=== PATIENT | male | born 1960 | race Caucasian/White ===

== ENCOUNTER → 2017-12-08 16:05 | Outpatient (CLI) | payer MEDICAID, SELFPAY ==
[2017-12-08 16:52] LABS: Hemoglobin A1C 6.7 % (0.0-7.0)
[2017-12-08 17:16] LABS: Alanine Aminotransferase 30 U/L (12-78); Albumin Level 4.4 gm/dL (3.4-5.0); Albumin/Globulin Ratio 1.3 (1.1-1.8); Alkaline Phosphatase 101 U/L (46-116); Anion Gap 17.3 mEq/L (5-15); Aspartate Amino Transferase 13 U/L (15-37); Bilirubin,Total 0.5 mg/dL (0.2-1.0); Blood Urea Nitrogen 21 mg/dL (7-18); Calcium 9.7 mg/dL (8.5-10.1); Carbon Dioxide 25 mmol/L (21.0-32.0); Chloride 102 mmol/L (98-107); Cholesterol 204 mg/dL (140-200); Creatinine,Serum 1.66 mg/dL (0.70-1.30); Estimated Glomerular Filt Rate 43 ml/min (>60); GFR (African American) 52 ML/MIN (>60); Globulin 3.4 gm/dl (1.3-3.2); Glucose 141 mg/dL (74-106); HDL Cholesterol 29 mg/dL (27-67); LDL Cholesterol 116 mg/dL (0-130); Potassium 4.3 mmoL/L (3.5-5.1); Sodium 140 mmol/L (136-145); Total Protein,Serum 7.8 gm/dL (6.4-8.2); Triglycerides 295 mg/dL (30-200); VLDL Cholesterol 59 mg/dL (0-40)
== END ==
PROVIDERS: PCP Internal Medicine Adolescent Medicine; Visit Provider Internal Medicine Adolescent Medicine
DX: E11.69 Type 2 diabetes mellitus with other specified complication (principal)
CPT/HCPCS: 36415; 80053; 80061; 83036

== ENCOUNTER → 2018-09-06 13:39 | Outpatient (CLI) | payer MEDICAID, SELFPAY ==
[2018-09-06 14:08] LABS: Basophils % 0.7 % (0.1-2.0); Eosinophils # 0.2 K/mm3 (0.0-0.4); Eosinophils % 3.7 % (0.1-12.0); Hematocrit 51.3 % (42.0-52.0); Hemoglobin 16.5 g/dL (14.1-18.0); Lymphocytes % 15.7 % (10-50); Mean Corpuscular HGB Conc 32.2 g/dL (31.8-35.4); Mean Corpuscular Hemoglobin 30.3 pg (27.0-31.2); Mean Corpuscular Volume 94.2 fl (80-94); Mean Platelet Volume 8.1 fl (7.4-10.4); Monocytes # 0.3 K/mm3 (0.1-1.0); Monocytes % 5.2 % (1.7-9.3); Neutrophils # 4.8 K/mm3 (1.8-7.8); Neutrophils % 74.8 % (37.0-80.0); Platelet Count 148 K/mm3 (142-424); Red Blood Count 5.45 M/mm3 (4.60-6.20); Red Cell Distribution Width 13.1 % (11.5-17.5); White Blood Count 6.4 K/mm3 (4.8-10.8)
[2018-09-06 15:23] LABS: Alanine Aminotransferase 27 U/L (12-78); Albumin/Globulin Ratio 1.3 (1.1-1.8); Alkaline Phosphatase 92 U/L (46-116); Anion Gap 17.3 mEq/L (5-15); Aspartate Amino Transferase 10 U/L (15-37); Bilirubin,Total 0.4 mg/dL (0.2-1.0); Blood Urea Nitrogen 27 mg/dL (7-18); Calcium 9.2 mg/dL (8.5-10.1); Carbon Dioxide 26 mmol/L (21.0-32.0); Chloride 103 mmol/L (98-107); Chol/HDL Ratio 6.3 (1-3.5); Cholesterol 200 mg/dL (140-200); Creatinine,Serum 1.63 mg/dL (0.70-1.30); Estimated Glomerular Filt Rate 44 ml/min (>60); GFR (African American) 53 ML/MIN (>60); Globulin 3.2 gm/dl (1.3-3.2); Glucose 123 mg/dL (74-106); HDL Cholesterol 32 mg/dL (27-67); LDL Cholesterol 123 mg/dL (0-130); Potassium 5.3 mmoL/L (3.5-5.1); Sodium 141 mmol/L (136-145); Total Protein,Serum 7.2 gm/dL (6.4-8.2); Triglycerides 225 mg/dL (30-200); VLDL Cholesterol 45 mg/dL (0-40)
[2018-09-06 15:50] LABS: Hemoglobin A1C 7.5 % (0.0-7.0)
[2018-09-08 19:50] LABS: Vitamin B12 431 pg/mL (232-1245)
== END ==
PROVIDERS: Visit Provider Internal Medicine Adolescent Medicine
DX: E11.69 Type 2 diabetes mellitus with other specified complication (principal); G60.9 Hereditary and idiopathic neuropathy, unspecified
CPT/HCPCS: 36415; 80053; 80061; 82607; 83036; 85025

== ENCOUNTER → 2019-04-26 11:23 | Outpatient (CLI) | payer MEDICAID, SELFPAY ==
[2019-04-26 12:55] LABS: Hemoglobin A1C 8.6 % (0.0-7.0)
[2019-04-26 13:01] LABS: Chol/HDL Ratio 6.8 (1-3.5); Cholesterol 162 mg/dL (140-200); HDL Cholesterol 24 mg/dL (27-67); Triglycerides 408 mg/dL (30-200)
== END ==
PROVIDERS: Visit Provider Internal Medicine Adolescent Medicine
DX: E11.69 Type 2 diabetes mellitus with other specified complication (principal)
CPT/HCPCS: 36415; 80061; 83036

== ENCOUNTER → 2020-06-14 12:30 | Outpatient (CLI) | payer OTHER, SELFPAY ==
[2020-06-14 13:16] LABS: Basophils # 0.1 K/mm3 (0-0.2); Basophils % 1.3 % (0.1-2.0); Eosinophils # 0.2 K/mm3 (0.0-0.4); Eosinophils % 4.6 % (0.1-12.0); Hematocrit 46.9 % (42.0-52.0); Hemoglobin 16.3 g/dL (14.1-18.0); Lymphocytes # 0.7 K/mm3 (0.7-4.5); Lymphocytes % 16.1 % (10-50); Mean Corpuscular HGB Conc 34.8 g/dL (31.8-35.4); Mean Corpuscular Hemoglobin 31.4 pg (27.0-31.2); Mean Corpuscular Volume 90.2 fl (80-94); Mean Platelet Volume 7.9 fl (7.4-10.4); Monocytes # 0.3 K/mm3 (0.1-1.0); Monocytes % 6.6 % (1.7-9.3); Neutrophils # 3.1 K/mm3 (1.8-7.8); Neutrophils % 71.4 % (37.0-80.0); Platelet Count 138 K/mm3 (142-424); Red Blood Count 5.19 M/mm3 (4.60-6.20); Red Cell Distribution Width 13.4 % (11.5-17.5); White Blood Count 4.3 K/mm3 (4.8-10.8)
[2020-06-14 13:52] LABS: Alanine Aminotransferase 37 U/L (12-78); Albumin Level 4.4 g/dl (3.5-5.0); Albumin/Globulin Ratio 1.6 (1.1-1.8); Alkaline Phosphatase 96 U/L (38-126); Anion Gap 19.7 mEq/L (5-15); Aspartate Amino Transferase 28 U/L (17-59); Bilirubin,Total 0.6 mg/dl (0.2-1.3); Blood Urea Nitrogen 26 mg/dl (9-20); Calcium 9.4 mg/dl (8.4-10.2); Carbon Dioxide 19 mmol/L (22.0-30.0); Chloride 103 mmol/L (98-107); Chol/HDL Ratio 5.4 (1-3.5); Cholesterol 158 mg/dl (140-200); Estimated Glomerular Filt Rate 44 ml/min (>60); GFR (African American) 53 ML/MIN (>60); Globulin 2.8 g/dL (1.3-3.2); Glucose 209 mg/dl (74-100); HDL Cholesterol 29 mg/dl (40-60); Potassium 4.7 mmoL/L (3.5-5.1); Sodium 137 mmol/L (136-145); Total Protein,Serum 7.2 g/dl (6.3-8.2); Triglycerides 336 mg/dl (30-150); VLDL Cholesterol 67 mg/dL (0-40)
[2020-06-14 13:59] LABS: Hemoglobin A1C 8.3 % (4.0-6.0)
[2020-06-14 14:03] LABS: Direct LDL Cholesterol 84.02 mg/dL (100-129)
[2020-06-14 14:47] LABS: Vitamin B12 > 1000 pg/mL
== END ==
PROVIDERS: Visit Provider Internal Medicine Adolescent Medicine
DX: I10 Essential (primary) hypertension (principal); E11.69 Type 2 diabetes mellitus with other specified complication; E53.8 Deficiency of other specified B group vitamins; Z79.84 Long term (current) use of oral hypoglycemic drugs
CPT/HCPCS: 36415; 80053; 80061; 82607; 83036; 85025

== ENCOUNTER → 2020-09-26 10:31 | Outpatient (CLI) | payer OTHER, SELFPAY ==
[2020-09-26 13:06] LABS: Ethyl Alcohol < 10 mg/dl (0-10)
== END ==
PROVIDERS: Visit Provider Internal Medicine Adolescent Medicine
DX: Z02.1 Encounter for pre-employment examination (principal)
CPT/HCPCS: 36415

== ENCOUNTER → 2021-07-12 12:01 | Outpatient (CLI) | payer OTHER, SELFPAY ==
[2021-07-12 12:07] LABS: Microscopic, Urine URINE MICROSCOPIC (MICROSCOPIC)
[2021-07-12 12:54] LABS: Basophils # 0.1 K/mm3 (0-0.2); Basophils % 2.1 % (0.1-2.0); Eosinophils # 0.2 K/mm3 (0.0-0.4); Eosinophils % 4.1 % (0.1-12.0); Hematocrit 50.6 % (42.0-52.0); Hemoglobin 16.6 g/dL (14.1-18.0); Lymphocytes # 0.6 K/mm3 (0.7-4.5); Lymphocytes % 15.6 % (10-50); Mean Corpuscular HGB Conc 32.8 g/dL (31.8-35.4); Mean Corpuscular Hemoglobin 30.3 pg (27.0-31.2); Mean Corpuscular Volume 92.4 fl (80-94); Mean Platelet Volume 8.7 fl (7.4-10.4); Monocytes # 0.3 K/mm3 (0.1-1.0); Monocytes % 7.6 % (1.7-9.3); Neutrophils # 2.6 K/mm3 (1.8-7.8); Neutrophils % 70.6 % (37.0-80.0); Platelet Count 139 K/mm3 (142-424); Red Blood Count 5.48 M/mm3 (4.60-6.20); Red Cell Distribution Width 14.5 % (11.5-17.5); White Blood Count 3.7 K/mm3 (4.8-10.8)
[2021-07-12 13:19] LABS: Appearance,Urine CLEAR (Clear); Bilirubin,Urine Negative (Negative); Blood, Urine Negative (Negative); Color,Urine YELLOW (Yellow); Glucose,Urine (UA) 3+ (Negative); Ketones,Urine Negative (Negative); Leukocyte Esterase,Urine Negative (Negative); Nitrate,Urine Negative (Negative); PH,Urine 5.5 (5.0-8.5); Protein,Urine Negative (Negative); Urobilinogen,Urine 0.2 EU/dl (0.2)
[2021-07-12 13:27] LABS: Creatinine,Urine Random 90 mg/dL (Not Estab.)
[2021-07-12 13:29] LABS: Squamous Epithelial Cell,Urine Occasional #/hpf (0-5)
[2021-07-12 13:44] LABS: Albumin Level 4.4 g/dl (3.5-5.0); Anion Gap 19.1 mEq/L (5-15); Blood Urea Nitrogen 24 mg/dl (9-20); Calcium 9.5 mg/dl (8.4-10.2); Carbon Dioxide 22 mmol/L (22.0-30.0); Chloride 101 mmol/L (98-107); Estimated Glomerular Filt Rate 47 ml/min (>60); GFR (African American) 57 ML/MIN (>60); Glucose 146 mg/dl (74-100); Phosphorous 2.9 mg/dl (2.5-4.5); Potassium 5.1 mmoL/L (3.5-5.1); Sodium 137 mmol/L (136-145)
[2021-07-12 13:56] LABS: Intact Parathyroid Hormone 127.5 pg/mL (7.5-53.5)
[2021-07-12 14:01] LABS: 25-OH Vitamin D, Total 35.8 ng/mL (30-100)
== END ==
PROVIDERS: Visit Provider Student in an Organized Health Care Education/Training Program
DX: N18.30 Chronic kidney disease, stage 3 unspecified (principal)
CPT/HCPCS: 36415; 80069; 81001; 82306; 82570; 83970; 84155; 85025

== ENCOUNTER → 2021-07-29 12:14 | Outpatient (CLI) | payer OTHER, SELFPAY ==
[2021-07-29 13:02] LABS: Erythrocyte Sedimentation Rate 1 mm/hr (0-20)
[2021-07-29 14:27] LABS: C-Reactive Protein 0.9 mg/L (0-4)
[2021-07-29 14:48] LABS: Free Thyroxine Index 3.4 ug/dL (5.93-13.13); Triiodothryronine (T3) Uptake 48 % (23.5-40.5)
[2021-07-29 15:02] LABS: Thyroid Stimulating Hormone 2.07 uIU/mL (0.465-4.68)
[2021-07-29 15:12] LABS: Vitamin B12 414 pg/mL (239-931)
[2021-07-29 18:47] LABS: Hemoglobin A1C 8.1 % (4.0-6.0)
== END ==
PROVIDERS: Visit Provider Internal Medicine Adolescent Medicine
DX: E11.69 Type 2 diabetes mellitus with other specified complication (principal); M35.3 Polymyalgia rheumatica; Z79.84 Long term (current) use of oral hypoglycemic drugs
CPT/HCPCS: 36415; 82607; 83036; 84436; 84443; 84479; 85651; 86140

== ENCOUNTER → 2022-01-03 11:53 | Outpatient (CLI) | payer OTHER, SELFPAY ==
[2022-01-03 12:08] LABS: Microscopic, Urine URINE MICROSCOPIC (MICROSCOPIC)
[2022-01-03 13:06] LABS: Basophils % 0.7 % (0.1-2.0); Eosinophils # 0.1 K/mm3 (0.0-0.4); Eosinophils % 2.2 % (0.1-12.0); Hematocrit 48.1 % (42.0-52.0); Hemoglobin 15.6 g/dL (14.1-18.0); Lymphocytes # 0.5 K/mm3 (0.7-4.5); Lymphocytes % 10.1 % (10-50); Mean Corpuscular HGB Conc 32.5 g/dL (31.8-35.4); Mean Corpuscular Volume 92.3 fl (80-94); Mean Platelet Volume 9.6 fl (7.4-10.4); Monocytes # 0.3 K/mm3 (0.1-1.0); Monocytes % 6.2 % (1.7-9.3); Neutrophils # 4.2 K/mm3 (1.8-7.8); Neutrophils % 80.8 % (37.0-80.0); Platelet Count 163 K/mm3 (142-424); Red Blood Count 5.21 M/mm3 (4.60-6.20); Red Cell Distribution Width 14.4 % (11.5-17.5); White Blood Count 5.2 K/mm3 (4.8-10.8)
[2022-01-03 14:36] LABS: Alanine Aminotransferase 21 U/L (12-78); Albumin Level 4.2 g/dl (3.5-5.0); Albumin/Globulin Ratio 1.8 (1.1-1.8); Alkaline Phosphatase 85 U/L (38-126); Anion Gap 15.4 mEq/L (5-15); Aspartate Amino Transferase 22 U/L (17-59); Bilirubin,Total 1.1 mg/dl (0.2-1.3); Blood Urea Nitrogen 29 mg/dl (9-20); Carbon Dioxide 24 mmol/L (22.0-30.0); Chloride 103 mmol/L (98-107); Estimated Glomerular Filt Rate 47 ml/min (>60); GFR (African American) 57 ML/MIN (>60); Globulin 2.4 g/dL (1.3-3.2); Glucose 99 mg/dl (74-100); Potassium 5.4 mmoL/L (3.5-5.1); Sodium 137 mmol/L (136-145); Total Protein,Serum 6.6 g/dl (6.3-8.2); Uric Acid 5.1 mg/dl (3.5-8.5)
[2022-01-03 14:36] LABS: Albumin Level 4.2 g/dl (3.5-5.0); Anion Gap 15.4 mEq/L (5-15); Blood Urea Nitrogen 29 mg/dl (9-20); Carbon Dioxide 25 mmol/L (22.0-30.0); Chloride 103 mmol/L (98-107); Estimated Glomerular Filt Rate 47 ml/min (>60); GFR (African American) 57 ML/MIN (>60); Glucose 99 mg/dl (74-100); Phosphorous 3.8 mg/dl (2.5-4.5); Potassium 5.4 mmoL/L (3.5-5.1); Sodium 138 mmol/L (136-145)
[2022-01-03 14:53] LABS: Appearance,Urine CLEAR (Clear); Bilirubin,Urine Negative (Negative); Blood, Urine Negative (Negative); Color,Urine YELLOW (Yellow); Glucose,Urine (UA) 3+ (Negative); Ketones,Urine Negative (Negative); Leukocyte Esterase,Urine Negative (Negative); Nitrate,Urine Negative (Negative); Protein,Urine Negative (Negative); Specific Gravity, Urine 1.025 (1.005-1.030); Urobilinogen,Urine 0.2 EU/dl (0.2)
[2022-01-03 15:27] LABS: Squamous Epithelial Cell,Urine Occasional #/hpf (0-5)
[2022-01-03 15:47] LABS: Creatinine,Urine Random 118 mg/dL (Not Estab.)
[2022-01-03 15:51] LABS: Microalbumin/Creatinine Ratio 21.9
== END ==
PROVIDERS: Internal Medicine Rheumatology; PCP Internal Medicine Adolescent Medicine; Referring Provider Student in an Organized Health Care Education/Training Program; Visit Provider Internal Medicine Adolescent Medicine
DX: M10.9 Gout, unspecified (principal); M19.90 Unspecified osteoarthritis, unspecified site; N28.9 Disorder of kidney and ureter, unspecified; N18.32 Chronic kidney disease, stage 3b
CPT/HCPCS: 36415; 80053; 80069; 81001; 82043; 82570; 84550; 85025

== ENCOUNTER → 2022-01-30 17:11 | Outpatient (CLI) | payer OTHER, SELFPAY ==
--- NOTE | 2022-01-30 17:17 | XR_ITS ---
PROCEDURE INFORMATION: Exam: XR Right Foot Exam date and time: 01/30/2022 5:20 PM Age: 61 years old Clinical indication: Pain; Heel; Right; Additional info: Cellulitis. TECHNIQUE: Imaging protocol: XR Right foot. Views: 3 or more views. COMPARISON: CR FTR3 FOOT-RT-3 VIEWS 05/24/2016 5:04 PM FINDINGS: Bones/joints: Severe arthropathy in the ankle and midfoot, large periarticular spurs, periarticular soft tissue calcifications. 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 Old distal fibular fracture deformity. Prominent plantar and Achilles calcaneal spurs. No lytic erosive changes are seen in the posterior calcaneus, deep to a surgical clip and gas bubble in the heel. No new fractures or dislocation in the interval. Soft tissues: A new metallic surgical clip in the plantar soft tissues of the heel, and an adjacent 1.4 cm gas bubble which may be postoperative or due to infection, in this patient with history of cellulitis. Soft tissue swelling in the midfoot and hindfoot. IMPRESSION: 1. A new metallic surgical clip in the soft tissues of the heel, with an adjacent 1.5 cm gas bubble; correlate for postoperative air if this has been recent surgery, versus infection with gas-forming organism, or cutaneous ulcer. 2. Soft tissue swelling in the hindfoot and midfoot consistent with the history of cellulitis. 3. No findings of osteomyelitis. 4. 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 Old fracture deformities at the ankle and foot are unchanged.
== END ==
PROVIDERS: PCP Internal Medicine Adolescent Medicine; Visit Provider Nurse Practitioner Family
DX: E11.628 Type 2 diabetes mellitus with other skin complications (principal); L08.9 Local infection of the skin and subcutaneous tissue, unspecified; L03.115 Cellulitis of right lower limb; Z79.84 Long term (current) use of oral hypoglycemic drugs
CPT/HCPCS: 73630

== ENCOUNTER → 2022-01-31 11:03 | Outpatient (CLI) | payer OTHER, SELFPAY ==
[2022-01-31 11:32] LABS: Basophils # 0.1 K/mm3 (0-0.2); Basophils % 1.4 % (0.1-2.0); Eosinophils # 0.1 K/mm3 (0.0-0.4); Eosinophils % 2.4 % (0.1-12.0); Hematocrit 47.4 % (42.0-52.0); Lymphocytes # 0.5 K/mm3 (0.7-4.5); Lymphocytes % 14.2 % (10-50); Mean Corpuscular HGB Conc 31.5 g/dL (31.8-35.4); Mean Corpuscular Hemoglobin 29.4 pg (27.0-31.2); Mean Corpuscular Volume 93.1 fl (80-94); Mean Platelet Volume 9.6 fl (7.4-10.4); Monocytes # 0.3 K/mm3 (0.1-1.0); Monocytes % 6.7 % (1.7-9.3); Neutrophils # 2.8 K/mm3 (1.8-7.8); Neutrophils % 75.3 % (37.0-80.0); Platelet Count 109 K/mm3 (142-424); Red Blood Count 5.09 M/mm3 (4.60-6.20); Red Cell Distribution Width 13.8 % (11.5-17.5); White Blood Count 3.7 K/mm3 (4.8-10.8)
[2022-01-31 12:12] LABS: Alanine Aminotransferase 24 U/L (12-78); Albumin Level 4.1 g/dl (3.5-5.0); Albumin/Globulin Ratio 1.7 (1.1-1.8); Alkaline Phosphatase 74 U/L (38-126); Anion Gap 11.8 mEq/L (5-15); Aspartate Amino Transferase 26 U/L (17-59); Bilirubin,Total 0.6 mg/dl (0.2-1.3); Blood Urea Nitrogen 22 mg/dl (9-20); Calcium 8.7 mg/dl (8.4-10.2); Carbon Dioxide 27 mmol/L (22.0-30.0); Chloride 106 mmol/L (98-107); Estimated Glomerular Filt Rate 61 ml/min (>60); GFR (African American) 74 ML/MIN (>60); Globulin 2.4 g/dL (1.3-3.2); Glucose 115 mg/dl (74-100); Potassium 4.8 mmoL/L (3.5-5.1); Sodium 140 mmol/L (136-145); Total Protein,Serum 6.5 g/dl (6.3-8.2)
[2022-01-31 12:17] LABS: C-Reactive Protein 1.9 mg/L (0-4)
[2022-01-31 12:44] LABS: Erythrocyte Sedimentation Rate 18 mm/hr (0-20)
== END ==
PROVIDERS: PCP Nurse Practitioner Family; Referring Provider Nurse Practitioner Family; Visit Provider Nurse Practitioner Family
DX: E11.628 Type 2 diabetes mellitus with other skin complications (principal); L08.9 Local infection of the skin and subcutaneous tissue, unspecified; L03.115 Cellulitis of right lower limb; Z79.84 Long term (current) use of oral hypoglycemic drugs
CPT/HCPCS: 36415; 80053; 85025; 85651; 86140

== ENCOUNTER → 2022-04-24 14:44 | Outpatient (CLI) | payer OTHER, SELFPAY ==
[2022-04-24 16:11] LABS: Hemoglobin A1C 6.1 % (4.0-6.0)
[2022-04-24 16:19] LABS: Chloride 103 mmol/L (98-107)
[2022-04-24 16:20] LABS: Potassium 4.9 mmoL/L (3.5-5.1); Sodium 139 mmol/L (136-145)
[2022-04-24 16:22] LABS: Alanine Aminotransferase 18 U/L (12-78); Alkaline Phosphatase 83 U/L (38-126); Aspartate Amino Transferase 24 U/L (17-59); Bilirubin,Total 0.7 mg/dl (0.2-1.3); Blood Urea Nitrogen 22 mg/dl (9-20); Estimated Glomerular Filt Rate 47 ml/min (>60); GFR (African American) 57 ML/MIN (>60)
[2022-04-24 16:23] LABS: Albumin Level 4.3 g/dl (3.5-5.0); Albumin/Globulin Ratio 1.7 (1.1-1.8); Anion Gap 12.9 mEq/L (5-15); Calcium 9.7 mg/dl (8.4-10.2); Carbon Dioxide 28 mmol/L (22.0-30.0); Globulin 2.5 g/dL (1.3-3.2); Glucose 108 mg/dl (74-100); Total Protein,Serum 6.8 g/dl (6.3-8.2)
== END ==
PROVIDERS: PCP Internal Medicine Adolescent Medicine; Visit Provider Internal Medicine Adolescent Medicine
DX: E11.69 Type 2 diabetes mellitus with other specified complication (principal); N18.32 Chronic kidney disease, stage 3b; Z79.84 Long term (current) use of oral hypoglycemic drugs
CPT/HCPCS: 36415; 80053; 83036

== ENCOUNTER → 2022-05-23 10:40 | Outpatient (CLI) | payer OTHER, SELFPAY ==
[2022-05-23 10:56] LABS: Microscopic, Urine URINE MICROSCOPIC (MICROSCOPIC)
[2022-05-23 11:54] LABS: Basophils % 0.5 % (0.1-2.0); Eosinophils % 0.8 % (0.1-12.0); Hematocrit 46.4 % (42.0-52.0); Hemoglobin 14.5 g/dL (14.1-18.0); Lymphocytes # 0.7 K/mm3 (0.7-4.5); Lymphocytes % 15.4 % (10-50); Mean Corpuscular HGB Conc 31.2 g/dL (31.8-35.4); Mean Corpuscular Hemoglobin 28.3 pg (27.0-31.2); Mean Corpuscular Volume 90.9 fl (80-94); Mean Platelet Volume 8.2 fl (7.4-10.4); Monocytes # 0.3 K/mm3 (0.1-1.0); Monocytes % 6.4 % (1.7-9.3); Neutrophils # 3.7 K/mm3 (1.8-7.8); Neutrophils % 76.9 % (37.0-80.0); Platelet Count 169 K/mm3 (142-424); Red Blood Count 5.11 M/mm3 (4.60-6.20); Red Cell Distribution Width 14.7 % (11.5-17.5); White Blood Count 4.8 K/mm3 (4.8-10.8)
[2022-05-23 12:18] LABS: Appearance,Urine CLEAR (Clear); Bilirubin,Urine Negative (Negative); Blood, Urine Negative (Negative); Color,Urine YELLOW (Yellow); Glucose,Urine (UA) 3+ (Negative); Ketones,Urine Negative (Negative); Leukocyte Esterase,Urine Negative (Negative); Nitrate,Urine Negative (Negative); PH,Urine 5.5 (5.0-8.5); Protein,Urine TRACE (Negative); Urobilinogen,Urine 0.2 EU/dl (0.2)
[2022-05-23 12:19] LABS: Albumin Level 3.9 g/dl (3.5-5.0); Anion Gap 10.7 mEq/L (5-15); Blood Urea Nitrogen 20 mg/dl (9-20); Calcium 9.4 mg/dl (8.4-10.2); Carbon Dioxide 25 mmol/L (22.0-30.0); Chloride 108 mmol/L (98-107); Estimated Glomerular Filt Rate 51 ml/min (>60); GFR (African American) 62 ML/MIN (>60); Glucose 152 mg/dl (74-100); Phosphorous 3.1 mg/dl (2.5-4.5); Potassium 4.7 mmoL/L (3.5-5.1); Sodium 139 mmol/L (136-145)
[2022-05-23 12:31] LABS: Intact Parathyroid Hormone 41.5 pg/mL (7.5-53.5)
[2022-05-23 12:34] LABS: Bacteria,Urine Trace /lpf
[2022-05-23 12:36] LABS: 25-OH Vitamin D, Total 27.5 ng/mL (30-100)
[2022-05-23 12:37] LABS: Creatinine,Urine Random 153 mg/dL (Not Estab.)
== END ==
PROVIDERS: PCP Internal Medicine Adolescent Medicine; Visit Provider Student in an Organized Health Care Education/Training Program
DX: N18.32 Chronic kidney disease, stage 3b (principal); E20.8 Other hypoparathyroidism
CPT/HCPCS: 36415; 80069; 81001; 82306; 82570; 83970; 84155; 85025

== ENCOUNTER → 2022-06-03 09:32 | Outpatient (CLI) | payer OTHER, SELFPAY ==
--- NOTE | 2022-06-03 09:37 | CA_ITS ---
FINAL REPORT TECHNIQUE: Grayscale, color Doppler and duplex Doppler ultrasound of the kidneys, aorta and renal arteries was performed. Multiple velocities were measured. CLINICAL HISTORY: HTN,DM,OBESITY FINDINGS: Aorta velocity: 182 cm/sec Right kidney: 11.3 cm. No evidence of hydronephrosis or mass. Right intrarenal RI: 0.66 Right renal artery velocity: 189 cm/sec. Right RAR (Renal artery-Aortic Ratio): 1.04 Left Kidney: 12.3 cm. No evidence of hydronephrosis or mass. Left intrarenal RI: 0.65 Left renal artery velocity: 176 cm/sec. Left RAR (Renal Artery-Aortic Ratio): 0.97 IMPRESSION: No evidence of significant renal artery stenosis. CT angiogram or postcontrast MR angiogram would be more sensitive for evaluation of possible renal artery stenosis. Reviewed, Interpreted and Dictated by Indio Luong III, MD Transcribed by Abimbola Mccormack Authenticated and [facility]
== END ==
PROVIDERS: PCP Internal Medicine Adolescent Medicine; Visit Provider Internal Medicine Nephrology
DX: I10 Essential (primary) hypertension (principal)
CPT/HCPCS: 93976

== ENCOUNTER → 2022-11-20 11:39 | Outpatient (CLI) | payer OTHER, SELFPAY ==
[2022-11-20 11:45] LABS: Microscopic, Urine URINE MICROSCOPIC (MICROSCOPIC)
[2022-11-20 12:37] LABS: Appearance,Urine CLEAR (Clear); Bilirubin,Urine Negative (Negative); Blood, Urine Negative (Negative); Color,Urine YELLOW (Yellow); Glucose,Urine (UA) 3+ (Negative); Ketones,Urine Negative (Negative); Leukocyte Esterase,Urine Negative (Negative); Nitrate,Urine Negative (Negative); PH,Urine 5.5 (5.0-8.5); Protein,Urine Negative (Negative); Urobilinogen,Urine 0.2 EU/dl (0.2)
[2022-11-20 12:58] LABS: Bacteria,Urine Trace /lpf; Squamous Epithelial Cell,Urine Occasional #/hpf (0-5)
[2022-11-20 13:09] LABS: Albumin Level 4.7 g/dl (3.5-5.0); Anion Gap 14.7 mEq/L (5-15); Blood Urea Nitrogen 26 mg/dl (9-20); Calcium 8.9 mg/dl (8.4-10.2); Carbon Dioxide 26 mmol/L (22.0-30.0); Chloride 104 mmol/L (98-107); Estimated Glomerular Filt Rate 44 ml/min (>60); GFR (African American) 53 ML/MIN (>60); Glucose 160 mg/dl (74-100); Phosphorous 3.2 mg/dl (2.5-4.5); Potassium 4.7 mmoL/L (3.5-5.1); Sodium 140 mmol/L (136-145)
[2022-11-20 13:25] LABS: Intact Parathyroid Hormone 123.3 pg/mL (7.5-53.5)
[2022-11-20 17:52] LABS: Creatinine,Urine Random 87 mg/dL (Not Estab.)
== END ==
PROVIDERS: PCP Internal Medicine Adolescent Medicine; Visit Provider Internal Medicine Nephrology
DX: N18.32 Chronic kidney disease, stage 3b (principal); E55.9 Vitamin D deficiency, unspecified
CPT/HCPCS: 36415; 80069; 81001; 82306; 82570; 83970; 84155

== ENCOUNTER → 2023-03-27 10:23 | Outpatient (REF) | payer SELFPAY ==
[2023-03-27 11:13] LABS: COC Drug Screen Collection Only
== END ==
LOC: LAB 10:23
PROVIDERS: PCP Internal Medicine Adolescent Medicine
DX: N18.32 Chronic kidney disease, stage 3b (principal)
CPT/HCPCS: 36415

== ENCOUNTER 2023-11-19 14:34 | Outpatient (CLI) | payer SELFPAY ==
[2023-11-19 14:47] LABS: Microscopic, Urine URINE MICROSCOPIC (MICROSCOPIC)
[2023-11-19 15:03] LABS: Basophils # 0.1 K/mm3 (0-0.2); Basophils % 1.2 % (0.1-2.0); Eosinophils # 0.1 K/mm3 (0.0-0.4); Eosinophils % 2.1 % (0.1-12.0); Hemoglobin 14.6 g/dL (14.1-18.0); Lymphocytes # 0.9 K/mm3 (0.7-4.5); Lymphocytes % 13.7 % (10-50); Mean Corpuscular HGB Conc 32.5 g/dL (31.8-35.4); Mean Corpuscular Hemoglobin 27.6 pg (27.0-31.2); Mean Corpuscular Volume 84.8 fl (80-94); Mean Platelet Volume 9.3 fl (7.4-10.4); Monocytes # 0.3 K/mm3 (0.1-1.0); Monocytes % 4.4 % (1.7-9.3); Neutrophils # 4.9 K/mm3 (1.8-7.8); Neutrophils % 78.7 % (37.0-80.0); Platelet Count 228 K/mm3 (142-424); Red Cell Distribution Width 14.4 % (11.5-17.5); White Blood Count 6.2 K/mm3 (4.8-10.8)
[2023-11-19 15:09] LABS: Appearance,Urine CLEAR (Clear); Bilirubin,Urine Negative (Negative); Blood, Urine Negative (Negative); Color,Urine YELLOW (Yellow); Glucose,Urine (UA) 3+ (Negative); Ketones,Urine Negative (Negative); Leukocyte Esterase,Urine Negative (Negative); Nitrate,Urine Negative (Negative); Protein,Urine Negative (Negative); Urobilinogen,Urine 0.2 EU/dl (0.2)
[2023-11-19 15:20] LABS: Bacteria,Urine Trace /lpf; Squamous Epithelial Cell,Urine Occasional #/hpf (0-5)
[2023-11-19 15:27] LABS: Creatinine,Urine Random 90 mg/dL (Not Estab.)
[2023-11-19 15:29] LABS: Albumin Level 4.1 g/dl (3.5-5.0); Anion Gap 15.6 mEq/L (5-15); Blood Urea Nitrogen 22 mg/dl (9-20); Calcium 9.2 mg/dl (8.4-10.2); Carbon Dioxide 22 mmol/L (22.0-30.0); Chloride 107 mmol/L (98-107); Estimated Glomerular Filt Rate 47 ml/min (>60); GFR (African American) 57 ML/MIN (>60); Glucose 137 mg/dl (74-100); Phosphorous 3.4 mg/dl (2.5-4.5); Potassium 4.6 mmoL/L (3.5-5.1); Sodium 140 mmol/L (136-145)
[2023-11-19 15:39] LABS: Intact Parathyroid Hormone 117.8 pg/mL (7.5-53.5)
[2023-11-19 15:45] LABS: 25-OH Vitamin D, Total 21.4 ng/mL (30-100)
== END 2023-11-19 23:59 ==
PROVIDERS: PCP Internal Medicine Adolescent Medicine; Visit Provider Internal Medicine Nephrology
DX: N18.32 Chronic kidney disease, stage 3b (principal); E20.89 Other specified hypoparathyroidism; E55.9 Vitamin D deficiency, unspecified
CPT/HCPCS: 36415; 80069; 81001; 82306; 82570; 83970; 84155; 85025

== ENCOUNTER 2023-12-18 16:46 | Emergency (ER) | payer MEDICARE, SELFPAY ==
[2023-12-18] VITALS (12 sets, daily range): BP systolic 149–193; BP diastolic 74–109; PULSE 64–92; RESP 16–20; TEMP 37; O2SAT 93–97; BMI 43.2
--- NOTE | 2023-12-18 16:58 | PC.NURSE ---
Dr. Chavarria at [facility] for pt eval
[2023-12-18 17:22] LABS: Basophils # 0.1 K/mm3 (0-0.2); Eosinophils # 0.1 K/mm3 (0.0-0.4); Eosinophils % 2.2 % (0.1-12.0); Hematocrit 42.5 % (42.0-52.0); Hemoglobin 13.3 g/dL (14.1-18.0); Lymphocytes # 0.8 K/mm3 (0.7-4.5); Lymphocytes % 14.7 % (10-50); Mean Corpuscular HGB Conc 31.3 g/dL (31.8-35.4); Mean Corpuscular Hemoglobin 27.6 pg (27.0-31.2); Mean Corpuscular Volume 88.1 fl (80-94); Mean Platelet Volume 9.7 fl (7.4-10.4); Monocytes # 0.3 K/mm3 (0.1-1.0); Monocytes % 6.3 % (1.7-9.3); Neutrophils % 75.8 % (37.0-80.0); Platelet Count 147 K/mm3 (142-424); Red Blood Count 4.83 M/mm3 (4.60-6.20); Red Cell Distribution Width 14.6 % (11.5-17.5); White Blood Count 5.2 K/mm3 (4.8-10.8)
[2023-12-18 17:30] LABS: Alanine Aminotransferase 31 U/L (12-78); Albumin/Globulin Ratio 1.5 (1.1-1.8); Alkaline Phosphatase 87 U/L (38-126); Anion Gap 14.7 mEq/L (5-15); Aspartate Amino Transferase 29 U/L (17-59); Bilirubin,Total 0.5 mg/dl (0.2-1.3); Blood Urea Nitrogen 21 mg/dl (9-20); Carbon Dioxide 26 mmol/L (22.0-30.0); Chloride 101 mmol/L (98-107); Creatinine Clearance Estimated 56 mL/min (50-200); Estimated Glomerular Filt Rate 51 ml/min (>60); GFR (African American) 62 ML/MIN (>60); Globulin 2.7 g/dL (1.3-3.2); Glucose 197 mg/dl (74-100); Potassium 4.7 mmoL/L (3.5-5.1); Sodium 137 mmol/L (136-145); Total Protein,Serum 6.7 g/dl (6.3-8.2)
--- NOTE | 2023-12-18 17:30 | ED_ITS ---
Discharge Plan Disposition Patient Disposition: Home, Self-Care Prescriptions Prescriptions: New furosemide 40 mg tablet 40 mg PO DAILY Qty: 30 1RF No Action metformin 1,000 mg tablet 1,000 mg PO BID losartan 50 mg tablet 50 mg PO DAILY Uloric 40 mg tablet 40 mg PO DAILY Steglatro 5 mg tablet 5 mg PO DAILY ranitidine HCl 150 mg capsule 150 mg PO DAILY Referrals Follow up/Referrals: Kush Heaton DO [Staff Physician] - See instructions Kush Pemberton MD [Staff Physician] - See instructions Provider,MD Che [Primary Care Provider] - See instructions Activity Restrictions/Add. Instructions Additional Instructions/Restrictions: On Wednesday, 12/19, call your family doctor as well as cardiology to set up an appointment for further management of high blood pressure and heart failure. Call your family doctor to establish care for this visit to the emergency department and schedule follow-up within 48 hours to ensure improvement. If you have any worsening of your condition or any other concerning signs or symptoms, return to the emergency department or your primary care doctor for further evaluation. Take Lasix daily until follow-up. Clinical Impressions Clinical Impression: Hypertension, Heart failure, Fluid overload Discharge ED Provider: Darci Chavarria General Adult HPI General Chief complaint: Weakness Stated complaint: SOA,blood pressure is 174 over 106 Time Seen by Provider: 12/18/23 16:57 Mode of Arrival: Wheelchair Source of Information: Patient Limitations: No Limitations Description of Symptoms (Recalled from ER Triage Doc. by RN): pt reports he got a blood pressure cuff for home use a few days ago. pt reports his bp has been elevated every time he has taken it. pt reports this morning it was 172/96. pt c/o BLE weakness and SOA x2wks. pt also c/o numbness and tingling in BLE, however, he states his feet have been numb for years. pt seems anxious. pt has a hx of DM and HTN. pt reports he took 100mg losartan this am without any relief. pt states he lost his insurance and is out of some medications. History of Present Illness HPI narrative: 63-year-old male history of hypertension presenting with hypertension and weakness. Patient states that he has been on the same blood pressure medication for 10 years. He does not usually take his blood pressure frequently. He bought a blood pressure cuff about 5 days ago, started taking it about 2 days ago regularly and noticed that his blood pressure was consistently elevated. Has not seen his family doctor for this complaint. States that he has also had associated intermittent shortness of breath, lightheadedness with changes in position, and generalized weakness including his lower extremities. Lower extremities are also more swollen than usual. No focal or unilateral weakness, no bowel or bladder dysfunction, no injuries. Denies chest pain, nausea, vomiting, any other recent medication changes Related Data Home Medications Medication Instructions Recorded Confirmed ertugliflozin 5 mg tablet 5 mg PO DAILY Diabetes 06/02/19 07/10/19 (Steglatro) febuxostat 40 mg tablet (Uloric) 40 mg PO DAILY gout 06/02/19 07/10/19 losartan 50 mg tablet 50 mg PO DAILY blood pressure 06/02/19 07/10/19 metformin 1,000 mg tablet 1,000 mg PO BID Diabetes 06/02/19 07/10/19 ranitidine HCl 150 mg capsule 150 mg PO DAILY GERD 06/02/19 07/10/19 Previous Rx's Medication Instructions Recorded furosemide 40 mg tablet 40 mg PO DAILY #30 tabs 12/18/23 Allergies Allergy/AdvReac Type Severity Reaction Status Date / Time No Known Allergies Allergy Verified 12/18/23 17:13 [facility] Disclaimer: The information contained in this section may have been updated after the patient was seen, as this information can be updated by other users. Social History Smoking Status: Never smoker alcohol intake: never current occupational status: employed Travel in the last 8 weeks: Inside the [facility] ROS Obtained: Yes All systems reviewed & no additional complaints except as documented Physical Exam General General appearance: alert and in no apparent distress Head Head exam: atraumatic and normocephalic Eye Eye exam: Present normal appearance, PERRL and EOMI ENT ENT exam: Present mucous membranes moist Neck Neck exam: Present normal inspection, full ROM and trachea midline Respiratory Respiratory exam: Present normal lung sounds bilaterally; Absent respiratory distress, wheezes, stridor, accessory muscle use or prolonged expiratory phase Cardiovascular Cardiovascular exam: Present regular rate and normal rhythm Abdominal Exam Abdominal exam: Present soft; Absent distention, tenderness, guarding, rebound or rigidity Extremities Exam Extremities exam: Present edema Neurological Exam Neurological exam: Present alert, oriented X3, CN II-XII intact and normal gait; Absent motor sensory deficit Skin Skin exam: Present warm and dry; Absent diaphoresis or erythema Medical Decision Making Medical Records Medical records reviewed: Yes I reviewed the patient's medical records. Matteo Inquiry Pt receiving controlled substance: No Matteo was queried for this patient: No Vital Signs: 12/18/23 17:03 12/18/23 17:01 12/18/23 17:15 Temperature 98.6 F Temperature Source Oral Pulse Rate 79 70 Pulse Rate [Left] 92 H Respiratory Rate 18 Blood Pressure 188/98 H 161/84 H Blood Pressure [Right Arm] 185/109 H Blood Pressure Mean Blood Pressure Mean [Right Arm] 134 Blood Pressure Source [Right Arm] Automatic Cuff Blood Pressure Position [Right Arm] Sitting 02 Sat by Pulse Oximetry 97 97 97 Oxygen Delivery Method Room Air Room Air 12/18/23 17:30 12/18/23 17:38 12/18/23 18:00 Temperature Temperature Source Pulse Rate 70 81 71 Pulse Rate [Left] Respiratory Rate Blood Pressure 157/82 H 169/89 H 161/88 H Blood Pressure [Right Arm] Blood Pressure Mean Blood Pressure Mean [Right Arm] Blood Pressure Source [Right Arm] Blood Pressure Position [Right Arm] 02 Sat by Pulse Oximetry 94 L 96 96 Oxygen Delivery Method Room Air 12/18/23 18:31 12/18/23 19:00 12/18/23 19:30 Temperature Temperature Source Pulse Rate 64 74 68 Pulse Rate [Left] Respiratory Rate 20 18 Blood Pressure 163/85 H 149/82 H 155/74 H Blood Pressure [Right Arm] Blood Pressure Mean 95 95 Blood Pressure Mean [Right Arm] Blood Pressure Source [Right Arm] Blood Pressure Position [Right Arm] 02 Sat by Pulse Oximetry 93 L 96 95 Oxygen Delivery Method Room Air Room Air Room Air 12/18/23 20:01 12/18/23 20:30 12/18/23 21:14 Temperature 98.6 F Temperature Source Oral Pulse Rate 79 75 72 Pulse Rate [Left] Respiratory Rate 18 16 18 Blood Pressure 193/102 H 161/102 H 154/98 H Blood Pressure [Right Arm] Blood Pressure Mean 131 121 Blood Pressure Mean [Right Arm] Blood Pressure Source [Right Arm] Blood Pressure Position [Right Arm] 02 Sat by Pulse Oximetry 95 94 L Oxygen Delivery Method Room Air Room Air Room Air Lab Data Lab Results 12/18/23 17:13: WBC 5.2, RBC 4.83, Hgb 13.3 L, Hct 42.5, MCV 88.1, MCH 27.6, MCHC 31.3 L, RDW 14.6, Plt Count 147, MPV 9.7, Neut % (Auto) 75.8, Lymph % (Auto) 14.7, [place] % (Auto) 6.3, Eos % (Auto) 2.2, Baso % (Auto) 1.0, Neut # (Auto) 4.0, Lymph # (Auto) 0.8, [place] # (Auto) 0.3, Eos # (Auto) 0.1, Baso # (Auto) 0.1, Sodium 137, Potassium 4.7, Chloride 101, Carbon Dioxide 26, Anion Ga p 14.7, BUN 21 H, Creatinine 1.40 H, Estimated Creat Clear 56, Estimated GFR 51 L, Est GFR ( Amer) 62, Glucose 197 H, Calcium 9.0, Total Bilirubin 0.5, AST 29, ALT 31, Alkaline Phosphatase 87, Troponin I 0.04 H, NT-Pro-B Natriuret Pep 3040 H, Total Protein 6.7, Albumin 4.0, Globulin 2.7, Albumin/Globulin Ratio 1.5 12/18/23 19:47: Troponin I 0.04 H 12/18/23 17:13 12/18/23 17:13 Orders (Tests/Meds): ED MEDICATIONS Discontinued Medications Generic Name Dose Route Start Last Admin Trade Name Freq PRN Reason Stop Dose Admin Furosemide 40 mg 12/18/23 19:36 12/18/23 19:44 Furosemide 40mg/4ml Vial IV 12/18/23 19:37 40 mg ONCE ONE Administration ORDERS Category Date Time Status XR chest portable Stat Exams 12/18/23 18:07 Completed Brain Natriuretic Peptide Stat Lab 12/18/23 17:13 Completed Complete Blood Count Auto Diff Stat Lab 12/18/23 17:13 Completed Comprehensive Metabolic Panel Stat Lab 12/18/23 17:13 Completed Troponin I Q3H Lab 12/18/23 19:47 Completed Troponin I Stat Lab 12/18/23 17:13 Completed ECG initial [place] Routine Y 12/18/23 17:32 Completed HEART Score History (anamnesis): Slightly suspicious ECG: Non-specific disturbance Age: 45-65 years Risk factors: 1-2 risk factors Troponin: 1-3x normal limit HEART Score: 4 Medical Decision Narrative: 63-year-old male history of hypertension presenting with hypertension and weakness. Patient states that he has been on the same blood pressure medication for 10 years. He does not usually take his blood pressure frequently. He bought a blood pressure cuff about 5 days ago, started taking it about 2 days ago regularly and noticed that his blood pressure was consistently elevated. Has not seen his family doctor for this complaint. States that he has also had associated intermittent shortness of breath, lightheadedness with changes in position, and generalized weakness including his lower extremities. Lower extremities are also more swollen than usual. No focal or unilateral weakness, no bowel or bladder dysfunction, no injuries. Denies chest pain, nausea, vomiting, any other recent medication changes. History was obtained via conversation with patient. On arrival, patient hemodynamically stable, alert, oriented x4, appropriate, GCS 15, moving all extremities spontaneously, pupils equal and reactive to light. Full physical exam performed and significant for anxious appearing male in no acute distress. Lower extremity swelling. Lungs are clear to auscultation bilaterally, cardiac exam within normal limits. Pulses equal and symmetric. Neurologically intact and ambulating without issue. Differential includes CHF, ACS, OR, symptomatic hypertension, arrhythmia, metabolic abnormality, medication side effect, among others. Patient was given Lasix for symptomatic management and correction of underlying abnormalities. Workup independently interpreted and significant for nonactionable CBC. Patient appears to have stable CKD with creatinine 1.4 nonactionable electrolytes. LFTs normal. Initial troponin 0.04, BNP elevated at 3040. Chest x-ray with pulmonary vascular congestion and cardiomegaly, but no overt edema. See radiology read for full review of final results. Independent interpretation of EKG shows sinus rhythm 72 beats a minute. No ST or T wave changes concerning for acute ischemia. Patient has nonspecific T wave inversions with incomplete left bundle branch block. VT, QRS intervals within normal limits. QRS mildly prolonged at 128 ms. Heart score 4. Patient was placed in observation beginning at 5 PM in order to rule out evolving OR with delta troponins And determine need for admission versus home- going. The patient was provided serial exams, monitoring, Lasix while awaiting results. Independent interpretation of results demonstrated stable delta troponin. Total observation time 3 hours. On reevaluation, patient resting comfortably in bed, given Lasix. Conversation was had with patient regarding home-going versus admission, patient opting for outpatient management. Given the patient has no oxygen requirement, no acute distress, not currently symptomatic, and with stable delta troponins, deemed appropriate for outpatient management. Given patient presentation, workup, history, this most likely represents fluid overload with associated hypertension and congestive heart failure. Because patient at baseline without signs or symptoms of clinical decompensation, deemed appropriate for discharge. Results were relayed to pat ieronny who voiced understanding and were agreeable to outpatient management and follow up. At the time of discharge the patient was hemodynamically stable, tolerating PO, and mobilizing appropriately. He was given Lasix for home-going and close family and cardiology outpatient follow-up. Critical Care Critical Care Time Critical Care Time: No
--- NOTE | 2023-12-18 17:32 | ECG_ITS ---
APPROVED REPORT Exam: Resting ECG HR:72 bpm ECG Measurements Heart Rate 72 AXES MO 165 P 24 QRSd 128 QRS -71 QT 414 T -21 QTc 438 Conclusion SINUS RHYTHM LEFT ANTERIOR FASCICULAR BLOCK [QRS AXIS <= -45, QR IN I, RS IN II] Electronically signed by : JAY OROURKE, 12/18/2023 22:02:05
[2023-12-18 17:42] LABS: NT Pro Brain Natriuretic Pep. 3040 pg/mL (0-125); Troponin I 0.04 ng/ml (0.00-0.034)
--- NOTE | 2023-12-18 18:07 | XR_ITS ---
PROCEDURE INFORMATION: Exam: XR Chest Exam date and time: 12/18/2023 6:04 PM Age: 63 years old Clinical indication: Shortness of breath; Additional info: SOA TECHNIQUE: Imaging protocol: Radiologic exam of the chest. Views: 1 view. COMPARISON: No relevant prior studies available. FINDINGS: Lungs: Normal. Pleural spaces: Normal No pleural effusion. No pneumothorax. Heart/Mediastinum: Normal. No cardiomegaly. Bones/joints: Unremarkable. IMPRESSION: No acute findings.
[2023-12-18] MEDS: FUROSEMIDE 40MG/4ML VIAL 40 MG IV (19:44)
[2023-12-18 20:32] LABS: Troponin I 0.04 ng/ml (0.00-0.034)
== END 2023-12-18 21:16 | disposition home or self-care (01) ==
PROVIDERS: Emergency Provider Emergency Medicine
DX: R53.1 Weakness (principal); R06.02 Shortness of breath; E87.70 Fluid overload, unspecified; R42 Dizziness and giddiness; I11.0 Hypertensive heart disease with heart failure; I50.9 Heart failure, unspecified
CPT/HCPCS: 71045; 80053; 83880; 84484; 85025; 93005; 96374; 99285

== ENCOUNTER 2023-12-28 11:41 | Outpatient (CLI) | payer MEDICARE, SELFPAY ==
[2023-12-28 12:14] LABS: Eosinophils # 0.1 K/mm3 (0.0-0.4); Eosinophils % 1.5 % (0.1-12.0); Hematocrit 43.2 % (42.0-52.0); Hemoglobin 13.9 g/dL (14.1-18.0); Lymphocytes # 0.7 K/mm3 (0.7-4.5); Lymphocytes % 15.2 % (10-50); Mean Corpuscular Hemoglobin 27.9 pg (27.0-31.2); Mean Platelet Volume 9.2 fl (7.4-10.4); Monocytes # 0.2 K/mm3 (0.1-1.0); Monocytes % 4.7 % (1.7-9.3); Neutrophils # 3.3 K/mm3 (1.8-7.8); Neutrophils % 77.6 % (37.0-80.0); Platelet Count 128 K/mm3 (142-424); Red Blood Count 4.97 M/mm3 (4.60-6.20); Red Cell Distribution Width 14.6 % (11.5-17.5); White Blood Count 4.2 K/mm3 (4.8-10.8)
[2023-12-28 12:50] LABS: Alanine Aminotransferase 22 U/L (12-78); Albumin Level 4.2 g/dl (3.5-5.0); Albumin/Globulin Ratio 1.6 (1.1-1.8); Alkaline Phosphatase 82 U/L (38-126); Anion Gap 14.6 mEq/L (5-15); Aspartate Amino Transferase 24 U/L (17-59); Bilirubin,Total 0.8 mg/dl (0.2-1.3); Blood Urea Nitrogen 34 mg/dl (9-20); Calcium 9.3 mg/dl (8.4-10.2); Carbon Dioxide 25 mmol/L (22.0-30.0); Chloride 101 mmol/L (98-107); Estimated Glomerular Filt Rate 44 ml/min (>60); GFR (African American) 53 ML/MIN (>60); Globulin 2.6 g/dL (1.3-3.2); Glucose 159 mg/dl (74-100); Magnesium 1.9 mg/dl (1.6-2.3); Potassium 4.6 mmoL/L (3.5-5.1); Sodium 136 mmol/L (136-145); Total Protein,Serum 6.8 g/dl (6.3-8.2)
[2023-12-28 13:21] LABS: Thyroid Stimulating Hormone 2.36 uIU/mL (0.465-4.68)
[2023-12-28 13:32] LABS: Free Thyroxine Index 3.5 ug/dL (5.93-13.13); T4 (Thyroxine) 8.9 ug/dl (5.53-11.0); Triiodothryronine (T3) Uptake 39 % (23.5-40.5)
[2023-12-28 13:40] LABS: Vitamin B12 259 pg/mL (239-931)
[2023-12-28 13:45] LABS: Thyroid Stimulating Hormone 2.36 uIU/mL (0.465-4.68)
[2023-12-28 13:50] LABS: Hemoglobin A1C 7.9 % (4.0-6.0)
[2023-12-29 17:38] LABS: Ferritin 14.3 ng/ml (17.9-464)
== END 2023-12-28 23:59 ==
LOC: LAB 11:43
PROVIDERS: PCP Internal Medicine Adolescent Medicine; Visit Provider Internal Medicine Adolescent Medicine
DX: E11.69 Type 2 diabetes mellitus with other specified complication (principal); G62.9 Polyneuropathy, unspecified
CPT/HCPCS: 36415; 80053; 82607; 82728; 83036; 83735; 84436; 84443; 84479; 85025

== ENCOUNTER 2023-12-31 08:17 | Outpatient (CLI) | payer MEDICARE, SELFPAY ==
--- NOTE | 2023-12-31 08:22 | FL_ITS ---
FINAL REPORT CLINICAL HISTORY: peripheral neuropathy, lower extremity weakness 6.05 min DAP 5106.80 FINDINGS: LUMBAR PUNCTURE AND FLUOROSCOPY HISTORY: Peripheral neuropathy and lower extremity weakness. ATTENDING PHYSICIAN: Dr. Luong PHYSICIAN HEADLIGHT ASSEMBLER: Johnny Turner PA-C PROCEDURE: After informed consent was obtained and timeout procedure performed, the patient was placed in the prone position in the fluoroscopic suite. The L3 L4 level of the lumbar spine was initially localized under fluoroscopic guidance and marked on the skin appropriately. The patient was then prepped and draped in the usual sterile fashion and the skin was anesthetized with 1% Lidocaine. A lumbar puncture was then attempted utilizing a 20-gauge 6 inch spinal needle. The procedure was made markedly difficult by the patient's size and proximity to the fluoroscopy tower not allowing for visualization of the spinal needle entering the skin. Multiple, lengthy attempts were made at this level and then subsequent attempts were made at the L5-S1 and L3-L4 levels. All were ultimately unsuccessful secondary to patient's body habitus and hypertrophic degenerative changes of the spine. The patient tolerated the procedure well and there were no immediate complications. IMPRESSION: Ultimately unsuccessful attempt at lumbar puncture secondary to patient body habitus and bony hypertrophic changes of the spine. Films reviewed , interpreted and dictated by Dr. Luong Transcribed by Johnny Turner PA-C. Reviewed, Interpreted and Dictated by Indio Luong III, MD Transcribed by MARILU Bae Authenticated and [facility]
[2023-12-31 08:37] VITALS: BP 148/67; PULSE 63; RESP 18; TEMP 36.4; O2SAT 97; BMI 45.3
[2023-12-31 08:53] LABS: POC Glucose,Bedside 133 (70-110)
--- NOTE | 2023-12-31 08:59 | CT_ITS ---
FINAL REPORT CLINICAL HISTORY: LUMBAR PUNCTURE TODAY, R/O MASS FINDINGS: Axial images of the head were obtained without contrast. Coronal reformatted images were also obtained.This study was performed with techniques to keep radiation doses as low as reasonably achievable (ALARA). Individualized dose reduction techniques using automated exposure control or adjustment of mA and/or kV according to the patient's size were employed. There is no evidence of intracranial hemorrhage or mass. The ventricular size is within normal limits. There is no evidence of shift of the midline structures. No abnormal extra axial fluid collection is identified. No skull abnormality is seen on the bone window images. There is near total opacification of the left sphenoid sinus. IMPRESSION: No acute intracranial abnormality. Left sphenoid sinusitis. Reviewed, Interpreted and Dictated by Indio Luong III, MD Transcribed by Ana Koroma Authenticated and [facility]
== END 2023-12-31 23:59 ==
LOC: RAD 08:17
PROVIDERS: PCP Internal Medicine Adolescent Medicine; Visit Provider Internal Medicine Adolescent Medicine
DX: G62.89 Other specified polyneuropathies; M62.81 Muscle weakness (generalized); R29.2 Abnormal reflex
CPT/HCPCS: 62328; 70450; 82962

== ENCOUNTER 2024-02-14 16:17 | Inpatient (IN) | payer MEDICARE, SELFPAY ==
[2024-02-14 16:19] VITALS: BP 111/57; PULSE 89; RESP 20; TEMP 37.1; O2SAT 95; BMI 45.1
--- NOTE | 2024-02-14 16:22 | HMH.EDGENADL ---
Discharge Plan Disposition Patient Disposition: Admitted Condition: Serious Clinical Impressions Clinical Impression: OSIRIS (acute kidney injury) Cellulitis Qualifiers: Site of cellulitis: extremity Site of cellulitis of extremity: upper extremity Laterality: left Qualified Code(s): L03.114 - Cellulitis of left upper limb Discharge ED Provider: Yemi Andrews Adult HPI <MARILU Somers - Last Filed: 02/14/24 19:26> General Chief complaint: Weakness Stated complaint: Inflammation left elbow Time Seen by Provider: 02/14/24 16:22 History of Present Illness HPI narrative: Patient presents from his PCPs office for evaluation of generalized weakness and pain at the left elbow. Patient is a difficult historian and to the best my ability to gather he has had pain and swelling of this elbow off and on for months. Additionally patient reports that he is too weak to walk and attributed this to the pain and swelling of his elbow. Patient was in his PCPs office who noted him to be hypotensive but not tachycardic and sitting to the emergency department for evaluation. Denies chest pain fever chills hemoptysis hematochezia melena nausea vomit diarrhea. Related Data Home Medications Medication Instructions Recorded Confirmed febuxostat 40 mg tablet (Uloric) 40 mg PO DAILY gout 06/02/19 12/31/23 losartan 50 mg tablet 50 mg PO DAILY blood pressure 06/02/19 12/31/23 metformin 1,000 mg tablet 1,000 mg PO BID Diabetes 06/02/19 12/31/23 ranitidine HCl 150 mg capsule 150 mg PO DAILY GERD 06/02/19 12/31/23 carvedilol 25 mg tablet 25 mg PO BID 12/31/23 12/31/23 Previous Rx's Medication Instructions Recorded furosemide 40 mg tablet 40 mg PO DAILY #30 tabs 12/18/23 Allergies Allergy/AdvReac Type Severity Reaction Status Date / Time No Known Allergies Allergy Verified 12/31/23 08:38 PFSH <MARILU Somers - Last Filed: 02/14/24 19:26> REPLACED BY [facility] Disclaimer: The information contained in this section may have been updated after the patient was seen, as this information can be updated by other users. Medical History (Updated 02/14/24 @ 23:45 by Hammad Ferreira MD) Hypertension Gout Diabetes mellitus, type 2 Congestive heart failure Surgical History History of surgery on lower extremity Family History Other No significant family history Social History Smoking Status: Never smoker alcohol intake: never current occupational status: employed Travel in the last 8 weeks: Inside the [place] <MARILU Somers - Last Filed: 02/14/24 19:26> ROS Obtained: Yes Systems reviewed as appropriate & no additional complaints except as documented Physical Exam <MARILU Somers - Last Filed: 02/14/24 19:26> General General appearance: alert and in no apparent distress Eye Eye exam: Present normal appearance and PERRL ENT ENT exam: Present normal exam, normal oropharynx and mucous membranes moist Respiratory Respiratory exam: Present normal lung sounds bilaterally; Absent respiratory distress or wheezes Cardiovascular Cardiovascular exam: Present regular rate and normal rhythm Abdominal Exam Abdominal exam: Present soft (Grossly obese) and normal bowel sounds; Absent tenderness Back Exam Back exam: Present normal inspection and full ROM Neurological Exam Neurological exam: Present alert, oriented X3 and CN II-XII intact Psychiatric Psychiatric exam: Present normal affect and normal mood Other Other exam information: 3 unaffected extremities are intact grossly to exam with full range of motion. The left upper extremity has an area of erythema and redness along with edema and tenderness to palpation about the dorsal surface at the elbow. Patient has multiple skin breaks that appear to be scabbed over. There is not appear to be any notable area of fluctuance. I cannot get a full palpation due to the patient's pain on range of motion testing. He is neurovascularly intact distally however. Medical Decision Making <MARILU Somers - Last Filed: 02/14/24 19:26> Medical Records Medical records reviewed: Yes I reviewed the patient's medical records. Matteo Inquiry Pt receiving controlled substance: No Vital Signs: 02/14/24 16:19 02/14/24 17:31 02/14/24 19:59 Temperature 98.7 F 98.7 F Temperature Source Oral Oral Pulse Rate 99 H 87 Pulse Rate [Right Radial] 89 Respiratory Rate 20 16 16 Blood Pressure 114/73 113/81 Blood Pressure [Right Arm] 111/57 L Blood Pressure Mean [Right Arm] 75 02 Sat by Pulse Oximetry 95 97 Oxygen Delivery Method Room Air Room Air Room Air Lab Data Lab results reviewed: Yes I reviewed the patient's lab results. Lab Results 02/14/24 16:43: WBC 12.2 H, RBC 4.84, Hgb 13.3 L, Hct 41.4 L, MCV 85.6, MCH 27.6, MCHC 32.2, RDW 15.8, Plt Count 121 L, MPV 9.2, Neut % (Auto) 90.3 H, Lymph % (Auto) 4.6 L, [place] % (Auto) 3.6, Eos % (Auto) 1.1, Baso % (Auto) 0.3, Neut # (Auto) 11.0 H, Lymph # (Auto) 0.6 L, [place] # (Auto) 0.4, Eos # (Auto) 0.1, Baso # (Auto) 0.0, Total Counted 100, Neutrophils % (Manual) 88 H, Lymphocytes % (Manual) 8 L, Monocytes % (Manual) 4, Platelet Estimate Slight decrease, RBC Morphology Normal, ESR 63 H, PT 12.2, INR 1.14 H, Sodium 128 L, Potassium 4.6, Chloride 96 L, Carbon Dioxide 23, Anion Gap 13.6, BUN 57 H, Creatinine 2.20 H, Estimated Creat Clear 35, Estimated GFR 30 L, Est GFR ( Amer) 37 L, Glucose 270 H, Hemoglobin A1c 9.0 H, Lactate 1.3, Uric Acid 9.9 H, Calcium 9.2, Total Bilirubin 1.4 H, AST 27, ALT 23, Alkaline Phosphatase 69, Total Creatine Kinase 137, C-Reactive Protein 285.5 H, Total Protein 6.4, Albumin 3.6, Globulin 2.8, Albumin/Globulin Ratio 1.3, Procalcitonin 0.957 02/14/24 16:43 02/14/24 16:43 Orders (Tests/Meds): ED MEDICATIONS Generic Name Dose Route Start Last Admin Trade Name Freq PRN Reason Stop Dose Admin Acetaminophen 650 mg 02/14/24 22:51 Acetaminophen 325mg Tab PO 03/15/24 22:50 Q6HP PRN Fever or Mild Pain (1-3) Enoxaparin Sodium 30 mg 02/15/24 09:00 Enoxaparin 30mg/0.3ml Syringe SQ 03/16/24 08:59 DAILY [facility] Ampicillin Sodium/Sulbactam 100 mls @ 200 mls/hr 02/14/24 21:00 02/14/24 21:32 Sodium 3 gm/ Sodium Chloride IV 02/24/24 20:59 200 mls/hr Q6H FREDY Administration Insulin Glargine 10 unit 02/14/24 22:30 02/14/24 22:54 Insulin Glargine 100 Units/Ml 3ml Flexpen SQ 03/15/24 22:29 10 units HS FREDY Administration Insulin Human Lispro 0 unit 02/14/24 21:00 02/14/24 21:32 Humalog 100 Units/Ml 3ml Vial (Ssi) SQ 03/15/24 20:59 4 unit ACHS FREDY Administration Protocol Miscellaneous 1 each 02/14/24 19:15 02/14/24 21:33 Vancomycin Consult Request NOTAPPLIC 03/15/24 19:14 1 each CONSULT PHARMACY [facility] Administration Morphine Sulfate 4 mg 02/14/24 22:51 Morphine 4mg/Ml Syringe IV 03/15/24 22:50 Q6HP PRN Severe Pain (7-10) Non-Formulary Medication 40 mg 02/15/24 09:00 Febuxostat [Uloric] PO 03/16/24 08:59 DAILY [facility] Discontinued Medications Generic Name Dose Route Start Last Admin Trade Name Freq PRN Reason Stop Dose Admin Acetaminophen 1,000 mg 02/14/24 16:29 02/14/24 16:50 Acetaminophen 1,000mg/100ml Vial IV 02/14/24 16:30 1,000 mg ONCE ONE Administration Hydromorphone HCl 0.5 mg 02/14/24 16:29 02/14/24 16:50 Hydromorphone 2mg/Ml Syringe IV 02/14/24 16:30 0.5 mg ONCE ONE Administration Lactated Ringer's 1,000 mls @ 999 mls/hr 02/14/24 16:29 02/14/24 16:50 Lactated Ringer's 1000 Ml Bag IV 02/14/24 17:29 999 mls/hr .Q1H1M ONE Administration Piperacillin Sod/Tazobactam 50 mls @ 100 mls/hr 02/14/24 19:15 02/14/24 19:42 Sod 3.375 gm/ Sodium Chloride IV 02/14/24 19:44 Not Given ONCE ONE Lactated Ringer's 1,000 mls @ 999 mls/hr 02/14/24 19:19 02/14/24 19:35 Lactated Ringer's 1000 Ml Bag IV 02/14/24 20:19 999 mls/hr .Q1H1M ONE Administration Vancomycin HCl 2,500 mg/ 250 mls @ 125 mls/hr 02/14/24 19:30 02/14/24 21:34 Sodium Chloride IV 02/14/24 21:29 Not Given ONCE ONE Piperacillin Sod/Tazobactam 50 mls @ 100 mls/hr 02/14/24 19:45 02/14/24 19:34 Sod 3.375 gm/ Sodium Chloride IV 02/24/24 19:44 100 mls/hr Q6H FREDY Administration Vancomycin HCl 2,500 mg/ 250 mls @ 125 mls/hr 02/14/24 22:00 02/14/24 22:53 Sodium Chloride IV 02/14/24 23:59 125 mls/hr ONCE ONE Administration Ketorolac Tromethamine 15 mg 02/14/24 16:29 02/14/24 16:50 Ketorolac 30mg/Ml Vial IV 02/14/24 16:30 15 mg ONCE ONE Administration ORDERS Category Date Time Status CT elbow LT wo con Stat Cat Scan 02/14/24 17:26 Completed XR elbow LT min 3V Stat Exams 02/14/24 17:26 Completed CBC w/Auto Diff [Complete Blood Count Auto Diff] Stat Lab 02/14/24 16:43 Completed CK [Creatine Kinase] Stat Lab 02/14/24 16:43 Completed CMP [Comprehensive Metabolic Panel] Stat Lab 02/14/24 16:43 Completed CRP [C-Reactive Protein] Stat Lab 02/14/24 16:43 Completed Complete Blood Count Auto Diff AMLAB Lab 02/15/24 06:00 Ordered Comprehensive Metabolic Panel AMLAB Lab 02/15/24 06:00 Ordered ESR [Erythrocyte Sedimentation Rate] Stat Lab 02/14/24 16:43 Completed Hemoglobin A1C Routine Lab 02/14/24 16:43 Completed INR [Prothrombin Time INR] Stat Lab 02/14/24 16:43 Completed Lactic Acid Stat Lab 02/14/24 16:43 Completed Magnesium AMLAB Lab 02/15/24 06:00 Ordered Procalcitonin Stat Lab 02/14/24 16:43 Completed UA [Urinalysis and Microscopic] Stat Lab 02/14/24 16:30 Ordered Uric Acid Stat Lab 02/14/24 16:43 Completed Blood Culture Stat Micro 02/14/24 16:28 Received Medical Decision Narrative: In summary patient is a 63-year-old male who presents to the emergency department for evaluation of weakness and left elbow pain. Patient is hemodynamically stable upon arrival, afebrile. Physical exam is remarkable for a morbidly obese 63-year-old male who has erythema and edema of the left elbow. It is not circumferential. Patient is neurovascular intact distally. Exquisitely tender to palpation.. Differential diagnosis includes cellulitis versus bursitis versus septic arthritis versus gout etc. Initial workup will be conducted with plain film x-ray CT scan of the upper extremity hematologic labs urinalysis. Initial interventions include IV fluid bolus Toradol Tylenol 0.5 mg Dilaudid one-time. Initial workup reviewed by me and his hematologic labs shows an elevated white count with a left shift, a elevated procalcitonin, hyponatremia, acute nontraumatic kidney injury and he is imaging via my informal interpretation does not show any acute fracture or abscess formation although they are not contrasted studies. It does however show significant soft tissue cellulitis about the left elbow. Given this I have contacted hospital medicine and we had an interactive discussion and he will be admitted for further evaluation and care. <Yemi Andrews, DO - Last Filed: 02/15/24 00:24> Vital Signs: 02/14/24 16:19 02/14/24 17:31 02/14/24 19:59 Temperature 98.7 F 98.7 F Temperature Source Oral Oral Pulse Rate 99 H 87 Pulse Rate [Right Radial] 89 Respiratory Rate 20 16 16 Blood Pressure 114/73 113/81 Blood Pressure [Right Arm] 111/57 L Blood Pressure Mean [Right Arm] 75 02 Sat by Pulse Oximetry 95 97 Oxygen Delivery Method Room Air Room Air Room Air Lab Data Lab Results 02/14/24 16:43: WBC 12.2 H, RBC 4.84, Hgb 13.3 L, Hct 41.4 L, MCV 85.6, MCH 27.6, MCHC 32.2, RDW 15.8, Plt Count 121 L, MPV 9.2, Neut % (Auto) 90.3 H, Lymph % (Auto) 4.6 L, [place] % (Auto) 3.6, Eos % (Auto) 1.1, Baso % (Auto) 0.3, Neut # (Auto) 11.0 H, Lymph # (Auto) 0.6 L, [place] # (Auto) 0.4, Eos # (Auto) 0.1, Baso # (Auto) 0.0, Total Counted 100, Neutrophils % (Manual) 88 H, Lymphocytes % (Manual) 8 L, Monocytes % (Manual) 4, Platelet Estimate Slight decrease, RBC Morphology Normal, ESR 63 H, PT 12.2, INR 1.14 H, Sodium 128 L, Potassium 4.6, Chloride 96 L, Carbon Dioxide 23, Anion Gap 13.6, BUN 57 H, Creatinine 2.20 H, Estimated Creat Clear 35, Estimated GFR 30 L, Est GFR ( Amer) 37 L, Glucose 270 H, Hemoglobin A1c 9.0 H, Lactate 1.3, Uric Acid 9.9 H, Calcium 9.2, Total Bilirubin 1.4 H, AST 27, ALT 23, Alkaline Phosphatase 69, Total Creatine Kinase 137, C-Reactive Protein 285.5 H, Total Protein 6.4, Albumin 3.6, Globulin 2.8, Albumin/Globulin Ratio 1.3, Procalcitonin 0.957 Orders (Tests/Meds): ED MEDICATIONS Generic Name Dose Route Start Last Admin Trade Name Freq PRN Reason Stop Dose Admin Acetaminophen 650 mg 02/14/24 22:51 Acetaminophen 325mg Tab PO 03/15/24 22:50 Q6HP PRN Fever or Mild Pain (1-3) Enoxaparin Sodium 30 mg 02/15/24 09:00 Enoxaparin 30mg/0.3ml Syringe SQ 03/16/24 08:59 DAILY [facility]Y Ampicillin Sodium/Sulbactam 100 mls @ 200 mls/hr 02/14/24 21:00 02/14/24 21:32 Sodium 3 gm/ Sodium Chloride IV 02/24/24 20:59 200 mls/hr Q6H FREDY Administration Insulin Glargine 10 unit 02/14/24 22:30 02/14/24 22:54 Insulin Glargine 100 Units/Ml 3ml Flexpen SQ 03/15/24 22:29 10 units HS FREDY Administration Insulin Human Lispro 0 unit 02/14/24 21:00 02/14/24 21:32 Humalog 100 Units/Ml 3ml Vial (Ssi) SQ 03/15/24 20:59 4 unit ACHS [facility] Administration Protocol Miscellaneous 1 each 02/14/24 19:15 02/14/24 21:33 Vancomycin Consult Request NOTAPPLIC 03/15/24 19:14 1 each CONSULT PHARMACY [facility] Administration Morphine Sulfate 4 mg 02/14/24 22:51 Morphine 4mg/Ml Syringe IV 03/15/24 22:50 Q6HP PRN Severe Pain (7-10) Non-Formulary Medication 40 mg 02/15/24 09:00 Febuxostat [Uloric] PO 03/16/24 08:59 DAILY [facility] Discontinued Medications Generic Name Dose Route Start Last Admin Trade Name Freq PRN Reason Stop Dose Admin Acetaminophen 1,000 mg 02/14/24 16:29 02/14/24 16:50 Acetaminophen 1,000mg/100ml Vial IV 02/14/24 16:30 1,000 mg ONCE ONE Administration Hydromorphone HCl 0.5 mg 02/14/24 16:29 02/14/24 16:50 Hydromorphone 2mg/Ml Syringe IV 02/14/24 16:30 0.5 mg ONCE ONE Administration Lactated Ringer's 1,000 mls @ 999 mls/hr 02/14/24 16:29 02/14/24 16:50 Lactated Ringer's 1000 Ml Bag IV 02/14/24 17:29 999 mls/hr .Q1H1M ONE Administration Piperacillin Sod/Tazobactam 50 mls @ 100 mls/hr 02/14/24 19:15 02/14/24 19:42 Sod 3.375 gm/ Sodium Chloride IV 02/14/24 19:44 Not Given ONCE ONE Lactated Ringer's 1,000 mls @ 999 mls/hr 02/14/24 19:19 02/14/24 19:35 Lactated Ringer's 1000 Ml Bag IV 02/14/24 20:19 999 mls/hr .Q1H1M ONE Administration Vancomycin HCl 2,500 mg/ 250 mls @ 125 mls/hr 02/14/24 19:30 02/14/24 21:34 Sodium Chloride IV 02/14/24 21:29 Not Given ONCE ONE Piperacillin Sod/Tazobactam 50 mls @ 100 mls/hr 02/14/24 19:45 02/14/24 19:34 Sod 3.375 gm/ Sodium Chloride IV 02/24/24 19:44 100 mls/hr Q6H FREDY Administration Vancomycin HCl 2,500 mg/ 250 mls @ 125 mls/hr 02/14/24 22:00 02/14/24 22:53 Sodium Chloride IV 02/14/24 23:59 125 mls/hr ONCE ONE Administration Ketorolac Tromethamine 15 mg 02/14/24 16:29 02/14/24 16:50 Ketorolac 30mg/Ml Vial IV 02/14/24 16:30 15 mg ONCE ONE Administration ORDERS Category Date Time Status CT elbow LT wo con Stat Cat Scan 02/14/24 17:26 Completed XR elbow LT min 3V Stat Exams 02/14/24 17:26 Completed CBC w/Auto Diff [Complete Blood Count Auto Diff] Stat Lab 02/14/24 16:43 Completed CK [Creatine Kinase] Stat Lab 02/14/24 16:43 Completed CMP [Comprehensive Metabolic Panel] Stat Lab 02/14/24 16:43 Completed CRP [C-Reactive Protein] Stat Lab 02/14/24 16:43 Completed Complete Blood Count Auto Diff AMLAB Lab 02/15/24 06:00 Ordered Comprehensive Metabolic Panel AMLAB Lab 02/15/24 06:00 Ordered ESR [Erythrocyte Sedimentation Rate] Stat Lab 02/14/24 16:43 Completed Hemoglobin A1C Routine Lab 02/14/24 16:43 Completed INR [Prothrombin Time INR] Stat Lab 02/14/24 16:43 Completed Lactic Acid Stat Lab 02/14/24 16:43 Completed Magnesium AMLAB Lab 02/15/24 06:00 Ordered Procalcitonin Stat Lab 02/14/24 16:43 Completed UA [Urinalysis and Microscopic] Stat Lab 02/14/24 16:30 Ordered Uric Acid Stat Lab 02/14/24 16:43 Completed Blood Culture Stat Micro 02/14/24 16:28 Received Medical Decision Narrative: In summary patient is a 63-year-old male who presents to the emergency department for evaluation of weakness and left elbow pain. Patient is hemodynamically stable upon arrival, afebrile. Physical exam is remarkable for a morbidly obese 63-year-old male who has erythema and edema of the left elbow. It is not circumferential. Patient is neurovascular intact distally. Exquisitely tender to palpation.. Differential diagnosis includes cellulitis versus bursitis versus septic arthritis versus gout etc. Initial workup will be conducted with plain film x-ray CT scan of the upper extremity hematologic labs urinalysis. Initial interventions include IV fluid bolus Toradol Tylenol 0.5 mg Dilaudid one-time. Initial workup reviewed by me and his hematologic labs shows an elevated white count with a left shift, a elevated procalcitonin, hyponatremia, acute nontraumatic kidney injury and he is imaging via my informal interpretation does not show any acute fracture or abscess formation although they are not contrasted studies. It does however show significant soft tissue cellulitis about the left elbow. Given this I have contacted hospital medicine and we had an interactive discussion and he will be admitted for further evaluation and care. I was consulted by the DIANNE, and we discussed the complexity of the problems being addressed. I approved the treatment and management plan for this patient's care in the Emergency Department, thus performing a substantive portion of the medical decision making. Yemi Andrews, Critical Care <MARILU Somers - Last Filed: 02/14/24 19:26> Critical Care Time Critical Care Time: No
[2024-02-14] MEDS: ACETAMINOPHEN 1,000MG/100ML VIAL 1000 MG IV (16:50)
[2024-02-14] MEDS: LACTATED RINGERS 1000ML 1,000 ML 999 ML IV ×2 (16:50→19:35)
[2024-02-14] MEDS: KETOROLAC 30MG/ML VIAL 15 MG IV (16:50)
[2024-02-14] MEDS: HYDROMORPHONE 2MG/ML SYRINGE 0.5 MG IV (16:50)
[2024-02-14 17:03] LABS: Basophils % 0.3 % (0.1-2.0); Eosinophils # 0.1 K/mm3 (0.0-0.4); Eosinophils % 1.1 % (0.1-12.0); Hematocrit 41.4 % (42.0-52.0); Hemoglobin 13.3 g/dL (14.1-18.0); Lymphocytes # 0.6 K/mm3 (0.7-4.5); Lymphocytes % 4.6 % (10-50); Mean Corpuscular HGB Conc 32.2 g/dL (31.8-35.4); Mean Corpuscular Hemoglobin 27.6 pg (27.0-31.2); Mean Corpuscular Volume 85.6 fl (80-94); Mean Platelet Volume 9.2 fl (7.4-10.4); Monocytes # 0.4 K/mm3 (0.1-1.0); Monocytes % 3.6 % (1.7-9.3); Neutrophils % 90.3 % (37.0-80.0); Platelet Count 121 K/mm3 (142-424); Red Blood Count 4.84 M/mm3 (4.60-6.20); Red Cell Distribution Width 15.8 % (11.5-17.5); White Blood Count 12.2 K/mm3 (4.8-10.8)
--- NOTE | 2024-02-14 17:10 | PC.NURSE ---
Pt provided with urinal to collect urine sample
[2024-02-14 17:16] LABS: INR 1.14 (0.9-1.1); MANUAL DIFFERENTIAL MANUAL DIFFERENTIAL (MANUAL DIFF); Prothrombin Time 12.2 seconds (10.1-12.5); Uric Acid 9.9 mg/dl (3.5-8.5)
[2024-02-14 17:17] LABS: Alanine Aminotransferase 23 U/L (12-78); Albumin Level 3.6 g/dl (3.5-5.0); Albumin/Globulin Ratio 1.3 (1.1-1.8); Alkaline Phosphatase 69 U/L (38-126); Anion Gap 13.6 mEq/L (5-15); Aspartate Amino Transferase 27 U/L (17-59); Bilirubin,Total 1.4 mg/dl (0.2-1.3); Blood Urea Nitrogen 57 mg/dl (9-20); Calcium 9.2 mg/dl (8.4-10.2); Carbon Dioxide 23 mmol/L (22.0-30.0); Chloride 96 mmol/L (98-107); Creatine Kinase 137 U/L (55-170); Creatinine Clearance Estimated 35 mL/min (50-200); Estimated Glomerular Filt Rate 30 ml/min (>60); GFR (African American) 37 ML/MIN (>60); Globulin 2.8 g/dL (1.3-3.2); Glucose 270 mg/dl (74-100); Potassium 4.6 mmoL/L (3.5-5.1); Sodium 128 mmol/L (136-145); Total Protein,Serum 6.4 g/dl (6.3-8.2)
--- NOTE | 2024-02-14 17:26 | XR_ITS ---
PROCEDURE INFORMATION: Exam: XR Left Elbow Exam date and time: 02/14/2024 5:57 PM Age: 63 years old Clinical indication: Other: Cellulitis TECHNIQUE: Imaging protocol: Radiologic exam of the left elbow. Views: 3 or more views. COMPARISON: No relevant prior studies available. FINDINGS: Bones/joints: Multiple views were obtained. The osseous structures appear intact with no evidence of acute fracture, dislocation, or malalignment. Joint spaces are preserved. No abnormal bone density or destructive lesions are noted. Soft tissues: Soft tissue swelling is observed, and further clinical correlation is advised. IMPRESSION: At the time of imaging, the skeletal radiograph demonstrates no acute osseous abnormalities but does show soft tissue swelling.
--- NOTE | 2024-02-14 17:26 | CT_ITS ---
PROCEDURE INFORMATION: Exam: CT Left Upper Extremity Without Contrast, Elbow Exam date and time: 02/14/2024 5:58 PM Age: 63 years old Clinical indication: Other: Cellulitis TECHNIQUE: Imaging protocol: Computed tomography of the left upper extremity without contrast. Exam focused on the elbow. Radiation optimization: All CT scans at this facility use at least one of these dose optimization techniques: automated exposure control; mA and/or kV adjustment per patient size (includes targeted exams where dose is matched to clinical indication); or iterative reconstruction. COMPARISON: CR XR ELBOW LT MIN 3V 02/14/2024 5:57 PM FINDINGS: Bones/joints: No focal fluid collection or osseous abnormality is seen. Soft tissues: There is moderate soft tissue swelling about the elbow. IMPRESSION: There is moderate soft tissue swelling about the elbow. No focal fluid collection or osseous abnormality is seen.
[2024-02-14 17:27] LABS: Lactic Acid 1.3 mmol/L (0.7-2.1)
[2024-02-14 17:31] VITALS: BP 114/73; PULSE 99; RESP 16; O2SAT 97
[2024-02-14 17:34] LABS: Procalcitonin 0.957 ng/mL (0.0-2.0)
[2024-02-14 17:54] LABS: Erythrocyte Sedimentation Rate 63 mm/hr (0-20)
[2024-02-14 18:28] LABS: Lymphocytes % 8 % (10-50); Monocytes % 4 % (2-9); Neutrophils % 88 % (42-76); Platelet Estimate Slight Decrease; RBC Morphology Normal; Total Cells Counted 100
--- NOTE | 2024-02-14 19:29 | PC.NURSE ---
notified household appliance installer of admission
[2024-02-14] MEDS: PIPERACILLIN/TAZO 3.375 GM in 0.9 % SODIUM CHLORIDE 50 ML IV (19:34)
--- NOTE | 2024-02-14 19:49 | PC.NURSE ---
called report to mranie burleson on 2nd floor and answered all questions
--- NOTE | 2024-02-14 19:58 | P.HP_ITS ---
History of Present Illness *Admission Date: 02/14/24 *Reason for visit:: left arm pain, weakness *History of present illness: Mr. Lobato is a 63-year-old male with history of diabetes, gout, CKD. States that over the past several weeks he has been having back pain. Has had a workup with orthopedics at an outside hospital including imaging. Recently on a course of steroids and meloxicam. His mobility has been limited secondary to his pain. He presented to his primary care today because he developed general weakness and pain in his left elbow over the past 1 to 2 days. Reports that 3 months ago he had pain in the left elbow and some swelling. It resolved with a course of antibiotics. He redeveloped this pain and swelling over the past 48 hours. Has just felt fatigued and not himself. On arrival to his primary care doctors office, he was noted to be hypotensive. He denies chest pain, nausea, vomiting, diarrhea, shortness of breath. No mayito fever. No syncope. Workup in the ER showed tachycardia. Left elbow is red and swollen. Labs positive for leukocytosis. Imaging with no fluid on the elbow joint but did have significant soft tissues swelling. Meeting sepsis criteria concerning for cellulitis. In addition he has an OSIRIS on his chronic kidney disease. Patient takes losartan for blood pressure control in conjunction with meloxicam recently and poor p.o. intake. Medicine was consulted for admission and further management On evaluation, patient is feeling better after receiving fluid bolus. Stable on room air. Alert and oriented x 4. [facility] Disclaimer: The information contained in this section may have been updated after the patient was seen, as this information can be updated by other users. Medical History (Updated 02/14/24 @ 23:45 by Hammad Ferreira MD) Hypertension Gout Diabetes mellitus, type 2 Congestive heart failure Surgical History History of surgery on lower extremity Family History Other No significant family history Social History Smoking Status: Never smoker alcohol intake: never current occupational status: employed Travel in the last 8 weeks: Inside the [place] Review of Systems Review of Systems Review of systems (narrative): 14 point review of systems performed, pertinent positives and negatives as per [facility] Meds Home Medications and Allergies Home Medications Medication Instructions Recorded Confirmed Type febuxostat 40 mg tablet (Uloric) 40 mg PO DAILY gout 06/02/19 12/31/23 History losartan 50 mg tablet 50 mg PO DAILY blood pressure 06/02/19 12/31/23 History metformin 1,000 mg tablet 1,000 mg PO BID Diabetes 06/02/19 12/31/23 History ranitidine HCl 150 mg capsule 150 mg PO DAILY GERD 06/02/19 12/31/23 History furosemide 40 mg tablet 40 mg PO DAILY #30 tabs 12/18/23 12/31/23 Rx carvedilol 25 mg tablet 25 mg PO BID 12/31/23 12/31/23 History New Prescriptions to Start Prescriptions: Allergies Allergy/AdvReac Type Severity Reaction Status Date / Time No Known Allergies Allergy Verified 12/31/23 08:38 Exam Data for Last 24 hours Vital signs and Labs for Last 24 Hours: Temp Pulse Resp BP Pulse Ox O2 Del Method 98.7 F 99 H 16 114/73 97 Room Air 02/14/24 16:19 02/14/24 17:31 02/14/24 17:31 02/14/24 17:31 02/14/24 17:31 02/14/24 17:31 Laboratory Results - last 24 hr 02/14/24 16:43: WBC 12.2 H, RBC 4.84, Hgb 13.3 L, Hct 41.4 L, MCV 85.6, MCH 27.6, MCHC 32.2, RDW 15.8, Plt Count 121 L, MPV 9.2, Neut % (Auto) 90.3 H, Lymph % (Auto) 4.6 L, [place] % (Auto) 3.6, Eos % (Auto) 1.1, Baso % (Auto) 0.3, Neut # (Auto) 11.0 H, Lymph # (Auto) 0.6 L, [place] # (Auto) 0.4, Eos # (Auto) 0.1, Baso # (Auto) 0.0, Total Counted 100, Neutrophils % (Manual) 88 H, Lymphocytes % (Ma nual) 8 L, Monocytes % (Manual) 4, Platelet Estimate Slight decrease, RBC Morphology Normal, ESR 63 H, PT 12.2, INR 1.14 H, Sodium 128 L, Potassium 4.6, Chloride 96 L, Carbon Dioxide 23, Anion Gap 13.6, BUN 57 H, Creatinine 2.20 H, Estimated Creat Clear 35, Estimated GFR 30 L, Est GFR ( Amer) 37 L, Glucose 270 H, Lactate 1.3, Uric Acid 9.9 H, Calcium 9.2, Total Bilirubin 1.4 H, AST 27, ALT 23, Alkaline Phosphatase 69, Total Creatine Kinase 137, Total Protein 6.4, Albumin 3.6, Globulin 2.8, Albumin/Globulin Ratio 1.3, Procal citonin 0.957 I & O for Last 24 hours: Intake & Output 02/11/24 02/12/24 02/13/24 02/14/24 23:59 23:59 23:59 23:59 Weight 142.882 kg Constitutional Constitutional: no acute distress, morbidly obese and chronically ill appearing *Routine HEENT Exam Head: Present normocephalic Eye: Present EOMI and PERRL ENT: Present mucous membranes moist *Routine Neck Exam Neck: Present supple; Absent lymphadenopathy *Routine Respiratory Exam Respiratory: Present CTA bilaterally; Absent rhonchi, wheezes or crackles *Routine Cardiovascular Exam Cardiovascular: Present RRR *Routine Abdominal Exam Abdominal: Present soft and normoactive bowel sounds; Absent tenderness Comments: obese *Routine Rectal Exam Rectal:: deferred *Routine Genitalia Exam Genitalia:: deferred *Routine Extremities Exam Extremities: Present edema (left elbow swelling, redness); Absent cyanosis or clubbing *Routine Skin Exam Skin: Present warm; Absent rash Comments: multiple abrasions on left forearm, right hand *Routine Neurological Exam Neurological: Present alert, oriented X3 and moving all extremities; Absent altered mental status Assessment and Plan *Assessment and plan (1) Sepsis: Status: Acute Category: Medical Code(s): A41.9 - Sepsis, unspecified organism (2) Cellulitis: Status: Acute Qualifiers: Laterality: left Site of cellulitis: extremity Site of cellulitis of extremity: upper extremity Qualified Code(s): L03.114 - Cellulitis of left upper limb Category: Medical Code(s): L03.90 - Cellulitis, unspecified (3) OSIRIS (acute kidney injury): Status: Acute Category: Medical Code(s): N17.9 - Acute kidney failure, unspecified (4) Hyponatremia: Status: Acute Category: Medical Code(s): E87.1 - Hypo-osmolality and hyponatremia (5) Hypertension: Status: Acute Category: Medical Code(s): I10 - Essential (primary) hypertension (6) Heart failure: Status: Acute Category: Medical Code(s): I50.9 - Heart failure, unspecified (7) Diabetes mellitus, type 2: Status: Acute Category: Medical Code(s): E11.9 - Type 2 diabetes mellitus without complications (8) Gout: Status: Acute Category: Medical Code(s): M10.9 - Gout, unspecified Plan 63-year-old male with CKD, gout, hypertension, diabetes. Presented to the ER with weakness, hypotension, concern for sepsis and cellulitis. Discussed case with ER physician, request admission for IV antibiotics, further fluid resuscitation, and monitoring of improvement in kidney function. Medicine agreed to admit for further management. Received 2 L in the ER. Started on vancomycin and Zosyn. In the setting of his OSRIIS, will switch antibiotics. Necessitating inpatient management. Cultures obtained. Problems addressed as follows: Sepsis Cellulitis - Meeting sepsis criteria with tachycardia, leukocytosis, infection with cellulitis. Endorgan damage with OSIRIS and initial hypotension that was fluid responsive. - Continue vancomycin IV. Monitor for toxicity; received Zosyn in the ER, given patient's OSIRIS and risk for kidney injury with combo Vanc/Zosyn will transition to Unasyn 3 g every 6 hours. -Blood cultures obtained, pending -ESR elevated at 63 -Imaging personally reviewed, no fluid collection in left elbow joint. Does have significant soft tissue edema on CT. - White cell count 12.2. Repeat CBC, CMP, magnesium ordered for the morning -Morphine 4 mg IV every 6 hours as needed for severe pain, Tylenol 650 mg p.o. as needed every 6 hours for pain or fever. Monitor for toxicity OSIRIS on CKD: - baseline creatinine 1.6. Creatinine 2.2, BUN 57 on arrival. Repeat CMP in the morning to monitor for improvement in kidney function. - Caution with nephrotoxins. Avoiding NSAIDs. Concerned that meloxicam in conjunction with his losartan and onset of infection are likely etiology for his OSIRIS Uncontrolled diabetes: - A1c 9.0. Continue sliding scale insulin with fingersticks ACHS. On metformin only at home. -Hold metformin in the setting of OSIRIS, initiate Lantus 10 units tonight. Will make further adjustments pending morning glucose. -Diabetic diet Hyponatremia: Sodium 128. Suspect in the setting of diuretic use and hypovolemia. Monitor for improvement with morning labs. Correct between 8 and 10 mEq a day. Gout: Continue febuxostat 40 mg daily, uric acid level 9.9. Hypertension: On carvedilol, Lasix, and losartan at home. Holding in the setting of normotensive/hypotensive and OSIRIS. Resume when appropriate Class III over the complicates all of his care. PT and OT to evaluate, patient has been immobile at home and using wheelchair due to back injury. Evaluate for safety going home with home health versus SNF versus outpatient therapy. Full code Diabetic diet Lovenox 30 mg subcu daily
[2024-02-14 19:59] VITALS: BP 113/81; PULSE 87; RESP 16; TEMP 37.1; O2SAT 97
--- NOTE | 2024-02-14 20:12 | PC.NURSE ---
Patient arrived to floor via wheelchair from ED at 20:10.
[2024-02-14 20:28] LABS: C-Reactive Protein 285.5 mg/L (0-4)
[2024-02-14 20:29] VITALS: BP 121/65; PULSE 82; RESP 18; TEMP 36.8; O2SAT 98
[2024-02-14 21:29] LABS: POC Glucose,Bedside 219 (70-110)
[2024-02-14] MEDS: AMPICILLIN/SULBACTAM 3 GM in 0.9 % SODIUM CHLORIDE 100 ML IV (21:32)
[2024-02-14] MEDS: humaLOG 100 UNITS/ML 3ML VIAL (SSI) SQ (21:32)
[2024-02-14] MEDS: VANCOMYCIN CONSULT REQUEST 1 EACH NOTAPPLIC (21:33)
[2024-02-14] MEDS: VANCOMYCIN HCL 2,500 MG in 0.9 % SODIUM CHLORIDE 250 ML 125 MG IV (22:53)
[2024-02-14] MEDS: INSULIN GLARGINE 100 UNITS/ML 3ML FLEXPEN 10 UNIT SQ (22:54)
--- NOTE | 2024-02-14 22:58 | PC.NURSE ---
Med rec not completed, pt is unsure exactly of what meds he takes, somebody will bring in medication tomorrow to complete.
[2024-02-15 00:25] LABS: Microscopic, Urine URINE MICROSCOPIC (MICROSCOPIC)
[2024-02-15 00:26] LABS: Appearance,Urine CLEAR (Clear); Bilirubin,Urine Negative (Negative); Blood, Urine 1+ (Negative); Color,Urine YELLOW (Yellow); Glucose,Urine (UA) 2+ (Negative); Ketones,Urine Negative (Negative); Leukocyte Esterase,Urine Negative (Negative); Nitrate,Urine Negative (Negative); PH,Urine 5.5 (5.0-8.5); Protein,Urine 1+ (Negative); Urobilinogen,Urine 0.2 EU/dl (0.2)
[2024-02-15 00:43] LABS: Amorphous Sediment,Urine 2+ /lpf; Bacteria,Urine 1+ /lpf
[2024-02-15] MEDS: AMPICILLIN/SULBACTAM 3 GM in 0.9 % SODIUM CHLORIDE 100 ML IV ×4 (03:00→21:43)
[2024-02-15 04:00] VITALS: BP 114/55; BP 124/62; PULSE 85; PULSE 99; RESP 18; TEMP 36.9; TEMP 37.4; O2SAT 92; O2SAT 96; BMI 44.6
--- NOTE | 2024-02-15 05:27 | PC.NURSE ---
Since arriving to floor, pt is alert and oriented. Pt has had no complaints. Left elbow swelling has went down from markers. Pt hit elbow on bed causing a small abrasion, cleaned and covered. Pt has been 2x assist to use urinal on side of bed. Pt is max assist to move in bed. Receiving antibiotics. Call light in reach.
[2024-02-15] MEDS: humaLOG 100 UNITS/ML 3ML VIAL (SSI) SQ ×4 (05:47→21:42)
[2024-02-15 05:50] LABS: POC Glucose,Bedside 222 (70-110)
[2024-02-15 06:58] LABS: Basophils % 0.2 % (0.1-2.0); Eosinophils # 0.1 K/mm3 (0.0-0.4); Eosinophils % 1.3 % (0.1-12.0); Hemoglobin 12.5 g/dL (14.1-18.0); Lymphocytes # 0.4 K/mm3 (0.7-4.5); Lymphocytes % 4.2 % (10-50); Mean Corpuscular HGB Conc 31.9 g/dL (31.8-35.4); Mean Corpuscular Hemoglobin 27.5 pg (27.0-31.2); Mean Corpuscular Volume 86.1 fl (80-94); Mean Platelet Volume 8.2 fl (7.4-10.4); Monocytes # 0.3 K/mm3 (0.1-1.0); Monocytes % 3.5 % (1.7-9.3); Neutrophils # 8.4 K/mm3 (1.8-7.8); Neutrophils % 90.8 % (37.0-80.0); Platelet Count 103 K/mm3 (142-424); Red Blood Count 4.53 M/mm3 (4.60-6.20); Red Cell Distribution Width 15.8 % (11.5-17.5); White Blood Count 9.2 K/mm3 (4.8-10.8)
[2024-02-15 07:01] LABS: Chloride 100 mmol/L (98-107); Sodium 129 mmol/L (136-145)
[2024-02-15 07:02] LABS: Potassium 4.3 mmoL/L (3.5-5.1)
[2024-02-15 07:04] LABS: Alanine Aminotransferase 22 U/L (12-78); Albumin Level 3.2 g/dl (3.5-5.0); Albumin/Globulin Ratio 1.3 (1.1-1.8); Alkaline Phosphatase 68 U/L (38-126); Anion Gap 13.3 mEq/L (5-15); Aspartate Amino Transferase 31 U/L (17-59); Blood Urea Nitrogen 55 mg/dl (9-20); Calcium 8.7 mg/dl (8.4-10.2); Carbon Dioxide 20 mmol/L (22.0-30.0); Creatinine Clearance Estimated 35 mL/min (50-200); Estimated Glomerular Filt Rate 30 ml/min (>60); GFR (African American) 37 ML/MIN (>60); Globulin 2.5 g/dL (1.3-3.2); Glucose 199 mg/dl (74-100); Magnesium 1.3 mg/dl (1.6-2.3); Total Protein,Serum 5.7 g/dl (6.3-8.2)
[2024-02-15 07:29] VITALS: BP 109/47; PULSE 92; RESP 20; TEMP 37; O2SAT 92
[2024-02-15 07:37] LABS: MANUAL DIFFERENTIAL MANUAL DIFFERENTIAL (MANUAL DIFF)
--- NOTE | 2024-02-15 07:48 | US_ITS ---
FINAL REPORT CLINICAL HISTORY: Eval for cirrhosis COMPARISON: None FINDINGS: Sonographic images of the right upper quadrant were obtained. The pancreas is partially obscured. The liver is normal in size. It has a mildly coarsened echotexture which may be seen with early stages of chronic liver disease. The portal vein is patent without perihepatic ascites. There is no evidence of gallstones. There is nonspecific mild gallbladder wall thickness of 4 mm. There is no evidence of biliary obstruction. The common duct measures 3 mm. Limited images of the right kidney are unremarkable. IMPRESSION: Abnormal appearance of the liver parenchyma may indicate mild chronic liver disease. No obvious changes of portal hypertension. Reviewed, Interpreted and Dictated by Edna Cano MD Transcribed by Rebekah Boateng Authenticated and [facility]
[2024-02-15 07:57] LABS: Lymphocytes % 3 % (10-50); Monocytes % 5 % (2-9); Neutrophils % 92 % (42-76); Platelet Estimate Slight Decrease; RBC Morphology Normal; Total Cells Counted 100
[2024-02-15] MEDS: MAGNESIUM OXIDE 400MG TABLET 400 MG PO (08:05)
[2024-02-15] MEDS: MAGNESIUM SULFATE IN WATER 2 GM/50 ML PIGGYBACK IV (09:19)
--- NOTE | 2024-02-15 10:09 | EXP.ACUTE.PN ---
Subjective *Date: 02/15/24 *Time: 11:48 Interval history: Patient afebrile overnight. Stable on room air. Reports improvement in his elbow. No change in redness or swelling however. Still warm on exam. No nausea or vomiting. Tolerating p.o. intake. N.p.o. this morning pending right upper quadrant ultrasound. Necessitating significant assistance to get up. States he could not hold his drink during morning rounds due to decreased sensation in his hands. Needing assistance with holding urinal so he can pee laying down as he feels fatigued. Therapy evaluating patient today. Medical Exam Vital signs and Labs for Last 24 Hours: Vital Signs Temp Pulse Pulse Resp BP BP Pulse Ox 02/15/24 09:52 02/15/24 08:32 02/15/24 08:00 02/15/24 07:29 98.6 F 92 H 20 109/47 L 92 L 02/15/24 06:49 02/15/24 04:58 02/15/24 04:00 99.3 F 99 H 18 114/55 L 92 L 02/15/24 03:00 02/15/24 00:50 02/14/24 23:00 02/14/24 21:00 02/14/24 20:29 98.2 F 82 18 121/65 98 02/14/24 20:00 02/14/24 19:59 98.7 F 87 16 113/81 02/14/24 17:31 99 H 16 114/73 97 02/14/24 16:19 98.7 F 89 20 111/57 L 95 O2 Del Method 02/15/24 09:52 Room Air 02/15/24 08:32 Room Air 02/15/24 08:00 Room Air 02/15/24 07:29 Room Air 02/15/24 06:49 Room Air 02/15/24 04:58 Room Air 02/15/24 04:00 Room Air 02/15/24 03:00 Room Air 02/15/24 00:50 Room Air 02/14/24 23:00 Room Air 02/14/24 21:00 Room Air 02/14/24 20:29 Room Air 02/14/24 20:00 Room Air 02/14/24 19:59 Room Air 02/14/24 17:31 Room Air 02/14/24 16:19 Room Air Intake and Output 02/14/24 02/15/24 02/15/24 23:59 07:59 15:59 Intake Total 450 / 600 150 / 600 Output Total 750 / 875 125 / 875 Balance -300 / -275 25 / -275 Intake: Intake, Total IV Amount 450 / 600 150 / 600 Ampicillin/Sulbactam 3 gm In 0. 200 / 300 100 / 300 9 % Sodium Chloride 100 ml @ 200 mls/hr IV Q6H [facility] Rx#: [id number] Magnesium Sulfate in Water 2 gm 50 / 50 In 50 ml @ 50 mls/hr IV ONCE ONE Rx#:[id number] Vancomycin HCl 2,500 mg In 0.9 250 / 250 % Sodium Chloride 250 ml @ 125 mls/hr IV ONCE ONE Rx#:[id number] Output: Output, Urine Amount 750 / 875 125 / 875 Other: Number of Unmeasured Voids 1 0 Number of Bowel Movements 1 Weight 142.882 kg 141.475 kg Patient Weight 02/15/24 23:59 Weight 141.475 kg Laboratory Results - last 24 hr 02/14/24 16:43: WBC 12.2 H, RBC 4.84, Hgb 13.3 L, Hct 41.4 L, MCV 85.6, MCH 27.6, MCHC 32.2, RDW 15.8, Plt Count 121 L, MPV 9.2, Neut % (Auto) 90.3 H, Lymph % (Auto) 4.6 L, [place] % (Auto) 3.6, Eos % (Auto) 1.1, Baso % (Auto) 0.3, Neut # (Auto) 11.0 H, Lymph # (Auto) 0.6 L, [place] # (Auto) 0.4, Eos # (Auto) 0.1, Baso # (Auto) 0.0, Total Counted 100, Neutrophils % (Manual) 88 H, Lymphocytes % (Manual) 8 L, Monocytes % (Manual) 4, Platelet Estimate Slight decrease, RBC Morphology Normal, ESR 63 H, PT 12.2, INR 1.14 H, Sodium 128 L, Potassium 4.6, Chloride 96 L, Carbon Dioxide 23, Anion Gap 13.6, BUN 57 H, Creatinine 2.20 H, Estimated Creat Clear 35, Estimated GFR 30 L, Est GFR ( Amer) 37 L, Glucose 270 H, Hemoglobin A1c 9.0 H, Lactate 1.3, Uric Acid 9.9 H, Calcium 9.2, Total Bilirubin 1.4 H, AST 27, ALT 23, Alkaline Phosphatase 69, Total Creatine Kinase 137, C-Reactive Protein 285.5 H, Total Protein 6.4, Albumin 3.6, Globulin 2.8, Albumin/Globulin Ratio 1.3, Procalcitonin 0.957 02/14/24 21:20: POC Glucose 219 H 02/15/24 00:03: Urine Color Yellow, Urine Appearance Clear, Urine pH 5.5, Ur Specific [place] 1.020, Urine Protein 1+, Urine Glucose (UA) 2+, Urine Ketones Negative, Urine Blood 1+, Urine Nitrate Negative, Urine Bilirubin Negative, Urine Urobilinogen 0.2, Ur Leukocyte Esterase Negative, Urine RBC 3-5, Urine WBC 3-5, Amorphous Sediment 2+, Urine Bacteria 1+ 02/15/24 05:40: POC Glucose 222 H 02/15/24 06:30: WBC 9.2, RBC 4.53 L, Hgb 12.5 L, Hct 39.0 L, MCV 86.1, MCH 27.5, MCHC 31.9, RDW 15.8, Plt Count 103 L, MPV 8.2, Neut % (Auto) 90.8 H, Lymph % (Auto) 4.2 L, [place] % (Auto) 3.5, Eos % (Auto) 1.3, Baso % (Auto) 0.2, Neut # (Auto) 8.4 H, Lymph # (Auto) 0.4 L, [place] # (Auto) 0.3, Eos # (Auto) 0.1, Baso # (Auto) 0.0, Total Counted 100, Neutrophils % (Manual) 92 H, Lymphocytes % (Manual) 3 L, Monocytes % (Manual) 5, Platelet Estimate Slight decrease, RBC Morphology Normal, Sodium 129 L, Potassium 4.3, Chloride 100, Carbon Dioxide 20 L, Anion Gap 13.3, BUN 55 H, Creatinine 2.20 H, Estimated Creat Clear 35, Estimated GFR 30 L, Est GFR ( Amer) 37 L, Glucose 199 H D, Calcium 8.7, Magnesium 1.3 L, Total Bilirubin 1.0, AST 31, ALT 22, Alkaline Phosphatase 68, Total Protein 5.7 L, Albumin 3.2 L D, Globulin 2.5, Albumin/Globulin Ratio 1.3 I & O for Labs for Last 24 Hours: Intake & Output 02/12/24 02/13/24 02/14/24 02/15/24 23:59 23:59 23:59 23:59 Intake Total 600 / 600 Output Total 875 / 875 Balance -275 / -275 Weight 142.882 kg 141.475 kg Constitutional: Present no acute distress, morbidly obese, chronically ill appearing and cooperative Head: Present atraumatic and normocephalic ENT: Present normal exam Neck: Present normal inspection Respiratory: Present distant breath sounds and normal respiratory effort; Absent rhonchi, wheezes or crackles Cardiac: Present Reg Rate and Rhythm GI: Present soft and normal bowel sounds; Absent distention or tenderness Comments:: Obese (male): Present normal inspection Extremities: Present normal inspection and full ROM Skin: Present intact and erythema Comment:: Swelling and erythema and warmth around left elbow. Range of motion intact. No pain with movement. Neuro: Present Grossly Intact, alert, awake, oriented x 3 and moves all extremities Assessment and Plan *Assessment and plan (1) Sepsis: Status: Acute Category: Medical Code(s): A41.9 - Sepsis, unspecified organism (2) Cellulitis: Status: Acute Qualifiers: Laterality: left Site of cellulitis: extremity Site of cellulitis of extremity: upper extremity Qualified Code(s): L03.114 - Cellulitis of left upper limb Category: Medical Code(s): L03.90 - Cellulitis, unspecified (3) OSIRIS (acute kidney injury): Status: Acute Category: Medical Code(s): N17.9 - Acute kidney failure, unspecified (4) Hyponatremia: Status: Acute Category: Medical Code(s): E87.1 - Hypo-osmolality and hyponatremia (5) Hypertension: Status: Acute Category: Medical Code(s): I10 - Essential (primary) hypertension (6) Heart failure: Status: Acute Category: Medical Code(s): I50.9 - Heart failure, unspecified (7) Diabetes mellitus, type 2: Status: Acute Category: Medical Code(s): E11.9 - Type 2 diabetes mellitus without complications (8) Gout: Status: Acute Category: Medical Code(s): M10.9 - Gout, unspecified Plan 63-year-old male with CKD, gout, hypertension, diabetes. Presented to the ER with weakness, hypotension, concern for sepsis and cellulitis. Discussed case with ER physician, request admission for IV antibiotics, further fluid resuscitation, and monitoring of improvement in kidney function. Medicine agreed to admit for further management. Received 2 L in the ER. Started on vancomycin and Zosyn. In the setting of his OSIRIS, will switch antibiotics. Necessitating inpatient management. Cultures obtained. Stable this morning. Continues to require inpatient management for IV antibiotics, therapy, management of OSIRIS. Problems addressed as follows: Sepsis Cellulitis - Meeting sepsis criteria with tachycardia, leukocytosis, infection with cellulitis. Endorgan damage with OSIRIS and initial hypotension that was fluid responsive. - Continue vancomycin IV. Monitor for toxicity; continue Unasyn 3 g every 6 hours. -Blood cultures obtained, pending -ESR elevated at 63 on admission. Repeat ESR ordered for the morning. -Imaging personally reviewed, no fluid collection in left elbow joint. Does have significant soft tissue edema on CT. - White cell count improved to 9.2. Repeat CBC, CMP, magnesium ordered for the morning -Morphine 4 mg IV every 6 hours as needed for severe pain, Tylenol 650 mg p.o. as needed every 6 hours for pain or fever. Monitor for toxicity OSIRIS on CKD: - baseline creatinine 1.6. Creatinine 2.2, BUN 55 on morning labs - Caution with nephrotoxins. Avoiding NSAIDs. Concerned that meloxicam in conjunction with his losartan and onset of infection are likely etiology for his OSIRIS Uncontrolled diabetes: - A1c 9.0. Continue sliding scale insulin with fingersticks ACHS. On metformin and and Invokana at home. -Hold metformin and Invokana in the setting of OSIRIS, increase Lantus to 15 units nightly. Will make further adjustments pending morning glucose. -Diabetic diet Hyponatremia: Sodium 129 on morning labs. Suspect in the setting of diuretic use and hypovolemia. Monitor for improvement with morning labs. Correct between 8 and 10 mEq a day. Thrombocytopenia, platelets 103. Given his hyponatremia and thrombocytopenia, right upper quadrant ultrasound obtained. Coarse echotexture on imaging. Concerning for early cirrhosis. Appears compensated. INR pending to evaluate MELD score. Gout: Reportedly on febuxostat 40mg at home. Has not filled it since August. Uric acid level 9.9. Initiate allopurinol 100 mg daily. Would benefit from resuming febuxostat at discharge. Hypertension: On carvedilol, Lasix, and losartan at home. Holding in the setting of normotensive/hypotensive and OSIRIS. Resume when appropriate Class III over the complicates all of his care. PT and OT to evaluate, patient has been immobile at home and using wheelchair due to back injury. Evaluate for safety going home with home health versus SNF versus outpatient therapy. Full code Diabetic diet Lovenox 30 mg subcu daily
--- NOTE | 2024-02-15 10:24 | HMH.PTEV ---
Physical Therapy Evaluation Rehab PT IP Evaluation Start: 02/14/24 20:57 Freq: ONCE Status: Active Protocol: Document 02/15/24 10:16 PHOMADELYN (Rec: 02/15/24 10:24 PHORNE [id number]) Subjective/History History History This is the initial evaluation for New Lobato, 63 yowm, who presents to [facility] with primary complaints of cellulitis of his left elbow and back pain. The patient has a [facility] signficant for diabetes, gout, CKD. Subjective Subjective The patient is agreeable to PT and oriented x4. The patient reports that he uses a wheelchair for all mobility. He reports that his left leg tries to give out on him. The patient reports that he has family friends that stay with him at his house to help care for him. Rehab PT IP Eval Objective Appearance Patient Behavior Patient Baseline Patient Orientation Person,Place,Time,Birthday Difficulty following instructions none Speech Pattern Clear Ambulation Patient Able to Ambulate Yes Ambulation Observation IP General Gait Pattern Observation Antalgic Gait Ambulation Distance (feet) 2 Ambulation Assistive Device None Ambulation Ability Maximum x 2 (75% assist) Balance Ability to Arise Able, uses arms to help Sitting Balance Steady, safe Standing Balance Unsteady Dynamic Sitting Balance Ability Fair Dynamic Standing Balance Ability Poor Transfers Bed Transfer Ability Maximum x 2 (75% assist) Sit to Stand Bed Transfer Ability Maximum x 2 (75% assist) Rehab PT IP prob,goals,plan Problems Date of Evaluation: 02/15/24 PT IP Problems Bed Mobility,Transfers,Gait, Balance,Self care,Safety Rehab Potential Rehab Potential Fair Equipment Needs Assistive Devices Rolling / Wheeled Walker Plan PT Intervention Plan Bed Mobility,Transfers,Gait, Balance,Self care,Safety, Therapeutic Exercise PT Plan Frequency Daily Duration LOS Discharge Goals Bed Transfer Ability Moderate x 1 (50% assist) Sit to Stand Chair Transfer Ability Moderate x 1 (50% assist) Ambulation Assistive Device Rolling Walker Ambulation Distance (feet) 10 Discharge Plan PT Discharge Plan Patient presents for initial evaluation and presents below baseline for all functional mobility and transfers. The patient would benefit from skilled PT during his stay. The patient does not present safely for discharge to home and may be most appropriate for placement for further rehab, when deemed medically stable. Eval Complexity Eval Charge Codes 78091 - High Complexity PHYSICIAN CERTIFICATION: I certify the specified therapy services for [place] Cheryle are required, authorized, and reviewed every 30 days.
--- OUTSIDE RECORDS SUMMARY | 2024-02-15 10:25 | XMS_ITS ---
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
--- OUTSIDE RECORDS SUMMARY | 2024-02-15 10:25 | XMS_ITS ---
Author Name Unknown Address [address] [place] [address] [place] [address] Phone Organization [facility] Address [address] [place] [address] Phone Care Team Providers Care Credit Administration Officer Name Role Phone GENNA WILKES, DARRELL Unavailable [phone] Gokul WILKES, Napoleon Unavailable [phone] Problems Includes: Active, inactive, and resolved Problems All Visits Onset Date Resolved Date Provider Condition S tatus Lower Back Pain 02/07/2024 Napoleon wilkins MD Active Last Documented On 4 10:34AM ; [facility], [facility] Plan of Treatment Future Appointments Date Time Location Provi nai Follow Up 03/06/2024 2:45PM [facility] Last Documented On 4 11:36AM ; [facility], [facility] Instructions to patient Lose weight Last Documented On 4 10:36AM ; [facility], [facility] Assessments Includes: Assessments for all patient encounters Findings Encounter Date Overweight Physician Specified with Napoleon Hodgson MD 02/07/2024 Last Documented On 4 2:51PM ; [facility], [facility] Instructions Includes: Instructions for all patient encounters Instructions to patient Lose weight Last Documented On 4 10:36AM ; [facility], [facility] Medical Equipment - Implanted Devices Includes: Current and historical Devices No Medical Equipment Recorded Medications Includes: Current and historical Medications Current Medications (continue as prescribed) Meloxicam 15 MG Oral Tablet 02/07/2024 - 03/08/2024 Provider: Napoleon Hodgson MD Diagnosis: Low back pain, unspecified Take 1 tablet PO once a day, NEEDED Last Documented On 4 11:40AM By Tara Keenan ; [facility], [facility] predniSONE 20 MG Oral Tablet 01/28/2024 Provider: DARRELL VAIL MD Diagnosis: Last Documented On 4 10:35AM By Tara Keenan ; [facility], [facility] Carvedilol 12.5 MG Oral Tablet 01/24/2024 Provider: DARRELL VAIL MD Diagnosis: Last Documented On 4 10:35AM By Tara Keenan ; [facility], [facility] Invokana 300 MG Oral Tablet 01/24/2024 Provider: DARRELL VAIL MD Diagnosis: Last Documented On 4 10:35AM By Tara Keenan ; [facility], [facility] Losartan Potassium 100 MG Oral Tablet 01/24/2024 Pro vider: DARRELL VAIL MD Diagnosis: Last Documented On 4 10:35AM By Tara Keenan ; [facility], [facility] metFORMIN HCl 1000 MG Oral Tablet 01/17/2024 Provide r: DARRELL VAIL MD Diagnosis: Last Documented On 4 10:35AM By Tara Keenan ; [facility], [facility] traZODone HCl 50 MG Oral Tablet 01/17/2024 Provider: DARRELL VAIL MD Diagnosis: Last Documented On 4 10:36AM By Tara Keenan ; [facility], [facility] Furosemide 40 MG Oral Tablet 12/19/2023 Provider: Diagnosis: Last Documented On 4 10:36AM By Tara Keenan ; [facility], [facility] Past Medications on file Medrol 4 MG Oral Tablet Therapy Pack 02/07/2024 - 02/14/2024 Provider: Napoleon Hodgson MD Diagnosis: Low back pain, unspecified take as directed Last Documented On 4 11:40AM By Tara Keenan ; [facility], [facility] Medications Administered Includes: Administered Medications in patient's chart No Administered Medications Recorded Vital Signs Includes: Vital Signs from 02/14/2023 through 02/15/2024 Vital Name 02/07/2024 11:20A Height (in) 71 Weight (lb) 315 Body Mass Index 43.9 Body Surface Area 2.6 Note: HL Last Documented: On 02/07/2024 11:20A M ; [facility], [facility] Results Includes: Results from 02/14/2023 through 02/15/2024 No Results Recorded For Specified Dates History of Present Illness History of Present Illness not supported for this document type No History of Present Illness Recorded Social History Description Last Updated Caffeine use 02/07/2024 Last Documented On 4 2:51PM ; [facility], [facility] Tobacco non-user 02/07/2024 Last Documented On 4 2:51PM ; [facility], [facility] No recent change in diet 02/07/2024 Last Documented On 4 2:51PM ; [facility], [facility] Not a current smoker. 02/07/2024 Last Documented On 4 2:51PM ; [facility], [facility] Not exercising regularly 02/07/2024 Last Documented On 4 2:51PM ; [facility], [facility] Not using alcohol 02/07/2024 Last Documented On 4 2:51PM ; [facility], [facility] Not using drugs 02/07/2024 Last Documented On 4 2:51PM ; [facility], [facility] Smoking Status Unknown Procedures and Surgical History Surgical History Last Updated Past Surgical History: Broken leg 2023 Last Documented On 4 2:51PM ; [facility], [facility] Medical History Includes: Medical History in patient's chart Description Last Updated History of arthritis 02/07/2024 Last Documented On 4 2:51PM ; [facility], [facility] History of diabetes mellitus 02/07/2024 Last Documented On 4 2:51PM ; [facility], [facility] History of Hypertension 02/07/2024 Last Documented On 4 2:51PM ; [facility], [facility] History of Kidney Disease 02/07/2024 Last Documented On 4 2:51PM ; [facility], [facility] Family History Includes: Family History in patient's chart Description Last Updated Family history of rheumatoid arthritis 0 02/07/2024 Last Documented On 4 2:51PM ; [facility], [facility] Family history of systemic hypertension 02/07/2024 Last Documented On 4 2:51PM ; [facility] Review of Systems Review of Systems not supported for this document type No Review of Systems Recorded Mental Status Description No anxiety Functional Status No Functional Status Recorded Physical Exam Physical Exam not supported for this document type No Physical Exam Recorded Allergies Includes: Active, inactive, and resolved Allergies No Known Allergies Encounters Includes: Encounters from 02/14/2023 through 02/15/2024 Encounter Provider Location Date Check-In Time Check-Out Time Diagnosis Physician Specified Napoleon wilkins MD [facility] 02/07/20 24 10:18AM 11:22AM Overweight Insurance Includes: Active Insurance Policies Plan Name Member ID Group # Subscriber Relationship Effect jersey Dates 1 - Medicare Part B [facility] [id number] [place] Self Clinical Notes Includes: Signed Clinical Notes starting from 10/01/2022 * Progress note Date Encounter Last Documented by 02/07/2024 Physician Specified Last maribelumesole letty on 02/11/2024; 2:51 PM, Napoleon Hodgson MD; [facility], [facility] Active Problems & Conditions - Lower Back Pain Chief Complaint The Chief Complaint is: BLE numbess/weakness. Referred Here Referred by PCP. History of Present Illness New Lobato is a 63 year old male. - Symptoms Giving away Predisone makes discomfort better Nothing makes discomfort worse. - Allergy list reviewed - Problem list reviewed - Medication list reviewed - Previous history of new onset pain 12/08/2023 Work Injury - Patient pain level from 1-10: no pain - History of Home Exercise - No previous treatment. Medications used for this condition: This is a 63-year-old man seeing me as a new patient today. He was new to the practice. He is here for evaluation of low back pain and numbness in the bilateral legs as well as weakness in the bilateral legs. He also indicates multiple times that he is sore in his bilateral groin. He presents today in a wheelchair. Frankly, it was very difficult to get any kind of straight answer or history from him is things get very tangential very quickly. He said he also has pain in his neck. He also said he had some kind of spinal tap at [facility] and said that they really messed him up. He said they were looking for some disease and I asked if this was Guillain-Middleburg syndrome he said nah, that ain't it. Later, he said he thinks that was probably it actually. Either way, it is difficult to ascertain the exact issues that are causing him the most pain in issues right now but it does sound as though he is still having weakness in the bilateral upper and lower extremities. He has a history of very poorly controlled diabetes. Current Medication - Carvedilol 12.5 MG Oral Tablet twice a day 30 days, 0 refills - Furosemide 40 MG Oral Tablet once a day 30 days, 0 refills - Invokana 300 MG Oral Tablet once a day 90 days, 0 refills - Losartan Potassium 100 MG Oral Tablet once a day 90 days, 0 refills - metFORMIN HCl 1000 MG Oral Tablet twice a day 90 days, 0 refills - predniSONE 20 MG Oral Tablet twice a day 7 days, 0 refills - traZODone HCl 50 MG Oral Tablet once a day 90 days, 0 refills Past Medical/Surgical History Diagnoses: Kidney Disease Hypertension. Diabetes mellitus. Arthritis Surgical: - Past Surgical History: Broken leg Social History Not a current smoker. Current diet: No recent change in diet. Caffeine use: Caffeine use. Tobacco use: Tobacco non-user. Alcohol: Not using alcohol. Drug Use: Not using drugs. Habits: Not exercising regularly. Allergies - No Known Allergies Family History Systemic hypertension Rheumatoid arthritis Review Of Systems Systemic: Not feeling tired, no recent weight loss, and no recent weight gain. Head: No headache and no sinus pain. Eyes: No vision problems and no Cataracts. Glasses/Contacts. No Glaucoma. Otolaryngeal: No hearing loss and no tinnitus. Cardiovascular: No chest pain or discomfort and no palpitations. Hypertension. No High Cholesterol. Pulmonary: No daytime asthma symptoms and no chronic cough. No wheezing. Gastrointestinal: No heartburn and no abdominal pain. No Indigestion, no Acid Reflux, no Peptic Ulcer, no GI Stomach Bleed, and no Ulcers. Endocrine: No hot flashes. Muscle weakness and Diabetes. No Hypothyroid and no Hyperthyroid. Hematologic: No easy bleeding, no tendency for easy bruising, and no Anemia. Musculoskeletal: Arthritis. No lower back pain. No soft tissue swelling and no localized joint pain. Neurological: No dizziness and no convulsions. Numbness. Psychological: No anxiety, no emotional lability, no depression, and no insomnia. Not crying for no reason. Skin: No dry skin. No Ulcers, no Scars, and no rash. Allergic and Immunologic: No complaint of seasonal allergic reaction. Physical Findings - Vitals taken 02/07/2024 11:20 am HL Height 71 in Weight 315 lbs Body Mass Index 43.9 kg/m2 Body Surface Area 2.6 m2 General: Alert and Oriented A&O x 3 Focused Musculoskeletal Exam of the Spine: No focal tenderness in the cervical, thoracic, or lumbar spine Motor EF WE T FF HI Right 5/5 5/5 5/5 3/5 3/5 Left 5/5 5/5 5/5 3/5 3/5 Sensation C5 C6 C7 C8 T1 Right 2 2 2 2 2 Left 2 2 2 2 2 Biceps reflex is 1+ bilaterally Brachioradialis reflex is 1+ bilaterally Triceps reflex is 1+ bilaterally Negative Carias's bilaterally Patient is able to ambulate in the room without assistive device Symmetric, palpable radial pulses bilaterally Motor HF KE AD EHL GS Right 5/5 4/5 3/5 3/5 3/5 Left 5/5 4/5 3/5 3/5 3/5 Sensation L2 L3 L4 L5 S1 Right 2 2 2 2 2 Left 2 2 2 2 2 Patellar reflex is 1+ bilaterally Achilles reflex is 1+ bilaterally No ankle clonus Symmetric, palpable posterior tibialis pulse bilaterally Tests MRI cervical spine I do not see any myelomalacia or spinal cord edema. I do see some areas of severe central canal stenosis scattered throughout the cervical spine. MRI thoracic spine. I do not see any significant compressive pathology throughout the thoracic spine. MRI lumbar spine. 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 It was very interesting meeting New today in the office. He was accompanied by apparently some kind of employee who works with him. It was incredibly difficult to get a coherent health history or even a history of his present condition, but I certainly do think that the tandem stenosis we see both in the cervical and lumbar spine is contributing to a decline in his overall health and well-being. It was even difficult to try to talk him about treatment strategies moving forward. We are going to start him in a short course of physical therapy including generalized conditioning. It certainly looks as though he has had an episode of Guillain- Middleburg syndrome or some other lower motor neuron or neuromuscular junction dysfunction. He can follow up with me in a few weeks to check in. He will likely go on to need some kind of operative intervention, but I think the biggest challenge with him is going to be communicating the goals of surgery and further treatment. Fall Risk Assessment: This patient has been identified as a fall risk. Balance/gait along with postural blood pressure, vision and home fall hazards have been assessed. Medications have been reviewed, and recommendations made with regard to contributing factors for future falls. Plan of care: Consideration of vitamin D supplementation along with balance and strength training with consideration for formal physical therapy has been discussed with the patient. Assessment - Overweight Previous Tests Imaging: MRI Scan: An MRI was performed 01/10/2024 CSpine @ [facility] 01/10/2024 TSpine @ [facility] 01/10/2024 LSpine @ [facility]. Counseling/Education - Lose weight Plan StartCited - Low back pain, unspecified Therapy/Physical Therapy: Lumbar Instructions: See PT order attached Meloxicam 15 MG tablet Take 1 tablet PO once a day, NEEDED, 30 days, 0 refills Medrol 4 MG tablet take as directed, 7 days, 0 refills EndCited Practice Management Use of tobacco assessment performed and patient screened for future fall risk documentation of any fall with injury in past year Review of medications documented. Care Team - DARRELL VAIL MD - TAR HEEL Notes This dictation was done with voice recognition software and may contain errors and omissions.
--- OUTSIDE RECORDS SUMMARY | 2024-02-15 10:25 | XMS_ITS | Clinical Summary ---
Author Name Unknown Address [address] [place] [address] [place] [address] Phone Organization [facility] , [facility] Address [address] [place] [address] Phone Care Team Providers Care Master Esthetician Name Role Phone GENNA WILKES, DARRELL Unavailable [phone] Gokul WILKES, Napoleon Unavailable [phone] Reason for Visit and Chief Complaint The Chief Complaint is: BLE numbess/weakness Problems Includes: Problems addressed during this encounter and other active Problems Current Visit Onset Date Resolved Date Provider Antwono charlie Status Lower Back Pain 02/07/2024 Napoleon wilkins MD Active Last Documented On 4 10:34AM ; [facility], [facility] Plan of Treatment Pending Tests Order Diagnosis Results Due Ordering P rovider Therapy - Physical Therapy Lumbar Low back pain, unspecified 02/07/24 Napoleon Hodgson MD Last Documented On 4 2:51PM ; [facility] Future Appointments Date Time Location Provi nai Follow Up 03/06/2024 2:45PM [facility] Hodgson MD Last Documented On 4 11:36AM ; [facility], [facility] Instructions to patient Lose weight Last Documented On 4 10:36AM ; [facility], [facility] Assessments Includes: Assessments from this encounter Findings - Overweight - Last Documented On 02/11/2024 2:51PM ; [facility], [facility] Fall Risk Assessment: - Last Documented On 02/11/2024 2:51PM ; [facility], [facility] This patient has been identified as a fall risk. Balance/gait along with postural blood pressure, vision and home fall hazards have been assessed. Medications have been reviewed, and recommendations made with regard to contributing factors for future falls. - Last Documented On 02/11/2024 2:51PM ; [facility] Plan of care: Consideration of vitamin D supplementation along with balance and strength training with consideration for formal physical therapy has been discussed with the patient. - Last Documented On 02/11/2024 2:51PM ; [facility] Instructions Includes: Instructions from this encounter Instructions to patient Lose weight Last Documented On 4 10:36AM ; [facility] Medical Equipment - Implanted Devices Includes: Current Devices No Medical Equipment Recorded Medications Includes: Medications discussed during this encounter and other current Medications New / Renewed during this visit Napoleon Hodgson MD on 02/07/2024 Meloxicam 15 MG Oral Tablet Provider: Napoleon wilkins MD 30 day supply: 30 tablet, 0 refills Diagnosis: Low back pain, unspecified Take 1 tablet PO once a day, NEEDED Pharmacy: [facility] [phone] [facility] [place], [address] - Last Documented On 4 11:40AM By Tara Keenan ; [facility], [facility] Medrol 4 MG Oral Tablet Therapy Pack Provider: Napoleon wilkins MD 7 day supply: 21 tablet, 0 refills Diagnosis: Low back pain, unspecified take as directed Pharmacy: [facility] [phone] [facility] [place], [address] - Last Documented On 4 11:40AM By Tara Keenan ; [facility], [facility] Current Medications (continue as prescribed) predniSONE 20 MG Oral Tablet 01/28/2024 Provider: DARRELL VAIL MD Diagnosis: Last Documented On 4 10:35AM By Tara Keenan ; [facility] Carvedilol 12.5 MG Oral Tablet 01/24/2024 Provider: DARRELL VAIL MD Diagnosis: Last Documented On 4 10:35AM By Tara Keenan ; [facility], [facility] Invokana 300 MG Oral Tablet 01/24/2024 Provider: DARRELL VAIL MD Diagnosis: Last Documented On 4 10:35AM By Tara Keenan ; [facility] Losartan Potassium 100 MG Oral Tablet 01/24/2024 Pro vider: DARRELL VAIL MD Diagnosis: Last Documented On 4 10:35AM By Tara Keenan ; [facility] metFORMIN HCl 1000 MG Oral Tablet 01/17/2024 Provide r: DARRELL VAIL MD Diagnosis: Last Documented On 4 10:35AM By Tara Keenan ; [facility] traZODone HCl 50 MG Oral Tablet 01/17/2024 Provider: DARRELL VAIL MD Diagnosis: Last Documented On 4 10:36AM By Tara Keenan ; [facility] Furosemide 40 MG Oral Tablet 12/19/2023 Provider: Diagnosis: Last Documented On 4 10:36AM By Tara Keenan ; [facility] Medications Administered Includes: Administered Medications from this encounter No Administered Medications Recorded Vital Signs Includes: Vital Signs from this encounter Vital Name 02/07/2024 11:20A Height (in) 71 Weight (lb) 315 Body Mass Index 43.9 Body Surface Area 2.6 Note: HL Last Documented: On 02/07/2024 11:20A M ; [facility] Results Includes: Results discussed during this encounter No Results Recorded For Specified Dates History of Present Illness Includes: History of Present Illness from this encounter ELIANA Lobato is a 63 year old male. [...] had some kind of spinal tap at [facility] and said that they really messed him up. He said they were looking for some disease and I asked if this was Guillain-Rupert syndrome he said nah, that ain't it. [...] a history of very poorly controlled diabetes. Social History Description Last Updated Caffeine use 02/07/2024 Last Documented On 4 2:51PM ; [facility], [facility] Tobacco non-user 02/07/2024 Last Documented On 4 2:51PM ; [facility], [facility] No recent change in diet 02/07/2024 Last Documented On 4 2:51PM ; [facility], [facility] Not a current smoker. 02/07/2024 Last Documented On 4 2:51PM ; [facility], [facility] Not exercising regularly 02/07/2024 Last Documented On 4 2:51PM ; [facility], [facility] Not using alcohol 02/07/2024 Last Documented On 4 2:51PM ; [facility], [facility] Not using drugs 02/07/2024 Last Documented On 4 2:51PM ; [facility], [facility] Smoking Status Unknown Procedures and Surgical History Includes: Procedures from this encounter Procedures Code Diagnosis Performing Provider Service L ocation Service Date use of tobacco assessment performed 1000F Last Documented On 4 10:36AM ; [facility], [facility] patient screened for future fall risk: documentation of any fall with injury in past year 1100F Last Documented On 4 10:36AM ; [facility], [facility] review of medications documented 1160F Last Documented On 4 10:36AM ; [facility], [facility] an MRI was performed 024 [facility] ~01/10/2024 [facility] ~01/10/2024 [facility] [id number] Last Documented On 4 11:19AM ; [facility] Surgical History Last Updated Past Surgical History: Broken leg 2023 Last Documented On 4 2:51PM ; [facility], [facility] Medical History Includes: Medical History addressed during this encounter Description Last Updated History of arthritis 02/07/2024 Last Documented On 4 2:51PM ; [facility] History of diabetes mellitus 02/07/2024 Last Documented On 4 2:51PM ; [facility] History of Hypertension 02/07/2024 Last Documented On 4 2:51PM ; [facility] History of Kidney Disease 02/07/2024 Last Documented On 4 2:51PM ; [facility] Family History Includes: Family History addressed during this encounter Description Last Updated Family history of rheumatoid arthritis 0 02/07/2024 Last Documented On 4 2:51PM ; [facility] Family history of systemic hypertension 02/07/2024 Last Documented On 4 2:51PM ; [facility] Review of Systems Includes: Review of Systems from this encounter Systemic: Not feeling tired, no recent weight [...] Immunologic: No complaint of seasonal allergic reaction. Mental Status Includes: Mental Status from this encounter Description No anxiety Functional Status Includes: Functional Status from this encounter No Functional Status Recorded Physical Exam Includes: Physical Exam from this encounter Allergies Includes: Active Allergies No Known Allergies Encounters Encounter Provider Location Date Check-In Time Check-Out Time Diagnosis Physician Specified Napoleon wilkins MD [facility] 02/07/20 24 10:18AM 11:22AM Overweight Insurance Includes: Active Insurance Policies Plan Name Member ID Group # Subscriber Relationship Effect jersey Dates 1 - Medicare Part B [facility] [id number] [place] Self Clinical Notes Includes: Clinical Notes from this encounter * Progress note Date Encounter Last Documented by 02/07/2024 Physician Specified Last maribelumen letty on 02/11/2024; 2:51 PM, Napoleon Hodgson MD; [facility], [facility] Active Problems & Conditions - Lower [...] had some kind of spinal tap at [facility] and said that they really messed him up. He said they were looking for some disease and I asked if this was Guillain-Rupert syndrome he said nah, that ain't it. [...] he has had an episode of Guillain- Rupert syndrome or some other lower motor neuron [...] 01/10/2024 [facility] 01/10/2024 [facility]. Counseling/Education - Lose weight Plan StartCited - [...] Care Team - DARRELL VAIL MD - PLANNING ASSOCIATE Notes This dictation was done with voice recognition software and may contain errors and omissions.
--- OUTSIDE RECORDS SUMMARY | 2024-02-15 10:25 | XMS_ITS | Continuity of Care Document ---
Author Name Unknown Organization [facility] Address [address] [place] [id number] Phone Care Team Providers Care Pulp Drier Name Role Phone Marni Fitzpatrick MD Unavailable Unavailable Allergies, Adverse Reactions, Alerts Substance Reaction Status Criticality No Known Allergies Active No Inform ation Medications Medication Instructions Dosage Effective Dates (start - stop) Status Comments Uloric 40 mg tablet TAKE 1 TABLET BY MOUTH EVERY DAY - Active lisinopril 10 mg tablet take 1 tablet by oral route every day 10 MG - Active ranitidine 150 mg tablet take 1 tablet by oral route 2 times every day - Active Invokana 100 mg tablet take 1 tablet by oral route every day before the first meal of the day 100 MG - Active metformin 500 mg tablet take 2 tablet by oral route 2 times every day with morning and evening meals 1000 MG - Active FEBUXOSTAT 40MG TABLETS TAKE 1 TABLET BY MOUTH EVERY DAY - No Longer Active Procedures Procedure Date Office Visit Level III Office Visit Level III Office Visit Level IV Office Visit Level III Office Visit Level IV Office Visit Level III Office Visit Level IV Advance Directives Directive Yes / No Effective Date File Name No Information Encounters Encounter Description Practice Location Reason(s) For Visit Diagnoses Date Provider Providers Copied on Encounter Office Visit Level III [facility] [address], [id number], [place] tel:[phone] [facility] gout management (chief complaint) CHRONIC TOPHACEOUS GOUTDegenerati ve ArthropathyRen al insufficiencyB charo mass index (BMI) 40.0-44.9, adult 3 Amari Grider. [address], [id number] . tel:[phone] Specialist: Saurabh Cheung MD, [address] [place] [address], [place], [address]. tel:[phone] ng Provider: Tomi Cao [address] [place] [address], [id number]. tel:[phone] [facility], [address] [place] [address], [id number], tel:[phone] [facility] No Information 2 Amari Grider. [address] [place] [address], [id number] . tel:[phone] Office Visit Level III [facility] [address] [place] [address], [id number], tel:[phone] [facility] gout management (chief complaint) CHRONIC TOPHACEOUS GOUTDegenerati ve ArthropathyRen al insufficiencyB charo mass index (BMI) 40.0-44.9, adult 2 Amari Grider. [address] [place] [address], [id number] . tel:[phone] Specialist: Saurabh Cheung MD, [address] [place] [address], [place], [address]. tel:[phone] ng Provider: Tomi Cao [address] [place] [address], [id number]. tel:[phone] Office Visit Level IV [facility], [address] [place] [address], [id number], tel:[phone] [facility]. gout management (chief complaint) CHRONIC TOPHACEOUS GOUTDegenerati ve ArthropathyRen al insufficiencyB charo mass index (BMI) 45.0-49.9, adult 1 Amari Grider. [address], [id number] . tel: [phone] Referring Provider: Tomi Cao [address] [place] [address], [id number]. tel:[phone] [facility], [address] [place] [address], [id number], tel:[phone] [facility]. gout management (chief complaint) CHRONIC TOPHACEOUS GOUTDegenerati ve ArthropathyRen al insufficiencyB charo mass index (BMI) 45.0-49.9, adult 0 Amari Grider. [address] [place] [address], [id number] . tel:[phone] Referring Provider: Tomi Cao [address] [place] [address], [id number]. [phone] Office Visit Level III [facility] [address] [place] [address], [id number], [place] tel:[phone] [facility]. gout management (chief complaint) CHRONIC TOPHACEOUS GOUTDegenerati ve ArthropathyRen al insufficiencyB charo mass index (BMI) 45.0-49.9, adult 0 Amari Grider. [address], [id number] . tel:[phone] Referring Provider: Daphne Aragon [place]. [address], [address]. tel:[phone] Office Visit Level IV [facility] [address] [place] [address], [id number], tel:[phone] [facility] gout management (chief complaint) CHRONIC TOPHACEOUS GOUTDegenerati ve ArthropathyRen al insufficiencyB charo mass index (BMI) 45.0-49.9, adult 9 Amari Grider. [address], [id number] . tel:[phone] Referring Provider: Tomi Cao, [address] [place] [address], [id number]. tel:[phone] Office Visit Level III [facility] [address] [place] [address], [id number], [place] tel:[phone] [facility] gout management (chief complaint) Personal history of diabetic foot ulcerCHRONIC TOPHACEOUS GOUTDegenerati ve ArthropathyRen al insufficiencyB charo mass index (BMI) 45.0-49.9, adultVitamin B12 deficiency 9 Amari Grider. [address] [place] [address], [id number] . tel:[phone] Referring Provider: Tomi Cao [address] [place] [address], [id number]. tel:[phone] Office Visit Level IV [facility], [address] [place] [address], [id number], [place] tel:[phone] [facility] gout management (chief complaint) CHRONIC TOPHACEOUS GOUTDegenerati ve ArthropathyRen al insufficiencyP ersonal history of diabetic foot ulcer Jun- 7 Amari Grider. [address], [id number] . tel:[phone] Referring Provider: Tomi Cao, [address] [facility] [address], [address]. tel:[phone] [facility] [address], [place], [place], [id number], tel:[phone] [facility] CHRONIC TOPHACEOUS GOUTDegenerati ve ArthropathyRen al insufficiency [address], [place], [place], [id number] . tel:[phone] Family History Family Member Type Diagnosis Age At Onset Problem (finding) Family history of Arthr itis Payers Payer name Insurance type Covered alliance party ID Authoriza tion(s) No Information Social History Type Description Quantity Date Captured Comments Alcohol Use Details Unknown Caffeine Use Details Unknown Tobacco Use Status Current non-smoker Smoking Status Never smoker Sex Male Vital Signs Date / Time: Height Weight BMI Pulse Rate Blood Pressure Temperature Respiratory Rate Body Surface Area Head Circumference Head Circ. Percentile Wt./Justen. Percentile BMI percentile Pulse Ox Inhaled Ox 8:21 AM 70.00 in 148.325 kg (327.00 lbs) 46.9 2 kg/m eter (2) 75 /min 132/80 mm[Hg] 98.20 F Chief Complaint And Reason For Visit From encounter dated 11/09/2022 08:00'. gout management (chief complaint). Description: Patients current pain level is 0/10. The problem isresolved. No episodes since last office visit. Location(s) affected: bilateral knee, bilateral footand big toe. Patient describes the pain during attacks as throbbing, burning and stinging. Denies aggravating factors. Relieving factors include rest, Colchicine, Allopurinol, Febuxostat and time. Risk factors include: renal disorder. Associated symptoms include joint pain, tophi, hypertension, renal insufficiency and metabolic syndrome. Pertinent negatives include fever, kidney stones, rash, hyperlipidemia and coronary heart disease.No attacks since last OV. Reason For Referral Reason For Referral No Information Plan Of Treatment Date Type Action Status Goal Lifestyle education regardin g diet completed Goal Lifestyle education regardin g diet completed Goal Lifestyle education regardin g diet completed Goal Lifestyle education regardin g diet completed Goal Lifestyle education regardin g diet completed Goal Dietary manageme nt education, guidance, and counseling completed Future Order: Lab Order CBC With Differential/Platelet ([id number]), Ordered on: Ordered Future Order: Lab Order Comp. Me tabolic Panel (14) ([id number]), Ordered on: Ordered Future Order: Lab Order Uric Aci d, Serum ([id number]), Ordered on: Ordered Future Order: Lab Order CBC With Differential/Platelet ([id number]), Ordered on: Ordered Future Order: Lab Order Comp. Me tabolic Panel (14) ([id number]), Ordered on: Ordered Future Order: Lab Order Uric Aci d, Serum ([id number]), Ordered on: Ordered Future Order: Lab Order CBC With Differential/Platelet ([id number]), Ordered on: Ordered Future Order: Lab Order Comp. Me tabolic Panel (14) ([id number]), Ordered on: Ordered Future Order: Lab Order Uric Aci d, Serum ([id number]), Ordered on: Ordered Future Order: Lab Order CBC With Differential/Platelet ([id number]), Ordered on: Ordered Future Order: Lab Order Comp. Me tabolic Panel (14) ([id number]), Ordered on: Ordered Future Order: Lab Order Uric Aci d, Serum ([id number]), Ordered on: Ordered Future Order: Lab Order CBC With Differential/Platelet ([id number]), Ordered on: Ordered Future Order: Lab Order Comp. Me tabolic Panel (14) ([id number]), Ordered on: Ordered Future Order: Lab Order Uric Aci d, Serum ([id number]), Ordered on: Ordered Future Order: Lab Order CBC With Differential/Platelet ([id number]), Ordered on: Ordered Future Order: Lab Order Comp. Me tabolic Panel (14) ([id number]), Ordered on: Ordered Future Order: Lab Order Uric Aci d, Serum ([id number]), Ordered on: Ordered Future Order: Lab Order Uric Aci d, Serum ([id number]), Ordered on: Ordered History Of Present Illness Encounter Date Complaint History Of Prese nt Illness gout management Patient's curren t pain level is 0/10. The problem is resolved. No episodes since last office visit. Location(s) affected: bilateral knee, bilateral foot and big toe. Patient describes the pain during attacks as throbbing, burning and stinging. Denies aggravating factors. Relieving factors include rest, Colchicine, Allopurinol, Febuxostat and time. Risk factors include: renal disorder. Associated symptoms include joint pain, tophi, hypertension, renal insufficiency and metabolic syndrome. Pertinent negatives include fever, kidney stones, rash, hyperlipidemia and coronary heart disease.No attacks since last OV. gout management Patient's curren t pain level is 0/10. The problem is resolved. No episodes since last office visit. Location(s) affected: bilateral knee, bilateral foot and big toe. Patient describes the pain during attacks as throbbing, burning and stinging. Denies aggravating factors. Relieving factors include rest, Colchicine, Allopurinol, Febuxostat and time. Risk factors include: renal disorder. Associated symptoms include joint pain, tophi, hypertension, renal insufficiency and metabolic syndrome. Pertinent negatives include fever, kidney stones, rash, hyperlipidemia and coronary heart disease.No attacks since last OV. gout management Patient's curren t pain level is 0/10. The problem is resolved. No episodes since last office visit. Location(s) affected: bilateral knee, bilateral foot and big toe. Patient describes the pain during attacks as throbbing, burning and stinging. Denies aggravating factors. Relieving factors include rest, Colchicine, Allopurinol, Febuxostat and time. Risk factors include: renal disorder. Associated symptoms include joint pain, tophi, hypertension, renal insufficiency and metabolic syndrome. Pertinent negatives include fever, kidney stones, rash, hyperlipidemia and coronary heart disease.No attacks since last OV. gout management Patient's curren t pain level is 0/10. The problem is resolved. No episodes since last office visit. Location(s) affected: bilateral knee, bilateral foot and big toe. Patient describes the pain during attacks as throbbing, burning and stinging. Denies aggravating factors. Relieving factors include rest, Colchicine, Allopurinol, Febuxostat and time. Risk factors include: renal disorder. Associated symptoms include joint pain, tophi, hypertension, renal insufficiency and metabolic syndrome. Pertinent negatives include fever, kidney stones, rash, hyperlipidemia and coronary heart disease.No attacks since last OV. gout management Patient's curren t pain level is 0/10. The problem is resolved. No episodes since last office visit. Location(s) affected: bilateral knee, bilateral foot and big toe. Patient describes the pain during attacks as throbbing, burning and stinging. Denies aggravating factors. Relieving factors include rest, Colchicine, Allopurinol, Febuxostat and time. Risk factors include: renal disorder. Associated symptoms include joint pain, tophi, hypertension, renal insufficiency and metabolic syndrome. Pertinent negatives include fever, kidney stones, rash, hyperlipidemia and coronary heart disease.No attacks since last OV. gout management Patient's curren t pain level is 0/10. The problem is resolved. No episodes since last office visit. Location(s) affected: bilateral knee, bilateral foot and big toe. Patient describes the pain during attacks as throbbing, burning and stinging. Denies aggravating factors. Relieving factors include rest, Colchicine, Allopurinol and time. Risk factors include: renal disorder. Associated symptoms include tophi, hypertension, renal insufficiency and metabolic syndrome. Pertinent negatives include fever, joint pain, kidney stones, rash, hyperlipidemia and coronary heart disease.No attacks since last OV. gout management Patient's dari t pain level is 0/10. The problem is resolved. No episodes . Location(s) affected: bilateral knee, bilateral foot and big toe. Patient describes the pain during attacks as throbbing, burning and stinging. Denies aggravating factors. Relieving factors include rest, Colchicine, Allopurinol and time. Risk factors include: renal disorder. Associated symptoms include tophi, hypertension, renal insufficiency and metabolic syndrome. Pertinent negatives include fever, joint pain, kidney stones, rash, hyperlipidemia and coronary heart disease.off gout meds x 6 mos-ran out. No flares. Has lost 40lb. gout management Patient's dari t pain level is 0/10. The problem is resolved. No episodes . Location(s) affected: bilateral knee, bilateral foot and big toe. Patient describes the pain during attacks as throbbing, burning and stinging. Denies aggravating factors. Relieving factors include rest, Colchicine, Allopurinol and time. Risk factors include: renal disorder. Associated symptoms include tophi, hypertension, renal insufficiency and metabolic syndrome. Pertinent negatives include fever, joint pain, kidney stones, rash, hyperlipidemia and coronary heart disease.off gout meds x 6 mos-ran out. No flares. Has lost 40lb. Functional Status Date Functional Assessmen t Pain Score 1/10 Instructions Date Instruction Additional Infor shruthi Cbc, Cmp Uric acid o rder given.Continue Uloric 40mg per day.His planning associate and pcp check his labs throughout the year. Related to CHRONIC TOPHACEOUS GOUT No complaints. Related to Degen erative Arthropathy followed by nephrolo gy - Need last note. Related to Renal insufficiency Lifestyle education regarding di et Related to Body mass index [BMI] 40.0-44.9, adult Cbc,Cmp, Uric acid- order today. Continue Uloric 40mg per day. Related to CHRONIC TOPHACEOUS GOUT followed by nephrology Related t o Renal insufficiency No complaints. Related to Degen erative Arthropathy Lifestyle education regarding di et Related to Body mass index [BMI] 40.0-44.9, adult No complaints. Related to Degen erative Arthropathy Cbc,Cmp, Uric acid.C ontinue Uloric 40mg per day.Weight loss Related to CHRONIC TOPHACEOUS GOUT Referral to nephrology. Related to Renal insufficiency Lifestyle education regarding di et Related to Body mass index [BMI] 45.0-49.9, adult Cbc,Cmp, Uric acid.C ontinue Uloric 40mg per day.Weight loss discussed today with patient. Related to CHRONIC TOPHACEOUS GOUT Plans to see Nephrol ogy but has not seen them yet. Related to Renal insufficiency Cbc,Cmp, Uric acid.C ontinue Uloric 40mg per day.Weight loss discussed today with patient. Related to CHRONIC TOPHACEOUS GOUT Plans to see Nephrol ogy but has not seen them yet. Related to Renal insufficiency Lifestyle education regarding di et Related to Body mass index (BMI) 45.0-49.9, adult Plans to see Nephrology. Related to Renal insufficiency Recheck Uric acid.Cb c,Cmp.Continue Uloric 40mg per day.Weight loss discussed today with patient. Related to CHRONIC TOPHACEOUS GOUT Lifestyle education regarding di et Related to Body mass index (BMI) 45.0-49.9, adult Cbc,Cmp today. Related to Renal insufficiency Get Uric acid level. Cbc,Cmp.Will start Uloric 40mg per day.Patient has h/o renal insufficiency. Related to CHRONIC TOPHACEOUS GOUT Dietary management e ducation, guidance, and counseling Related to Body mass index (BMI) 45.0-49.9, adult stable--no complaints. Related t o Degenerative Arthropathy get recent pcp lab Related to Re nal insufficiency check uric acidget r ecent lab from pcp. Related to CHRONIC TOPHACEOUS GOUT f/u w/pcp re: DM; wt loss; stop celebrex if deteriorates; BP up a little today but forgot meds. Related to Renal insufficiency can stop colcrys and use for flares--has not afraid to ; Doing well!! no flares!!Will try QOD colcrys.uric acid 6.8 in 2014 Related to CHRONIC TOPHACEOUS GOUT stable--no complaints. Related t o Degenerative Arthropathy Assessments Type Assessment Date assessment CHRONIC TOPHACEOUS GOUT 023 impression Dx 2001; urate 13.9 with + knee aspirate for crystals; Stable no flares, no significant joint complaints. uric acid 10/31 was 5.5.; uric acid 6.8 in 2014;07/04 10.6 ; 11/05 9.9; 05/05 Uric acid 6.1Started Uloric 40mg per day 11/05.Uric acid 6.4 in 10/2019No flares in years. assessment Degenerative Arthropathy 2022 impression Hands, feet and knees.Overall do ing well- stable/tolerable. assessment Renal insufficiency impression 1.37/57 in 06/01.07/04 10.61/ Cr 1.92/37.Cr 1.59/46 in 05/05Patient planned to see nephrology but due to work he had to postponed.06/2021-Cr 10/2019 1.83/399/2020-1.50/473/ Cr 1.50/47 assessment Body mass index (BMI) 40.0-44.9, adult Mental Status Date Cognitive Assessment Orientation - [place] ed to time, place, person, situation.Normal Orientation Patient Care Teams Name Effective Dates (start - stop) Status Members No Information
--- OUTSIDE RECORDS SUMMARY | 2024-02-15 10:25 | XMS_ITS | Patient Health Record ---
Author Name Unknown Organization [facility] Address [address] [place] [address] Care Team Providers Care Bicycle I Assembler Name Role Phone Tomi Cao Primary Care Provider Tomi Cao Unavailable Unavailable Hannah Mullen Unavailable [phone] ALLERGIES Allergen (clinical drug ingredient) Drug/Non Drug Allergy documented on EMR Reaction Allergy Type Onset Date Status lisinopril Lisinopril (uncoded) nausea and diarrhea Allergy Active RESULTS Component Value Reference Range Notes Urinalysis Reviewed date:10/13/2023 01:51:43 PM Interpretation: Performing Lab: Notes/Report: Color/Clarity yellow clear Leuk neg Nitrite neg Urobili 0.2 Protein neg pH 6.0 Blood neg Sp. Gr. >=1.030 Ketone neg Bili neg Glucose 500mg/dL MRI : Head, Without Contrast Reviewed date:01/14/2024 09:21:57 PM Interpretation: Performing Lab: Notes/Report: MRI : Thoracic Spine Reviewed date:01/14/2024 09:21:54 PM Interpretation: Performing Lab: Notes/Report: MRI : Thoracic Spine Reviewed date:01/14/2024 09:21:54 PM Interpretation: Performing Lab: Notes/Report: MRI : Lumbar Spine w/o contr ast Reviewed date:01/17/2024 10:26:18 AM Interpretation: Performing Lab: Notes/Report: M-Complete Blood Count Auto Diff Reviewed date:12/29/2023 08:24:23 AM Interpretation: Performing Lab: Notes/Report: WBC 4.2 4.8-10.8 K/mm3 RBC 4.97 4.60-6.20 M/mm3 HGB 13.9 14.1-18.0 g/dL HCT 43.2 42.0-52.0 % MCV 87.0 80-94 fl MCH 27.9 27.0-31.2 pg MCHC 32.0 31.8-35.4 g/dL RDW 14.6 11.5-17.5 % PLT 128 142-424 K/mm3 MPV 9.2 7.4-10.4 fl NE% 77.6 37.0-80.0 % LY% 15.2 10-50 % MO% 4.7 1.7-9.3 % EO% 1.5 0.1-12.0 % BA% 1.0 0.1-2.0 % NE# 3.3 1.8-7.8 K/mm3 LY# 0.7 0.7-4.5 K/mm3 MO# 0.2 0.1-1.0 K/mm3 EO# 0.1 0.0-0.4 K/mm3 BA# 0.0 0-0.2 K/mm3 M-Comprehensive Metabolic Pa aroldo Reviewed date:12/29/2023 08:24:24 AM Interpretation: Performing Lab: Notes/Report: NA 136 136-145 mmol/L K 4.6 3.5-5.1 mmoL/L CL 101 98-107 mmol/L CO2 25 22.0-30.0 mmol/L GAP 14.6 5-15 mEq/L BUN 34 9-20 mg/dl CREATT 1.60 0.66-1.25 mg/dl GFRAA 53 >60 ML/MIN EGFR 44 >60 ml/min GLU 159 74-100 mg/dl CA 9.3 8.4-10.2 mg/dl BILIT 0.8 0.2-1.3 mg/dl AST 24 17-59 U/L ALT 22 12-78 U/L TP 6.8 6.3-8.2 g/dl ALB 4.2 3.5-5.0 g/dl GLOB 2.6 1.3-3.2 g/dL AGRATIO 1.6 1.1-1.8 ALP 82 38-126 U/L M-Hemoglobin A1C Reviewed date:12/29/2023 08:24:24 AM Interpretation: Performing Lab: Notes/Report: HGBA1C 7.9 4.0-6.0 % < 6% Non-Diabetic Level < 7% Controlled Diabetic Level > 8% Poorly Controlled Diabetic Level M-Magnesium Reviewed date:12/29/2023 08:24:24 AM Interpretation: Performing Lab: Notes/Report: MG 1.9 1.6-2.3 mg/dl M-Ferritin Reviewed date:12/29/2023 09:25:44 PM Interpretation: Performing Lab: Notes/Report: ROXIE 14.3 17.9-464 ng/ml M-Thyroid Panel Reviewed date:12/29/2023 08:24:24 AM Interpretation: Performing Lab: Notes/Report: FTI 3.5 5.93-13.13 ug/dL T4 8.9 5.53-11.0 ug/dl T3U 39 23.5-40.5 % TSH 2.36 0.465-4.68 uIU/mL M-Thyroid Stimulating Hormon e Reviewed date:12/29/2023 08:24:24 AM Interpretation: Performing Lab: Notes/Report: TSH 2.36 0.465-4.68 uIU/mL H-VITB12 Reviewed date:12/29/2023 08:24:24 AM Interpretation: Performing Lab: Notes/Report: VITB12 259 239-931 pg/mL LUMBAR PUNCTURE DIAGNSTC Reviewed date:01/01/2024 09:18:16 AM Interpretation: Performing Lab: Notes/Report: MRI : Cervical spine without contrast Reviewed date:01/14/2024 09:24:51 PM Interpretation: Performing Lab: Notes/Report: ECHOCARDIOGRAM Reviewed date:12/27/2023 09:18:24 PM Interpretation: Performing Lab: Notes/Report: REASON FOR REFERRAL Reason Echocardiogram-at [facility] okay if you can do that this week. Then I would like to see him 2 to 3 days after echo is done Diagnosis 1 Congestive heart missy lure, unspecified HF chronicity, unspecified heart failure type (I50.9) Referral Organization [facility] BERTHA GREGG Referring Provider First Name Tomi Referring Provider Last Name Kiley Referring Provider Speciality Internal M edicine General Notes Becky Trejo 2023 09:48:54 AM >Order sent to [facility]- They will call patient to schedule., Becky Trejo 12/21/2023 03:42:32 PM >Scheduled 12-24-23 at 9am- Patient informed Referral Priority Stat Referral Appointment Date 12/24/2023 Reason Kala at O Diagnosis 1 Spinal stenosis (M48 .00) Referral Organization [facility] Referring Provider First Name Tomi Referring Provider Last Name Vinnynatalya Referring Provider Speciality Internal M edicine Referred Provider Specialty Orthopedic S urgery General Notes Becky Trejo 2023 03:20:22 PM >Referral placed through [facility] online. Records were faxed to [facility]. They will call patient with appt. Referral Priority Routine MEDICATIONS Medication SIG (Take, Route, Frequency, Duration) Notes Start Date End Date Status carvedilol 12.5 mg 1 tab(s) orally 2 ti mes a day for 30 days Active Farxiga 10 mg 1 tab(s) orally once a day for 30 day(s) 12/20/2023 Active MetFORMIN Hydrochloride 1000 mg 1 tab(s) orally 2 times a day for 90 days Active Losartan Potassium 100 mg 1 tab(s) orall y once a day for 90 days Active cyanocobalamin 1000 mcg/mL 1000 mcg intr amuscularly once a week for 30 days Active Syringe 3cc 20g 1 as directed as direc letty for 30 day(s) 06/02/2017 Active meloxicam 15 mg 1 tab(s) orally once a day Active TraZODone Hydrochloride 50 mg 1 tab(s) orally nightly for 90 days Active celecoxib 100 mg 1 cap(s) orally once a day for 90 days Active omeprazole 20 mg 1 cap(s) orally once a day for 90 days Active IMMUNIZATIONS Vaccine Route Administration Date Status Comme nts Covid Pfizer Unknown 06/18/2021 Administered Covid Pfizer Unknown 07/09/2021 Administered Influenza-Fluzone 3+years (NON-MEDICARE) IM Intramuscular 07/16/2017 Administered Pneumovax 23 Unknown 07/02/2016 Administered SOCIAL HISTORY Tobacco Use: Social History Observation Description Date Details (start date - stop date) Never Smoker NA - NA Sex Assigned At : Social History Observation Description Sex Assigned At Unknown Smoking: Question Answer Notes Are you a: nonsmoker PROBLEMS Problem Type ICD Code Onset Dates Problem Status W/U Status Risk SNOMED Code Notes Problem 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) Active confirmed 20424562 Problem Type 2 diabetes mellitus with other specified complication (E11.69) Active confirmed 94359677 Problem Obesity, unspecified (E66.9) Active confirmed 224050681 Problem Peripheral neuropathy (G62.9) Active confirmed Periphera l neuropathy (710788464) Problem Essential hypertension (I10) Active confirmed 46399801 Problem GERD without esophagitis (K21.9) Active confirmed 533190499 Problem Hypertension, essential (I10) Active confirmed 09780689 Problem Idiopathic peripheral neuropathy (G60.9) Active confirmed 61467685 Problem Sleep disturbance (G47.9) Active confirmed Sleep disturbance (15719582) Problem Gouty arthritis (M10.9) Active confirmed 64915057 Problem Chronic systolic CHF (congestive heart failure) (I50.22) Active confirmed 038137794 Problem Lower extremity weakness (M62.81) Active confirmed Muscle weakness (14537598) Problem Polymyalgia (M35.3) Active confirmed 59598206 Problem Peripheral polyneuropathy (G62.9) Active confirmed 85280826 Problem Congestive heart failure, unspecified HF chronicity, unspecified heart failure type (I50.9) Active confirmed 54162508 Problem Abnormal reflexes of lower extremity (R29.2) Active confirmed Abnormal reflex (36875602) Problem Stage 3b chronic kidney disease (N18.32) Active confirmed 977261382 Problem Ulcer of right foot with fat layer exposed (L97.512) Active confirmed 103830860 VITAL SIGNS Heart Rate 96 /min 02/14/2024 Temperature 98.6 degrees Fahrenheit 02/14/2024 Blood pressure diastolic 54 mm Hg 02/14/2024 Height 5 ft 10 in in 02/14/2024 Blood pressure systolic 80 mm Hg 02/14/2024 Weight 324.2 lbs 02/14/2024 BMI 46.51 kg/m2 02/14/2024 Encounters Encounter Location Date Provider Diagnosis [facility] [address] [place] [address] 02/07/2024 Tomi Kiley [facility] [address] [facility] [address] [place] [address] 10/13/2023 Hannah Mullen 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 ; Essential hypertension I10 ; Type 2 diabetes mellitus with other specified complication E11.69 ; Obesity, unspecified E66.9 ; Stage 3b chronic kidney disease N18.32 and Idiopathic peripheral neuropathy G60.9 [facility] [address] [facility] [address] [place] [address] 11/19/2023 Tomi Besson Left arm cellulitis L03.114 [facility] [address] [facility] [address] [place] [address] 12/20/2023 Tomi Besson Idiopathic periphera l neuropathy G60.9 ; Type 2 diabetes mellitus with other specified complication E11.69 ; Essential hypertension I10 ; Congestive heart failure, unspecified HF chronicity, unspecified heart failure type I50.9 ; Gouty arthritis M10.9 and Stage 3b chronic kidney disease N18.32 [facility] [address] [place] [address] 12/27/2023 Tomi Besson Muscle weakness of lower extremity M62.81 and Chronic systolic CHF (congestive heart failure) I50.22 [facility] [address] [place] [address] 01/26/2024 Tomi Besson Idiopathic periphera l neuropathy G60.9 [facility] [address] [place] [address] 02/14/2024 Tomi Vinnyson Symptomatic hypotens ion I95.9 [facility] [address] [address] 03/04/2023 Tomi Besson [facility] [address] [place] [address] 12/27/2023 Tomi Besson [facility] [address] [place] [address] 12/28/2023 Tomi Besson Peripheral polyneuropathy G62.9 [facility] [address] [facility] [address] [place] [address] 12/28/2023 Tomi Besson Peripheral neuropath y G62.9 ; Lower extremity weakness M62.81 and Abnormal reflexes of lower extremity R29.2 [facility] [address] [place], [place] [address] 01/03/2024 Tomi Besson [facility] [address] [place], [place] [address] 01/14/2024 Tomi Besson [facility] [address] [place], [place] [address] 01/24/2024 Tomi Besson [facility] [address] [place], [place] [address] 02/04/2024 Tomi Besson [facility] [address] [place], [place] [address] 02/07/2024 Tomi Besson ASSESSMENTS Encounter Date Diagnosis Assessment Notes Treatment Notes Treatment Clinical Notes 10/13/2023 Essential hypertension (ICD-10 - I10) 10/13/2023 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 Certified for 1 year with follow-up at that time secondary to his chronic medical disease as noted. We discussed that his neuropathy could be disqualifying at some point should his balance or gait to get worse 11/19/2023 Left arm cellulitis (ICD-10 - L03.114) Possibly from trauma. Treat with Keflex. Patient is currently between insurance, as soon as he gets his Medicare card he will come back to reestablish lab work schedule 12/20/2023 Type 2 diabetes mellitus with other specified complication (ICD-10 - E11.69) -Taking metformin daily. Not taking Invokana as too expensive with patient's insurance. -Will stop Invokana and start Farxiga in setting of patient's presumed new heart failure and for CKD. -Check A1c at next visit 12/20/2023 Idiopathic peripheral neuropathy (ICD-10 - G60.9) -Most likely contributes towards balance issues as patient has advanced neuropathy from uncontrolled diabetes. Will assess leg weakness and see if it improves with treating presumed heart failure with diuresis and GDMT. Can consider gabapentin in the future. 12/27/2023 Chronic systolic CHF (congestive heart failure) (ICD-10 - I50.22) CHF is newly diagnosed with ejection fraction 45%. I do not think this accounts for the leg weakness given his overall hemodynamic stability and improving blood pressure. He will continue Lasix, blood pressure regimen and we will pursue follow-up as noted above 12/27/2023 Muscle weakness of lower extremity (ICD-10 - M62.81) Significant exam abnormality and patient reports worsening symptoms. In the context of a viral illness 2 weeks ago-his immediate [place] he were all diagnosed with influenza A-he had a mild illness and did not seek medical attention-certainly the prospect of Guillain-Twin Brooks must be considered. I discussed with he and his daughter need for urgent evaluation at a tertiary care ER if he becomes worse or has breathing problems overnight or tomorrow. For now they wish to pursue outpatient workup. We will call him tomorrow as the visit concluded after office hours and arrange scans and neurology evaluation unless he has worsening or has reported to the ER. They understand return precautions to emergency department. 12/28/2023 Peripheral polyneuropathy (ICD-10 - G62.9) 12/28/2023 Peripheral neuropathy (ICD-10 - G62.9) 01/26/2024 Idiopathic peripheral neuropathy (ICD-10 - G60.9) -Stable, not at goal -MRI spine showed spinal stenosis -Exam with decreased sensation in all extremitites; strength testing 5/5 bilat upper and lower extremities. -Patient referred to ortho spine with upcoming appointment on 02/06 -Discussed PT given patient reported weakness previously and is having intermittent pain and decreased functional status; patient declines -Will follow up after this appointment for further plan formation 02/14/2024 Symptomatic hypotension (ICD-10 - I95.9) I am concerned about sepsis given the patient's clinical presentation. Possibly due to gout but I am also concerned about his high risk of having a joint infection with sepsis from this or some other source. I have had his grandson take him to the ER. I have called the ER personally and passed on information about the case to the charge nurses. 12/28/2023 Lower extremity weakness (ICD-10 - M62.81) 12/20/2023 Essential hypertension (ICD-10 - I10) -Chronic, uncontrolled -Went to ED recently for uncontrolled BP readings, 190s/100s. Continues to be uncontrolled. -Will continue losartan 100 mg and start coreg 12.5 mg bID. -Follow up on BP in clinic after patient gets echocardiogram done 10/13/2023 Type 2 diabetes mellitus with other specified complication (ICD-10 - E11.69) 10/13/2023 Obesity, unspecified (ICD-10 - E66.9) 12/28/2023 Abnormal reflexes of lower extremity (ICD-10 - R29.2) 12/20/2023 Congestive heart failure, unspecified HF chronicity, unspecified heart failure type (ICD-10 - I50.9) -PAtient have worsening SOA with exertion and leg swelling with uncontrolled BP readings. -Went to ED on Wednesday and found to have elevated BNP in 3000s. Was given LAsix IV 40 mg in ED. -Continue on Lasix 40 mg daily. Starting coreg 12.5 mg BID for BP control. Starting Farxiga 10 mg for CHF and CKD. Continue ARB for BP control -Will order echocardiogram to classify congestive heart failure. Follow up in clinic once echo is done. Will try to get done at hospital in [place]. -Check TSH at next visit 12/20/2023 Gouty arthritis (ICD-10 - M10.9) -Has run out of febuxostat. Unclear why patient is not on allopurinol. Will continue to hold for now. -ON celebrex 10/13/2023 Stage 3b chronic kidney disease (ICD-10 - N18.32) 10/13/2023 Idiopathic peripheral neuropathy (ICD-10 - G60.9) 12/20/2023 Stage 3b chronic kidney disease (ICD-10 - N18.32) -Will start Farxiga 10 mg, provided samples today -Cr in ED was at baseline PLAN OF TREATMENT Pending Test Test Name Order Date Sleep Study 04/26/2019 H-VITAMIN B12 05/26/2017 H-MICROALBUMIN URINE 08/11/2017 M-Erythrocyte Sedimentation Rate 021 M-Hemoglobin A1C 07/16/2021 G-E-Nnlozoyk Protein 07/16/2021 M-Thyroid Panel 07/16/2021 M-Drug Screen,Urine 09/24/2020 M-Vitamin B12 07/16/2021 M-Vitamin B12 06/14/2020 THYROID PANEL WITH TSH (7444) 12/28/2023 COMPREHENSIVE METABOLIC PANEL (25696) MAGNESIUM (622) 12/28/2023 CBC (INCLUDES DIFF/PLT) (6399) HEMOGLOBIN A1c (496) 12/28/2023 VITAMIN B12 (927) 12/28/2023 FERRITIN (457) 12/28/2023 Insurance Providers Payer Name Payer Address Payer Phone Subscriber Number Group Number Insured Name Patient Relationship to Insured Coverage Start Date Coverage End Date [place] [address] [place] [address] [phone] [id number] [place] Self - patient is the insured [employer] [address] [place] [address] [address] [place] [address] [employer] [place] Self - patient is the insured MEDICATIONS ADMINISTERED Medication Instructions Date of Administration Dosage Notes Dexamethasone 4mg Injection 05/22/2022 4 mg MEDICAL (GENERAL) HISTORY Medical History History ICD Code Diabetes Vitamin B12 deficiency HTN Arthritis Hepatitis B Stage 3 kidney disease Surgical History Surgery Date(Month/Year) Skin graft right heel 06/2016 Justin in left femur, screws in left hip Hospitalization History Reason Date(Month/Year) Rigth heel wound and skin graft 06/2017
--- OUTSIDE RECORDS SUMMARY | 2024-02-15 10:25 | XMS_ITS | Clinical Summary ---
Author Name Unknown Address [address] [facility] [address] [place] [address] Phone Organization [facility] Address [address] [facility] [place] [address] Phone Care Team Providers Care Roller Picker Name Role Phone Diana WILKES, Zain Rivers [phone] [ ] Conditions or Problems No information available. Medications No information available. Medications Administered No information available. Allergies, Adverse Reactions, Alerts No information available. Results No information available. Plan of Care No information available. Procedures No information available. Vital Signs No information available. Immunizations No information available. Advance Directives No information available.
[2024-02-15 10:47] LABS: POC Glucose,Bedside 184 (70-110)
--- NOTE | 2024-02-15 11:49 | HMH.OTEV ---
OT Inpatient Evaluation Rehab OT IP Evaluation Start: 02/14/24 20:57 Freq: ONCE Status: Active Protocol: Document 02/15/24 11:00 [facility] (Rec: 02/15/24 11:[address] [facility] [id number]) Rehab OT IP Assessment Subjective History Pt oriented x 3 on arrival. Pt agreeable to engage in therapy evaluation. Pt admitted on 02/14/24 due to OSIRIS and elbow cellulitis. History and physical report: Mr. Lobato is a 63-year-old male with history of diabetes, gout, CKD. States that over the past several weeks he has been having back pain. Has had a workup with orthopedics at an outside hospital including imaging. Recently on a course of steroids and meloxicam. His mobility has been limited secondary to his pain. He presented to his primary care today because he developed general weakness and pain in his left elbow over the past 1 to 2 days. Reports that 3 months ago he had pain in the left elbow and some swelling. It resolved with a course of antibiotics. He redeveloped this pain and swelling over the past 48 hours. Has just felt fatigued and not himself. On arrival to his primary care doctors office, he was noted to be hypotensive. He denies chest pain, nausea, vomiting, diarrhea, shortness of breath. No mayito fever. No syncope. Workup in the ER showed tachycardia. Left elbow is red and swollen. Labs positive for leukocytosis. Imaging with no fluid on the elbow joint but did have significant soft tissues swelling. Meeting sepsis criteria concerning for cellulitis. In addition he has an OSIRIS on his chronic kidney disease. Patient takes losartan for blood pressure control in conjunction with meloxicam recently and poor p. o. intake. Medicine was consulted for admission and further management Subjective I just can't do it. The patient reports that he uses a wheelchair for all mobility. He reports that his left leg tries to give out on him. The patient reports that he has family friends that stay with him at his house to help care for him. He has recently been requiring assistance with all ADLs. He is dependent on friends currently for completion of all IADLs. Objective Patient Orientation Person,Place,Birthday Right Upper Extremity Gross ROM Min Limitation <25% Left Upper Extremity Gross ROM Min Limitation <25% Shoulder ROM Limitations Muscle Weakness,Pain Elbow ROM Limitations Muscle Weakness,Pain Wrist Limitations of Range of Motion Muscle Weakness,Pain Bed Mobility bed mobility-scooting,bed mobility - supine/sit Assist Level Maximum x 2 (75% assist) Transfer Training Sit/Stand/Step Transfer Assist Level Maximum x 2 (75% assist) Rehab OT IP prob,goals,plan Problems Date of Evaluation: 02/15/24 OT IP Problems Bed Mobility,Transfers,Balance ,Self care,Safety Rehab Potential Rehab Potential Fair Equipment Needs Assistive Devices Rolling / Wheeled Walker, Wheelchair Plan OT intervention Plan Bed Mobility,Transfers,Balance ,Self care,Safety,Therapeutic Exercise OT Plan Frequency Daily Duration LOS Discharge Goals Bed Mobility Ability Assistance x1 Sit to Stand Chair Transfer Ability Maximum x 1 (75% assist) Chair Transfer Ability Maximum x 1 (75% assist) Chair Transfer Technique Sit to/from Ambulatory Chair Transfer Assistive Devices Rolling Walker Feeding Ability Assist with Tray Set Up Lower Body Dressing Ability Moderate Assistance Upper Body Dressing Ability Minimal Assistance Bathing Ability Maximum Assistance Performing Toilet Hygiene Ability Maximum Assistance Overall Commode/Toilet Transfer Ability Maximum Assistance Commode/Toilet Transfer Technique Sit to/from Ambulatory Commode/Toilet Transfer Assistive Grab Bars Devices Oral Care Assist Standby Assistance Decrease in Endurance No Discharge Plan OT Discharge Plan Pt will continue to be seen for OT services while at [facility]. Pt would benefit most from short term rehab at SNF following discharge from hospital. Continued skilled therapy is important in order for patient to improve strength, safety, endurance, ADL independence, and functional transfers to reach PLOF. Eval Complexity Eval Charge Codes 85644 - Moderate Complexity PHYSICIAN CERTIFICATION: I certify the specified therapy services for [place] are required, authorized, and reviewed every 30 days.
--- NOTE | 2024-02-15 12:12 | PC.NURSE ---
300 ML of urine out when assisted to the bsc.
--- NOTE | 2024-02-15 14:21 | SW/DCPLANNER ---
Addendum entered by Emilie Castano 02/17/24 10:09: I have updated Molly that patient is not medically stable for discharge today. Addendum entered by Emilie Castano 02/17/24 09:20: Per Molly kate/ [facility] this patient has been approved SNF level of care. Addendum entered by Mia Sy RN 02/16/24 14:00: Patient has been offered a bed at [facility], and pre-cert was obtained today. Plan is for patient to discharge to there tomorrow morning (02/17/24). Addendum entered by Emilie Castano 02/15/24 15:52: Meri kate/ [facility] is unable to accept patient at this time. Molly kate/ [facility] is reviewing information. Original Note: I spoke w/ patient today regarding plans once medically stable for discharge. PT/OT evaluated patient and recommended SNF level of care once medically stable for discharge. After a discussion between patient, Dr Ferreira and myself patient is agreeable to placement. Patient prefers [facility] but if they can not accept he does not have a preference. I will speak w/ the following facilities regarding bed availability: [facility], [facility], [facility], [facility] and [facility]. Patient could potentially be ready for discharge tomorrow pending no setbacks.
--- NOTE | 2024-02-15 14:57 | PC.NURSE ---
Aox 4, up with assistance times 2, turn assist, 90's on RA, 20g R AC SL, lovenox VTE, PT and OT seeing patient.
[2024-02-15 15:37] VITALS: BP 117/57; PULSE 95; RESP 24; TEMP 37.2; O2SAT 98
[2024-02-15 16:01] LABS: POC Glucose,Bedside 202 (70-110)
[2024-02-15 20:00] VITALS: BP 112/56; PULSE 95; RESP 20; TEMP 37.7; O2SAT 95
[2024-02-15] MEDS: INSULIN GLARGINE 100 UNITS/ML 3ML FLEXPEN 15 UNIT SQ (21:41)
[2024-02-15] MEDS: ENOXAPARIN 40MG/0.4ML SYRINGE 40 MG SQ (21:43)
[2024-02-15 22:34] LABS: POC Glucose,Bedside 202 (70-110)
[2024-02-16 04:00] VITALS: BP 103/49; PULSE 70; RESP 19; TEMP 36.2; O2SAT 96; BMI 49.9
[2024-02-16] MEDS: AMPICILLIN/SULBACTAM 3 GM in 0.9 % SODIUM CHLORIDE 100 ML IV ×2 (04:05→15:25)
[2024-02-16] MEDS: humaLOG 100 UNITS/ML 3ML VIAL (SSI) SQ ×4 (06:06→20:29)
[2024-02-16 06:17] LABS: POC Glucose,Bedside 151 (70-110)
[2024-02-16 06:35] LABS: Basophils % 0.3 % (0.1-2.0); Eosinophils # 0.1 K/mm3 (0.0-0.4); Eosinophils % 1.1 % (0.1-12.0); Hematocrit 37.6 % (42.0-52.0); Hemoglobin 11.9 g/dL (14.1-18.0); Lymphocytes # 0.5 K/mm3 (0.7-4.5); Lymphocytes % 5.7 % (10-50); Mean Corpuscular HGB Conc 31.6 g/dL (31.8-35.4); Mean Corpuscular Hemoglobin 27.5 pg (27.0-31.2); Mean Corpuscular Volume 86.9 fl (80-94); Mean Platelet Volume 8.6 fl (7.4-10.4); Monocytes # 0.4 K/mm3 (0.1-1.0); Monocytes % 4.5 % (1.7-9.3); Neutrophils # 7.1 K/mm3 (1.8-7.8); Neutrophils % 88.3 % (37.0-80.0); Platelet Count 105 K/mm3 (142-424); Red Blood Count 4.33 M/mm3 (4.60-6.20); Red Cell Distribution Width 15.8 % (11.5-17.5)
[2024-02-16 06:43] LABS: Anion Gap 16.3 mEq/L (5-15); Blood Urea Nitrogen 54 mg/dl (9-20); Calcium 8.3 mg/dl (8.4-10.2); Carbon Dioxide 19 mmol/L (22.0-30.0); Chloride 99 mmol/L (98-107); Creatinine Clearance Estimated 30 mL/min (50-200); Estimated Glomerular Filt Rate 26 ml/min (>60); GFR (African American) 32 ML/MIN (>60); Glucose 163 mg/dl (74-100); Magnesium 1.9 mg/dl (1.6-2.3); Potassium 4.3 mmoL/L (3.5-5.1); Sodium 130 mmol/L (136-145)
[2024-02-16 06:47] LABS: MANUAL DIFFERENTIAL MANUAL DIFFERENTIAL (MANUAL DIFF)
[2024-02-16 08:00] VITALS: BP 110/48; PULSE 100; RESP 20; TEMP 37.1; O2SAT 96
[2024-02-16] MEDS: ALLOPURINOL 100MG TABLET 100 MG PO (09:54)
[2024-02-16] MEDS: MAGNESIUM OXIDE 400MG TABLET 400 MG PO (09:54)
[2024-02-16 10:01] LABS: Lymphocytes % 7 % (10-50); Monocytes % 6 % (2-9); Neutrophils % 76 % (42-76); Total Cells Counted 100
[2024-02-16 10:10] LABS: Platelet Estimate Normal; RBC Morphology Normal
[2024-02-16 11:22] LABS: POC Glucose,Bedside 317 (70-110)
[2024-02-16] MEDS: 0.9 % SODIUM CHLORIDE 1000ML 1,000 ML 500 ML IV (11:27)
[2024-02-16] MEDS: HEPARIN SODIUM 5,000 UNIT/ML VIAL 5000 UNIT SQ ×2 (11:28→20:29)
[2024-02-16 14:34] VITALS: BMI 49.8
--- NOTE | 2024-02-16 14:34 | P.PN_ITS ---
Subjective *Date: 02/16/24 *Time: 14:34 Interval history: Patient was seen and evaluated at the bedside. No reported acute events overnight, denies chest pain, shortness of breath, nausea, vomiting, abdominal pain. Exam Data for Last 24 hours Vital signs and Labs for Last 24 Hours: Temp Pulse Resp BP Pulse Ox O2 Del Method 98.7 F 100 H 20 110/48 L 96 Room Air 02/16/24 08:00 02/16/24 08:00 02/16/24 08:00 02/16/24 08:00 02/16/24 08:00 02/16/24 08:00 Laboratory Results - last 24 hr 02/15/24 15:55: POC Glucose 202 H 02/15/24 21:38: POC Glucose 202 H 02/16/24 06:02: POC Glucose 151 H 02/16/24 06:15: WBC 8.0, RBC 4.33 L, Hgb 11.9 L, Hct 37.6 L, MCV 86.9, MCH 27.5, MCHC 31.6 L, RDW 15.8, Plt Count 105 L, MPV 8.6, Neut % (Auto) 88.3 H, Lymph % (Auto) 5.7 L, [place] % (Auto) 4.5, Eos % (Auto) 1.1, Baso % (Auto) 0.3, Neut # (Auto) 7.1, Lymph # (Auto) 0.5 L, [place] # (Auto) 0.4, Eos # (Auto) 0.1, Baso # (Auto) 0.0, Total Counted 100, Neutrophils % (Manual) 76, Band Neutrophils % 11.0 H, Lymphocytes % (Manual) 7 L, Monocytes % (Manual) 6, Platelet Estimate Normal, RBC Morphology Normal, Sodium 130 L, Potassium 4.3, Chloride 99, Carbon Dioxide 19 L, Anion Gap 16.3 H, BUN 54 H, Creatinine 2.50 H, Estimated Creat Clear 30, Estimated GFR 26 L, Est GFR ( Amer) 32 L, Glucose 163 H, Calcium 8.3 L, Magnesium 1.9 D 02/16/24 11:12: POC Glucose 317 H* I & O for Last 24 hours: Intake & Output 04/28/24 04/29/24 04/30/24 05/01/24 23:59 23:59 23:59 23:59 Intake Total 1240 / 1240 120 / 120 Output Total 1750 / 1750 700 / 700 Balance -510 / -510 -580 / -580 Weight 142.882 kg 141.475 kg 158.168 kg Constitutional Constitutional: no acute distress *Routine HEENT Exam Head: Present normocephalic Eye: Present EOMI and PERRL ENT: Present mucous membranes moist *Routine Neck Exam Neck: Present supple; Absent lymphadenopathy *Routine Respiratory Exam Respiratory: Present CTA bilaterally *Routine Cardiovascular Exam Cardiovascular: Present RRR *Routine Abdominal Exam Abdominal: Present soft and normoactive bowel sounds; Absent tenderness *Routine Extremities Exam Extremities: Absent cyanosis, clubbing or edema Comments: Patient LE appears red, and warm to touch *Routine Skin Exam Skin: Present warm; Absent rash *Routine Neurological Exam Neurological: Present alert and oriented X3 Assessment and Plan *Assessment and plan (1) Sepsis: Status: Acute Category: Medical Code(s): A41.9 - Sepsis, unspecified organism (2) Cellulitis: Status: Acute Qualifiers: Laterality: left Site of cellulitis: extremity Site of cellulitis of extremity: upper extremity Qualified Code(s): L03.114 - Cellulitis of left upper limb Category: Medical Code(s): L03.90 - Cellulitis, unspecified (3) OSIRIS (acute kidney injury): Status: Acute Category: Medical Code(s): N17.9 - Acute kidney failure, unspecified (4) Hyponatremia: Status: Acute Category: Medical Code(s): E87.1 - Hypo-osmolality and hyponatremia (5) Hypertension: Status: Acute Category: Medical Code(s): I10 - Essential (primary) hypertension (6) Heart failure: Status: Acute Category: Medical Code(s): I50.9 - Heart failure, unspecified (7) Diabetes mellitus, type 2: Status: Acute Category: Medical Code(s): E11.9 - Type 2 diabetes mellitus without complications (8) Gout: Status: Acute Category: Medical Code(s): M10.9 - Gout, unspecified Plan 63-year-old male with CKD, gout, hypertension, diabetes. Presented to the ER with weakness, hypotension, concern for sepsis and cellulitis. Discussed case with ER physician, request admission for IV antibiotics, further fluid resuscitation, and monitoring of improvement in kidney function. Medicine agreed to admit for further management. Received 2 L in the ER. Started on vancomycin and Zosyn. In the setting of his OSIRIS, will switch antibiotics. Necessitating inpatient management. Cultures obtained. Stable this morning. Continues to require inpatient management for IV antibiotics, therapy, management of OSIRIS. Problems addressed as follows: Sepsis Cellulitis - Meeting sepsis criteria with tachycardia, leukocytosis, infection with cellulitis. Endorgan damage with OSIRIS and initial hypotension that was fluid responsive. - Continue vancomycin IV. Monitor for toxicity - continue Unasyn 3 g every 6 hours. - Blood cultures obtained, pending continue IV abx OSIRIS on CKD: - baseline creatinine 1.6. Creatinine 2.2, BUN 55 on morning labs, Cr is wors ening - Caution with nephrotoxins. Avoiding NSAIDs. Concerned that meloxicam in conjunction with his losartan and onset of infection are likely etiology for his OSIRIS Uncontrolled diabetes: - A1c 9.0. Continue sliding scale insulin with fingersticks ACHS. - On metformin and and Invokana at home. - Hold metformin and Invokana in the setting of OSIRIS, increase Lantus to 15 units nightly. - Will make further adjustments pending morning glucose. -Diabetic diet Hyponatremia: monitor Thrombocytopenia - Gout: Reportedly on febuxostat 40mg at home. Has not filled it since August. Uric acid level 9.9. Initiate allopurinol 100 mg daily. Would benefit from resuming febuxostat at discharge. Hypertension: On carvedilol, Lasix, and losartan at home. Holding in the setting of normotensive/hypotensive and OSIRIS. Resume when appropriate Class III over the complicates all of his care. PT and OT to evaluate, patient has been immobile at home and using wheelchair due to back injury. Evaluate for safety going home with home health versus SNF versus outpatient therapy. Full code Diabetic diet Lovenox 30 mg subcu daily likely DC tomorrow if Cr improves
[2024-02-16] MEDS: ACETAMINOPHEN 325MG TAB 650 MG PO ×2 (15:24→20:59)
--- NOTE | 2024-02-16 15:31 | PC.NURSE ---
Patient c/o all over discomfort from the bed.m Patient offered pain medication throughout day and patient refused until now and accepted 650 mg tylenol. Patient also offered a bariatric bed and patient refused stating that he did not believe it would help him.
[2024-02-16 16:00] VITALS: BP 121/51; PULSE 110; RESP 20; TEMP 38.1; O2SAT 98
[2024-02-16 16:16] LABS: POC Glucose,Bedside 350 (70-110)
[2024-02-16 20:00] VITALS: BP 162/80; PULSE 103; RESP 18; TEMP 38.6; O2SAT 98
[2024-02-16] MEDS: INSULIN GLARGINE 100 UNITS/ML 3ML FLEXPEN 15 UNIT SQ (20:28)
[2024-02-16 20:30] LABS: POC Glucose,Bedside 277 (70-110)
[2024-02-16] MEDS: MORPHINE 4MG/ML SYRINGE 4 MG IV (21:29)
[2024-02-17] MEDS: MORPHINE 4MG/ML SYRINGE 2 MG IV ×6 (02:22→22:42)
[2024-02-17] MEDS: AMPICILLIN/SULBACTAM 3 GM in 0.9 % SODIUM CHLORIDE 100 ML IV (02:22)
[2024-02-17 04:00] VITALS: BP 145/85; PULSE 118; RESP 20; TEMP 37.6; O2SAT 93; BMI 45.5
--- NOTE | 2024-02-17 05:12 | PC.NURSE ---
Patient had a decent night. Patient did complain of pain through most of the shift. Has been very uncomfortable in every position we place him in. Patient has some relief with medications per the Mar but not a lot. patient states his pain is all over and really cant say a certain spot that hurts the most just that it is all over. Other that pain control in general that was the only acute change through the night
[2024-02-17] MEDS: humaLOG 100 UNITS/ML 3ML VIAL (SSI) SQ ×4 (06:13→21:25)
[2024-02-17 06:23] LABS: POC Glucose,Bedside 197 (70-110)
[2024-02-17 07:25] VITALS: BP 110/80; PULSE 120; RESP 18; TEMP 36.8; O2SAT 96
[2024-02-17 08:00] VITALS: PULSE 110
[2024-02-17] MEDS: ALLOPURINOL 100MG TABLET 100 MG PO (08:18)
[2024-02-17] MEDS: MAGNESIUM OXIDE 400MG TABLET 400 MG PO (08:18)
[2024-02-17] MEDS: HEPARIN SODIUM 5,000 UNIT/ML VIAL 5000 UNIT SQ ×2 (08:18→21:24)
[2024-02-17 08:36] LABS: Anion Gap 14.6 mEq/L (5-15); Blood Urea Nitrogen 49 mg/dl (9-20); Calcium 8.1 mg/dl (8.4-10.2); Carbon Dioxide 20 mmol/L (22.0-30.0); Chloride 99 mmol/L (98-107); Creatinine Clearance Estimated 29 mL/min (50-200); Estimated Glomerular Filt Rate 25 ml/min (>60); GFR (African American) 30 ML/MIN (>60); Glucose 302 mg/dl (74-100); Potassium 4.6 mmoL/L (3.5-5.1); Sodium 129 mmol/L (136-145)
[2024-02-17] MEDS: PIPERACILLIN/TAZO 3.375 GM in 0.9 % SODIUM CHLORIDE 50 ML IV (09:58)
[2024-02-17] MEDS: CARVEDILOL 12.5MG TABLET 12.5 MG PO ×2 (09:59→21:23)
--- NOTE | 2024-02-17 10:14 | PC.NURSE ---
Pt asked if he was going to be discharged, this RN informed him that the MD stated he would not go due to worsening of his kidney function and pt threw a tantrum and said he wanted to go today. MD made aware and stated he would tell the patient.
[2024-02-17 11:18] LABS: POC Glucose,Bedside 299 (70-110)
--- NOTE | 2024-02-17 15:59 | EXP.PHA.CONS ---
Pharmacy Consult Date: 02/17/24 Time: 15:59 Referring provider: DR LOVELACE Reason for Consult:: VANCOMYCIN DOSING CONSULT Allergies Allergy/AdvReac Type Severity Reaction Status Date / Time No Known Allergies Allergy Verified 12/31/23 08:38 Home Medications Medication Instructions Recorded Confirmed Type metformin 1,000 mg tablet 1,000 mg PO BIDWMEAL 06/02/19 02/15/24 History canagliflozin 300 mg tablet 300 mg PO DAILY 02/15/24 02/15/24 History (Invokana) carvedilol 12.5 mg tablet 12.5 mg PO BID 02/15/24 02/15/24 History losartan 100 mg tablet 100 mg PO DAILY 02/15/24 02/15/24 History meloxicam 15 mg tablet 15 mg PO DAILYP PRN for pain 02/15/24 02/15/24 History trazodone 50 mg tablet 50 mg PO HS 02/15/24 02/15/24 History New Prescriptions to Start Prescriptions: Height: 1.78 m Weight: 144.333 kg Laboratory Results:: Laboratory Results - last 24 hr 02/16/24 16:09: POC Glucose 350 H* 02/16/24 20:21: POC Glucose 277 H 02/17/24 06:09: POC Glucose 197 H 02/17/24 08:12: Sodium 129 L, Potassium 4.6, Chloride 99, Carbon Dioxide 20 L, Anion Gap 14.6, BUN 49 H, Creatinine 2.60 H, Estimated Creat Clear 29, Estimated GFR 25 L, Est GFR ( Amer) 30 L, Glucose 302 H, Calcium 8.1 L 02/17/24 11:11: POC Glucose 299 H Medical History: Medical History (Updated 02/14/24 @ 23:45 by Hammad Ferreira MD) Hypertension Gout Diabetes mellitus, type 2 Congestive heart failure Assessment and Plan Assessment and plan all Dx Assessment and Plan for all problems:: Pharmacokinetic dosing service Objective: Age: 63 yo Serum creatinine: 2.6 mg/dL Height: 70.1 Inches Weight (kg): 144.333 Diagnosis: CELLULITIS Assessment: IBW (kg): 73.23 Dosing wt(kg): 144.333 Estimated Creatinine clearance (ml/min): 40.7 CRCL method: Cockcroft and Gault using adjusted body weight Drug selected: Vancomycin Loading dose (mg): 2500 MG Vd (liters): 101.0 (factor used: 0.7 L/kg) Danny (hr-1): 0.038 Half life (hrs): 18.24 CLvanco=?? 3.838 L/hr Recommended dose: 2250 mg Interval: 24 hrs Infusion time (hrs): 2.0 Predicted peak (mcg/mL): 35.9 Predicted trough (mcg/mL): 15.56 Total body weight is being used for vancomycin dosing. Recommendations: Give Vancomycin 2250 mg q 24 hrs with an expected Cpeak of 35.9 mcg/ml and an expected Ctrough of 15.56 mcg/ml AUC 0-24 /ESTEVAN Data: ESTEVAN 0.5 mcg/mL:?? AUC/ESTEVAN:? 1172.5 ESTEVAN 1.0 mcg/mL:?? AUC/ESTEVAN:? 586.2 --------- ESTEVAN 1.5 mcg/mL:?? AUC/ESTEVAN:? 390.8 ESTEVAN 2.0 mcg/mL:?? AUC/ESTEVAN:? 293.1 Thank you for the consult
[2024-02-17 16:00] VITALS: BP 95/69; PULSE 94; RESP 18; TEMP 37.4; O2SAT 97
--- NOTE | 2024-02-17 16:00 | EXP.PN ---
Subjective *Date: 02/17/24 *Time: 16:00 Interval history: seen at bedside, denied CP, SOB, he is sitting in chair Exam Data for Last 24 hours Vital signs and Labs for Last 24 Hours: Temp Pulse Resp BP Pulse Ox O2 Del Method 98.3 F 110 H 18 110/80 96 Room Air 02/17/24 07:25 02/17/24 08:00 02/17/24 07:25 02/17/24 07:25 02/17/24 07:25 02/17/24 15:00 Laboratory Results - last 24 hr 02/16/24 16:09: POC Glucose 350 H* 02/16/24 20:21: POC Glucose 277 H 02/17/24 06:09: POC Glucose 197 H 02/17/24 08:12: Sodium 129 L, Potassium 4.6, Chloride 99, Carbon Dioxide 20 L, Anion Gap 14.6, BUN 49 H, Creatinine 2.60 H, Estimated Creat Clear 29, Estimated GFR 25 L, Est GFR ( Amer) 30 L, Glucose 302 H, Calcium 8.1 L 02/17/24 11:11: POC Glucose 299 H I & O for Last 24 hours: Intake & Output 02/14/24 02/15/24 02/16/24 02/17/24 23:59 23:59 23:59 23:59 Intake Total 1240 / 1240 240 / 490 1205 / 1205 Output Total 1750 / 1750 1350 / 1500 1400 / 1400 Balance -510 / -510 -1110 / -1010 -195 / -195 Weight 142.882 kg 141.475 kg 158 kg 144.333 kg Microbiology Reports for the Last 24 Hours: Microbiology 02/14/24 17:15 Blood Blood Culture - Preliminary 02/14/24 16:50 Blood Blood Culture - Preliminary Constitutional Constitutional: no acute distress *Routine HEENT Exam Head: Present normocephalic Eye: Present EOMI and PERRL ENT: Present mucous membranes moist *Routine Neck Exam Neck: Present supple; Absent lymphadenopathy *Routine Respiratory Exam Respiratory: Present CTA bilaterally *Routine Cardiovascular Exam Cardiovascular: Present RRR *Routine Abdominal Exam Abdominal: Present soft and normoactive bowel sounds; Absent tenderness *Routine Extremities Exam Extremities: Absent cyanosis, clubbing or edema Comments: Patient LE appears red, and warm to touch *Routine Skin Exam Skin: Present warm; Absent rash *Routine Neurological Exam Neurological: Present alert and oriented X3 Assessment and Plan *Assessment and plan (1) Sepsis: Status: Acute Category: Medical Code(s): A41.9 - Sepsis, unspecified organism (2) Cellulitis: Status: Acute Qualifiers: Laterality: left Site of cellulitis: extremity Site of cellulitis of extremity: upper extremity Qualified Code(s): L03.114 - Cellulitis of left upper limb Category: Medical Code(s): L03.90 - Cellulitis, unspecified (3) OSIRIS (acute kidney injury): Status: Acute Category: Medical Code(s): N17.9 - Acute kidney failure, unspecified (4) Hyponatremia: Status: Acute Category: Medical Code(s): E87.1 - Hypo-osmolality and hyponatremia (5) Hypertension: Status: Acute Category: Medical Code(s): I10 - Essential (primary) hypertension (6) Heart failure: Status: Acute Category: Medical Code(s): I50.9 - Heart failure, unspecified (7) Diabetes mellitus, type 2: Status: Acute Category: Medical Code(s): E11.9 - Type 2 diabetes mellitus without complications (8) Gout: Status: Acute Category: Medical Code(s): M10.9 - Gout, unspecified Plan 63-year-old male with CKD, gout, hypertension, diabetes. Presented to the ER with weakness, hypotension, concern for sepsis and cellulitis. Discussed case with ER physician, request admission for IV antibiotics, further fluid resuscitation, and monitoring of improvement in kidney function. Medicine agreed to admit for further management. Received 2 L in the ER. Started on vancomycin and Zosyn. In the setting of his OSIRIS, will switch antibiotics. Necessitating inpatient management. Cultures obtained. Stable this morning. Continues to require inpatient management for IV antibiotics, therapy, management of OSIRIS. Problems addressed as follows: Sepsis Cellulitis - Meeting sepsis criteria with tachycardia, leukocytosis, infection with cellulitis. Endorgan damage with OSIRIS and initial hypotension that was fluid responsive. - Continue vancomycin IV. add zosyn - Blood cultures obtained, pending continue IV abx OSIRIS on CKD: - baseline creatinine 1.6. Cr is worsening, monitor check CK level and uric acid, renal US - Caution with nephrotoxins. Avoiding NSAIDs. Concerned that meloxicam in conjunction with his losartan and onset of infection are likely etiology for his OSIRIS Uncontrolled diabetes: - A1c 9.0. Continue sliding scale insulin with fingersticks ACHS. - On metformin and and Invokana at home. - Hold metformin and Invokana in the setting of OSIRIS, increase Lantus to 15 units nightly. - Will make further adjustments pending morning glucose. -Diabetic diet Hyponatremia: monitor Thrombocytopenia - monitor Gout: Reportedly on febuxostat 40mg at home. Has not filled it since August. Uric acid level 9.9. Initiate allopurinol 100 mg daily. Would benefit from resuming febuxostat at discharge. Hypertension: On carvedilol, Lasix, and losartan at home. Holding in the setting of normotensive/hypotensive and OSIRIS. Resume when appropriate Class III over the complicates all of his care. PT and OT to evaluate, patient has been immobile at home and using wheelchair due to back injury. Evaluate for safety going home with home health versus SNF versus outpatient therapy. Full code Diabetic diet Lovenox 30 mg subcu daily started on vanc and zosyn, check CK level and uric acid, started on IV bolus
[2024-02-17 16:30] LABS: POC Glucose,Bedside 332 (70-110)
[2024-02-17] MEDS: 0.9 % SODIUM CHLORIDE 1000ML 1,000 ML 999 ML IV (16:30)
[2024-02-17] MEDS: PIPERACILLIN/TAZO 2.25 GM in 0.9 % SODIUM CHLORIDE 50 ML IV (17:57)
--- NOTE | 2024-02-17 18:14 | PC.NURSE ---
pt has been hateful with staff off and on throughout the day. This Rn told pt that he was not going to talk to myself or the tech's the way he had been. Pt was also requesting his pain medication be given earlier than this rn was able to give it. He stated that rn transitional gave it every three hours. This RN informed pt that I would only give his pain medication on the schedule that the MD has ordered. Pt was angry with me because I would not, just bring his pain meds to him . Informed pt that since medication was PRN he had to ask for it. Pt was also irritated with staff today for having him do things for himself such has feeding, getting a drink, and using his urinal.
[2024-02-17 20:00] VITALS: BP 115/72; PULSE 94; RESP 17; TEMP 36.9; O2SAT 93
[2024-02-17 20:28] LABS: POC Glucose,Bedside 330 (70-110)
[2024-02-17] MEDS: VANCOMYCIN HCL 2,250 MG in 0.9 % SODIUM CHLORIDE 250 ML 125 MG IV (21:23)
[2024-02-17] MEDS: INSULIN GLARGINE 100 UNITS/ML 3ML FLEXPEN 15 UNIT SQ (21:24)
[2024-02-18] MEDS: PIPERACILLIN/TAZO 2.25 GM in 0.9 % SODIUM CHLORIDE 50 ML IV ×2 (00:50→05:37)
[2024-02-18] MEDS: MORPHINE 4MG/ML SYRINGE 2 MG IV ×5 (02:59→20:13)
[2024-02-18 04:00] VITALS: BP 124/71; PULSE 85; RESP 16; TEMP 36.6; O2SAT 95; BMI 45.5
--- NOTE | 2024-02-18 04:18 | PC.NURSE ---
Patient tonight has been requesting Morphine very frequently. Patient is extremely dependent and often reminded numerous times he needs to be participating in care instead of being a 3x assist. Patient has demonstrated tonight he is able to stand with a 1x assist, mostly get himself up and out of the bed with light assistance, and he can use the urinal independently - he just has to be reminded each and every time and heavily encouraged. Patient is also able to scoot himself back in wheelchair while feet are in peddles for leverage - he seems to want us to do most of the ADL's for him but this RN has repeatedly informed him, the ADL's he can perform for himself, staff shouldn't be doing for him and promoting independence is for his benefit - he then complies. Patient has rested in bed between 11p-2a, otherwise he has been up in a wheelchair tonight.
[2024-02-18] MEDS: humaLOG 100 UNITS/ML 3ML VIAL (SSI) SQ ×4 (05:38→20:04)
[2024-02-18 06:01] LABS: Basophils % 0.5 % (0.1-2.0); Eosinophils # 0.1 K/mm3 (0.0-0.4); Eosinophils % 1.8 % (0.1-12.0); Hematocrit 35.3 % (42.0-52.0); Hemoglobin 11.1 g/dL (14.1-18.0); Lymphocytes # 0.5 K/mm3 (0.7-4.5); Lymphocytes % 7.5 % (10-50); Mean Corpuscular HGB Conc 31.4 g/dL (31.8-35.4); Mean Corpuscular Hemoglobin 27.6 pg (27.0-31.2); Mean Corpuscular Volume 87.9 fl (80-94); Mean Platelet Volume 8.8 fl (7.4-10.4); Monocytes # 0.3 K/mm3 (0.1-1.0); Monocytes % 5.1 % (1.7-9.3); Neutrophils # 5.2 K/mm3 (1.8-7.8); Neutrophils % 85.1 % (37.0-80.0); Platelet Count 156 K/mm3 (142-424); Red Blood Count 4.02 M/mm3 (4.60-6.20); Red Cell Distribution Width 15.7 % (11.5-17.5); White Blood Count 6.1 K/mm3 (4.8-10.8)
[2024-02-18 06:02] LABS: MANUAL DIFFERENTIAL MANUAL DIFFERENTIAL (MANUAL DIFF)
[2024-02-18 06:13] LABS: Anion Gap 14.6 mEq/L (5-15); Blood Urea Nitrogen 54 mg/dl (9-20); Carbon Dioxide 19 mmol/L (22.0-30.0); Chloride 99 mmol/L (98-107); Creatinine Clearance Estimated 27 mL/min (50-200); Estimated Glomerular Filt Rate 23 ml/min (>60); GFR (African American) 28 ML/MIN (>60); Glucose 268 mg/dl (74-100); Potassium 4.6 mmoL/L (3.5-5.1); Sodium 128 mmol/L (136-145)
[2024-02-18 06:59] LABS: POC Glucose,Bedside 309 (70-110)
[2024-02-18 07:33] VITALS: BP 107/62; PULSE 88; RESP 16; TEMP 36.8; O2SAT 95
[2024-02-18 07:39] LABS: Lymphocytes % 2 % (10-50); Monocytes % 11 % (2-9); Neutrophils % 66 % (42-76); Total Cells Counted 100
[2024-02-18 07:40] LABS: Anisocytosis 1+; Platelet Estimate Normal; Poikilocytosis 1+
[2024-02-18 07:41] LABS: Burr Cells 1+; Spherocytes 1+; Tear Drop Cells 1+
[2024-02-18] MEDS: CARVEDILOL 12.5MG TABLET 12.5 MG PO ×2 (08:25→20:04)
[2024-02-18] MEDS: MAGNESIUM OXIDE 400MG TABLET 400 MG PO (08:26)
[2024-02-18] MEDS: HEPARIN SODIUM 5,000 UNIT/ML VIAL 5000 UNIT SQ ×2 (08:26→20:04)
[2024-02-18] MEDS: ACETAMINOPHEN 500MG TAB 1000 MG PO (08:59)
--- NOTE | 2024-02-18 09:57 | US_ITS ---
FINAL REPORT TECHNIQUE: Ultrasound images of the kidneys and bladder were obtained. CLINICAL HISTORY: evelyne FINDINGS: The right kidney measures 13 cm in length. It is normal in echogenicity. There is no hydronephrosis. The left kidney measures 11 cm in length. It is normal in echogenicity. There is no hydronephrosis. There is an exophytic cyst in the lower pole. The urinary bladder is unremarkable. Spleen is moderately enlarged measuring up to 17.2 cm. IMPRESSION: Unremarkable renal ultrasound. Incidental splenomegaly. Reviewed, Interpreted and Dictated by Edna Cano MD Transcribed by Jamee Lubin Authenticated and [facility]
[2024-02-18 12:26] LABS: POC Glucose,Bedside 365 (70-110)
--- NOTE | 2024-02-18 13:11 | US_ITS ---
FINAL REPORT TECHNIQUE: Ultrasound imaging of the left upper extremity was obtained. CLINICAL HISTORY: LUE swelling, any pus collection antecubital area FINDINGS: There is a nonspecific, hypoechoic structure in the region of palpable abnormality measuring 11 x 6 cm in the medial upper arm which could represent complex fluid collection or phlegmon. This is poorly defined on ultrasound. IMPRESSION: Phlegmon versus complex fluid collection. Recommend contrast-enhanced CT or MRI for further evaluation. Reviewed, Interpreted and Dictated by Edna Cano MD Transcribed by Jamee Lubin Authenticated and [facility]
--- NOTE | 2024-02-18 14:07 | P.EN_ITS ---
patient transfer initiated for nephrology services and [facility] accepted the patient and awaiting bed placement
--- NOTE | 2024-02-18 14:07 | EXP.EVENT.NO ---
patient transfer initiated for nephrology services and [facility] accepted the patient and awaiting bed placement
--- NOTE | 2024-02-18 15:15 | PC.NURSE ---
aox4, larson cath placed this shift r/t acute urinary retention. pt c/o pain x2 this shift, medicated per mar. pt has not tolerated ambulation well this shift. he has required 2 assist to stand and pivot to wheelchair from bed.
--- NOTE | 2024-02-18 15:54 | P.PN_ITS ---
Subjective *Date: 02/18/24 *Time: 16:23 Interval history: his arm swelling has not been improving, he denied fevers, chills and he also complained of difficulty urinating Exam Data for Last 24 hours Vital signs and Labs for Last 24 Hours: Temp Pulse Resp BP Pulse Ox O2 Del Method 98.2 F 88 16 107/62 L 95 Room Air 02/18/24 07:33 02/18/24 07:33 02/18/24 07:33 02/18/24 07:33 02/18/24 07:33 02/18/24 13:00 Laboratory Results - last 24 hr 02/17/24 16:19: POC Glucose 332 H* 02/17/24 20:20: POC Glucose 330 H* 02/18/24 05:37: POC Glucose 309 H* 02/18/24 05:38: WBC 6.1, RBC 4.02 L, Hgb 11.1 L, Hct 35.3 L, MCV 87.9, MCH 27.6, MCHC 31.4 L, RDW 15.7, Plt Count 156 D, MPV 8.8, Neut % (Auto) 85.1 H, Lymph % (Auto) 7.5 L, [place] % (Auto) 5.1, Eos % (Auto) 1.8, Baso % (Auto) 0.5, Neut # (Auto) 5.2, Lymph # (Auto) 0.5 L, [place] # (Auto) 0.3, Eos # (Auto) 0.1, Baso # (Auto) 0.0, Total Counted 100, Neutrophils % (Manual) 66, Band Neutrophils % 21.0 H, Lymphocytes % (Manual) 2 L, Monocytes % (Manual) 11 H, Platelet Estimate Normal, Poikilocytosis 1+, Anisocytosis 1+, Spherocytes 1+, Tear Drop Cells 1+, Ovalocytes , Jesus Cells 1+, Sodium 128 L, Potassium 4.6, Chloride 99, Carbon Dioxide 19 L, Anion Gap 14.6, BUN 54 H, Creatinine 2.80 H, Estimated Creat Clear 27, Estimated GFR 23 L, Est GFR ( Amer) 28 L, Glucose 268 H, Calcium 8.0 L 02/18/24 12:12: POC Glucose 365 H* I & O for Last 24 hours: Intake & Output 04/02/16/24 02/17/24 02/18/24 23:59 23:59 23:59 23:59 Intake Total 1240 / 1240 240 / 490 2225 / 2225 900 / 900 Output Total 1750 / 1750 1350 / 1500 1800 / 2000 800 / 800 Balance -510 / -510 -1110 / -1010 425 / 225 100 / 100 Weight 141.475 kg 158 kg 144.333 kg 144.3 kg Microbiology Reports for the Last 24 Hours: Microbiology 02/14/24 17:15 Blood Blood Culture - Preliminary 02/14/24 16:50 Blood Blood Culture - Preliminary Constitutional Constitutional: no acute distress *Routine HEENT Exam Head: Present normocephalic Eye: Present EOMI and PERRL ENT: Present mucous membranes moist *Routine Neck Exam Neck: Present supple; Absent lymphadenopathy *Routine Respiratory Exam Respiratory: Present CTA bilaterally *Routine Cardiovascular Exam Cardiovascular: Present RRR *Routine Abdominal Exam Abdominal: Present soft and normoactive bowel sounds; Absent tenderness *Routine Extremities Exam Extremities: Absent cyanosis, clubbing or edema Comments: Patient LE appears red, and warm to touch *Routine Skin Exam Skin: Present warm; Absent rash *Routine Neurological Exam Neurological: Present alert and oriented X3 Assessment and Plan *Assessment and plan (1) Sepsis: Status: Acute Category: Medical Code(s): A41.9 - Sepsis, unspecified organism (2) Cellulitis: Status: Acute Qualifiers: Laterality: left Site of cellulitis: extremity Site of cellulitis of extremity: upper extremity Qualified Code(s): L03.114 - Cellulitis of left upper limb Category: Medical Code(s): L03.90 - Cellulitis, unspecified (3) OSIRIS (acute kidney injury): Status: Acute Category: Medical Code(s): N17.9 - Acute kidney failure, unspecified (4) Hyponatremia: Status: Acute Category: Medical Code(s): E87.1 - Hypo-osmolality and hyponatremia (5) Hypertension: Status: Acute Category: Medical Code(s): I10 - Essential (primary) hypertension (6) Heart failure: Status: Acute Category: Medical Code(s): I50.9 - Heart failure, unspecified (7) Diabetes mellitus, type 2: Status: Acute Category: Medical Code(s): E11.9 - Type 2 diabetes mellitus without complications (8) Gout: Status: Acute Category: Medical Code(s): M10.9 - Gout, unspecified Plan 63-year-old male with CKD, gout, hypertension, diabetes. Presented to the ER with weakness, hypotension, concern for sepsis and cellulitis. Discussed case with ER physician, request admission for IV antibiotics, further fluid resuscitation, and monitoring of improvement in kidney function. Medicine agreed to admit for further management. Received 2 L in the ER. Started on vancomycin and Zosyn. In the setting of his OSIRIS, will switch antibiotics. Necessitating inpatient management. Cultures obtained. Stable this morning. Continues to require inpatient management for IV antibiotics, therapy, management of OSIRIS. Problems addressed as follows: Sepsis Cellulitis - Meeting sepsis criteria with tachycardia, leukocytosis, infection with cellulitis. Endorgan damage with OSIRIS and initial hypotension that was fluid responsive. - Continue vancomycin IV. add cefepime, zosyn dscontinued due to concern of nephrotoxicity - Blood cultures obtained, pending continue IV abx OSIRIS on CKD: - baseline creatinine 1.6. Cr is worsening, monitor check CK level and uric acid - pending renal US - unremarkable - Caution with nephrotoxins. Avoiding NSAIDs. Concerned that meloxicam in conjunction with his losartan and onset of infection are likely etiology for his OSIRIS Uncontrolled diabetes: - A1c 9.0. Continue sliding scale insulin with fingersticks ACHS. - On metformin and and Invokana at home. - Hold metformin and Invokana in the setting of OSIRIS, increase Lantus to 15 units nightly. - Will make further adjustments pending morning glucose. -Diabetic diet Hyponatremia: monitor Thrombocytopenia - monitor Gout: Reportedly on febuxostat 40mg at home. Has not filled it since August. Uric acid level 9.9. Initiate allopurinol 100 mg daily. Would benefit from resuming febuxostat at discharge. Hypertension: On carvedilol, Lasix, and losartan at home. Holding in the setting of normotensive/hypotensive and OSIRIS. Resume when appropriate Class III over the complicates all of his care. PT and OT to evaluate, patient has been immobile at home and using wheelchair due to back injury. Evaluate for safety going home with home health versus SNF versus outpatient therapy. Full code Diabetic diet Lovenox 30 mg subcu daily started on vanc and cefepime, plan for transfer to [facility] for higher level of care for nephrology and ID services
[2024-02-18 16:00] VITALS: BP 110/50; PULSE 84; RESP 18; TEMP 36.9; O2SAT 95
[2024-02-18 16:49] LABS: POC Glucose,Bedside 287 (70-110)
[2024-02-18 20:00] VITALS: BP 123/71; PULSE 85; RESP 18; TEMP 37.3; O2SAT 95
[2024-02-18] MEDS: INSULIN GLARGINE 100 UNITS/ML 3ML FLEXPEN 15 UNIT SQ (20:05)
[2024-02-19] VITALS: BP 126/75; PULSE 83; RESP 18; TEMP 37.2; O2SAT 96
[2024-02-19] MEDS: MORPHINE 4MG/ML SYRINGE 2 MG IV (00:02)
--- NOTE | 2024-02-19 00:12 | PC.NURSE ---
pt left floor with ems at this time
--- NOTE | 2024-02-19 01:02 | P.DS_ITS ---
General Admission date:: 02/14/24 Discharge date: 02/19/24 HPI HPI HPI: Mr. Lobato is a 63-year-old male with history of diabetes, gout, CKD. States that over the past several weeks he has been having back pain. Has had a workup with orthopedics at an outside hospital including imaging. Recently on a course of steroids and meloxicam. His mobility has been limited secondary to his pain. He presented to his primary care today because he developed general weakness and pain in his left elbow over the past 1 to 2 days. Reports that 3 months ago he had pain in the left elbow and some swelling. It resolved with a course of antibiotics. He redeveloped this pain and swelling over the past 48 hours. Has just felt fatigued and not himself. On arrival to his primary care doctors office, he was noted to be hypotensive. He denies chest pain, nausea, vomiting, diarrhea, shortness of breath. No mayito fever. No syncope. Workup in the ER showed tachycardia. Left elbow is red and swollen. Labs positive for leukocytosis. Imaging with no fluid on the elbow joint but did have significant soft tissues swelling. Meeting sepsis criteria concerning for cellulitis. In addition he has an OSIRIS on his chronic kidney disease. Patient takes losartan for blood pressure control in conjunction with meloxicam recently and poor p.o. intake. Medicine was consulted for admission and further management On evaluation, patient is feeling better after receiving fluid bolus. Stable on room air. Alert and oriented x 4. Hospital Course Hospital Course Hospital Course: 63-year-old male with CKD, gout, hypertension, diabetes. Presented to the ER with weakness, hypotension, concern for sepsis and cellulitis. Discussed case with ER physician, request admission for IV antibiotics, further fluid resuscitation, and monitoring of improvement in kidney function. Medicine agreed to admit for further management. Received 2 L in the ER. Started on vancomycin and Zosyn. In the setting of his OSIRIS, will switch antibiotics. Necessitating inpatient management. Cultures obtained. Stable this morning. Continues to require inpatient management for IV antibiotics, therapy, management of OSIRIS. Problems addressed as follows: Sepsis Cellulitis - Meeting sepsis criteria with tachycardia, leukocytosis, infection with cellulitis. Endorgan damage with OSIRIS and initial hypotension that was fluid responsive. - Continue vancomycin IV. add zosyn - Blood cultures obtained, pending continue IV abx OSIRIS on CKD: - baseline creatinine 1.6. Cr is worsening, monitor patient transfer initiated for nephrology services and ID, [facility] accepted the patient and awaiting bed placement Exam Data for Last 24 hours Vital signs and Labs for Last 24 Hours: Temp Pulse Resp BP Pulse Ox O2 Del Method 98.9 F 83 18 126/75 96 Room Air 02/19/24 00:00 02/19/24 00:00 02/19/24 00:00 02/19/24 00:00 02/19/24 00:00 02/19/24 00:00 Laboratory Results - last 24 hr 02/18/24 05:37: POC Glucose 309 H* 02/18/24 05:38: WBC 6.1, RBC 4.02 L, Hgb 11.1 L, Hct 35.3 L, MCV 87.9, MCH 27.6, MCHC 31.4 L, RDW 15.7, Plt Count 156 D, MPV 8.8, Neut % (Auto) 85.1 H, Lymph % (Auto) 7.5 L, [place] % (Auto) 5.1, Eos % (Auto) 1.8, Baso % (Auto) 0.5, Neut # (Auto) 5.2, Lymph # (Auto) 0.5 L, [place] # (Auto) 0.3, Eos # (Auto) 0.1, Baso # (Auto) 0.0, Total Counted 100, Neutrophils % (Manual) 66, Band Neutrophils % 21.0 H, Lymphocytes % (Manual) 2 L, Monocytes % (Manual) 11 H, Platelet Estimate Normal, Poikilocytosis 1+, Anisocytosis 1+, Spherocytes 1+, Tear Drop Cells 1+, Ovalocytes , Jesus Cells 1+, Sodium 128 L, Potassium 4.6, Chloride 99, Carbon Dioxide 19 L, Anion Gap 14.6, BUN 54 H, Creatinine 2.80 H, Estimated Creat Clear 27, Estimated GFR 23 L, Est GFR ( Amer) 28 L, Glucose 268 H, Calcium 8.0 L 02/18/24 12:12: POC Glucose 365 H* 02/18/24 16:35: POC Glucose 287 H I & O for Last 24 hours: Intake & Output 05/01/24 05/02/24 05/03/24 05/04/24 23:59 23:59 23:59 23:59 Intake Total 240 / 490 2225 / 2225 900 / 900 Output Total 1350 / 1500 1800 / 2000 800 / 800 Balance -1110 / -1010 425 / 225 100 / 100 Weight 158 kg 144.333 kg 144.3 kg Microbiology Reports for the Last 24 Hours: Microbiology 02/14/24 17:15 Blood Blood Culture - Preliminary 02/14/24 16:50 Blood Blood Culture - Preliminary Constitutional Constitutional: no acute distress *Routine HEENT Exam Head: Present normocephalic Eye: Present EOMI and PERRL ENT: Present mucous membranes moist *Routine Neck Exam Neck: Present supple; Absent lymphadenopathy *Routine Respiratory Exam Respiratory: Present CTA bilaterally *Routine Cardiovascular Exam Cardiovascular: Present RRR *Routine Abdominal Exam Abdominal: Present soft and normoactive bowel sounds; Absent tenderness *Routine Extremities Exam Extremities: Absent cyanosis, clubbing or edema Comments: Patient LE appears red, and warm to touch *Routine Skin Exam Skin: Present warm; Absent rash *Routine Neurological Exam Neurological: Present alert and oriented X3 Results Data Completed and Pending Labs on day of discharge: Labs from last 24 hours 02/18/24 02/18/24 02/18/24 16:35 12:12 05:38 WBC 6.1 RBC 4.02 L Hgb 11.1 L Hct 35.3 L MCV 87.9 MCH 27.6 MCHC 31.4 L RDW 15.7 Plt Count 156 D MPV 8.8 Neut % (Auto) 85.1 H Lymph % (Auto) 7.5 L [place] % (Auto) 5.1 Eos % (Auto) 1.8 Baso % (Auto) 0.5 Neut # (Auto) 5.2 Lymph # (Auto) 0.5 L [place] # (Auto) 0.3 Eos # (Auto) 0.1 Baso # (Auto) 0.0 Total Counted 100 Neutrophils % (Manual) 66 Band Neutrophils % 21.0 H Lymphocytes % (Manual) 2 L Monocytes % (Manual) 11 H Platelet Estimate Normal Poikilocytosis 1+ Anisocytosis 1+ Spherocytes 1+ Tear Drop Cells 1+ Ovalocytes [place] Cells 1+ Sodium 128 L Potassium 4.6 Chloride 99 Carbon Dioxide 19 L Anion Gap 14.6 BUN 54 H Creatinine 2.80 H Estimated Creat Clear 27 Estimated GFR 23 L Est GFR ( Amer) 28 L Glucose 268 H POC Glucose 287 H 365 H* Calcium 8.0 L 02/18/24 05:37 WBC RBC Hgb Hct MCV MCH MCHC RDW Plt Count MPV Neut % (Auto) Lymph % (Auto) [place] % (Auto) Eos % (Auto) Baso % (Auto) Neut # (Auto) Lymph # (Auto) [place] # (Auto) Eos # (Auto) Baso # (Auto) Total Counted Neutrophils % (Manual) Band Neutrophils % Lymphocytes % (Manual) Monocytes % (Manual) Platelet Estimate Poikilocytosis Anisocytosis Spherocytes Tear Drop Cells Ovalocytes Jesus Cells Sodium Potassium Chloride Carbon Dioxide Anion Gap BUN Creatinine Estimated Creat Clear Estimated GFR Est GFR ( Amer) Glucose POC Glucose 309 H* Calcium Preliminary micro results at discharge 02/14/24 17:15 Blood Culture - Preliminary Blood 02/14/24 16:50 Blood Culture - Preliminary Blood DS: Diagnosis Discharge Diagnosis (1) Sepsis: Status: Acute Code(s): A41.9 - Sepsis, unspecified organism (2) Cellulitis: Status: Acute Code(s): L03.90 - Cellulitis, unspecified Qualifiers: Laterality: left Site of cellulitis: extremity Site of cellulitis of extremity: upper extremity Qualified Code(s): L03.114 - Cellulitis of left upper limb (3) OSIRIS (acute kidney injury): Status: Acute Code(s): N17.9 - Acute kidney failure, unspecified (4) Hyponatremia: Status: Acute Code(s): E87.1 - Hypo-osmolality and hyponatremia (5) Hypertension: Status: Acute Code(s): I10 - Essential (primary) hypertension (6) Heart failure: Status: Acute Code(s): I50.9 - Heart failure, unspecified (7) Diabetes mellitus, type 2: Status: Acute Code(s): E11.9 - Type 2 diabetes mellitus without complications (8) Gout: Status: Acute Code(s): M10.9 - Gout, unspecified Meds Home Medications and Allergies Home Medications Medication Instructions Recorded Confirmed Type metformin 1,000 mg tablet 1,000 mg PO BIDWMEAL 06/02/19 02/15/24 History canagliflozin 300 mg tablet 300 mg PO DAILY 02/15/24 02/15/24 History (Invokana) carvedilol 12.5 mg tablet 12.5 mg PO BID 02/15/24 02/15/24 History losartan 100 mg tablet 100 mg PO DAILY 02/15/24 02/15/24 History meloxicam 15 mg tablet 15 mg PO DAILYP PRN for pain 02/15/24 02/15/24 History trazodone 50 mg tablet 50 mg PO HS 02/15/24 02/15/24 History New Prescriptions to Start Prescriptions: Allergies Allergy/AdvReac Type Severity Reaction Status Date / Time No Known Allergies Allergy Verified 12/31/23 08:38 Discharge Plan Disposition Patient Disposition: Xfer Short-Term Hosp Condition: Serious Discharge Order Discharge Orders: Discharge Order (Routine); Ordered 02/19/24 Ordered By: Saul Conner Follow up Plan Follow up with: Negar Forrester APRN [Staff Physician] - 05/18/24 2:00 pm (New diagnosis of cirrhosis) Tomi Cao MD [Primary Care Provider] - 02/21/24 3:00 pm Prescriptions/Medication Reconciliation: Continued metformin 1,000 mg tablet 1,000 mg PO BIDWMEAL carvedilol 12.5 mg tablet 12.5 mg PO BID Patient Comments: TAKE 1 TABLET BY MOUTH TWICE DAILY. TAKE WITH FOOD trazodone 50 mg tablet 50 mg PO HS Patient Comments: TAKE 1 TABLET BY MOUTH EVERY NIGHT meloxicam 15 mg tablet 15 mg PO DAILYP PRN (Reason: for pain) Patient Comments: TAKE 1 TABLET BY MOUTH ONCE DAILY NEEDED losartan 100 mg tablet 100 mg PO DAILY Patient Comments: TAKE 1 TABLET BY MOUTH EVERY DAY Invokana 300 mg tablet 300 mg PO DAILY Patient Comments: TAKE 1 TABLET BY MOUTH EVERY DAY Problem Reconciliation Problems Reviewed?: Yes Patient Discharge Instructions ACTIVITY: Continue current activity DIET: continue same diet Stand Alone Forms: Transfer Record Patient Instructions: DI for Cellulitis -- Adult, DI for Sepsis -- Adult, DI for Acute Kidney Injury Providers Primary Care Provider: Tomi Cao Admit Provider: Hammad Ferreira Attending Provider: Hammad Ferreira
[2024-02-19 02:41] LABS: POC Glucose,Bedside 278 (70-110)
[2024-02-19 02:41] LABS: POC Glucose,Bedside 287 (70-110)
== END 2024-02-19 00:12 | disposition short-term general hospital (02) | DRG 872 ==
LOC: ER 19:22 → 2ND 20:14
PROVIDERS: Internal Medicine; Physician Assistant; Admitting Provider Internal Medicine Adolescent Medicine; Emergency Provider Emergency Medicine; PCP Internal Medicine Adolescent Medicine; Visit Provider Internal Medicine Adolescent Medicine
DX: A41.9 Sepsis, unspecified organism (principal); L03.114 Cellulitis of left upper limb; N17.9 Acute kidney failure, unspecified; E87.1 Hypo-osmolality and hyponatremia; I13.0 Hypertensive heart and chronic kidney disease with heart failure and stage 1 through stage 4 chronic kidney disease, or unspecified chronic kidney disease; I50.9 Heart failure, unspecified; M10.9 Gout, unspecified; E11.65 Type 2 diabetes mellitus with hyperglycemia; N18.9 Chronic kidney disease, unspecified; D69.6 Thrombocytopenia, unspecified; E11.22 Type 2 diabetes mellitus with diabetic chronic kidney disease; Z79.84 Long term (current) use of oral hypoglycemic drugs
CPT/HCPCS: 36415; 73080; 73200; 76705; 76770; 76882; 80048; 80053; 81001; 82550; 82962; 83036; 83605; 83735; 84145; 84550; 85007; 85025; 85610; 85651; 86140; 87040; 97116; 97162; 97163; 97166; 97530; 97535; 99285; J0131; J2543; J3370; J3475

== ENCOUNTER 2024-04-05 14:10 | Outpatient (CLI) | payer MEDICARE, SELFPAY ==
[2024-04-05 14:19] LABS: Microscopic, Urine URINE MICROSCOPIC (MICROSCOPIC)
[2024-04-05 14:42] LABS: Basophils % 0.7 % (0.1-2.0); Eosinophils # 0.3 K/mm3 (0.0-0.4); Eosinophils % 4.4 % (0.1-12.0); Hematocrit 34.3 % (42.0-52.0); Hemoglobin 11.2 g/dL (14.1-18.0); Lymphocytes # 0.7 K/mm3 (0.7-4.5); Lymphocytes % 10.8 % (10-50); Mean Corpuscular HGB Conc 32.5 g/dL (31.8-35.4); Mean Corpuscular Hemoglobin 29.3 pg (27.0-31.2); Mean Corpuscular Volume 90.1 fl (80-94); Mean Platelet Volume 10.1 fl (7.4-10.4); Monocytes # 0.3 K/mm3 (0.1-1.0); Monocytes % 5.3 % (1.7-9.3); Neutrophils # 5.1 K/mm3 (1.8-7.8); Neutrophils % 78.8 % (37.0-80.0); Platelet Count 154 K/mm3 (142-424); Red Blood Count 3.81 M/mm3 (4.60-6.20); Red Cell Distribution Width 17.4 % (11.5-17.5); White Blood Count 6.4 K/mm3 (4.8-10.8)
[2024-04-05 15:09] LABS: Hemoglobin A1C 7.3 % (4.0-6.0)
[2024-04-05 15:22] LABS: Albumin Level 3.9 g/dl (3.5-5.0); Anion Gap 14.4 mEq/L (5-15); Blood Urea Nitrogen 40 mg/dl (9-20); Calcium 9.1 mg/dl (8.4-10.2); Carbon Dioxide 23 mmol/L (22.0-30.0); Chloride 105 mmol/L (98-107); Estimated Glomerular Filt Rate 47 ml/min (>60); GFR (African American) 57 ML/MIN (>60); Glucose 130 mg/dl (74-100); Phosphorous 3.6 mg/dl (2.5-4.5); Potassium 4.4 mmoL/L (3.5-5.1); Sodium 138 mmol/L (136-145); Uric Acid 6.3 mg/dl (3.5-8.5)
[2024-04-05 15:48] LABS: Appearance,Urine CLEAR (Clear); Bilirubin,Urine Negative (Negative); Blood, Urine Negative (Negative); Color,Urine YELLOW (Yellow); Glucose,Urine (UA) Negative (Negative); Ketones,Urine Negative (Negative); Leukocyte Esterase,Urine Negative (Negative); Nitrate,Urine Negative (Negative); PH,Urine 5.5 (5.0-8.5); Protein,Urine Negative (Negative); Specific Gravity, Urine 1.015 (1.005-1.030); Urobilinogen,Urine 0.2 EU/dl (0.2)
[2024-04-05 15:56] LABS: Creatinine,Urine Random 51 mg/dL (Not Estab.)
[2024-04-20 11:04] LABS: 1,25 Dihydroxy Vitamin D 25 pg/mL (.); 1,25-Dihydroxy, Vitamin D-2 <10 pg/mL (.); 1,25-Dihydroxy, Vitamin D-3 25 pg/mL (.)
== END 2024-04-05 23:59 | disposition home or self-care (01) ==
LOC: LAB 14:11
PROVIDERS: PCP Internal Medicine Adolescent Medicine; Visit Provider Hospitalist
DX: N18.32 Chronic kidney disease, stage 3b (principal); E55.9 Vitamin D deficiency, unspecified; M10.9 Gout, unspecified; E11.22 Type 2 diabetes mellitus with diabetic chronic kidney disease
CPT/HCPCS: 36415; 80069; 81001; 82570; 82652; 83036; 84156; 84550; 85025

== ENCOUNTER 2024-05-05 17:00 | Outpatient (RCR) | payer MEDICARE, SELFPAY | END 2024-05-05 18:00 | disposition home or self-care (01) | LOC: PT 17:00 | PROVIDERS: Visit Provider Orthopaedic Surgery | DX: R20.2 Paresthesia of skin (principal) | CPT/HCPCS: 97110; 97116; 97163 ==

== ENCOUNTER 2024-05-09 11:21 | Outpatient (CLI) | payer MEDICARE, SELFPAY ==
--- NOTE | 2024-05-09 11:27 | XR_ITS ---
FINAL REPORT CLINICAL HISTORY: abnormal ekg pre-op COMPARISON: None FINDINGS: No acute pulmonary density is evident. There is no evidence of effusion or other pleural disease. The mediastinum has a normal appearance. Moderate cardiomegaly is present. IMPRESSION: Moderate cardiomegaly without acute pulmonary abnormality. Reviewed, Interpreted and Dictated by Edna Cano MD Transcribed by Tiff Cantu Authenticated and [facility]
[2024-05-09 12:53] LABS: Chloride 108 mmol/L (98-107); Potassium 4.6 mmoL/L (3.5-5.1); Sodium 141 mmol/L (136-145)
[2024-05-09 12:56] LABS: Blood Urea Nitrogen 45 mg/dl (9-20); Estimated Glomerular Filt Rate 41 ml/min (>60); GFR (African American) 49 ML/MIN (>60)
[2024-05-09 12:57] LABS: Anion Gap 10.6 mEq/L (5-15); Calcium 9.1 mg/dl (8.4-10.2); Carbon Dioxide 27 mmol/L (22.0-30.0); Glucose 142 mg/dl (74-100)
[2024-05-09 13:04] LABS: NT Pro Brain Natriuretic Pep. 629 pg/mL (0-125)
== END 2024-05-09 23:59 | disposition home or self-care (01) ==
LOC: LAB 11:23
PROVIDERS: PCP Internal Medicine Adolescent Medicine; Visit Provider Physician Assistant
DX: R94.31 Abnormal electrocardiogram [ECG] [EKG] (principal); E11.9 Type 2 diabetes mellitus without complications; K21.9 Gastro-esophageal reflux disease without esophagitis; I11.0 Hypertensive heart disease with heart failure
CPT/HCPCS: 36415; 71046; 80048; 83880

== ENCOUNTER 2024-12-14 14:26 | Outpatient (CLI) | payer MEDICARE, SELFPAY ==
--- NOTE | 2024-12-14 14:51 | ECG_ITS ---
APPROVED REPORT Exam: Resting ECG HR:72 bpm ECG Measurements Heart Rate 72 AXES MA 168 P 49 QRSd 155 QRS -80 QT 462 T 69 QTc 487 Conclusion SINUS RHYTHM WITH OCCASIONAL VENTRICULAR PREMATURE COMPLEXES LEFT AXIS DEVIATION [QRS AXIS < -30] RIGHT BUNDLE BRANCH BLOCK [120+ ms QRS DURATION, UPRIGHT V1, 40+ ms S IN I/aVL/V4/V5/V6] POSSIBLE ANTERIOR MYOCARDIAL INFARCTION , PROBABLY OLD [30 ms Q WAVE IN V3/V4, OR R < 0.2 mV IN V4] ABNORMAL ECG UNCONFIRMED REPORT Electronically signed by : Tomi Cao MD 12/16/2024 13:29:14
[2024-12-14 15:01] LABS: Microscopic, Urine URINE MICROSCOPIC (MICROSCOPIC)
[2024-12-14 15:32] LABS: Basophils # 0.1 K/mm3 (0-0.2); Basophils % 0.8 % (0.1-2.0); Eosinophils # 0.4 K/mm3 (0.0-0.4); Eosinophils % 6.4 % (0.1-12.0); Hematocrit 42.3 % (42.0-52.0); Hemoglobin 13.6 g/dL (14.1-18.0); Lymphocytes # 0.8 K/mm3 (0.7-4.5); Lymphocytes % 13.2 % (10-50); Mean Corpuscular HGB Conc 32.2 g/dL (31.8-35.4); Mean Corpuscular Hemoglobin 27.3 pg (27.0-31.2); Mean Corpuscular Volume 84.8 fl (80-94); Mean Platelet Volume 10.3 fl (7.4-10.4); Monocytes # 0.4 K/mm3 (0.1-1.0); Monocytes % 6.6 % (1.7-9.3); Neutrophils # 4.3 K/mm3 (1.8-7.8); Neutrophils % 72.3 % (37.0-80.0); Platelet Count 166 K/mm3 (142-424); Red Blood Count 4.99 M/mm3 (4.60-6.20); Red Cell Distribution Width 13.9 % (11.5-17.5); White Blood Count 5.9 K/mm3 (4.8-10.8)
[2024-12-14 15:45] LABS: Magnesium 1.1 mg/dl (1.6-2.3)
[2024-12-14 15:46] LABS: INR 0.97 (0.9-1.1); Prothrombin Time 10.9 seconds (10.1-12.5)
[2024-12-14 15:53] LABS: Alanine Aminotransferase 20 U/L (12-78); Albumin/Globulin Ratio 1.8 (1.1-1.8); Alkaline Phosphatase 137 U/L (38-126); Anion Gap 13.8 mEq/L (5-15); Aspartate Amino Transferase 21 U/L (17-59); Bilirubin,Total 0.5 mg/dl (0.2-1.3); Blood Urea Nitrogen 26 mg/dl (9-20); Calcium 8.9 mg/dl (8.4-10.2); Carbon Dioxide 27 mmol/L (22.0-30.0); Chloride 102 mmol/L (98-107); Chol/HDL Ratio 6.2 (1-3.5); Cholesterol 137 mg/dl (140-200); Estimated Glomerular Filt Rate 51 ml/min (>60); GFR (African American) 61 ML/MIN (>60); Globulin 2.2 g/dL (1.3-3.2); Glucose 268 mg/dl (74-100); HDL Cholesterol 22 mg/dl (40-60); Potassium 3.8 mmoL/L (3.5-5.1); Sodium 139 mmol/L (136-145); Total Protein,Serum 6.2 g/dl (6.3-8.2); Triglycerides 309 mg/dl (30-150); Uric Acid 5.7 mg/dl (3.5-8.5); VLDL Cholesterol 62 mg/dL (0-40)
[2024-12-14 16:04] LABS: Direct LDL Cholesterol 82.32 mg/dL (100-129)
[2024-12-14 16:06] LABS: Amphetamine/Metha Screen,Urine Negative ng/ml (<1000); Barbiturates Screen,Urine Negative ng/ml (<200)
[2024-12-14 16:07] LABS: Benzodiazepines Screen,Urine Negative ng/ml (<200); Cannabinoid Screen,Urine Negative ng/ml (<50)
[2024-12-14 16:08] LABS: Cocaine Screen,Urine Negative ng/ml (<300)
[2024-12-14 16:09] LABS: Methadone Screen,Urine Negative ng/ml (<300); Opiate Screen,Urine Negative ng/ml (<300)
[2024-12-14 16:10] LABS: Phencyclidine Screen,Urine Negative ng/ml (<25)
[2024-12-14 16:14] LABS: Appearance,Urine CLEAR (Clear); Bilirubin,Urine Negative (Negative); Blood, Urine Negative (Negative); Color,Urine YELLOW (Yellow); Glucose,Urine (UA) 1+ (Negative); Ketones,Urine Negative (Negative); Leukocyte Esterase,Urine Negative (Negative); Nitrate,Urine Negative (Negative); PH,Urine 5.5 (5.0-8.5); Protein,Urine 1+ (Negative); Urobilinogen,Urine 0.2 EU/dl (0.2)
[2024-12-14 16:34] LABS: Bacteria,Urine Trace /lpf; WBC,Urine Occasional #/hpf (0-3)
[2024-12-14 16:41] LABS: Vitamin B12 173 pg/mL (239-931)
[2024-12-14 17:01] LABS: Creatinine,Urine Random 57 mg/dL (Not Estab.)
== END 2024-12-14 23:59 | disposition home or self-care (01) ==
LOC: RT 14:30
PROVIDERS: PCP Internal Medicine Adolescent Medicine; Visit Provider Nurse Practitioner Family
DX: I11.0 Hypertensive heart disease with heart failure (principal); I50.22 Chronic systolic (congestive) heart failure; E11.22 Type 2 diabetes mellitus with diabetic chronic kidney disease; N18.32 Chronic kidney disease, stage 3b; M10.9 Gout, unspecified; M47.812 Spondylosis without myelopathy or radiculopathy, cervical region
CPT/HCPCS: 36415; 80053; 80061; 80307; 81001; 82043; 82570; 82607; 83036; 83735; 84550; 85025; 85610; 86900; 86901; 93005

== ENCOUNTER 2025-02-26 07:32 | Outpatient (CLI) | payer MEDICARE, SELFPAY ==
--- OUTSIDE RECORDS SUMMARY | 2025-02-26 07:37 | XMS_ITS | Data Portability ---
Author Organization [place] [facility] Address [address] [facility] [address] [place] [address] Care Team Providers Care Abrasive Sawyer Name Role Phone DARRELL VAIL Primary Care Provider [phone] Assessment No assessment recorded. Plan of Treatment Reminders Order Date Submit Date Provider Last Modified By Organization Details Last Modified Time Details Appointments None record ed. Lab None record ed. Referral None record ed. Procedures None record ed. Surgeries None record ed. Imaging None record ed. Medication Orders None record ed. Patient TargetsNo targets recorded. Patient InstructionsNo instructions recorded. Reason for Referral None Reported. Problems Name Problem SNOMED Code Status Onset Date Resolution Date Notes Provider Name and Address Organization Details Recorded Time Transient cerebral ischemia 206890118 Active 2015 From Automated Load;Prov ider: Rubi Art;Sta tus: Active Not Available [facility] 7 02:37:13 Chronic ulcer of heel 26970638712 679803 Active 2015 From Automated Load;Prov ider: Ismael Johnson;Sta tus: Active Not Available [facility] 7 02:37:13 Chronic ulcer of midfoot 77637288916 357175 Active 2015 From Automated Load;Prov ider: Ismael Johnson;Sta tus: Active Not Available [facility] 7 02:37:13 Non-press ure ulcer lower limb Active 2015 From Automated Load;Prov ider: Ismael Johnson;Sta tus: Active Not Available [facility] 7 02:37:13 Psychotic disorder 93046207 Active 2015 From Automated Load;Prov ider: Rubi Art;Sta tus: Active Not Available [facility] 7 02:37:13 Vomiting 794123943 Active 2015 From Automated Load;Prov ider: Rubi Art;Sta tus: Active Not Available [facility] 7 02:44:52 Acute renal impairmen t Active 2015 From Automated Load;Prov ider: Melani Bennett;Stat us: Active Not Available [facility] 7 06:04:19 Blood leukocyte number above reference range 694915261 Active 2015 From Automated Load;Prov ider: Rubi Art;Sta tus: Active Not Available [facility] 7 06:04:19 Type 2 diabetes mellitus without complicat ion 971347696 Active 2015 From Automated Load;Prov ider: Ismael Johnson;Sta tus: Active Not Available [facility] 7 06:21:43 Kidney disease 17640688 Active 2015 From Automated Load;Prov ider: Rubi Art;Sta tus: Active Not Available [facility] 7 06:21:44 Hyperkale nehemias 19241598 Active 2015 From Automated Load;Prov ider: Rubi Art;Sta tus: Active Not Available [facility] 7 06:39:45 Hypertens [place] disorder 17330781 Active 2015 From Automated Load;Prov ider: Ismael Johnson;Sta tus: Active Not Available [facility] 7 06:39:45 Chest pain 68571013 Active 2015 From Automated Load;Prov ider: Rubi Art;Sta tus: Active [facility] 7 06:51:53 Abdominal pain 91718596 Active 2015 From Automated Load;Prov ider: Rubi Art;Sta tus: Active Not [facility] 7 06:51:53 Celluliti s of lower limb 208202261 Active 2015 From Automated Load;Prov ider: Ismael Johnson;Sta tus: Active Not Available [facility] 7 07:11:07 Pyrexia of unknown origin 4648050 Active 2015 From Automated Load;Prov ider: Rubi Art;Sta tus: Active Not Available [facility] 7 07:21:05 Obesity 961977417 Active 2015 From Automated Load;Prov ider: Ismael Johnson;Sta tus: Active Not Available [facility] 7 07:52:08 Problem Notes None recorded. Medical Equipment None Reported. Allergies No known drug allergies Medications Name Sig Start Date Stop Date Status Note LastModified by Organization Details LastModified Time oxycodone 2023 completed Not Available Not Available Not Available bumetanide active Not Available Not Av ailable Not Available famotidine active Not Available Not Av ailable Not Available nifedipine active Not Available Not Av ailable Not Available cephalexin active Not Available Not Av ailable Not Available Cozaar active Not Available Not Availa ble Not Available insulin glargine-yfg n active Not Available Not Available Not Available Vitals Date Recorded Body height Body mass index (BMI) Body weight Pain severity - 0-10 verbal numeric rating [Score] - Reported Provider Name and Address Organization Details Last Updated DateTime 03/03/2024 180.34 cm 41.8 kg/m2 806374.71 g 1 Katie Quiros [facility] 03/03/2024 09:37:35 Date Recorded Body height Body mass index (BMI) Body weight Pain severity - 0-10 verbal numeric rating [Score] - Reported Provider Name and Address Organization Details Last Updated DateTime 03/17/2024 180.34 cm 41.8 kg/m2 418408.71 g 1 Mary Seals [facility] 03/17/2024 09:51:23 Social History None recorded. Functional Status None recorded. Mental Status None recorded. Family History Nothing Reported. Medical History No medical history recorded. Past Encounters Encounter ID Performer Location Encounter Start Date Encounter Closed Date Diagnosis/Indication Diagnosis SNOMED-CT Code Diagnosis ICD10 Code Diagnosis Note [id number] LEANDRO TAYLOR MD SURGERY SCHEDULE [address] [place] [address] 02/21/2024 09:38:47 02/21/2024 09:39:59 Infection of olecranon bursa of left elbow 3970130469 931398 M71.122 [id number] MAGALI GORDILLO PA-C [facility] [address] [place] [address] 03/03/2024 09:19:51 03/03/2024 10:41:07 Postoperative care [id number] Z48.89 Assessment : Status 2 weeks post left elbow olecranon bursectomy on 02/20/24 Plan: Dr. Taylor consulted about the case today. Patient will keep his previously scheduled March 28 ID appointmen t. Continue with p.o. antibiotic s. I will see him back in 2 weeks for incision recheck. We discussed specific red flag signs to look for that would warrant a quicker follow-up. I would like him to particular ly pay attention to the superiormo st aspect of the incision site for any copious drainage. They understand this. Follow-up in 2 weeks for recheck of the incision. [id number] MAGALI GORDILLO PA-C [facility] [address] [place] [address] 03/17/2024 09:44:30 03/17/2024 10:05:56 Postoperative care [id number] Z48.89 Assessment : Status 3.5 weeks post left elbow olecranon bursectomy on 02/20/24 Plan: Monocryl tail was trimmed down today. Continue with ice and compressio n. Hand wounds were covered today. Follow-up in 2 weeks for recheck with Dr. Taylor. Health Concerns Section Related Observation LastModified by Organization Detai ls LastModified Time None Recorded Concern Status LastModified by Organization Details LastModified Time None Recorded Advance Directives Directive None Recorded Payers Insurance Date Sequence Insurance Name Policy Number Policy Maloney Covered Member ID Maloney Member ID Guarantor Name 05/31/2024 1 BCBS-[place]: [employer] [place] [employer] (MEDICARE REPLACEMENT HMO) [id number] [employer] [place] [id number] [employer] [place] Notes Date Note Type Note Provider Name and Address Organization Details Recorded Time 03/03/2024 text/html Patient comes in today for FU {{Right Left* Bi lateral}} {{Knee Ankle Hip Thigh Lower Leg Shoulder Elb ow* Wrist/Hand}}. Surgery Date: 02/20/24SX: left elbow olecranon bursectomy Pain is {{constant interm ittent*}} {{sharp pain dull ache* throbbing}} in nature.Patient {{reports new injury since the surgery denies new injury since the surgery*}}The patient {{has does not have*}} numbness or tinglingThey {{have do not have*}} popping and clickingThey {{are* are not}} able to sleep comfortably with this injury.Their pain is made better with {{resting the limb* moving the affected limb}}Their pain is exacerbated by {{bearing weight on the affected limb putting weight on and moving the affected limb* nothing}}Ov erall, the patient would say that their pain {{is* is not}} well-controlled at this time. MAGALI GORDILLO PA-C [address] [place], [address], [facility] 03/03/2024 11:17:06 03/17/2024 text/html Patient comes in today for FU {{Right Left* Bi lateral}} {{Knee Ankle Hip Thigh Lower Leg Shoulder Elb ow* Wrist/Hand}}. Surgery Date: 02/20/24SX: left elbow olecranon bursectomy Pain is {{constant interm ittent*}} {{sharp pain dull ache* throbbing}} in nature.Patient {{reports new injury since the surgery denies new injury since the surgery*}}The patient {{has does not have*}} numbness or tinglingThey {{have do not have*}} popping and clickingThey {{are* are not}} able to sleep comfortably with this injury.Patient states that his elbow is feeling a little better than last time. He reports feeling like there are some stitches coming out from the incision. He states that his pain is very manageable at this time. MAGALI GORDILLO PA-C [address] [place], [address], [facility] 03/17/2024 10:14:34
[2025-02-26 12:25] LABS: Hemoglobin A1C 5.9 % (4.0-6.0)
== END 2025-02-26 23:59 | disposition home or self-care (01) ==
PROVIDERS: PCP Internal Medicine Adolescent Medicine; Visit Provider Neurological Surgery
DX: Z96.1 Presence of intraocular lens (principal)
CPT/HCPCS: 36415; 83036

== ENCOUNTER 2025-03-15 06:14 | Outpatient (CLI) | payer MEDICARE, SELFPAY ==
--- NOTE | 2025-03-15 | CA_ITS ---
APPROVED REPORT EXAM: Comprehensive 2D, Doppler, and color-flow Echocardiogram Bottom Loader: Chanda Garza, RCS, RVS Ht: 5 ft 10 in Wt: 330lbs BSA: 2.58 BP: 143/73 mmHg Indications: Pre-op assessment, DM HTNm Abn EKG, CHF, HFrEF, Wheelchair transport Echo Enhancing Agent Comments: No IV access, Patient scanned in wheelchair 2D Dimensions Left Atrium 3.40 cm M: 3.0 - 4.0 EF AP4 41.70 % GL Strain -15.9 % M-Mode Dimensions RVDd 2.83 cm (0.9-2.6) LA Diam 4.64 cm (1.9-4.0) LVDd 6.71 cm (3.5-5.7) LVDs 5.25 cm (3.5-5.7) IVSd 1.34 cm (0.6-1.1) PWd 1.41 cm (0.6-1.1) EF (Teich) 43.00% EPSs 2.07 cm FS 21.80% EDV (Teich) 232.10 mL TAPSE 2.86 (<1.7) ESV (Teich) 132.40 mL LV Diastology E Decel Time 242 (160-240 msec) E/A Ratio 1.00 MED A' 8.80 cm/s LAT A' 9.20 cm/s Aortic Valve BONIFACIO Index 0.97 cm2/m2 AoV Peak Bong. 141.0 (50-130 cm/s) AI PHT 705.00 ms AO Peak GR. 8.00 mmHg AO Mean GR. 4.50 (<5 mmHg) AO VTI 34.9 (18-25 cm) BONIFACIO (VTI) 2.56 (2.5-4.5 cm2) Mitral Valve MV A Velocity 67.0 (40-130 cm/s) E/A Ratio 1.00 Tricuspid Valve TR P. Velocity 113.00 cm/s RAP Estimate 10.00 mmHg RVSP 15.10 mmHg Left Ventricle Left ventricle is severely dilated. Left ventricular systolic function is mildly decreased. There is normal left ventricular wall thickness. There is mild global hypokinesis present. Grade 1 diastolic dysfunction is present. LVEF is 45%. Right Ventricle Right ventricle is mildly dilated. The right ventricular systolic function is normal. Atria Left atrium is moderately dilated. Right atrium is mildly dilated. There is no Doppler evidence of interatrial shunt. Aortic Valve The aortic valve is mildly thickened. There is no aortic valvular stenosis. Mild aortic regurgitation. Mitral Valve The mitral valve is normal in structure. No evidence of mitral valve stenosis. Mild mitral regurgitation. Tricuspid Valve Tricuspid valve is grossly normal in structure and function. Trace tricuspid regurgitation. There is insufficient TR jet to estimate RVSP. Pulmonic Valve The pulmonary valve is normal in structure. Trace pulmonic regurgitation. Great Vessels The aortic root is normal in size. The ascending aorta is borderline dilated, measuring 3.7 cm in diameter. IVC is normal in size and collapses >50% with inspiration. Pericardium There is no pericardial effusion. Other Information Study Quality: Technically Difficult Conclusion Technically difficult study due to poor acoustic windows. Severely dilated LV with mild reduction in LV systolic function (LVEF 45%). Mild RV dilation with normal RV function. Biatrial dilation. Mild AI, mild MR. The ascending aorta is borderline dilated, measuring 3.7 cm in diameter. Due to technically difficult study, future TTE evaluations are suggested with administration of ultrasound enhancing agent to better delineate the LV endocardial borders. Electronically signed by : Susie Yoder MD 03/20/2025 12:02:42
--- OUTSIDE RECORDS SUMMARY | 2025-03-15 06:18 | XMS_ITS | Data Portability ---
Author Organization [facility] Address [address] [place] [address] Care Team Providers Care Research Professor Of Biostatistics Name Role Phone DARRELL VAIL Primary Care Provider [phone] Assessment No assessment recorded. Plan of Treatment [...] Organization Details Recorded Time Transient cerebral ischemia 027890467 Active 2015 From Automated Load;Prov ider: Rubi Art;Sta tus: Active Not Available [facility] 7 02:37:13 Chronic ulcer of heel 51633783201 532568 Active 2015 From Automated Load;Prov ider: Ismael Johnson;Sta tus: Active Not Available [facility] 7 02:37:13 Chronic ulcer of midfoot 98068854110 280580 Active 2015 From Automated Load;Prov ider: Ismael Johnson;Sta tus: Active Not Available [facility] 7 02:37:13 Non-press ure ulcer lower limb Active 2015 From Automated Load;Prov ider: Ismael Johnson;Sta tus: Active Not Available [facility] 7 02:37:13 Psychotic disorder 57411585 Active 2015 From Automated Load;Prov ider: Rubi Art;Sta tus: Active Not Available [facility] 7 02:37:13 Vomiting 373532689 Active 2015 From Automated Load;Prov ider: Rubi Art;Sta tus: Active Not Available [facility] 7 02:44:52 Acute renal impairmen t Active 2015 From Automated Load;Prov ider: Melani Bennett;Stat us: Active Not Available [facility] 7 06:04:19 Blood leukocyte number above reference range 263343693 Active 2015 From Automated Load;Prov ider: Rubi Art;Sta tus: Active Not Available [facility] 7 06:04:19 Type 2 diabetes mellitus without complicat ion 711944451 Active 2015 From Automated Load;Prov ider: Ismael Johnson;Sta tus: Active Not Available [facility] 7 06:21:43 Kidney disease 83693929 Active 2015 From Automated Load;Prov ider: Rubi Art;Sta tus: Active Not Available [facility] 7 06:21:44 Hyperkale nehemias 40847396 Active 2015 From Automated Load;Prov ider: Rubi Art;Sta tus: Active Not Available [facility] 7 06:39:45 Hypertens [place] disorder 75692395 Active 2015 From Automated Load;Prov ider: Ismael Johnson;Sta tus: Active Not Available [facility] 7 06:39:45 Chest pain 65647253 Active 2015 From Automated Load;Prov ider: Rubi Art;Sta tus: Active Not Available [facility] 7 06:51:53 Abdominal pain 12870529 Active 2015 From Automated Load;Prov ider: Rubi Art;Sta tus: Active Not Available [facility] 7 06:51:53 Celluliti s of lower limb 733448081 Active 2015 From Automated Load;Prov ider: Ismael Johnson;Sta tus: Active Not Available [facility] 7 07:11:07 Pyrexia of unknown origin 3038546 Active 2015 From Automated Load;Prov ider: Rubi Art;Sta tus: Active Not Available Count includes the [facility] 7 07:21:05 Obesity 019387564 Active 2015 From Automated Load;Prov ider: Ismael Johnson;Sta tus: Active Not Available Count includes the [facility] 07:52:08 Problem Notes None recorded. Medical Equipment [...] height Body mass index (BMI) Body weight Provider Name and Address Organization Details Last Updated DateTime 03/03/2024 180.34 cm 41.8 kg/m2 621776.71 g Katie Quiros [facility] 03/03/2024 09:37:25 Date Recorded Body height Body mass index (BMI) Body weight Provider Name and Address Organization Details Last Updated DateTime 03/17/2024 180.34 cm 41.8 kg/m2 478125.71 g Mary Seals [facility] 03/17/2024 09:46:57 Social History None recorded. Functional Status None recorded. Mental Status None recorded. Family History Nothing Reported. Medical History No medical history recorded. Past Encounters Encounter ID Performer Location Encounter Start Date Encounter Closed Date Diagnosis/Indication Diagnosis SNOMED-CT Code Diagnosis ICD10 Code Diagnosis Note [id number] LEANDRO TAYLOR MD SURGERY SCHEDULE [address] [place] [address] 02/21/2024 09:38:47 02/21/2024 09:39:59 Infection of olecranon bursa of left elbow 9972880547 711308 M71.122 [id number] MAGALI GORDILLO PA-C [facility] [address] [place] [id number] 03/03/2024 09:19:51 03/03/2024 10:41:07 Postoperative care [id number] Z48.89 Assessment : Status 2 weeks post [...] 2 weeks for recheck of the incision. [id number] MAGALI GORDILLO PA-C [facility] [address] [place] [id number] 03/17/2024 09:44:30 03/17/2024 10:05:56 Postoperative care [id number] Z48.89 Assessment : Status 3.5 weeks post [...] Maloney Member ID Guarantor Name 05/31/2024 1 [place]MEDICARE REPLACEMENT HMO) [id number] [place] [id number] [place] Notes Date Note Type Note Provider Name and Address Organization Details Recorded Time 03/03/2024 text/html Patient comes in today for FU Left Elbow.Surgery Date: 02/20/24SX: left elbow olecranon bursectomy Pain is intermittent dull ache in nature.Patient denies new injury since the surgeryThe patient does not have numbness or tinglingThey do not have popping and clickingThey are able to sleep comfortably with this injury.Their pain is made better with resting the limbTheir pain is exacerbated by putting weight on and moving the affected limbOverall, the patient would say that their pain is well-controlled at this time. MAGALI GORDILLO PA-C [address] [place] [place], [address], [facility] 03/03/2024 11:17:06 03/17/2024 text/html Patient comes in today for FU Left Elbow.Surgery Date: 02/20/24SX: left elbow olecranon bursectomy Pain is intermittent dull ache in nature.Patient denies new injury since the surgeryThe patient does not have numbness or tinglingThey do not have popping and clickingThey are able to sleep comfortably with this injury.Patient states that his elbow is feeling a little better than last time. He reports feeling like there are some stitches coming out from the incision. He states that his pain is very manageable at this time. MAGALI GORDILLO PA-C [address] [place], [address], [facility] 03/17/2024 10:14:34
--- OUTSIDE RECORDS SUMMARY | 2025-03-15 06:18 | XMS_ITS ---
Author Organization Unknown Encounters Encounter Type Performer Location Encounter Date Encoun ter Notes virtual Shira Shine [id number]:55:22.000Z no notes virtual Yasemin Bejarano [id number]:54:03.000 Z no notes virtual Yasemin Bejarano [id number]:20:09.000 Z no notes virtual Soraida Renee [id number]:32:20.0 00Z no notes virtual Brett Rouse [id number]:52:38.00 0Z no notes virtual Ninfa Mathis 5301-21-08X44:54:12.000Z no notes virtual Phongdavid Piña [id number]:12:16. 000Z no notes virtual Soraida Renee 3115-69-35Z11:40:59.0 00Z no notes virtual Ninfa Mathis 1756-20-79X76:26:29.000Z no notes virtual Yaesmin Bejarano 3585-71-28B01:18:53.000 Z no notes virtual Yasemin Bejarano [id number]:27:26.000 Z no notes virtual Brett Rouse 1503-58-14C13:11:15.00 0Z no notes virtual Soraida Renee [id number]:43:29.0 00Z no notes virtual Ninfa Mathis [id number]:59:13.000Z no notes virtual Soraida Renee [id number]:33:51.0 00Z no notes Patient Care team information Name Category Status Period Participants - - Proposed period not known -
== END 2025-03-15 23:59 | disposition home or self-care (01) ==
LOC: RAD 06:17
PROVIDERS: PCP Internal Medicine Adolescent Medicine; Visit Provider Physician Assistant
DX: Z01.810 Encounter for preprocedural cardiovascular examination (principal); I08.0 Rheumatic disorders of both mitral and aortic valves; I77.810 Thoracic aortic ectasia; I11.0 Hypertensive heart disease with heart failure; I50.20 Unspecified systolic (congestive) heart failure; E11.9 Type 2 diabetes mellitus without complications; R94.31 Abnormal electrocardiogram [ECG] [EKG]
CPT/HCPCS: 93306

== ENCOUNTER 2025-03-23 11:45 | Outpatient (CLI) | payer MEDICARE, SELFPAY ==
--- OUTSIDE RECORDS SUMMARY | 2025-01-20 17:30 | XMS_ITS ---
Author Organization [facility] Address [address] [place] [address] Care Team Providers Care Metal Mixer Name Role Phone Tomi Cao Primary Care Provider [phone] Tomi Cao Unavailable Unavailable Migration, Provider Unavailable Unavailable Allergies Allergen (clinical drug ingredient) Drug/Non Drug Allergy documented on EMR Reaction Allergy Type Onset Date Status lisinopril Lisinopril nausea and diarrhea Drug Allergy Active REASON FOR VISIT Multum To [facility] Conversion Encounter Medications Medication SIG (Take, Route, Frequency, Duration) Notes Start Date End Date Status Cyanocobalamin 1000 MCG/ML 1000 mcg intramuscularly once a week for 90 days Active SYRINGE 3CC 20G 1 USE ONCE A WEEK FOR B12 INJECTIONS for 90 DAYS *Please review for potential replacement for e-prescription and drug interaction check* Active traZODone HCl 50 MG 1 tab(s) orally nightly for 90 days prn Active Carvedilol 12.5 MG 1 tab(s) orally 2 times a day for 90 days Active Toujeo SoloStar 300 UNIT/ML inject 25 units subcutaneously twice a day for 30 days 05/12/2024 Active Florastor 250 MG 1 cap(s) orally 2 times a day Active Febuxostat 40 MG 1 tab(s) orally once a day Active Mounjaro 5 MG/0.5 ML 5 MG SUBCUTANEOUSLY ONCE A WEEK for 28 DAYS *Please review and pick correct strength[facility]formulat [facility] options. If intended option is not shown, discontinue and re-order from Quick Search* 01/09/2025 Active Famotidine 20 MG 1 tab(s) orally 1 time per day for 90 days 03/24/2024 Active Methocarbamol 500 MG 1-2 tab(s) orally 4 times a day for 5 days 03/04/2024 Active Valsartan 160 MG 1 tab(s) orally once a day Active Losartan Potassium 25 MG 1 tab(s) orally once a day for 90 days 12/20/2024 Active Omeprazole 20 MG 1 cap(s) orally once a day for 90 days Active NIFEDIPINE (EQV-PROCARDIA XL) 30 MG TAKE 1 TABLET BY MOUTH DAILY for 90 DAYS *Please review for potential replacement for e-prescription and drug interaction check* Active BD VALENTINO 2ND GEN PEN NEEDLE 4MM X 32G USE TWICE A DAY WITH INSULIN PEN for 90 DAYS *Please review for potential replacement for e-prescription and drug interaction check* 11/15/2024 Active Encounters Encounter Location Date Provider Diagnosis [facility] [address] [facility] [address] [place] [address] 01/20/2025 Provider Migration Type 2 diabetes mellitus with other specified complication E11.69 Assessments Encounter Date Diagnosis (ICD Code) Assessment Notes Treatment Notes Treatment Clinical Notes Section Notes 01/20/2025 Type 2 diabetes mellitus with other specified complication (ICD-10 - E11.69) Plan Of Treatment Medication Medication Name Sig Start Date Stop Date Notes Cyanocobalamin 1000 MCG/ML 1000 mcg intramuscularly once a week for 90 days SYRINGE 3CC 20G 1 USE ONCE A WEEK FOR B12 INJECTIONS for 90 DAYS *Please review fo r potential replacement for e-prescription and drug interaction check* Carvedilol 12.5 MG 1 tab(s) orally 2 ti mes a day for 90 days Mounjaro 5 MG/0.5 ML 5 MG SUBCUTANEOUSLY ONCE A WEEK for 28 DAYS 01/09/2025 *Please review a nd pick correct strength-formulatio n from [employer] options. If intended option is not shown, discontinue and re-order from Quick Search* Losartan Potassium 25 MG 1 tab(s) orally once a day for 90 days 12/20/2024 Omeprazole 20 MG 1 cap(s) orally once a day for 90 days NIFEDIPINE (EQV-PROCARDIA XL) 30 MG TAKE 1 TABLET BY MOUTH DAILY for 90 DAYS *Please review for potential replacement for e-prescription and drug interaction check* BD VALENTINO 2ND GEN PEN NEEDLE 4MM X 32G USE TWICE A DAY WITH INSULIN PEN for 90 DAYS 11/15/2024 *Please review f or potential replacement for e-prescription and drug interaction check* Progress Notes * Jonathan HILLOB:1960 ( 64 yo M)Acc No.[id number]:01/20/2025 Patient: New HUBBARD Provider: Raysa howard Migration :1960 A ge:64 Y S ex:Male Date:01/20/2025 Address:[address] [place] [address] [place], [id number] Pcp:Tomi Cao Subjective: * Chief Complaints: * 1 . Multum To [facility] Conversion Encounter. * Medical History: * Medications: [...] Electronic signature of Marlene johnson Migration on 03/23/2025 at 11:49 AM EDT Sign off status: Pending * Provider: Raysa howard Migration Date: 0 01/20/2025 Generated for Karly billy/Lisa/Zullyitting on: 0 03/23/2025 11:49 AM EDT
--- OUTSIDE RECORDS SUMMARY | 2025-02-25 20:00 | XMS_ITS | CCD ---
Author Name Martine Jara NP Address [address] [facility] [address] [place] [address] Phone Organization [facility] Phone Care Team Providers Care Hospitality Associate Name Role Phone Office, [place] Primary Care Provider Unavaila ble Unavailable Chronic Care Management Unavaila ble Summary Purpose DataExchange Insurance Providers Payer name Policy type / Coverage type Covered republican ID Effective Begin Date Effective End Date [employer] BCBS [facility] [id number] Unknown Unknown Family History Family History data not found Problems Condition Codes Effective Dates Condition St atus Cervical spondylosis ICD-10: M47.812 12/01/2024 Acti ve Patient not seen ICD-10: UXZ.01 ICD-9: UXZ.01 02/26/2025 Active Spinal stenosis in cervical region ICD-10: M48.02 08/19 Active Medications Medication Codes Instructions Start Date Stop Date Status Fill Instructions mupirocin (BACTROBAN) 2 % ointment RxNorm: 255969 Apply topically 2 (two) times daily To each nostril with cotton applicator starting 5 days before surgery.. 5 No Stop Date Active celecoxib (CELEBREX) 100 MG capsule RxNorm: 851699 Take 100 mg by mouth 2 (two) times daily. 4 06/29/20 24 Inactive famotidine (PEPCID) 20 MG tablet RxNorm: 5065273 Take 20 Milligram(s) Oral every day . 4 06/29/20 24 Inactive Febuxostat 40 MG tablet RxNorm: 684620 Take 40 mg by mouth daily. 5 11/20/19 25 Inactive NIFEdipine (PROCARDIA XL) 30 MG 24 hr tablet RxNorm: 4898179 Take 30 Milligram(s) Oral every day . 5 11/20/19 25 Inactive bumetanide (BUMEX) 1 MG tablet RxNorm: 983839 Take 1 mg by mouth as needed. 5 11/20/19 25 Inactive traZODone (DESYREL) 50 MG tablet RxNorm: 875154 Take 50 mg by mouth nightly. 5 06/29/20 24 Inactive potassium chloride (KLOR-CON) 20 MEQ packet RxNorm: 8625683 Take 20 mEq by mouth as needed. 5 11/20/19 25 Inactive losartan (COZAAR) 25 MG tablet RxNorm: 470772 Take 25 Milligram(s) Oral every day . 5 11/20/19 25 Inactive Insulin Glargine, 2 Unit Dial, (TOUJEMagdi MAX SOLOSTAR) 300 UNIT/ML EULALIA PEN RxNorm: 5319519 Inject 25 Units into the skin 2 (two) times daily. 5 11/20/19 25 Inactive omeprazole (PRILOSEC) 20 MG capsule RxNorm: 005274 Take 20 Milligram(s) Oral every day . 5 11/20/19 25 Inactive carvedilol (COREG) 12.5 MG tablet RxNorm: 073486 Take 12.5 mg by mouth 2 (two) times daily with meals. 5 11/20/19 25 Inactive Medication Administered No Medication Administered data Reason For Visit No Reason For Visit data Encounters Encounter Performer Location Location Address Codes Date () No answer/Patient not seen Diagnosis: Patient not seen[ICD10: UXZ.01] Martine Jara [place] Office [address] [facility] [address] [address] [place] [address] CPT-4: 36965 02/26/2025 Plan of Care Planned Activity Notes Codes Status Date Patient Education: Patient Medication Summary Completed 02/26/2025 Medical Equipment No Medical Equipment data Advance Directives No Advance Directive data
--- OUTSIDE RECORDS SUMMARY | 2025-03-23 11:48 | XMS_ITS | Referral Summary ---
Author Organization [facility] Address [address] [place] [address] Care Team Providers Care Pharmacist Helper Name Role Phone Tomi Cao MD Primary Care Provider + [phone] Allergies No known active allergies Medications carvediloL (COREG) 12.5 MG tablet Take 1 tablet (12.5 mg total) by mouth 2 (two) times daily with breakfast and dinner. 4 Active traZODone (DESYREL) 50 MG tablet Take 1 tablet (50 mg total) by mouth nightly. 4 Active insulin glargine,hum.r ec.anlog (TOUJEO SOLOSTAR U-300 INSULIN SUBQ) Inject 25 Units subcutaneously 2 (two) times daily. Active febuxostat 40 mg tablet Take 1 tablet (40 mg total) by mouth daily. Active omeprazole (PriLOSEC) 20 MG capsule Take 1 capsule (20 mg total) by mouth daily. Active NIFEdipine (PROCARDIA-XL) 30 MG (OSM) 24 hr tablet Take 1 tablet (30 mg total) by mouth daily. Active famotidine (PEPCID) 20 MG tablet Take 1 tablet (20 mg total) by mouth daily. Active valsartan (DIOVAN) 160 MG tablet Take 1 tablet (160 mg total) by mouth daily. 30 tablet 11 4 025 Active amoxicillin-cl avulanate (AUGMENTIN) 875-125 mg per tablet Take 1 tablet by mouth every 12 (twelve) hours. 56 tablet Active doxycycline (VIBRA-TABS) 100 MG tablet Take 1 tablet (100 mg total) by mouth every 12 (twelve) hours. 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 05/24/2024 Gangrene 05/24/2024 Osteomyelitis of right foot 05/23/2024 Cellulitis of right foot 05/23/2024 Acute renal insufficiency 05/23/2024 Hypertension 05/23/2024 CAD (coronary artery disease) 05/23/2024 High risk medications (not anticoagulants) long- term use 05/23/2024 Obesity 05/23/2024 Acute kidney injury 02/21/2024 OSIRIS (acute kidney injury) 02/19/2024 Hypertension CHF (congestive heart failure) Diabetes mellitus with neuropathy Social History Tobacco Use Types Packs/Day Years Used Date Smoking Tobacco: Never Smokeless Tobacco: Never Tobacco Cessation:Counseling Given: Not Answered Alcohol Use Standard Drinks/Week Comments Not Currently 0 (1 standard drink = 0.6 oz pur e alcohol) Utilities Answer Date Recorded In the past 12 months, has t he electric, gas, oil, or water company threatened to shut off services in your home? No 05/23/2024 Interpersonal Safety Answer Date Record ed How often does anyone, steven herrmann family and friends, physically hurt you? Never 05/23/2024 How often does anyone, steven herrmann family and friends, insult or talk down to you? Never 05/23/2024 How often does anyone, steven herrmann family and friends, threaten you with harm? Never 05/23/2024 How often does anyone, steven herrmann family and friends, scream or curse at you? Never 05/23/2024 Housing Stability Answer Date Recorded What is your living situation today? I have a [place] place to live 05/23/[address] you li ve. Do you have problems with any of the following? None of the above 05/23/2024 Food Insecurity Answer Date Recorded Within the past 12 months, y ou worried that your food would run out before you got money to buy more. Never true 05/23/2024 Within the past 12 months, t he food you bought just didn't last and you didn't have money to get more. Never true 05/23/2024 Transportation Needs Answer Date Record ed In the past 12 months, has l ack of reliable transportation kept you from medical appointments, meetings, work or from getting things needed for daily living? No 05/23/2024 Financial Resource Strain Answer Date R ecorded How hard is it for you to pa y for the very basics like food, housing, medical care, and heating? Would you say it is: Not hard at all 05/23/2024 Employment Answer Date Recorded Do you want help finding or keeping work or a job? I do not need or want help 05/23/2024 Family and Community Support Answer Chava e Recorded If for any reason you need h elp with day-to-day activities such as bathing, preparing meals, shopping, managing finances, etc., do you get the help you need? I get all the help I need 05/23/2024 Feeling Lonely or Isolated 0 05/23 Educational Attainment Answer Date Lebron rded Do you speak a language other than [place] at [facility]? No 05/23/2024 Do you want help with school or training? For example, starting or completing job training or getting a high school diploma, GED or equivalent. No 05/23/2024 Physical Activity Answer Date Recorded Number of minutes of exercise per week 20 05/23/2024 Alcohol Use Answer Date Recorded 5 or More Drinks Per Day Past 12 Months 0 09/02/2024 Depression Answer Date Recorded Calculation of above two rows 0 Stress Answer Date Recorded Stress means a situation in which a person feels tense, restless, nervous, or anxious, or is unable to sleep at night because his or her mind is troubled all the time. Do you feel this kind of stress these days? Not at all 05/23/2024 Disabilities Answer Date Recorded Because of a physical, menta l, or emotional condition, do you have serious difficulty concentrating, remembering, or making decisions? (5 years or older) No 05/23/2024 Because of a physical, menta l, or emotional condition, do you have difficulty doing errands alone such as visiting a doctor's office or shopping? (15 years or older) No 05/23/2024 Substance Use Answer Date Recorded How many times in the past y ear have you used prescription drugs for non-medical reasons? Never 05/23/2024 How many times in the past year have you used [place] legal drugs? Never 05/23/2024 Sex and Gender Information Value Date Recorded Sex Assigned at Male 04/16/2022 12:08 AM CDT Legal Sex Male 5:46 PM CDT Gender Identity Male 04/16/2022 12:08 AM CDT Sexual Orientation Not on file Last Filed Vital Signs Vital Sign Reading Time Taken Comments Blood Pressure 153/79 05/30/2024 12:07 PM EDT Pulse 65 05/30/2024 12:07 PM EDT Temperature 36.7 C (98 F) 05/30/2024 12:07 PM EDT Respiratory Rate 16 05/30/2024 12:07 PM EDT Oxygen Saturation 97% 05/30/2024 12:07 PM EDT Inhaled Oxygen Concentration - - Weight 136.1 kg (300 lb) 05/24/2024 8:34 AM EDT Height 177.8 cm (5' 10 ) 05/24/2024 8:34 AM EDT Body Mass Index 43.05 05/24/2024 8:34 AM EDT Plan of Treatment Not on file Medical Devices Implanted Type Area Furniture Assembly Supervisor Device Identifier Shelf Expiration Date Model / Serial / Lot Imp St[employer]ix 2x4cm [id number] - [id number] Implanted:Qty: 1 on 05/25/2024 by Jeff Encinas DPM at [facility] IMPLANTS Right: Foot [employer] 04/06/2026 [id number] / [id number] Insurance [employer] Advance Directives For more information, please contact: [phone] * Full Code (Latest Code Status on File) Date Activated Date Inactivated Comments 05/25/2024 11:34 AM 05/30/2024 3:32 PM * Full Code Date Activated Date Inactivated Comments 05/23/2024 6:06 PM 05/25/2024 11:34 AM * Full Code Date Activated Date Inactivated Comments 02/19/2024 2:59 AM 02/22/2024 5:37 PM Care Teams Pharmacist Helper Relationship Specialty Start Date End Date Tomi Cao MD [address] [place] [address] PCP - General Adolescent Medicine 02/18/24
--- OUTSIDE RECORDS SUMMARY | 2025-03-23 11:49 | XMS_ITS | Patient Health Record ---
Author Organization [facility] D [facility] Address [address] [place] [address] Care Team Providers Care Director Custom Name Role Phone Tomi Cao Primary Care Provider Tomi Cao Unavailable Unavailable Hannah Mullen Unavailable [phone] Migration, Provider Unavailable Unavailable Allergies Allergen (clinical drug ingredient) Drug/Non Drug Allergy documented on EMR Reaction Allergy Type Onset Date Status lisinopril Lisinopril nausea and diarrhea Drug Allergy Active Results Component Value Reference Range Notes M-Uric Acid Reviewed date:12/15/2024 12:41:35 PM Interpretation: Performing Lab: Notes/Report: PLEASE SHARE RESULTS WITH FIDE KRAFT APRN @ [phone] URIC 5.7 3.5-8.5 mg/dl M-Hemoglobin A1C Reviewed date:12/15/2024 12:41:35 PM Interpretation: Performing Lab: Notes/Report: PLEASE SHARE RESULTS WITH FIDE KRAFT APRN @ [phone] HGBA1C 10.0 4.0-6.0 % < 6% Non-Diabetic Level < 7% Controlled Diabetic Level > 8% Poorly Controlled Diabetic Level M-Lipid Panel Reviewed date:12/15/2024 12:41:35 PM Interpretation: Performing Lab: Notes/Report: PLEASE SHARE RESULTS WITH FIDE KRAFT APRN @ [phone] Patient Fasting? N TRIG 309 30-150 mg/dl CHOL 137 140-200 mg/dl DLDL 82.32 100-129 mg/dL VLDL 62 0-40 mg/dL HDL 22 40-60 mg/dl CHLHDL 6.2 1-3.5 H-MALBCREA Reviewed date:12/15/2024 12:41:35 PM Interpretation: Performing Lab: Notes/Report: Severely Increased: >300 Moderately Increased: 30 - 300 Units: mg/g creat Normal: 0 - 29 UCREAT 57 Not Estab. mg/dL Random urine reference range not established. 24 hour urine samples recommended. MICROALB 387.600 0-16.7 mg/L MALBCREAT 680.0 H-VITB12 Reviewed date:12/15/2024 12:41:35 PM Interpretation: Performing Lab: Notes/Report: PLEASE SHARE RESULTS WITH FIDE KRAFT APRN @ [phone] VITB12 173 239-931 pg/mL M-Complete Blood Count Auto Diff Reviewed date:12/15/2024 12:41:34 PM Interpretation: Performing Lab: Notes/Report: PLEASE SHARE RESULTS WITH FIDE KRAFT APRN @ [phone] WBC 5.9 4.8-10.8 K/mm3 RBC 4.99 4.60-6.20 M/mm3 HGB 13.6 14.1-18.0 g/dL HCT 42.3 42.0-52.0 % MCV 84.8 80-94 fl MCH 27.3 27.0-31.2 pg MCHC 32.2 31.8-35.4 g/dL RDW 13.9 11.5-17.5 % PLT 166 142-424 K/mm3 MPV 10.3 7.4-10.4 fl NE% 72.3 37.0-80.0 % LY% 13.2 10-50 % MO% 6.6 1.7-9.3 % EO% 6.4 0.1-12.0 % BA% 0.8 0.1-2.0 % NE# 4.3 1.8-7.8 K/mm3 LY# 0.8 0.7-4.5 K/mm3 MO# 0.4 0.1-1.0 K/mm3 EO# 0.4 0.0-0.4 K/mm3 BA# 0.1 0-0.2 K/mm3 M-Comprehensive Metabolic Pa aroldo Reviewed date:12/15/2024 12:41:35 PM Interpretation: Performing Lab: Notes/Report: PLEASE SHARE RESULTS WITH FIDE KRAFT, ANUSHA @ [phone] NA 139 136-145 mmol/L K 3.8 3.5-5.1 mmoL/L CL 102 98-107 mmol/L CO2 27 22.0-30.0 mmol/L GAP 13.8 5-15 mEq/L BUN 26 9-20 mg/dl CREATT 1.40 0.66-1.25 mg/dl GFRAA 61 >60 ML/MIN EGFR 51 >60 ml/min GLU 268 74-100 mg/dl CA 8.9 8.4-10.2 mg/dl BILIT 0.5 0.2-1.3 mg/dl AST 21 17-59 U/L ALT 20 12-78 U/L TP 6.2 6.3-8.2 g/dl ALB 4.0 3.5-5.0 g/dl GLOB 2.2 1.3-3.2 g/dL AGRATIO 1.8 1.1-1.8 ALP 137 38-126 U/L Reason For Referral Reason [facility] Diagnosis 1 Spinal stenosis (M48 .00) Referral Organization [facility] BERTHA GREGG Referring Provider First Name Tomi Referring Provider Last Name Kiley Referring Provider Speciality Internal M edicine Referred Provider Specialty Neurological Surgery General Notes Becky Trejo 2023 04:07:54 PM >Referral sent to Dr. Mychal Mcgarry [facility] in [facility], Referral Priority Routine Referral Appointment Date 05/02/2024 Medications Medication SIG (Take, Route, Frequency, Duration) Notes Start Date End Date Status Valsartan 160 MG 1 tab(s) orally once a day Active Florastor 250 MG 1 cap(s) orally 2 times a day Active Febuxostat 40 MG 1 tab(s) orally once a day Active Famotidine 20 MG 1 tab(s) orally 1 time per day for 90 days 03/24/2024 Active Losartan Potassium 25 MG 1 tab(s) orally once a day for 90 days 12/20/2024 Active Methocarbamol 500 MG 1-2 tab(s) orally 4 times a day for 5 days 03/04/2024 Active traZODone HCl 50 MG 1 tab(s) orally nightly for 90 days prn Active Omeprazole 20 MG 1 cap(s) orally once a day for 90 days Active NIFEDIPINE (EQV-PROCARDIA XL) 30 MG TAKE 1 TABLET BY MOUTH DAILY for 90 DAYS *Please review for potential replacement for e-prescription and drug interaction check* Active Carvedilol 12.5 MG 1 tab(s) orally 2 times a day for 90 days Active BD VALENTINO 2ND GEN PEN NEEDLE 4MM X 32G USE TWICE A DAY WITH INSULIN PEN for 90 DAYS *Please review for potential replacement for e-prescription and drug interaction check* 11/15/2024 Active Cyanocobalamin 1000 MCG/ML 1000 mcg intramuscularly once a week for 90 days Active SYRINGE 3CC 20G 1 USE ONCE A WEEK FOR B12 INJECTIONS for 90 DAYS *Please review for potential replacement for e-prescription and drug interaction check* Active Toujeo Max SoloStar 300 UNIT/ML INJECT 25 UNITS UNDER THE SKIN TWICE DAILY for 27 Active Mounjaro 5 MG/0.5ML 5 mg Subcutaneous once a week for 28 days 02/12/2025 Active Mounjaro 5 MG/0.5ML as directed Subcutaneous for 30 days 03/06/2025 Active Immunizations Vaccine Route Administration Date Status Comme nts Pneumovax 23 Unknown 07/02/2016 Administered Influenza-Fluzone 3+years (NON-MEDICARE) IM Intramuscular 07/16/2017 Administered Covid Pfizer Unknown 06/18/2021 Administered Covid Pfizer Unknown 07/09/2021 Administered Social History Tobacco Use: Social History Observation Description Date Details (start date - stop date) Never Smoker NA - NA Smoking: Question Answer Notes Are you a: nonsmoker Problems Problem Type SNOMED Code ICD Code Onset Dates Problem Status W/U Status Risk Notes Problem 02446459 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) Active confirmed Problem 56576165 Type 2 diabetes mellitus with other specified complication (E11.69) Active confirmed Problem 921564626 Obesity, unspecified (E66.9) Active confirmed Problem Peripheral neuropathy (912847303) Peripheral neuropathy (G62.9) Active confirmed Problem 58706665 Essential hypertension (I10) Active confirmed Problem 784515557 GERD without esophagitis (K21.9) Active confirmed Problem 09466003 Hypertension, essential (I10) Active confirmed Problem 82521869 Idiopathic peripheral neuropathy (G60.9) Active confirmed Problem Sleep disturbance (97981196) Sleep disturbance (G47.9) Active confirmed Problem 75228788 Gouty arthritis (M10.9) Active confirmed Problem 879318278 Severe obesity (BMI >= 40) (E66.01) Active confirmed Problem 161546759 Chronic systolic CHF (congestive heart failure) (I50.22) Active confirmed Problem Muscle weakness (36506424) Lower extremity weakness (M62.81) Active confirmed Problem 60911763 Polymyalgia (M35.3) Active confirmed Problem 16873517 Peripheral polyneuropathy (G62.9) Active confirmed Problem 33363195 Congestive heart failure, unspecified HF chronicity, unspecified heart failure type (I50.9) Active confirmed Problem Abnormal reflex (51517960) Abnormal reflexes of lower extremity (R29.2) Active confirmed Problem 580680232 Stage 3b chronic kidney disease (N18.32) Active confirmed Problem 461110889 Ulcer of right foot with fat layer exposed (L97.512) Active confirmed Vital Signs Heart Rate 78 /min 11/15/2024 Temperature 97.8 degrees Fahrenheit 11/15/2024 Height 5 ft 10 in in 11/15/2024 Weight 305 lbs 11/15/2024 BMI 43.76 kg/m2 11/15/2024 Encounters Encounter Location Date Provider Diagnosis [facility] [address] [facility] [address] [place] [address] 01/20/2025 Provider Migration Type 2 diabetes mellitus with other specified complication E11.69 [facility] [address] [address] 11/15/2024 Hannah Mullen Essential hypertension I10 ; Type 2 diabetes mellitus with other specified complication E11.69 ; Gouty arthritis M10.9 ; Stage 3b chronic kidney disease N18.32 ; Chronic systolic CHF (congestive heart failure) I50.22 ; B12 deficiency E53.8 and Severe obesity (BMI >= 40) E66.01 [facility] [place] [address] [facility] [address] [place] [address] 03/24/2024 Tomi Cao [facility] [address] [place] [address] 03/30/2024 Tomi Besson [facility] [place] [address] [place] [address] 05/11/2024 Tomi Besson [facility] [place] [address] [place] [address] 06/30/2024 Tomi Besson [facility] [address] [address] [place] [address] 09/25/2024 Tomi Besson [facility] [address] [place] [address] 11/14/2024 Hannah Paz [facility] [address] [place] [address] 11/16/2024 Tomi Besson Type 2 diabetes mellitus with other specified complication E11.69 [facility] [place] [address] [place] [address] 12/19/2024 Tomi Besson [facility] [address] [place] [address] 12/21/2024 Tomi Besson Type 2 diabetes mellitus with other specified complication E11.69 [facility] [address] [place] [address] 01/09/2025 Hannah Paz [facility] [place] [address] [place] [address] 01/29/2025 Tomi Besson [facility] [place] [address] [place] [address] 02/02/2025 Tomi Besson [facility] [address] [place] [address] 02/12/2025 Hannah Paz [facility] [place] [address] [place] [address] 03/06/2025 Hannah Paz [facility] [address] [place] [address] 03/06/2025 Tomi Besson Assessments Encounter Date Diagnosis (ICD Code) Assessment Notes Treatment Notes Treatment Clinical Notes Section Notes 11/15/2024 Type 2 diabetes mellitus with other specified complication (ICD-10 - E11.69) encouraged compliance with annual eye exam, routine foot care, CC diet and activity as tolerated. discussed importance of good glucose control to prevent additional complications. 11/15/2024 Essential hypertension (ICD-10 - I10) good control on current regimen 11/16/2024 Type 2 diabetes mellitus with other specified complication (ICD-10 - E11.69) 12/21/2024 Type 2 diabetes mellitus with other specified complication (ICD-10 - E11.69) 01/20/2025 Type 2 diabetes mellitus with other specified complication (ICD-10 - E11.69) 11/15/2024 Gouty arthritis (ICD-10 - M10.9) 11/15/2024 Stage 3b chronic kidney disease (ICD-10 - N18.32) avoid NSAIDS 11/15/2024 Chronic systolic CHF (congestive heart failure) (ICD-10 - I50.22) 11/15/2024 B12 deficiency (ICD-10 - E53.8) 11/15/2024 Severe obesity (BMI >= 40) (ICD-10 - E66.01) complicates all aspects of care Plan Of Treatment Pending Test Test Name Order Date Sleep Study 04/26/2019 H-VITAMIN B12 05/26/2017 H-MICROALBUMIN URINE 08/11/2017 M-Complete Blood Count Auto Diff 025 M-Erythrocyte Sedimentation Rate 021 M-Comprehensive Metabolic Panel 11/15/19 25 M-Hemoglobin A1C 11/15/2024 M-Hemoglobin A1C 07/16/2021 M-Uric Acid 11/15/2024 O-S-Taqvvhat Protein 07/16/2021 M-Lipid Panel 11/15/2024 M-Thyroid Panel 07/16/2021 M-Drug Screen,Urine 09/24/2020 M-Vitamin B12 07/16/2021 M-Vitamin B12 11/15/2024 M-Vitamin B12 06/14/2020 M-Microalb/Creat Ratio, Randm Ur 025 THYROID PANEL WITH TSH (7444) 12/28/2023 COMPREHENSIVE METABOLIC PANEL (02036) MAGNESIUM (622) 12/28/2023 CBC (INCLUDES DIFF/PLT) (6399) HEMOGLOBIN A1c (496) 12/28/2023 VITAMIN B12 (927) 12/28/2023 FERRITIN (457) 12/28/2023 Insurance Providers Payer Name Payer Address Payer Phone Subscriber Number Group Number Insured Name Patient Relationship to Insured Coverage Start Date Coverage End Date [employer] [address] [place] [address] [id number] [place] Self - patient is the insured Medications Administered Medication Instructions Date of Administration Dosage Notes Dexamethasone 4mg Injection 05/22/2022 4 mg Medical (General) History Medical History History ICD Code Diabetes Vitamin B12 deficiency HTN Arthritis Hepatitis B Stage 3 kidney disease Morbid obesity Surgical History Surgery Date(Month/Year) Skin graft right heel 06/2016 Justin in left femur, screws in left hip Left Elbow 02/20/24 Skin graft on Rt foot 05/2024 Hospitalization History Reason Date(Month/Year) [facility] Transferred to [place] 02/14/24- 4 Rigth heel wound and skin graft 06/2017
--- OUTSIDE RECORDS SUMMARY | 2025-03-23 11:49 | XMS_ITS | Data Portability ---
Author Organization [place] CHOLO Lobo [facility] Address [address] [address] [place] [address] Care Team Providers Care Slip Box Changer Name Role Phone DARRELL VAIL Primary Care Provider [phone] Assessment No assessment recorded. Plan of Treatment [...] Organization Details Recorded Time Transient cerebral ischemia 427851945 Active 2015 From Automated Load;Prov ider: Rubi Art;Sta tus: Active Not Available [facility] 7 02:37:13 Chronic ulcer of heel 80815447226 172749 Active 2015 From Automated Load;Prov ider: Ismael Johnson;Sta tus: Active Not Available [facility] 7 02:37:13 Chronic ulcer of midfoot 10061097974 558398 Active 2015 From Automated Load;Prov ider: Ismael Johnson;Sta tus: Active Not Available [facility] 7 02:37:13 Non-press ure ulcer lower limb Active 2015 From Automated Load;Prov ider: Ismael Johnson;Sta tus: Active Not Available [facility] 7 02:37:13 Psychotic disorder 85322890 Active 2015 From Automated Load;Prov ider: Rubi Art;Sta tus: Active Not Available [facility] 7 02:37:13 Vomiting 618391985 Active 2015 From Automated Load;Prov ider: Rubi Art;Sta tus: Active Not Available [facility] 7 02:44:52 Acute renal impairmen t Active 2015 From Automated Load;Prov ider: Melani Bennett;Stat us: Active Not Available [facility] 7 06:04:19 Blood leukocyte number above reference range 312727015 Active 2015 From Automated Load;Prov ider: Rubi Art;Sta tus: Active Not Available [facility] 7 06:04:19 Type 2 diabetes mellitus without complicat ion 552271493 Active 2015 From Automated Load;Prov ider: Ismael Johnson;Sta tus: Active Not Available [facility] 7 06:21:43 Kidney disease 25899657 Active 2015 From Automated Load;Prov ider: Rubi Art;Sta tus: Active Not Available [facility] 7 06:21:44 Hyperkale nehemias 60583455 Active 2015 From Automated Load;Prov ider: Rubi Art;Sta tus: Active Not Available [facility] 7 06:39:45 Hypertens [place] disorder 38957059 Active 2015 From Automated Load;Prov ider: Ismael Johnson;Sta tus: Active Not Available [facility] 7 06:39:45 Chest pain 07761971 Active 2015 From Automated Load;Prov ider: Rubi Art;Sta tus: Active Not Available [facility] 7 06:51:53 Abdominal pain 47422245 Active 2015 From Automated Load;Prov ider: Rubi Art;Sta tus: Active Not Available [facility] 7 06:51:53 Celluliti s of lower limb 306747328 Active 2015 From Automated Load;Prov ider: Ismael Johnson;Sta tus: Active Not Available [facility] 7 07:11:07 Pyrexia of unknown origin 2435699 Active 2015 From Automated Load;Prov ider: Rubi Art;Sta tus: Active Not Available [facility] 7 07:21:05 Obesity 529825311 Active 2015 From Automated Load;Prov ider: Ismael Johnson;Sta tus: Active Not Available [facility] 07:52:08 Problem Notes None recorded. Medical [...] Updated DateTime 03/03/2024 180.34 cm 41.8 kg/m2 755812.71 g Katie Quiros [facility] 03/03/2024 09:37:25 Date Recorded Body height Body mass index (BMI) Body weight Provider Name and Address Organization Details Last Updated DateTime 03/17/2024 180.34 cm 41.8 kg/m2 433469.71 g Mary Seals [facility] 03/17/2024 09:46:57 Social History None recorded. Functional Status None recorded. Mental Status None recorded. Family History Nothing Reported. Medical History No medical history recorded. Past Encounters Encounter ID Performer Location Encounter Start Date Encounter Closed Date Diagnosis/Indication Diagnosis SNOMED-CT Code Diagnosis ICD10 Code Diagnosis Note [id number] LEANDRO TAYLOR MD SURGERY SCHEDULE [address] [place] [address] 02/21/2024 09:38:47 02/21/2024 09:39:59 Infection of olecranon bursa of left elbow 3045506803 541765 M71.122 [id number] MAGALI GORDILLO PA-C [facility] [address] [place] [address] [address] 03/03/2024 09:19:51 03/03/2024 10:41:07 Postoperative care [id number] Z48.89 Assessment : Status 2 weeks post [...] 2 weeks for recheck of the incision. [id number] MAGALI GORDILLO PA-C [facility] [address] [place] [address] 03/17/2024 09:44:30 03/17/2024 10:05:56 Postoperative care 071238648 Z48.89 Assessment : Status 3.5 weeks post [...] ID Guarantor Name 05/31/2024 1 BCBS-[place]: [place] MED[place] PL[place] (MEDICARE REPLACEMENT HMO) [id number] [place] [id number] [place] Notes Date Note Type [...] at this time. MAGALI GORDILLO PA-C [address] [place], [address], [facility] 03/03/2024 11:17:06 03/17/2024 text/html Patient comes [...] manageable at this time. MAGALI GORDILLO PA-C [address] [place], [address], [facility] 03/17/2024 10:14:34
--- OUTSIDE RECORDS SUMMARY | 2025-03-23 11:49 | XMS_ITS | Clinical Summary ---
Author Organization [employer] Address [address] [place] [address] Care Team Providers Care Bread Stacker Name Role Phone Tomi Cao MD Primary Care Provider + [phone] Allergies No known active allergies Medications carvediloL [...] Do you speak a language other than Nauruan at [facility]? No 05/23/2024 Do you want help with [...] 05/24/2024 8:34 AM EDT Plan of Treatment Health Maintenance Due Date Last Done Comments CT Colonography 1958 Colonoscopy 1958 Colorectal Cancer Screening 1958 Diabetic Kidney Health Evaluation (KED) 1958 FOBT/FIT 1958 Fit-DNA (Cologuard) 1958 Sigmoidoscopy 1958 Diabetic Eye Exam 1968 Diabetic foot exam 1968 Depression Screening (12+) 1970 Tobacco Cessation Counseling and Screening (12+) 1970 Hepatitis C Screening 1976 DTAP/TDAP/TD VACCINES (1 - Tdap) 1977 Pneumococcal 50+ years (2 of 2 - PCV) 07/02/2017 Respiratory Syncytial Virus (RSV) Adult or (1 - Risk 60-74 years 1-dose series) 2018 Shingles Vaccine (Zoster) (2 of 2) 09/25/20212020 Hemoglobin A1C 02/19/2024 COVID-19 VACCINE ( season) 2024, 06/18/2021 Falls Risk Screening 10/18/2024 Medicare Initial AWV [id number] 01/17/2025 Influenza Vaccine (Season Ended) 2025 Medical Devices Implanted Type Area Edging Machine Catcher Device Identifier Shelf Expiration Date Model / Serial / Lot Imp Stravix 2x4cm [id number] - [id number] Implanted:Qty: 1 on 05/25/2024 by Jeff Encinas DPM at [facility] IMPLANTS Right: Foot [employer] 04/06/2026 [id number] / [id number] / [id number] Insurance [facility] Jobbr O MAP Advance Directives For more information, please contact: [phone] * Full Code (Latest Code Status on File) Date Activated Date Inactivated Comments 05/25/2024 11:34 AM 05/30/2024 3:32 PM * Full Code Date Activated Date Inactivated Comments 05/23/2024 6:06 PM 05/25/2024 11:34 AM * Full Code Date Activated Date Inactivated Comments 02/19/2024 2:59 AM 02/22/2024 5:37 PM Care Teams Bread Stacker Relationship Specialty Start Date End Date Tomi Cao MD [address] [facility] [address] [place] [address] PCP - General Adolescent Medicine 02/18/24
[2025-03-23 12:08] VITALS: BMI 43.0
[2025-03-23] MEDS: METOPROLOL TARTRATE 50MG TABLET PO (12:21)
[2025-03-23 12:32] LABS: Anion Gap 7.2 mEq/L (5-15); Blood Urea Nitrogen 23 mg/dl (9-20); Calcium 8.7 mg/dl (8.4-10.2); Carbon Dioxide 29 mmol/L (22.0-30.0); Chloride 101 mmol/L (98-107); Creatinine Clearance Estimated 54 mL/min (50-200); Estimated Glomerular Filt Rate 51 ml/min (>60); GFR (African American) 61 ML/MIN (>60); Glucose 89 mg/dl (74-100); Potassium 4.2 mmoL/L (3.5-5.1); Sodium 133 mmol/L (136-145)
[2025-03-23 12:34] VITALS: BP 119/76; PULSE 64; RESP 16; O2SAT 99
--- OUTSIDE RECORDS SUMMARY | 2025-03-23 12:48 | XMS_ITS | CCD ---
Author Name Martine Jara NP Address [address] [facility] [address] [facility] [address] [place] [address] Phone Organization [facility] Phone Care Team Providers Care Manufacturers Agent Name Role Phone Office, [place] Primary Care Provider Unavaila ble Unavailable Chronic Care Management Unavaila ble Summary Purpose DataExchange Insurance Providers Payer name Policy type / Coverage type Covered democrat ID Effective Begin Date Effective End Date [employer] [facility] [id number] Unknown Unknown Family History Family History data not found Problems Condition Codes Effective Dates Condition St atus Cervical spondylosis ICD-10: M47.812 12/01/2024 Acti ve Patient not seen ICD-10: UXZ.01 ICD-9: UXZ.01 02/26/2025 Active Spinal stenosis in cervical region ICD-10: M48.02 08/19 Active Medications Medication Codes Instructions Start Date Stop Date Status Fill Instructions mupirocin (BACTROBAN) 2 % ointment RxNorm: 604280 Apply topically 2 (two) times daily To each nostril with cotton applicator starting 5 days before surgery.. 5 No Stop Date Active celecoxib (CELEBREX) 100 MG capsule RxNorm: 431393 Take 100 mg by mouth 2 (two) times daily. 4 06/29/20 24 Inactive famotidine (PEPCID) 20 MG tablet RxNorm: 2474631 Take 20 Milligram(s) Oral every day . 4 06/29/20 24 Inactive Febuxostat 40 MG tablet RxNorm: 819296 Take 40 mg by mouth daily. 5 11/20/19 25 Inactive NIFEdipine (PROCARDIA XL) 30 MG 24 hr tablet RxNorm: 7575326 Take 30 Milligram(s) Oral every day . 5 11/20/19 25 Inactive bumetanide (BUMEX) 1 MG tablet RxNorm: 754884 Take 1 mg by mouth as needed. 5 11/20/19 25 Inactive traZODone (DESYREL) 50 MG tablet RxNorm: 904795 Take 50 mg by mouth nightly. 5 06/29/20 24 Inactive potassium chloride (KLOR-CON) 20 MEQ packet RxNorm: 3044444 Take 20 mEq by mouth as needed. 5 11/20/19 25 Inactive losartan (COZAAR) 25 MG tablet RxNorm: 214589 Take 25 Milligram(s) Oral every day . 5 11/20/19 25 Inactive Insulin Glargine, 2 Unit Dial, (TOUJEO MAX SOLOSTAR) 300 UNIT/ML EULALIA PEN RxNorm: 6607027 Inject 25 Units into the skin 2 (two) times daily. 5 11/20/19 25 Inactive omeprazole (PRILOSEC) 20 MG capsule RxNorm: 930161 Take 20 Milligram(s) Oral every day . 5 11/20/19 25 Inactive carvedilol (COREG) 12.5 MG tablet RxNorm: 908959 Take 12.5 mg by mouth 2 (two) times daily with meals. 5 11/20/19 25 Inactive Medication Administered No Medication Administered data Reason For Visit No Reason For Visit data Encounters Encounter Performer Location Location Address Codes Date () No answer/Patient not seen Diagnosis: Patient not seen[ICD10: UXZ.01] Martine Jara [place] Office [address] [address] CPT-4: 84201 02/26/2025 Plan of Care Planned Activity Notes Codes Status Date Appointment: Martine Jara WPtel: [address] [place], [place] [id number] 02/26/2025 Patient Education: Patient Medication Summary Completed 02/26/2025 Medical Equipment No Medical Equipment data Advance Directives No Advance Directive data
--- NOTE | 2025-03-23 13:00 | CT_ITS ---
APPROVED REPORT Big Data Developer: CLINICAL INDICATION Chest Pain TECHNIQUE Image Acquisition: A 128 slice MDCT scanner (My [employer] View) was used for data acquisition. A noncontrast coronary calcium scan was performed. A CT attenuation threshold of 130 Hounsfield units (HU) was used for the detection of calcium in contiguous voxels of 1 sq mm in area to be counted as individual lesions. Bolus tracking in the ascending aorta with a threshold of 180 HU was performed. Immediately afterwards, ECG synchronized cardiac CT was then performed from the cardiac base to apex using retrospective gating with ECG tube current modulation. A total of 85 mL of Isovue 370 mg/mL contrast medium was administered at 5 mL/sec followed by a saline flush using a biphasic injection protocol. A tube voltage of 120 KVp was used. The patient received the following medications prior to the cardiac CT. 25 mg of oral metoprolol 0.8 mg of sublingual nitroglycerin The average heart rate at the time of acquisition was 63 bpm and regular. Image Reconstruction Transaxial images were reconstructed at 0.67 mm slide thickness. Data was reviewed interactively on an advanced workstation capable of 2 and 3-dimensional displays in all conventional reconstruction formats, including multiplanar reformations, maximum intensity projections, curved multiplanar reformations, and volume rendered reconstructions. When applicable, selected routine images describing the relevant coronary anatomy and pathology were saved and sent to PACS. Complications None Technical Quality Overall image quality was fair. Coronary artery opacification was fair. Total DLP (Dose-Length Product) is 1569.5 mGy-cm. The reported value represents the total of one or more individual components during the CT acquisition of this date and at this time, and as such, the same value may appear in more than one CT report depending on the interpreting/reporting physicians. COMPARISON None FINDINGS CT Coronary Calcium Scoring LMA (Left Main Artery) = 2 LAD (Left Anterior Descending) = 492 LCX (Left Coronary Circumflex) = 3 RCA (Right Coronary Artery) = 0 Total Calcium Score = 497 using the AJ-130 method. The observed calcium score of 497 is at 81st percentile for subjects of the same age, sex, and race/ethnicity. The interpretation of the calcium heart score is based on the following continuum*: 0 = no calcified plaque detected (risk of coronary artery disease is very low ??? less than 5%) 1-10 = calcium detected in extremely minimal levels (risk of coronary diseases is still low ??? less than 10%) 11-100 = mild levels of plaque detected with certainty (mild or minimal narrowing of heart arteries is likely) 101-400 = definite,at least moderate levels of plaque detected (relatively high risk of a heart attack within 3-5 years) >401-999 = extensive levels of plaque detected (high risk of heart attack, high levels of vascular disease are present, high likelihood of at least one significant coronary narrowing) *The calcium heart score quantifies the burden of coronary calcification/plaque in the coronary arteries. The calcium heart score is not able to evaluate the presence or burden of non-calcified (i.e. soft) plaque. There is also calcification in the aortic valve and the ascending and descending thoracic aorta. Coronary CT Angiography The coronary arterial system is right dominant. Quantitative Stenosis Grading: Left Main (LM): The left main originates normally from the left sinus of Valsalva. The LM bifurcates into the left anterior descending artery and left circumflex artery. Calcified plaque in the mid and distal LM segments with < 25% luminal stenosis. Left Anterior Descending (LAD) and Diagonal Branches: The LAD gives off 3 diagonal branch(es). There is mixed calcified/noncalcified plaque in the proximal LAD segment, with up to 70-90% luminal stenosis. There is no evidence of LAD-myocardial bridge. Left Circumflex (LCX) and Obtuse Marginals (OM): The LCX gives off 1 Obtuse Marginal (OM) branch(es). There is mixed calcified/noncalcified plaque in the proximal LCx segment with up to 30-50% luminal stenosis. Right Coronary Artery (RCA): The RCA originates normally from the right sinus of Valsalva. The RCA gives off a posterior descending artery (PDA) and posterolateral (PL) branches. The RCA and its branches are patent with no evidence of atherosclerosis. Non-Coronary Cardiac Findings: There is mixed ostial/noncalcified images, with user-corrected automatic contouring for assessment of LV volumes and user-defined reconstruction from oblique planes for measurement of 3-D cardiac structure and function. -The left ventricle systolic function is reduced. -There is no left atrial appendage filling defect. Two right pulmonary veins and two left pulmonary veins drain normally into the left atrium. -No pericardial thickening or calcification. -Central and branch pulmonary arteries in the osvml-ip-uvxy are unremarkable. -Thoracic aorta within the visualized thoracic aortic-branches in the iedlw-dp-zabk is unremarkable. Extracardiac Structures No significant extra-cardiac findings. Note, however, that this study is focused on the cardiac findings. IMPRESSION -Fair image quality due to significant motion and blurring artifact. -Presence of coronary calcification with an Agatston score = 497 using the AJ-130 method. -The observed calcium score of 497 is at 81st percentile for subjects of the same age, sex, and race/ethnicity. -Significant atherosclerotic coronary disease in the proximal LAD segment with likely evidence of significant flow-limiting plaque. -CAD-RADS 4A. Management recommendations per ACC/AHA guidelines*, as clinically appropriate. -Calcification in the aortic valve and the ascending and descending thoracic aorta. -The left ventricle systolic function is reduced on CCTA. Correlation with new or recent TTE is suggested. *Recommendations: CAD RADS 0: Reassurance. Consider non-atherosclerotic causes of chest pain. CAD RADS 1: Consider non-atherosclerotic causes of chest pain. Consider preventive therapy and risk factor modification. CAD RADS 2: Consider non-atherosclerotic causes of chest pain. Consider preventive therapy and risk factor modification, particularly for patients with nonobstructive plaque in multiple segments. CAD RADS 3: Consider further functional testing. Consider symptom-guided anti-ischemic and preventive pharmacotherapy as well as risk factor modification per published guideline statements. CAD RADS 4A: Consider further functional testing or invasive coronary angiography with revascularization per published guideline statements. Consider symptom-guided anti-ischemic and preventive pharmacotherapy as well as risk factor modification per published guideline statements. CAD RADS 4B: Invasive coronary angiography recommended with revascularization per published guideline statements. Consider symptom-guided anti-ischemic and preventive pharmacotherapy as well as risk factor modification per published guideline statements. CAD RADS 5: Consider invasive angiography and/or viability assessment with revascularization per published guideline statements. Consider symptom-guided anti-ischemic and preventive pharmacotherapy as well as risk factor modification per published guideline statements. CRITICAL RESULT None COMMUNICATION Per this written report The coronary and cardiac findings of this CCTA were reviewed, reported, and signed by Cisco Yoder MD (Slot Machine Floor Person) Conclusion Electronically signed by : Susie Yoder MD 03/27/2025 14:40:14
[2025-03-23 13:22] VITALS: BP 138/87; PULSE 75; RESP 16; O2SAT 95
[2025-03-23 13:25] VITALS: BP 140/91; PULSE 70; RESP 16; O2SAT 96
[2025-03-23 13:28] VITALS: BP 119/73; PULSE 72; RESP 16; O2SAT 96
[2025-03-23 13:31] VITALS: BP 122/71; PULSE 69; RESP 16; O2SAT 97
[2025-03-23] MEDS: 0.9 % SODIUM CHLORIDE 50 ML VIAL IV (13:36)
[2025-03-23] MEDS: SODIUM CHLORIDE 0.9% 10ML SYR (RAD ONLY) 10 ML IV (13:37)
[2025-03-23] MEDS: IOPAMIDOL-370 (76%);100ML BOTTLE 85 ML IV (13:37)
== END 2025-03-23 13:50 | disposition home or self-care (01) ==
PROVIDERS: PCP Internal Medicine Adolescent Medicine; Visit Provider Physician Assistant
DX: I25.10 Atherosclerotic heart disease of native coronary artery without angina pectoris (principal); I70.0 Atherosclerosis of aorta; I35.8 Other nonrheumatic aortic valve disorders; I50.22 Chronic systolic (congestive) heart failure
CPT/HCPCS: 75574; 80048; Q9967

== ENCOUNTER 2025-03-30 10:53 | Day surgery (SDC) | payer MEDICARE, SELFPAY ==
[2025-03-30] VITALS (9 sets, daily range): BP systolic 111–161; BP diastolic 48–84; PULSE 46–72; RESP 18–20; TEMP 36.9; O2SAT 92–98; BMI 25.8; BMI 43.0
--- NOTE | 2025-03-30 07:10 | IR_ITS ---
APPROVED REPORT Patient Location: Outpatient Plant Etiologist: Zain Silveira, RT (R) PROCEDURES Left heart catheterization Left ventriculogram Selective coronary angiogram Drug-eluting stent deployment to the mid LAD INDICATION Coronary artery disease, Abnormal CCTA, Angina pectoris, Reoperative evaluation, Informed consent was obtained prior to the procedure. COMPLICATIONS NONE Estimated Blood Loss: LESS THAN 10 ML TECHNIQUE One percent lidocaine used to anesthetize the right anterior aspect of the wrist. The right radial artery was accessed via the Seldinger technique. A 6 Kazakh sheath was placed in the right radial artery. 2.5 mg of Verapamil, 800 mcg of nitroglycerin, 1mg Lidocaine and 5000 U Heparin were given through the arterial sheath. The JL3 catheter was also used to perform left heart catheterization, left ventriculogram and selective coronary angiogram. At the end the diagnostic angiogram therapeutic ACT was administered giving a therapeutic ACT and the guide catheter was placed in left main artery followed by Choice PT extra-support wire placed distally. A guide liner was advanced and a 3 mm x 38 mm Shaquille frontier stent was deployed at 18 araceli in the mid LAD reducing the stenosis to 20%. A 3.25 x 20 mm noncompliant balloon was then advanced into the midportion and proximal portion and deployed at 20 araceli to post dilate. Nitroglycerin was given to resolve a mild form of no reflow. At the end of procedure STEPHANIE-3 flow was present with STEPHANIE-3 flow being present at the beginning the procedure. The apparatus was removed the sheath was removed and hemostasis was achieved using TR banding patient was transferred to the postop putting in stable condition ANGIOGRAPHIC RESULTS The left main artery Normal The left anterior descending artery Has mild 20% luminal regularities with a mid vessel calcified 90% stenosis The circumflex artery Codominant with diffuse 20 to 30% stenosis The right coronary artery Codominant with 20 to 30% stenoses The RAMOS ventriculogram reveals Reduced ejection fraction estimated at 45% The left ventricular end-diastolic pressure 20 mmHg IMPRESSION Severe to critical mid LAD disease as described above with successful stenting reducing the lesion to 0% with 1 drug-eluting stent Reduced ejection fraction with left ventricular dilatation Elevated LVEDP PLAN 1. Dual antiplatelet therapy 2. Postpone elective back surgery 3. LDL less than 55 achieved with high intensity statin 4. Avoidance of tobacco products 5. Risk factor modification 6. Cardiac rehabilitation Electronically signed by : Kush Pemberton MD 03/30/2025 13:12:07
[2025-03-30 11:24] LABS: Basophils % 0.8 % (0.1-2.0); Eosinophils # 0.2 Kmm3 (0.0-0.4); Eosinophils % 4.5 % (0.1-12.0); Hematocrit 41.2 % (42.0-52.0); Hemoglobin 13.3 g/dL (14.1-18.0); Immature Granulocytes # 0.02 10^3uL; Immature Granulocytes % 0.4 %; Lymphocytes # 0.6 K/mm3 (0.7-4.5); Lymphocytes % 12.4 % (10-50); Mean Corpuscular HGB Conc 32.3 g/dL (31.8-35.4); Mean Corpuscular Hemoglobin 27.1 pg (27.0-31.2); Mean Corpuscular Volume 83.9 fl (80-94); Mean Platelet Volume 9.4 fl (7.4-10.4); Monocytes # 0.3 K/mm3 (0.1-1.0); Monocytes % 5.9 % (1.7-9.3); Neutrophils # 3.9 K/mm3 (1.8-7.8); Nucleated Red Blood Cells # 0 10^3/uL; Nucleated Red Blood Cells % 0 %; Platelet Count 147 K/mm3 (142-424); Red Blood Count 4.91 M/mm3 (4.60-6.20); Red Cell Distribution Width 14.2 % (11.5-17.5); Red Cell Distribution Width-SD 43.7 fL; White Blood Count 5.1 K/mm3 (4.8-10.8)
[2025-03-30 11:43] LABS: Chloride 104 mmol/L (98-107); Sodium 137 mmol/L (136-145)
[2025-03-30 11:44] LABS: Potassium 4.4 mmoL/L (3.5-5.1)
[2025-03-30 11:46] LABS: Blood Urea Nitrogen 16 mg/dl (9-20); Creatinine Clearance Estimated 60 mL/min (50-200); Estimated Glomerular Filt Rate 51 ml/min (>60); GFR (African American) 61 ML/MIN (>60)
[2025-03-30 11:47] LABS: Anion Gap 8.4 mEq/L (5-15); Calcium 8.9 mg/dl (8.4-10.2); Carbon Dioxide 29 mmol/L (22.0-30.0); Glucose 123 mg/dl (74-100)
[2025-03-30] MEDS: VERAPAMIL 2.5MG/ML 2ML VIAL 2.5 MG IV (12:32)
[2025-03-30] MEDS: diphenhydrAMINE 50MG/ML VIAL 50 MG IV (12:32)
[2025-03-30] MEDS: 0.9 % SODIUM CHLORIDE 500 ML 25 ML IV (12:32)
[2025-03-30] MEDS: NITROGLYCERIN 800MCG/8ML SYR (CATH LAB) 800 MCG IA ×2 (12:32→13:02)
[2025-03-30] MEDS: HEPARIN 1,000 UNITS/500ML NS (CATH LAB) 3000 UNIT IV (12:32)
[2025-03-30] MEDS: HEPARIN 1,000 UNITS/ML 10ML VIAL (CATH LAB) 5000 UNIT IV ×2 (12:33→12:53)
[2025-03-30] MEDS: LIDOCAINE 1% 10ML MDV 10 ML IJ (12:33)
[2025-03-30] MEDS: MIDAZOLAM HCL 1MG/ML 5ML VIAL 1 MG IV (12:46)
[2025-03-30] MEDS: FENTANYL 100MCG/2ML VIAL 50 MCG IV (12:46)
[2025-03-30] MEDS: PRASUGREL 10MG TAB 60 MG PO (13:56)
[2025-03-30] MEDS: IOPAMIDOL-370 (76%);100ML BOTTLE 95 ML IV (14:32)
[2025-03-30 14:34] LABS: CATHL Activated Clotting Time > 400 SEC (74-125)
== END 2025-03-30 15:38 | disposition home or self-care (01) ==
LOC: CATHLAB 10:54
PROVIDERS: PCP Internal Medicine Adolescent Medicine; Visit Provider Internal Medicine
PROC: 4A023N7 Measurement of Cardiac Sampling and Pressure, Left Heart, Percutaneous Approach (ICD-10-PCS; CPT 93452; principal; 2025-03-30 12:00)
DX: I25.10 Atherosclerotic heart disease of native coronary artery without angina pectoris (principal); I77.810 Thoracic aortic ectasia; R94.39 Abnormal result of other cardiovascular function study; R94.31 Abnormal electrocardiogram [ECG] [EKG]; I11.0 Hypertensive heart disease with heart failure; I50.22 Chronic systolic (congestive) heart failure; E11.9 Type 2 diabetes mellitus without complications; Z95.5 Presence of coronary angioplasty implant and graft; Z79.82 Long term (current) use of aspirin; Z79.85 Long-term (current) use of injectable non-insulin antidiabetic drugs; Z79.4 Long term (current) use of insulin; Z79.899 Other long term (current) drug therapy
CPT/HCPCS: 93458; C9600; 36415; 80048; 85025; 85347; 92928; 99152; 99153; C1725; C1760; C1769; C1874; J1200; J1644; J3010; J7040; Q9967

== ENCOUNTER 2025-04-24 08:00 | Outpatient (CLI) | payer MEDICARE, SELFPAY ==
--- OUTSIDE RECORDS SUMMARY | 2025-01-20 17:30 | XMS_ITS ---
Author Organization [facility] Address [address] [place] [address] Care Team Providers Care Sole Skiver Name Role Phone Tomi Cao Primary Care Provider [phone] Tomi Cao Unavailable Unavailable Migration, Provider Unavailable Unavailable Allergies Allergen (clinical drug ingredient) Drug/Non Drug Allergy documented on EMR Reaction Allergy Type Onset Date Status Lisinopril nausea and diarrhea Drug Allergy Active [facility] Encounter Medications Medication SIG (Take, [...] Active Encounters Encounter Location Date Provider Diagnosis formerly [facility] [address] [facility] [address] [place] [address] 01/20/2025 Provider Migration Type 2 diabetes mellitus [...] review and pick correct strength-formulatio n from [employer] options. If intended option is [...] check* Next Appt Details Provider Name:Hannah Reeves , 04/24/2025 11:45:00 AM, [address] [facility] [address] [facility], [address], [place], [address], Progress Notes * Jonathan HILLOB:1960 ( 64 yo M)Acc No.[id number]:01/20/2025 Patient: New HUBBARD Provider: Raysa Bain :1960 A ge:64 Y S ex:Male Date:01/20/2025 Address:[address] [place] [address], [place], [id number] Pcp:Tomi Cao Subjective: * Chief Complaints: * 1 . [facility] En[facility]. * Medical History: * Medications: [...] *Please review and pick correct strength-formulation from [employer] options. If intended option is not shown, discontinue and re-order from Quick Search*. * * Electronic signature of Marlene johnson Migration on 04/24/2025 at 08:05 AM EDT Sign off status: Pending * Provider: Raysa howard Migration Date: 0 01/20/2025 Generated for Karly billy/Lisa/Olena on: 0 04/24/2025 08:05 AM EDT
--- NOTE | 2025-04-24 08:00 | CT_ITS ---
FINAL REPORT TECHNIQUE: Postcontrast axial images of the chest were performed in a CTA protocol. This study was performed with techniques to keep radiation doses as low as reasonably achievable, (ALARA). Individualized dose reduction technique using automated exposure control or adjustment of mA and/or kV according to the patient's size were employed. CLINICAL HISTORY: Ascending aorta FINDINGS: The heart is normal in size. There are a few small scattered mediastinal lymph nodes. No pleural or pericardial effusion is identified. The thoracic aorta is normal in caliber with no focal aneurysm or dissection identified. Aorta measures up to 3.3 cm. There is no filling defect to suggest pulmonary embolism. No lung infiltrate or mass is identified. The images of the upper abdomen demonstrate incompletely visualized possible splenomegaly. IMPRESSION: Unremarkable ascending aorta. Incompletely visualized spleen which may be enlarged. Reviewed, Interpreted and Dictated by Brent Forman MD Transcribed by Jamee Lubin Authenticated and [facility]
--- OUTSIDE RECORDS SUMMARY | 2025-04-24 08:05 | XMS_ITS | Referral Summary ---
Author Organization [employer] ([place], [place], [place], [place]) Address [address] [place] [address] Care Team Providers Care Clinical Informatics Specialist Name Role Phone Tomi Cao MD Primary Care Provider + [phone] Allergies No known active allergies Medications carvediloL [...] mouth every 12 (twelve) hours. 56 tablet 4 Active doxycycline (VIBRA-TABS) 100 MG tablet Take [...] Do you speak a language other than [place] [facility]? No 05/23/2024 Do you want help with school or training? For example, starting or completing job training or getting a high school diploma, GED or equivalent. No 05/23/2024 Physical Activity Answer Date Recorded Number of minutes of exercise per week 20 05/23/2024 Self Management Answer Date Recorded Because of a physical, [...] you used [place] legal drugs? Never 05/23/2024 Mental Health Answer Date Recorded Calculation of above two rows 0 Sex and Gender Information Value Date Recorded [...] on file Medical Devices Implanted Type Area Pcat Instructor Device Identifier Shelf Expiration Date Model / Serial / Lot Imp Stravix 2x4cm [id number] - [id number] Implanted:Qty: 1 on 05/25/2024 by Jeff Encinas DPM at [facility] IMPLANTS Right: Foot [employer] 04/06/2026 [id number] / [id number] Insurance [facility] Everywhere ACCESS HMO MAP Advance Directives For more information, please contact: [phone] * Full Code (Latest Code Status on File) Date Activated Date Inactivated Comments 05/25/2024 11:34 AM 05/30/2024 3:32 PM * Full Code Date Activated Date Inactivated Comments 05/23/2024 6:06 PM 05/25/2024 11:34 AM * Full Code Date Activated Date Inactivated Comments 02/19/2024 2:59 AM 02/22/2024 5:37 PM Care Teams Clinical Informatics Specialist Relationship Specialty Start Date End Date Tomi Cao MD [address] [place] [address] [place] [address] PCP - General Adolescent Medicine 02/18/24
--- OUTSIDE RECORDS SUMMARY | 2025-04-24 08:05 | XMS_ITS | Patient Health Record ---
Author Organization [facility] Address [address] [place] [address] [place] [address] Care Team Providers Care Marketing Automation Specialist Name Role Phone Tomi Cao Primary Care Provider [phone] Tomi Cao Unavailable Unavailable Hannah Mullen Unavailable [phone] Migration, Provider Unavailable Unavailable Allergies Allergen (clinical drug ingredient) Drug/Non Drug Allergy documented on EMR Reaction Allergy Type Onset Date Status Lisinopril nausea and diarrhea Drug Allergy Active Results Component Value Reference Range Notes M-Complete Blood Count Auto Diff Reviewed date:12/15/2024 12:41:34 PM Interpretation: Performing Lab: Notes/Report: PLEASE SHARE RESULTS WITH FIDE KRAFT APRN @ [phone] WBC 5.9 4.8-10.8 K/mm3 RBC 4.99 4.60-6.20 [...] SHARE RESULTS WITH FIDE KRAFT APRN @ [phone] NA 139 136-145 mmol/L K 3.8 3.5-5.1 [...] AGRATIO 1.8 1.1-1.8 ALP 137 38-126 U/L M-Hemoglobin A1C Reviewed date:12/15/2024 12:41:35 PM Interpretation: Performing Lab: Notes/Report: PLEASE SHARE RESULTS WITH FIDE KRAFT APRN @ [phone] HGBA1C 10.0 4.0-6.0 % < 6% Non-Diabetic Level < 7% Controlled Diabetic Level > 8% Poorly Controlled Diabetic Level M-Uric Acid Reviewed date:12/15/2024 12:41:35 PM Interpretation: Performing Lab: Notes/Report: PLEASE SHARE RESULTS WITH FIDE KRAFT APRN @ [phone] URIC 5.7 3.5-8.5 mg/dl M-Lipid Panel Reviewed date:12/15/2024 12:41:35 PM Interpretation: Performing Lab: Notes/Report: PLEASE SHARE RESULTS WITH FIDE KRAFT JACK PRIZER @ [phone] Patient Fasting? N TRIG 309 30-150 mg/dl CHOL 137 140-200 mg/dl DLDL 82.32 100-129 mg/dL VLDL 62 0-40 mg/dL HDL 22 40-60 mg/dl CHLHDL 6.2 1-3.5 H-VITB12 Reviewed date:12/15/2024 12:41:35 PM Interpretation: Performing Lab: Notes/Report: PLEASE SHARE RESULTS WITH FIDE KRAFTANUSHA @ [phone] VITB12 173 239-931 pg/mL H-MALBCREA Reviewed date:12/15/2024 12:41:35 PM Interpretation: Performing Lab: Notes/Report: Severely Increased: >300 Moderately Increased: 30 - 300 Units: mg/g creat Normal: 0 - 29 UCREAT 57 Not Estab. mg/dL Random urine reference range not established. 24 hour urine samples recommended. MICROALB 387.600 0-16.7 mg/L MALBCREAT 680.0 Reason For Referral No Information Medications Medication SIG (Take, Route, Frequency, Duration) Notes Start Date End Date Status Valsartan 160 MG 1 tab(s) orally once a day Active Florastor 250 MG 1 cap(s) orally 2 times a day Active Famotidine 20 MG 1 tab(s) orally 1 time per day; Duration: 90 days 03/24/2024 Active Losartan Potassium 25 MG 1 tab(s) orally once a day; Duration: 90 days 12/20/2024 Active Methocarbamol 500 MG 1-2 tab(s) orally 4 times a day; Duration: 5 days 03/04/2024 Active Omeprazole 20 MG 1 cap(s) orally once a day; Duration: 90 days Active NIFEDIPINE (EQV-PROCARDIA XL) 30 MG TAKE 1 TABLET BY MOUTH DAILY; Duration: 90 DAYS *Please review for potential replacement for e-prescription and drug interaction check* Active Carvedilol 12.5 MG 1 tab(s) orally 2 times a day; Duration: 90 days Active BD VALENTINO 2ND GEN [...] for e-prescription and drug interaction check* Active [place] SoloStar 300 UNIT/ML INJECT 25 UNITS UNDER THE SKIN TWICE DAILY; Duration: 27 Active Febuxostat 40 MG TAKE 1 TABLET BY MOUTH ONCE A DAY; Duration: 300 Active Mounjaro 5 MG/0.5ML 5 mg Subcutaneous once a week; Duration: 28 days 02/12/2025 Active traZODone HCl 50 MG TAKE 1 TABLET BY MOUTH EVERY NIGHT; Duration: 90 Active Mounjaro 5 MG/0.5ML as directed Subcutaneous; Duration: 30 days 03/06/2025 Active Immunizations Vaccine Route Administration Date Status Commjosefa nts Pneumovax 23 Unknown 07/02/2016 Administered Influenza-Fluzone [...] Problem Status W/U Status Risk Notes Problem 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) (4613328982674) 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) Active confirmed Problem Type 2 diabetes mellitus with other specified complication (E11.69) Active confirmed Problem Obesity (617368322) Obesity, unspecified (E66.9) Active confirmed Problem Peripheral neuropathy (210835885) Peripheral neuropathy (G62.9) Active confirmed Problem Essential hypertension (37051670) Essential hypertension (I10) Active confirmed Problem Gastroesophageal reflux disease (754740621) GERD without esophagitis (K21.9) Active confirmed Problem Essential hypertension (07803808) Hypertension, essential (I10) Active confirmed Problem Idiopathic peripheral neuropathy (40678018) Idiopathic peripheral neuropathy (G60.9) Active confirmed Problem Sleep disturbance (39342794) Sleep disturbance (G47.9) Active confirmed Problem Gouty arthritis (10149906) Gouty arthritis (M10.9) Active confirmed Problem Morbid obesity (748383693) Severe obesity (BMI >= 40) (E66.01) Active confirmed Problem Chronic systolic heart failure (972978531) Chronic systolic CHF (congestive heart failure) (I50.22) Active confirmed Problem Muscle weakness (28797239) Lower extremity weakness (M62.81) Active confirmed Problem Polymyalgia (34685399) Polymyalgia (M35.3) Active confirmed Problem Inflammatory and toxic neuropathy (786801802) Peripheral polyneuropathy (G62.9) Active confirmed Problem Heart failure (17463172) Congestive heart failure, unspecified HF chronicity, unspecified heart failure type (I50.9) Active confirmed Problem Abnormal reflex (54817753) Abnormal reflexes of lower extremity (R29.2) Active confirmed Problem Chronic kidney disease stage 3B (disorder) (954611241) Stage 3b chronic kidney disease (N18.32) Active confirmed Problem Ulcer of right foot (disorder) (497979994) Ulcer of right foot with fat layer exposed (L97.512) Active confirmed Vital Signs Heart Rate 78 /min 11/15/2024 Temperature 97.8 degrees Fahrenheit 11/15/2024 Height 5 ft 10 in in 11/15/2024 Weight 305 lbs 11/15/2024 BMI 43.76 kg/m2 11/15/2024 Encounters Encounter Location Date Provider Diagnosis [facility] [address] [facility] [address] [place] [address] 01/20/2025 Provider Migration Type 2 diabetes mellitus with other specified complication E11.69 [facility] [address] [address] 11/15/2024 Hannah Mullen Essential hypertension I10 ; Type 2 diabetes mellitus with other specified complication E11.69 ; Gouty arthritis M10.9 ; Stage 3b chronic kidney disease N18.32 ; Chronic systolic CHF (congestive heart failure) I50.22 ; B12 deficiency E53.8 and Severe obesity (BMI >= 40) E66.01 [facility] [address] [place] [facility] [address] [place] [address] 05/11/2024 Tomi Besson [facility] [address] [place] [address] 06/30/2024 Tomi Besson [facility] [address] [place] [address] 09/25/2024 Tomi Besson [facility] [address] [place] [address] 11/14/2024 Hannha Paz [facility] [address] [place] [address] 11/16/2024 Tomi Besson Type 2 diabetes mellitus with other specified complication E11.69 [facility] [address] [place] [address] 12/19/2024 Tomi Besson [facility] [address] [place] [address] 12/21/2024 Tomi Besson Type 2 diabetes mellitus with other specified complication E11.69 [facility] [address] [place] [address] 01/09/2025 Hannah Paz [facility] [address] [place] [address] 01/29/2025 Tomi Besson [facility] [address] [place] [address] 02/02/2025 Tomi Besson [facility] [address] [place] [address] 02/12/2025 Hannah Paz [facility] [address] [place] [address] 03/06/2025 Hannah Paz [facility] [address] [place] [address] 03/06/2025 Tomi Besson [facility] [address] [place] [address] 04/10/2025 Tomi Besson Assessments Encounter Date Diagnosis (ICD [...] 11/15/2024 M-Hemoglobin A1C 07/16/2021 M-Uric Acid 11/15/2024 D-X-Woabuxxk Protein 07/16/2021 M-Lipid Panel 11/15/2024 M-Thyroid Panel 07/16/2021 M-Drug Screen,Urine 09/24/2020 M-Vitamin B12 11/15/2024 M-Vitamin B12 07/16/2021 M-Vitamin B12 06/14/2020 M-Microalb/Creat Ratio, Randm Ur 025 THYROID PANEL WITH TSH (7444) 12/28/2023 COMPREHENSIVE METABOLIC PANEL (58964) MAGNESIUM (622) 12/28/2023 CBC (INCLUDES DIFF/PLT) (6399) HEMOGLOBIN A1c (496) 12/28/2023 VITAMIN B12 (927) 12/28/2023 FERRITIN (457) 12/28/2023 Next Appt Details Provider Name:Hannah artis, 04/24/2025 11:45:00 AM, [address], [place], [address], Insurance Providers Payer Name Payer Address Payer Phone Subscriber Number Group Number Insured Name Patient Relationship to Insured Coverage Start Date Coverage End Date [employer] [address] [place] [address] [id number] [place] Self - patient is the [...] Rt foot 05/2024 Hospitalization History Reason Date(Month/Year) [facility] Transferred to [place] 02/14/24- 4 Rigth heel wound and skin graft 06/2017
--- OUTSIDE RECORDS SUMMARY | 2025-04-24 08:05 | XMS_ITS | Data Portability ---
Author Organization [facility] CLOS[facility] Address [address] [place] [address] Care Team Providers Care Embedded Developer Name Role Phone DARRELL VAIL Primary Care Provider Assessment No assessment recorded. Plan of Treatment [...] Organization Details Recorded Time Transient cerebral ischemia 531294084 Active 2015 From Automated Load;Prov ider: Rubi Art;Sta tus: Active Not Available [facility] 7 02:37:13 Chronic ulcer of heel 54858569352 830117 Active 2015 From Automated Load;Prov ider: Ismael Johnson;Sta tus: Active Not Available [facility] 7 02:37:13 Chronic ulcer of midfoot 06334161167 094131 Active 2015 From Automated Load;Prov ider: Ismael Johnson;Sta tus: Active Not Available [facility] 7 02:37:13 Non-press ure ulcer lower limb Active 2015 From Automated Load;Prov ider: Ismael Johnson;Sta tus: Active Not Available [facility] 7 02:37:13 Psychotic disorder 97529058 Active 2015 From Automated Load;Prov ider: Rubi Art;Sta tus: Active Not Available [facility] 7 02:37:13 Vomiting 511143312 Active 2015 From Automated Load;Prov ider: Rubi Art;Sta tus: Active Not Available [facility] 7 02:44:52 Acute renal impairmen t Active 2015 From Automated Load;Prov ider: Melani Bennett;Stat us: Active Not Available [facility] 7 06:04:19 Blood leukocyte number above reference range 480268669 Active 2015 From Automated Load;Prov ider: Rubi Art;Sta tus: Active Not Available [facility] 7 06:04:19 Type 2 diabetes mellitus without complicat ion 003760965 Active 2015 From Automated Load;Prov ider: Ismael Johnson;Sta tus: Active Not Available [facility] 7 06:21:43 Kidney disease 26636402 Active 2015 From Automated Load;Prov ider: Rubi Art;Sta tus: Active Not Available [facility] 7 06:21:44 Hyperkale nehemias 18929566 Active 2015 From Automated Load;Prov ider: Rubi Art;Sta tus: Active Not Available [facility] 7 06:39:45 Hypertens [place] disorder 37261103 Active 2015 From Automated Load;Prov ider: Ismael Johnson;Sta tus: Active Not Available [facility] 7 06:39:45 Chest pain 73713724 Active 2015 From Automated Load;Prov ider: Rubi Art;Sta tus: Active Not Available [facility] 7 06:51:53 Abdominal pain 72311384 Active 2015 From Automated Load;Prov ider: Rubi Art;Sta tus: Active Not Available [facility] 7 06:51:53 Celluliti s of lower limb 084255033 Active 2015 From Automated Load;Prov ider: Ismael Johnson;Sta tus: Active Not Available [facility] 7 07:11:07 Pyrexia of unknown origin 3406180 Active 2015 From Automated Load;Prov ider: Rubens, Rubi;Sta tus: Active Not Available [facility] 7 07:21:05 Obesity 152153917 Active 2015 From Automated Load;Prov ider: Ismael Johnson;Sta tus: Active Not Available [facility] 7 07:52:08 Problem Notes None recorded. Medical [...] Updated DateTime 03/03/2024 180.34 cm 41.8 kg/m2 354994.71 g Katie Quiros [facility] 03/03/2024 09:37:25 Date Recorded Body height Body mass index (BMI) Body weight Provider Name and Address Organization Details Last Updated DateTime 03/17/2024 180.34 cm 41.8 kg/m2 998654.71 g Mary Seals [facility] 03/17/2024 09:46:57 Social History None recorded. Functional Status None recorded. Mental Status None recorded. Family History Nothing Reported. Medical History No medical history recorded. Past Encounters Encounter ID Performer Location Encounter Start Date Encounter Closed Date Diagnosis/Indication Diagnosis SNOMED-CT Code Diagnosis ICD10 Code Diagnosis Note [id number] LEANDRO TAYLOR MD SURGERY SCHEDULE [address] [place] [address] 02/21/2024 09:38:47 02/21/2024 09:39:59 Infection of olecranon bursa of left elbow 7918882234 466589 M71.122 [id number] MAGALI PARK, PA-C [facility] [address] [address] 03/03/2024 09:19:51 03/03/2024 10:41:07 Postoperative care [id number] Z48.89 Assessment : Status 2 weeks post [...] 2 weeks for recheck of the incision. [id number] MAGALI GORDILLO PA-C [facility] [address] [place] [id number] 03/17/2024 09:44:30 03/17/2024 10:05:56 Postoperative care [id number] Z48.89 Assessment : Status 3.5 weeks post [...] ID Guarantor Name 05/31/2024 1 [place] (MEDICARE REPLACEMENT HMO) [id number] [place] [id number] [place] Notes Date Note Type [...] at this time. MAGALI GORDILLO PA-C [address] [place], [address], [facility] 03/03/2024 11:17:06 03/17/2024 text/html Patient comes in [...] at this time. MAGALI GORDILLO PA-C [address] [place], [address], [facility] 03/17/2024 10:14:34
--- OUTSIDE RECORDS SUMMARY | 2025-04-24 08:05 | XMS_ITS | Clinical Summary ---
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) L97.514 (ICD-10-CM) 06/26 Active 06/26 Mini Ontiveros Non-pressure chronic ulcer of other part of right foot with necrosis of bone DM non-pressure chronic ulcer of right foot, dorsal, with fat layer exposed (E11.621) L97.512 (ICD-10-CM) 06/26 Active 06/26 Mini Ontiveros Non-pressure chronic ulcer of other part of right foot with fat layer exposed Coronary artery disease (CAD) 39299032 (SNOMED CT) 06/26 Active 06/26 Minilata Ontiveros Coronary arteriosclerosi s Edema, lower extremity R60.0 (ICD-10-CM) 06/26 Active 06/26 Mini Ontiveros Localized edema DM non-pressure chronic ulcer of right heel with fat layer exposed (E11.621) L97.412 (ICD-10-CM) 06/15 Active 06/15 Mini Ontiveros Non-pressure chronic ulcer of right heel and midfoot with fat layer exposed DM non-pressure chronic ulcer of right heel with necrosis of bone L97.414 (ICD-10-CM) 06/15 Active 06/15 Mini Ontiveros Non-pressure chronic ulcer of right heel and midfoot with necrosis of bone Acute osteomyeliti s, right foot M86.171 (ICD-10-CM) 06/15 Active 06/15 Mini Ontiveros Other acute osteomyelitis, right ankle and foot DM II with diabetic polyneuropat hy E11.42 (ICD-10-CM) 06/15 Active 06/15 Mini Ontiveros Type 2 diabetes mellitus with diabetic polyneuropathy Cellulitis, foot, right 270021678 (SNOMED CT) 06/15 Active 06/15 Mini Ontiveros Cellulitis of foot DM II with diabetic CKD, 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) E11.22 (ICD-10-CM) 03/24 Active 03/24 Mini Ontiveros Type 2 diabetes mellitus with diabetic chronic kidney disease Acute renal failure with tubular necrosis 07783729284 9101 (SNOMED CT) 03/24 Resolved 03/24 Mini Ontiveros Acute renal failure due to tubular necrosis Hyponatremia 40631024 (SNOMED CT) 03/24 Resolved 03/24 Mini Ontiveros Hyponatremia MSSA infection 992276602 (SNOMED CT) 03/24 Resolved 03/24 Mini Ontiveros Infection by methicillin sensitive Staphylococcus aureus Infective bursitis, left elbow (document organism)(B9 5.-B96.) M71.122 (ICD-10-CM) 03/24 Resolved 03/24 Mini Weston Other infective bursitis, left elbow Cellulitis, elbow, left L03.114 (ICD-10-CM) 03/24 Resolved 03/24 Mini Weston Cellulitis of left upper limb MSSA infection 832577736 (SNOMED CT) 03/24 Removed 03/24 Mini Ontiveros Infection by methicillin sensitive Staphylococcus aureus Infective bursitis, left elbow (document organism)(B9 5.-B96.) M71.122 (ICD-10-CM) 03/24 Removed 03/24 Mini Weston Other infective bursitis, left elbow Cellulitis, elbow, left L03.114 (ICD-10-CM) 03/24 Removed 03/24 Mini Ontiveros Cellulitis of left upper limb Infection, local skin/subcuta neous tissue 417506431 (SNOMED CT) 03/24 Active 03/24 Mini Ontiveros Localized infection of skin AND/OR subcutaneous tissue Hyponatremia 04711102 (SNOMED CT) 03/24 Removed 03/24 Mini Ontiveros Hyponatremia Acute renal failure with tubular necrosis 07592110266 9101 (SNOMED CT) 03/24 Removed 03/24 Mini Ontiveros Acute renal failure due to tubular necrosis Morbid obesity due to excess calories E66.01 (ICD-10-CM) 03/24 Active 03/24 Mini Ontiveros Morbid (severe) obesity due to excess calories DM Type II E11.9 (ICD-10-CM) 03/24 Inactive 03/24 Mini Ontiveros Type 2 diabetes mellitus without complications 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) 146778535 (SNOMED CT) 03/24 Active 03/24 Mini Ontiveros Benign hypertensive heart disease with congestive cardiac failure Medications Medication Instructions Start Date Stop Date Generic Name NDC Provider DOXYCYCLINE MONOHYDRATE 100 MG CAPS Take 1 capsule by mouth twice a day doxycycline monohydrate 81867204766 Rickie Barksdale MD POTASSIUM CHLORIDE ER 20 MEQ CR-TABS Take 1 tablet by mouth once a day potassium chloride 97056078885 Diana Gutiérrez RN POTASSIUM CHLORIDE ALEX ER 20 MEQ CR-TABS TAKE 1 TABLET BY MOUTH DAILY potassium chloride 87820174003 Rickie Barksdale MD DOXYCYCLINE MONOHYDRATE 100 MG CAPS Take 1 capsule by mouth twice a day doxycycline monohydrate 09712098475 Rickie Barksdale MD NYSTATIN 653219 UNIT/GM CREA Apply 1 a small amount to skin once a day nystatin 93422236339 Rickie Barksdale MD POTASSIUM CHLORIDE ER 20 MEQ CR-TABS Take 1 tablet by mouth once a day potassium chloride 63169404247 Rickie Barksdale MD TRAZODONE HCL 50 MG TABS Take 1 tablet by mouth every night trazodone 38695227247 Remedios February CARVEDILOL 12.5 MG TABS Take 1 tablet by mouth twice a day carvedilol 88160090791 Remedios February VALSARTAN 160 MG TABS Take 1 tablet (160 mg total) by mouth daily. valsartan 35590229817 Remedios February FLORASTOR 250 MG CAPS Take 1 capsule (250 mg total) by mouth 2 (two) times daily for 7 days. saccharomyces boulardii 23039406872 Remedios February NIFEDIPINE ER OSMOTIC RELEASE 30 MG [id number] Take 1 tablet (30 mg total) by mouth daily. nifedipine 01222120847 Remedios February OMEPRAZOLE 20 MG CPDR Take 1 capsule (20 mg total) by mouth daily. omeprazole 37205143613 Remedios February INSULIN GLARGINE SOLOSTAR 100 UNIT/ML SOPN Inject 25 Units subcutaneously 2 (two) times daily. insulin glargine 94040581359 Remedios February AMOXICILLIN-PO T CLAVULANATE 875-125 MG TABS Take 1 tablet by mouth every 12 (twelve) hours. amoxicillin-pot clavulanate 31326189740 Remedios February DOXYCYCLINE HYCLATE 100 MG TABS Take 1 tablet (100 mg total) by mouth every 12 (twelve) hours. doxycycline hyclate 00506766445 Remedios February FEBUXOSTAT 40 MG TABS Take 1 tablet (40 mg total) by mouth daily. febuxostat 95795217364 Remedios February FAMOTIDINE 20 MG TABS Take 1 tablet (20 mg total) by mouth daily. famotidine 74437088359 Remedios February TRAZODONE HCL 50 MG TABS Take 1 tablet (50 mg total) by mouth nightly. trazodone 82697486985 QIE qieuser NIFEDIPINE ER OSMOTIC RELEASE 30 MG [id number] Take 1 tablet (30 mg total) by mouth daily for 30 days. nifedipine 43497275726 QIE qieuser LOSARTAN POTASSIUM 25 MG TABS Take 1 tablet (25 mg total) by mouth daily for 30 days. losartan 12724355520 QIE qieuser INSULIN GLARGINE-YFGN 100 UNIT/ML SOLN Inject 26 Units subcutaneously 2 (two) times daily for 30 days. insulin glargine-yfgn 47857621911 QIE qieuser FAMOTIDINE 20 MG TABS Take 1 tablet (20 mg total) by mouth daily for 30 days. famotidine 69493173924 QIE qieuser CEPHALEXIN 500 MG CAPS Take 2 capsules (1,000 mg total) by mouth every 12 (twelve) hours for 30 days. cephalexin 45533974294 QIE q[facility]user CARVEDILOL 12.5 MG TABS Take 1 tablet (12.5 mg total) by mouth 2 (two) times daily with breakfast and dinner. carvedilol 07684830095 QIE qieuser BUMETANIDE 1 MG TABS Take 1 tablet (1 mg total) by mouth daily for 30 days. bumetanide 37765795556 QIE qieuser Medications Administered No information available. Allergies, Adverse Reactions, Alerts No information available. Results Date Name Value Unit Range Flag Description Office Visit: Office Visit: 12 HFU FALLRSKASSES yes Fall ris k assessment Office Visit: Office Visit:10 18 MEDS REVIEW Done Documenta tion of current medications (procedure) ORALTOBACUSE Never Tobacco smoking status SMOK STATUS Never smoker Tobacco smoking status Lab Report: CBC WITH AUTO DI FFERENTIAL ZZ-GE-unk 0.0 /100 WBC 0.0-0.2 GE use only - fo r [employer] import when terms are not otherwise specified IMMATUREGRAN 0.02 10*3/MM3 0.00-0.05 Immature granulocytes [#/volume] in Blood BASO# 0.04 10*3/mm3 0.00-0.20 Basophils [#/vol ume] in Blood EOS ABSLT 0.26 10*3/uL 0.00-0.40 Eosinophi ls [#/volume] in Blood MONOSCT AUTO 0.46 10*3/uL 0.10-0.90 Monocy trina [#/volume] in Blood by Automated count LYMPHCT AUTO 0.92 10*3/mm3 0.70-3.10 Lymph ocytes [#/volume] in Blood by Automated count ABS NEUTROPH 5.19 10*3/uL 1.70-7.00 Neutro phils [#/volume] in Blood IMM GRANU % 0.3 % 0.0-0.5 Immature granulocytes/100 leukocytes in Blood % EOS AUTO 3.8 % 0.3-6.2 Eosinophil s/100 leukocytes in Blood by Automated count MONOCYTE % 6.7 % 5.0-12.0 Monocytes /100 leukocytes in Blood by Automated count LYMPHOCY BF 13.4 % 19.6-45.3 L lymphoc ytes as percent of body fluid leukocytes NEUTROP BF 75.2 % 42.7-76.0 Neutroph ils/100 leukocytes in Body fluid PLATELETS 176 10*3/mm3 140-450 Platelets [#/volume] in Blood by Automated count RDW_ 14.8 12.3-15.4 RDW, no uni ts MCHC 32.7 G/DL 31.5-35.7 MCHC [Mass/ volume] by Automated count MCH 28.5 pg 26.6-33.0 MCH [Entiti c mass] by Automated count MCV 87.4 fL 79.0-97.0 MCV [Entiti c volume] by Automated count HCT 39.5 % 37.5-51.0 Hematocrit [Volume Fraction] of Blood by Automated count HGB 12.9 g/dL 13.0-17.7 L Hemoglobin [Mass/volume] in Blood RBC 4.52 10*6/mm3 4.14-5.80 Erythrocyt es [#/volume] in Blood by Automated count WBC 6.89 10*3/mm3 3.40-10.8 0 Leukocytes [#/volume] in Blood by Automated count Lab Report: SEDIMENTATION RA TE ESR 22 mm/h 0-20 H Erythrocyte sedimentation rate by Westergren method Lab Report: C-REACTIVE PROTE IN CRP 0.43 mg/dL 0.00-0.50 C reactive protein [Mass/volume] in Serum or Plasma Lab Report: COMPREHENSIVE ME TABOLIC PANEL ANIONGAP 11.0 mmol/L 5.0-15.0 anion gap, serum BUN/CREAT 22.2 7.0-25.0 Urea nitrogen/Creatinine [Mass Ratio] in Serum or Plasma BILI TOTAL 0.5 mg/dL 0.0-1.2 Bilirubin. total [Mass/volume] in Serum or Plasma ALK PHOS 126 U/L 39-117 H Alkaline sudarshan sphatase [Enzymatic activity/volume] in Blood SGOT (AST) 10 U/L 1-40 Aspartate aminotransferase [Enzymatic activity/volume] in Serum or Plasma SGPT (ALT) 11 U/L 1-41 Alanine aminotransferase [Enzymatic activity/volume] in Serum or Plasma ALBUMIN 4.1 g/dL 3.5-5.2 Albumin [Mass/volume] in Serum or Plasma PROTEIN, TOT 7.1 g/dL 6.0-8.5 Protein [Mass/volume] in Serum or Plasma CALCIUM 9.3 mg/dL 8.6-10.5 Calcium [Moles/volume] in Serum or Plasma CO2 27.0 mmol/L 22.0-29.0 Carbon diox tena, total [Moles/volume] in Venous blood CHLORIDE 103 mmol/L 98-107 Chloride [Moles/volume] in Serum or Plasma POTASSIUM 4.6 mmol/L 3.5-5.2 Potassium [Moles/volume] in Serum or Plasma SODIUM 141 mmol/L 136-145 Sodium [Moles/volume] in Serum or Plasma CREATININE 1.35 mg/dL 0.76-1.27 H Creatini ne [Mass/volume] in Serum or Plasma BUN 30 mg/dL 8-23 H Urea nitrogen [Mass/volume] in Serum or Plasma GLUCOSE SER 196 mg/dL 65-99 H Glucose [Mass/volume] in Serum or Plasma Plan of Care Type Date Detail Pending order Continue oral an tibiotics Pending order CMP Pending order CBC with Differe ntial Pending order C- reactive prot ein Pending order Sedimentation Ra te (ESR) Pending order Continue oral an tibiotics Pending order CMP Pending order CBC with Differe ntial Pending order C- reactive prot ein Pending order Sedimentation Ra te (ESR) Pending order CMP Pending order CBC with Differe ntial Pending order C- reactive prot ein Pending order Sedimentation Ra te (ESR) Pending order CMP Pending order CBC with Differe ntial Pending order C- reactive prot ein Pending order Sedimentation Ra te (ESR) Pending order CMP Pending order CBC with Differe ntial Pending order C- reactive prot ein Pending order Sedimentation Ra te (ESR) Procedures No information available. Vital Signs Date Name Value Unit Description BMI (Body Mass Index) 43.76 kg/m2 Bod y Mass Index (Ratio) Body Temperature 97.9 [degF] temperat ure E&M BP Diastolic 75 mm[Hg] blood pressu re, diastolic BP Systolic 143 mm[Hg] blood pressur e, systolic Heart Rate 67 /min pulse rate Height 70 [in_us] height E&M Respiratory Rate 16 /min respirat ory rate E&M Weight Measured 305 [lb_av] weight E& M Weight Measured 305 [lb_av] weight E& M Immunizations No information available. Advance Directives Directive Description Start Date NO ADVANCED DIRECTIVES AT THIS TIME 2023
--- OUTSIDE RECORDS SUMMARY | 2025-04-24 08:06 | XMS_ITS | Clinical Summary ---
Author Organization [facility] ([place], [place], [place], [place]) Address [address] [place] [address] Care Team Providers Care Boarder Machine Name Role Phone Tomi Cao MD Primary Care Provider + [phone] Allergies No known active allergies Medications carvediloL [...] living situation today? I [place] a [place] place to live 05/23/2024 Think about the [...] Do you speak a language other than [place] at [facility]? No 05/23/2024 Do you want help [...] 1958 Sigmoidoscopy 1958 Diabetic Eye Exam 1968 Depression Screening (12+) 1970 Tobacco Cessation Counseling and Screening (12+) 1970 Hepatitis C Screening 1976 DTAP/TDAP/TD VACCINES (1 - Tdap) 1977 Pneumococcal 50+ years (2 of 2 - PCV) 07/02/2017 Respiratory Syncytial Virus (RSV) Adult or (1 - Risk 60-74 years 1-dose series) 2018 Shingles Vaccine (Zoster) (2 of 2) 09/25/20212020 Hemoglobin A1C 02/19/2024 COVID-19 VACCINE (3 - season) 2024, 06/18/2021 Falls Risk Screening 10/18/2024 Medicare Initial AWV [id number] 01/17/2025 Influenza Vaccine (#1) 2025 Medical Devices Implanted Type Area Supervisor [employer] Device Identifier Shelf Expiration Date Model / Serial / Lot Imp Stravix 2x4cm [id number] - [id number] Implanted:Qty: 1 on 05/25/2024 by Jeff Encinas DPM at [facility] IMPLANTS Right: Foot [employer] 04/06/2026 [id number] / [id number] / [id number] [facility] Advance Directives For more information, please contact: [phone] * Full Code (Latest Code Status on File) Date Activated Date Inactivated Comments 05/25/2024 11:34 AM 05/30/2024 3:32 PM * Full Code Date Activated Date Inactivated Comments 05/23/2024 6:06 PM 05/25/2024 11:34 AM * Full Code Date Activated Date Inactivated Comments 02/19/2024 2:59 AM 02/22/2024 5:37 PM Care Teams Boarder Machine Relationship Specialty Start Date End Date Tomi Cao MD [address] [place] [address] [place] [address] PCP - General Adolescent Medicine 02/18/24
[2025-04-24] MEDS: 0.9 % SODIUM CHLORIDE 50 ML VIAL IV (08:30)
[2025-04-24] MEDS: IOPAMIDOL-370 (76%);100ML BOTTLE 80 ML IV (08:30)
[2025-04-24] MEDS: SODIUM CHLORIDE 0.9% 10ML SYR (RAD ONLY) 10 ML IV (08:30)
--- OUTSIDE RECORDS SUMMARY | 2025-04-24 09:05 | XMS_ITS | CCD ---
Author Name Martine Jara NP Address [address] [facility] [address] [place] [address] Phone Organization [facility] Phone Care Team Providers Care Electrical Tech Name Role Phone Office, [place] Primary Care Provider Unavaila ble Unavailable Chronic Care Management Unavaila ble Summary Purpose DataExchange Insurance Providers Payer name Policy type / Coverage type Covered libertarian ID Effective Begin Date Effective End Date [employer] [facility] [id number] Unknown Unknown Family History Family History data not found Problems Condition Codes Effective Dates Condition St atus Cervical spondylosis ICD-10: M47.812 12/01/2024 Acti ve Patient not seen ICD-10: UXZ.01 ICD-9: UXZ.01 02/26/2025 Active Spinal stenosis in cervical region ICD-10: M48.02 08/19 Active Medications Medication Codes Instructions Start Date Stop Date Status Fill Instructions mupirocin (BACTROBAN) 2 % ointment RxNorm: 413675 Apply topically 2 (two) times daily To each nostril with cotton applicator starting 5 days before surgery.. 5 No Stop Date Active celecoxib (CELEBREX) 100 MG capsule RxNorm: 488427 Take 100 mg by mouth 2 (two) times daily. 4 06/29/20 24 Inactive famotidine (PEPCID) 20 MG tablet RxNorm: 3617165 Take 20 Milligram(s) Oral every day . 4 06/29/20 24 Inactive Febuxostat 40 MG tablet RxNorm: 136577 Take 40 mg by mouth daily. 5 11/20/19 25 Inactive NIFEdipine (PROCARDIA XL) 30 MG 24 hr tablet RxNorm: 3912404 Take 30 Milligram(s) Oral every day . 5 11/20/19 25 Inactive bumetanide (BUMEX) 1 MG tablet RxNorm: 131792 Take 1 mg by mouth as needed. 5 11/20/19 25 Inactive traZODone (DESYREL) 50 MG tablet RxNorm: 218729 Take 50 mg by mouth nightly. 5 06/29/20 24 Inactive potassium chloride (KLOR-CON) 20 MEQ packet RxNorm: 0670927 Take 20 mEq by mouth as needed. 5 11/20/19 25 Inactive losartan (COZAAR) 25 MG tablet RxNorm: 731189 Take 25 Milligram(s) Oral every day . 5 11/20/19 25 Inactive Insulin Glargine, 2 Unit Dial, (TOUJEO MAX SOLOSTAR) 300 UNIT/ML EULALIA PEN RxNorm: 8616986 Inject 25 Units into the skin 2 (two) times daily. 5 11/20/19 25 Inactive omeprazole (PRILOSEC) 20 MG capsule RxNorm: 468976 Take 20 Milligram(s) Oral every day . 5 11/20/19 25 Inactive carvedilol (COREG) 12.5 MG tablet RxNorm: 428692 Take 12.5 mg by mouth 2 (two) times daily with meals. 5 11/20/19 25 Inactive Medication Administered No Medication Administered data Reason For Visit No Reason For Visit data Encounters Encounter Performer Location Location Address Codes Date () No answer/Patient not seen Diagnosis: Patient not seen[ICD10: UXZ.01] Martine Jara [place] Office [address] [address] CPT-4: 28824 02/26/2025 Plan of Care Planned Activity Notes Codes Status Date Appointment: Martine Jara WPtel: [address] [place], [place] [id number] 02/26/2025 Patient Education: Patient Medication Summary Completed 02/26/2025 Medical Equipment No Medical Equipment data Advance Directives No Advance Directive data
--- OUTSIDE RECORDS SUMMARY | 2025-04-24 09:05 | XMS_ITS | CCD ---
Author Name Martine Jara NP Address [address] [facility] [address] [facility] [address] [place] [address] Phone Organization [facility] Phone Care Team Providers Care Manager Advanced Name Role Phone Office, [place] Primary Care Provider Unavaila ble Unavailable Chronic Care Management Unavaila ble Summary Purpose DataExchange Insurance Providers Payer name Policy type / Coverage type Covered green party ID Effective Begin Date Effective End Date [employer] [facility] [id number] Unknown Unknown Family History Family History data not found Problems Condition Codes Effective Dates Condition St atus Cervical spondylosis ICD-10: M47.812 12/01/2024 Acti ve Patient not seen ICD-10: UXZ.01 ICD-9: UXZ.01 02/26/2025 Active Spinal stenosis in cervical region ICD-10: M48.02 08/19 Active Medications Medication Codes Instructions Start Date Stop Date Status Fill Instructions mupirocin (BACTROBAN) 2 % ointment RxNorm: 919324 Apply topically 2 (two) times daily To each nostril with cotton applicator starting 5 days before surgery.. 5 No Stop Date Active celecoxib (CELEBREX) 100 MG capsule RxNorm: 905535 Take 100 mg by mouth 2 (two) times daily. 4 06/29/20 24 Inactive famotidine (PEPCID) 20 MG tablet RxNorm: 3673099 Take 20 Milligram(s) Oral every day . 4 06/29/20 24 Inactive Febuxostat 40 MG tablet RxNorm: 185625 Take 40 mg by mouth daily. 5 11/20/19 25 Inactive NIFEdipine (PROCARDIA XL) 30 MG 24 hr tablet RxNorm: 9384256 Take 30 Milligram(s) Oral every day . 5 11/20/19 25 Inactive bumetanide (BUMEX) 1 MG tablet RxNorm: 508902 Take 1 mg by mouth as needed. 5 11/20/19 25 Inactive traZODone (DESYREL) 50 MG tablet RxNorm: 253759 Take 50 mg by mouth nightly. 5 06/29/20 24 Inactive potassium chloride (KLOR-CON) 20 MEQ packet RxNorm: 5998127 Take 20 mEq by mouth as needed. 5 11/20/19 25 Inactive losartan (COZAAR) 25 MG tablet RxNorm: 662433 Take 25 Milligram(s) Oral every day . 5 11/20/19 25 Inactive Insulin Glargine, 2 Unit Dial, (TOUJEO MAX SOLOSTAR) 300 UNIT/ML EULALIA PEN RxNorm: 0363795 Inject 25 Units into the skin 2 (two) times daily. 5 11/20/19 25 Inactive omeprazole (PRILOSEC) 20 MG capsule RxNorm: 965733 Take 20 Milligram(s) Oral every day . 5 11/20/19 25 Inactive carvedilol (COREG) 12.5 MG tablet RxNorm: 252755 Take 12.5 mg by mouth 2 (two) times daily with meals. 5 11/20/19 25 Inactive Medication Administered No Medication Administered data Reason For Visit No Reason For Visit data Encounters Encounter Performer Location Location Address Codes Date () No answer/Patient not seen Diagnosis: Patient not seen[ICD10: UXZ.01] Martine Jara [place] Office [address] [address] CPT-4: 64225 02/26/2025 Plan of Care Planned Activity Notes Codes Status Date Appointment: Martine Jara WPtel: [address] [place], [place] [id number] 02/26/2025 Patient Education: Patient Medication Summary Completed 02/26/2025 Medical Equipment No Medical Equipment data Advance Directives No Advance Directive data
== END 2025-04-24 23:59 | disposition home or self-care (01) ==
LOC: RAD 08:01
PROVIDERS: PCP Internal Medicine Adolescent Medicine; Visit Provider Nurse Practitioner
DX: Z01.810 Encounter for preprocedural cardiovascular examination (principal); R93.5 Abnormal findings on diagnostic imaging of other abdominal regions, including retroperitoneum; I77.810 Thoracic aortic ectasia; R94.39 Abnormal result of other cardiovascular function study; R94.31 Abnormal electrocardiogram [ECG] [EKG]
CPT/HCPCS: 71275; Q9967

== ENCOUNTER 2025-10-03 15:29 | Outpatient (CLI) | payer MEDICARE, SELFPAY ==
--- OUTSIDE RECORDS SUMMARY | 2024-04-28 10:00 | XMS_ITS ---
Author Organization [facility] Address [address] [facility] [address] [facility] [address] [place], [place] [address] Care Team Providers Care Clinical Research Analyst Name Role Phone Tomi Cao Primary Care Provider Tomi Cao Unavailable Unavailable REASON FOR VISIT left leg, sore, sunken place in it per PT Encounters Encounter Location Date Provider Diagnosis [facility] [address] [place], [place] [address] 04/28/2024 Tomi Cao Plan Of Treatment Next Appt Details Provider Name:Hannah Reeves ce, 11/29/2025 02:30:00 PM, [address], [address], [place], [place], [address], Progress Notes * LIZJonathanOB:1960 ( 65 yo M)Acc No.[id number]:04/28/2024 Progress Notes Patient: New HUBBARD Provider: Agusto Cao MD :1960 A ge:63 Y S ex:Male Date:04/28/2024 Address:[address] [place] [address] [address] [id number] Subjective: * Chief Complaints: * 1 . left leg, sore, sunken place in it per PT. * Medical History: Objective: * Vitals: Assessment: Plan: * Treatment: * * Electronic signature of Minesh Cao MD FAAP on 10/03/2025 at 04:55 PM EST Sign off status: Pending * Provider: Agusto Cao MD Date: 0 04/28/2024 Generated for Karly billy/Lisa/Olena on: 1 12/04/2024 04:55 PM EST
--- OUTSIDE RECORDS SUMMARY | 2024-05-01 09:00 | XMS_ITS ---
Author Organization [facility] Address [address] [facility] [address] [facility] [address] [place] [address] Care Team Providers Care Sales Floor Team Member Name Role Phone Tomi Cao Primary Care Provider [phone] Tomi Cao Unavailable Unavailable Hannah Mullen Unavailable [phone] REASON FOR VISIT left leg, sore, sunken place in it per PT, patient is due for Microalbumin Encounters Encounter Location Date Provider Diagnosis [facility] [address] [facility] [address] [place], [place] [address] 05/01/2024 Hannah Mullen Plan Of Treatment Next Appt Details Provider Name:Hannah Reeves ce, 11/29/2025 02:30:00 PM, [address] [facility], [place], [place], [address], Progress Notes * LIZJonathanOB:1960 ( 65 yo M)Acc No.[id number]:05/01/2024 Progress Notes Patient: New HUBBARD Provider: SAVANAH Don :1960 A ge:63 Y S ex:Male Date:05/01/2024 Address:[address] [facility] [address], [id number] Pcp:Tomi Cao Subjective: * Chief Complaints: * 1 . left leg, sore, sunken place in it per PT. 2. patient is due for Microalbumin. * Medical History: Objective: * Vitals: Assessment: Plan: * Treatment: * * Electronic signature of Neva Mullen APRN on 10/03/2025 at 04:55 PM EST Sign off status: Pending * Provider: SAVANAH Don Date: 0 05/01/2024 Generated for Karly billy/Lisa/Olena on: 1 12/04/2024 04:55 PM EST
--- OUTSIDE RECORDS SUMMARY | 2024-05-23 11:30 | XMS_ITS ---
Author Organization [facility] Address [address] [facility] [address] [facility] [address] [place] [address] Care Team Providers Care Cooker Process Cheese Name Role Phone Tomi Cao Primary Care Provider Tomi Cao Unavailable Unavailable REASON FOR VISIT spot on foot Encounters Encounter Location Date Provider Diagnosis [address] [address] 05/23/2024 Tomi Cao Plan Of Treatment Next Appt Details Provider Name:Hannah Reeves ce, 11/29/2025 02:30:00 PM, [address] [facility] [address] [facility], [address], [place], [address], Progress Notes * LIZZakMagdalenaOB:1960 ( 65 yo M)Acc No.[id number]:05/23/2024 Progress Notes Patient: New HUBBARD Provider: Agusto Cao MD :1960 A ge:63 Y S ex:Male Date:05/23/2024 Address:[address] [place] [address] [address], [id number] Subjective: * Chief Complaints: * 1 . Spot on foot. * Medical History: Objective: * Vitals: Assessment: Plan: * Treatment: * * Electronic signature of Minesh Cao MD FAAP on 10/03/2025 at 04:56 PM EST Sign off status: Pending * Provider: Agusto Cao MD Date: 0 05/23/2024 Generated for Karly billy/Lisa/Olena on: 1 12/04/2024 04:56 PM EST
--- OUTSIDE RECORDS SUMMARY | 2025-01-20 16:30 | XMS_ITS ---
Author Organization [facility] Address [address] [facility] [address] [place] [address] Care Team Providers Care Cold Press Loader Name Role Phone Tomi Cao Primary Care Provider Tomi Cao Unavailable Unavailable Migration, Provider Unavailable Unavailable Allergies Allergen (clinical drug ingredient) Drug/Non Drug Allergy documented on EMR Reaction Allergy Type Onset Date Status lisinopril Lisinopril nausea and diarrhea Drug Allergy Active REASON [facility] VISIT [facility] Con[facility] Encounter Medications Medication SIG (Take, Route, Frequency, Duration) Notes Start Date End Date Status Cyanocobalamin 1000 MCG/ML 1000 mcg intramuscularly once a week; Duration: 90 days Active SYRINGE 3CC 20G 1 USE ONCE A WEEK FOR B12 INJECTIONS; Duration: 90 DAYS *Please review for potential replacement for e-prescription and drug interaction check* Active traZODone HCl 50 MG 1 tab(s) orally nightly; Duration: 90 days prn Active Carvedilol 12.5 MG 1 tab(s) orally 2 times a day; Duration: 90 days Active Toujeo SoloStar 300 UNIT/ML inject 25 units subcutaneously twice a day; Duration: 30 days 05/12/2024 Active Florastor 250 MG 1 cap(s) orally 2 times a day Active Febuxostat 40 MG 1 tab(s) orally once a day Active Mounjaro 5 MG/0.5 ML 5 MG SUBCUTANEOUSLY ONCE A WEEK; Duration: 28 DAYS *Please review and pick correct strength-formulat ion from Medispan options. If intended option is not shown, discontinue and re-order from Quick Search* 01/09/2025 Active Famotidine 20 MG 1 tab(s) orally 1 time per day; Duration: 90 days 03/24/2024 Active Methocarbamol 500 MG 1-2 tab(s) orally 4 times a day; Duration: 5 days 03/04/2024 Active Valsartan 160 MG 1 tab(s) orally once a day Active Losartan Potassium 25 MG 1 tab(s) orally once a day; Duration: 90 days 12/20/2024 Active Omeprazole 20 MG 1 cap(s) orally once a day; Duration: 90 days Active NIFEDIPINE (EQV-PROCARDIA XL) 30 MG TAKE 1 TABLET BY MOUTH DAILY; Duration: 90 DAYS *Please review for potential replacement for e-prescription and drug interaction check* Active BD VALENTINO 2ND GEN PEN NEEDLE 4MM X 32G USE TWICE A DAY WITH INSULIN PEN; Duration: 90 DAYS *Please review for potential replacement for e-prescription and drug interaction check* 11/15/2024 Active Encounters Encounter Location Date Provider Diagnosis [facility] [address] [facility] [address] [place] [address] 01/20/2025 Provider Migration Type 2 diabetes mellitus with other specified complication E11.69 Assessments Encounter Date Diagnosis (ICD Code) Assessment Notes Treatment Notes Treatment Clinical Notes Section Notes 01/20/2025 Type 2 diabetes mellitus with other specified complication (ICD-10 - E11.69) Plan Of Treatment Medication Medication Name Sig Start Date Stop Date Notes Cyanocobalamin 1000 MCG/ML 1000 mcg intramuscularly once a week; Duration: 90 days SYRINGE 3CC 20G 1 USE ONCE A WEEK FOR B12 INJECTIONS; Duration: 90 DAYS *Please review for potential replacement for e-prescription and drug interaction check* Carvedilol 12.5 MG 1 tab(s) orally 2 ti mes a day; Duration: 90 days Mounjaro 5 MG/0.5 ML 5 MG SUBCUTANEOUSLY ONCE A WEEK; Duration: 28 DAYS 01/09/2025 *Please review and pick correct strength-formulatio n from [employer] options. If intended option is not shown, discontinue and re-order from Quick Search* Losartan Potassium 25 MG 1 tab(s) orally once a day; Duration: 90 days 12/20/2024 Omeprazole 20 MG 1 cap(s) orally once a day; Duration: 90 days NIFEDIPINE (EQV-PROCARDIA XL) 30 MG TAKE 1 TABLET BY MOUTH DAILY; Duration: 90 DAYS *Please review for potential replacement for e-prescription and drug interaction check* BD VALENTINO 2ND GEN PEN NEEDLE 4MM X 32G USE TWICE A DAY WITH INSULIN PEN; Duration: 90 DAYS 11/15/2024 *Please review for potential replacement for e-prescription and drug interaction check* Next Appt Details Provider Name:Hannah Reeves ce, 11/29/2025 02:30:00 PM, [address] [facility] [address] [facility], [address], [place], [address], Progress Notes * Zak HILLMagdalenaOB:1960 ( 65 yo M)Acc No.[id number]:01/20/2025 Patient: New HUBBARD Provider: Raysa Bain :1960 A ge:64 Y S ex:Male Date:01/20/2025 Address:[address] [place] [address], [facility] Pcp:Tomi Cao Subjective: * Chief Complaints: * 1 . [facility] Conversion Encounter. * Medical History: * Medications: T aking Valsartan 160 MG Tablet 1 tab(s) orally once a day , Taking Florastor 250 MG Capsule 1 cap(s) orally 2 times a day , Taking Febuxostat 40 MG Tablet 1 tab(s) orally once a day , Taking Famotidine 20 MG Tablet 1 tab(s) orally 1 time per day , Taking Methocarbamol 500 MG Tablet 1-2 tab(s) orally 4 times a day , Taking traZODone HCl 50 MG Tablet 1 tab(s) orally nightly , Notes to Pharmacist: prn, Taking Toujeo SoloStar 300 UNIT/ML Solution Pen-injector inject 25 units subcutaneously twice a day * Allergies: L isinopril: nausea and diarrhea. Objective: * Vitals: Assessment: * Assessment: 1. T ype 2 diabetes mellitus with other specified complication - E11.69 Plan: * Treatment: 2. O thers Start Carvedilol Tablet, 12.5 MG, 1 tab(s), orally, 2 times a day, 90 days, 180 Tablet, Refills 1;?Start Omeprazole Capsule Delayed Release, 20 MG, 1 cap(s), orally, once a day, 90 days, 90 Capsule, Refills 1; S tart NIFEDIPINE (EQV-PROCARDIA XL) TABLET, EXTENDED RELEASE, 30 MG, TAKE 1 TABLET BY MOUTH DAILY, 90 DAYS, 90 TABLET, Refills 1, Notes to Pharmacist: *Please review for potential replacement for e-prescription and drug interaction check*; R efill Cyanocobalamin Solution, 1000 MCG/ML, 1000 mcg, intramuscularly, once a week, 90 days, 12, Refills 0; S tart Losartan Potassium Tablet, 25 MG, 1 tab(s), orally, once a day, 90 days, 90 Tablet, Refills 1; S tart SYRINGE 3CC 20G 1 , USE ONCE A WEEK FOR B12 INJECTIONS, 90 DAYS, 12, Refills 0, Notes to Pharmacist: *Please review for potential replacement for e-prescription and drug interaction check*; S tart Mounjaro SOLUTION, 5 MG/0.5 ML, 5 MG, SUBCUTANEOUSLY, ONCE A WEEK, 28 DAYS, 2 ML, Refills 1, Notes to Pharmacist: *Please review and pick correct strength-formulation from Medispan options. If intended option is not shown, discontinue and re-order from Quick Search*. * * Electronic signature of Marlene johnson Migration on 10/03/2025 at 04:54 PM EST Sign off status: Pending * Provider: Raysa howard Migration Date: 0 01/20/2025 Generated for Karly billy/Lisa/Olena on: 1 12/04/2024 04:54 PM EST
--- OUTSIDE RECORDS SUMMARY | 2025-08-23 10:15 | XMS_ITS ---
Author Organization [facility] Address [address] [place] [address] Care Team Providers Care Stripper And Printer Name Role Phone Tomi Cao Primary Care Provider Tomi Cao Unavailable Unavailable Hannah Mullen Unavailable [phone] Allergies Allergen (clinical drug ingredient) Drug/Non Drug Allergy documented on EMR Reaction Allergy Type Onset Date Status lisinopril Lisinopril nausea and diarrhea Drug Allergy Active REASON FOR VISIT follow up, ears flushed. Something for pain Medications Medication SIG (Take, Route, Frequency, Duration) Notes Start Date End Date Status Toujenadia Max SoloStar 300 UNIT/ML 30 units Subcutaneous daily Active Carvedilol 12.5 MG TAKE 1 TABLET BY MOUTH TWICE DAILY WITH FOOD/MEAL; Duration: 90 Active NIFEdipine ER Osmotic Release 30 MG TAKE 1 TABLET BY MOUTH DAILY; Duration: 90 Active SYRINGE 3CC 20G 1 USE ONCE A MONTH FOR B12 INJECTIONS; Duration: 90 days *Please review for potential replacement for e-prescription and drug interaction check* Active Dexcom G7 Cylinder Inspector - use for cgm; Duration: 30 days DX: E1105/18/2025 Active Losartan Potassium 25 MG TAKE 1 TABLET BY MOUTH DAILY; Duration: 90 Active Febuxostat 40 MG TAKE 1 TABLET BY MOUTH ONCE A DAY; Duration: 300 Active Dexcom G7 Sensor - use for cgm; Duration: 30 days DX: E1105/18/2025 Active Cyanocobalamin 1000 MCG/ML 1000 mcg intramuscularly once a month; Duration: 90 days Active Prasugrel HCl 10 MG as directed Orally daily Active Omeprazole 20 MG 1 cap(s) orally once a day; Duration: 90 days Active Aspirin 81 81 MG 1 tablet Orally Once a day Active Atorvastatin Calcium 40 MG 1 tablet Orally Once a day Active Mounjaro 10 MG/0.5ML 10 mg Subcutaneous once a week; Duration: 28 days 08/23/2025 Active Furosemide 40 MG 1 tablet Orally Once a day Active Immunizations Vaccine Route Administration Date Status Comme nts Fluzone High Dose IM Intramuscular 08/23/2025 Administered Social History Tobacco Use: Social History Observation Description Date Details (start date - stop date) Never Smoker NA - NA Smoking: Question Answer Notes Are you a: nonsmoker Problems Problem Type SNOMED Code ICD Code Onset Dates Problem Status W/U Status Risk Notes Problem Chronic pain (38088622) Other chronic pain (G89.29) Active confirmed Problem Cervical disc disorder (161058121) DDD (degenerative disc disease), cervical (M50.30) Active confirmed Problem Degeneration of intervertebral disc of lumbar region with discogenic back pain and lower extremity pain (M51.362) Active confirmed Vital Signs Temperature 97.5 degrees Fahrenheit 08/23/20 25 Blood pressure systolic 130 mm Hg 08/23/20 25 Blood pressure diastolic 60 mm Hg 025 Heart Rate 80 /min 08/23/2025 Height 5 ft 10 in in 08/23/2025 Weight 315 lbs 08/23/2025 BMI 45.19 kg/m2 08/23/2025 Encounters Encounter Location Date Provider Diagnosis [facility] [address] [facility] [address] [place] [address] 08/23/2025 Hannah Paz Type 2 diabetes mellitus with other specified complication E11.69 ; Stage 3b chronic kidney disease N18.32 ; Severe obesity (BMI >= 40) E66.01 ; Gouty arthritis M10.9 ; Chronic insomnia F51.04 ; B12 deficiency E53.8 ; Other chronic pain G89.29 ; DDD (degenerative disc disease), cervical M50.30 ; Degeneration of intervertebral disc of lumbar region with discogenic back pain and lower extremity pain M51.362 ; Bilateral impacted cerumen H61.23 and Encounter for immunization Z23 Assessments Encounter Date Diagnosis (ICD Code) Assessment Notes Treatment Notes Treatment Clinical Notes Section Notes 08/23/2025 Type 2 diabetes mellitus with other specified complication (ICD-10 - E11.69) encouraged compliance with annual eye exam, routine foot care, CC diet and activity as tolerated. discussed importance of good glucose control to prevent additional complications. We discussed need to monitor glucose, especially as he increases the dose of his Mounjaro and that he may decrease Toujeo dose to avoid hypoglycemia 08/23/2025 Stage 3b chronic kidney disease (ICD-10 - N18.32) avoid NSAIDS, stable on recent labs with GFR 51 08/23/2025 Severe obesity (BMI >= 40) (ICD-10 - E66.01) complicates all aspects of care 08/23/2025 Gouty arthritis (ICD-10 - M10.9) stable 08/23/2025 Chronic insomnia (ICD-10 - F51.04) stable 08/23/2025 B12 deficiency (ICD-10 - E53.8) anemia stable on recent labs, will repeat B12 level next visit 08/23/2025 Other chronic pain (ICD-10 - G89.29) poor candidate for NSAIDS. Tylenol ineffective per his report. Trial of gabapentin or lyrica...FLOYD requested. 08/23/2025 DDD (degenerative disc disease), cervical (ICD-10 - M50.30) 08/23/2025 Degeneration of intervertebral disc of lumbar region with discogenic back pain and lower extremity pain (ICD-10 - M51.362) 08/23/2025 Bilateral impacted cerumen (ICD-10 - H61.23) resolved 08/23/2025 Encounter for immunization (ICD-10 - Z23) Plan Of Treatment Medication Medication Name Sig Start Date Stop Date Notes Mounjaro 10 MG/0.5ML 10 mg Subcutaneous once a week; Duration: 28 days 08/23/2025 Mounjaro 7.5 MG/0.5ML ADMINISTER 7.5 MG UNDER THE SKIN 1 TIME A WEEK Pending Test Test Name Order Date M-Complete Blood Count Auto Diff 025 M-Comprehensive Metabolic Panel 08/23/20 25 M-Hemoglobin A1C 08/23/2025 M-Uric Acid 08/23/2025 M-Vitamin B12 08/23/2025 Next Appt Details Follow Up: 3 Months, Reason: Provider Name:Hannah Reeves ce, 11/29/2025 02:30:00 PM, [address], [place], [address], Progress Notes * Jonathan HILLOB:1960 ( 64 yo M)Acc No.[id number]:08/23/2025 Progress Notes Patient: New HUBBARD Provider: SAVANAH Don :1960 A ge:64 Y S ex:Male Date:08/23/2025 Address:[facility] [address], [place], [id number] Pcp:Tomi Cao Subjective: * Chief Complaints: * 1 . follow up, ears flushed. Something for pain. * HPI: g en: 64 yr old male with multiple medical problems presents to FU on chronic disease. Poorly compliant with FU but he reports compliance with the medications he has at home. Last visit was preparing for cervical spine surgery which has since been done in [place]. He reports tolerating surgery well and some minor improvement in upper extremity paresthesias but increasing diffuse pain which he reports as a deep ache, diffusely. He is still taking Mounjaro weekly and reports good glucose control. No hypoglycemia. Most recent A1C 5.9 prior to surgery. Does not have his meter with him today to review. He reports eye exam within the past 12 months, did get new glasses. Tolerating statin and low dose ARB. Denies new foot lesions but is wearing protective wraps today in an effort to prevent new lesions. * ROS: R ESPIRATORY: Shortness of breath y es, w orse with exertion, at baseline. n o C ough. C ARDIOLOGY: no C hest pain. n o P alpitations. L eg edema?yes. C ONSTITUTIONAL: no L oss of appetite. n o F ever. W eakness?yes. G ASTROENTEROLOGY: no V omiting. n o A bdominal pain. n o D iarrhea. C onstipation y es, i mproved now. M USCULOSKELETAL: back pain y es. N EUROLOGY: Tingling numbness y es, l ower extremities. ? U ROLOGY: no D ifficulty urinating. * Medical History: D iabetes, Vitamin B12 deficiency, HTN, Arthritis, Hepatitis B, Stage 3 kidney disease, Morbid obesity, CAD with stenting at [facility] March 2025. * Surgical History: S kin graft right heel 06/2016, Justin in left femur, screws in left hip , Left Elbow 02/20/24, Skin graft on Rt foot 05/2024, Heart Cath with Stent 03/2025, Upper back surgery 06/2025. * Hospitalization/Major Diagno stic Procedure: R [facility] heel wound and skin graft 06/2017, [facility] Transferred to [place] 02/14/24- 02/22/24, Upper back surgery 06/2025. * Family History: F ather: , arthritis. M other: , heart disease. P aternal Grand Father: . P aternal Grand Mother: . M aternal Grand Father: . M aternal Grand Mother: . P aternal aunt: alive. M aternal uncle: . M aternal aunt: . S iblings: alive, hx drug abuse, fibromyalgia, DJD, asthma, arthritis. 1 sister(s) . . * Social History: S moking A re you a: n onsmoker. R ecreational drug use: no. Exercise: no. Home smoke detector use: yes. Caffeine: yes, frequency:diet soda and tea. Living Will: Yes. Alcohol: no. Sexually active: yes. Travel outside [place]: no. 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 * Medications: T aking Furosemide 40 MG Tablet 1 tablet Orally Once a day , Taking Aspirin 81 81 MG Tablet Chewable 1 tablet Orally Once a day , Taking Atorvastatin Calcium 40 MG Tablet 1 tablet Orally Once a day , Taking Prasugrel HCl 10 MG Tablet as directed Orally daily , Taking Omeprazole 20 MG Capsule Delayed Release 1 cap(s) orally once a day , Taking Cyanocobalamin 1000 MCG/ML Solution 1000 mcg intramuscularly once a month , Taking SYRINGE 3CC 20G 1 USE ONCE A MONTH FOR B12 INJECTIONS , Notes to Pharmacist: *Please review for potential replacement for e-prescription and drug interaction check*, Taking Febuxostat 40 MG Tablet TAKE 1 TABLET BY MOUTH ONCE A DAY , Taking Dexcom G7 Sensor - Miscellaneous use for cgm , Notes to Pharmacist: DX: E11.69, Taking Dexcom G7 Cylinder Inspector - Device use for cgm , Notes to Pharmacist: DX: E11.69, Taking Losartan Potassium 25 MG Tablet TAKE 1 TABLET BY MOUTH DAILY , Taking NIFEdipine ER Osmotic Release 30 MG Tablet Extended Release 24 Hour TAKE 1 TABLET BY MOUTH DAILY , Taking Toujeo Max SoloStar 300 UNIT/ML Solution Pen-injector 30 units Subcutaneous daily , Taking Carvedilol 12.5 MG Tablet TAKE 1 TABLET BY MOUTH TWICE DAILY WITH FOOD/MEAL , Taking Mounjaro 7.5 MG/0.5ML Solution Auto-injector ADMINISTER 7.5 MG UNDER THE SKIN 1 TIME A WEEK , Discontinued traZODone HCl 50 MG Tablet TAKE 1 TABLET BY MOUTH EVERY NIGHT , Discontinued Valsartan 160 MG Tablet 1 tab(s) orally once a day , Discontinued Florastor 250 MG Capsule 1 cap(s) orally 2 times a day , Discontinued Famotidine 20 MG Tablet 1 tab(s) orally 1 time per day , Discontinued Methocarbamol 500 MG Tablet 1-2 tab(s) orally 4 times a day , Discontinued BD VALENTINO 2ND GEN PEN NEEDLE 4MM X 32G USE TWICE A DAY WITH INSULIN PEN , Notes to Pharmacist: *Please review for potential replacement for e-prescription and drug interaction check*, Discontinued Mounjaro 5 MG/0.5ML Solution Auto-injector as directed Subcutaneous , Medication List reviewed and reconciled with the patient * Allergies: L isinopril: nausea and diarrhea. Objective: * Vitals: N urse: KJ, Pain: 6, Temp: 97.5, RR: 20, HR: 80, BP: 130/60, Ht: 5 ft 10 in, Wt: 315, BMI:45.19. * Examination: G eneral Examination: General P leasant and Cooperative, NAD on RA, debilitated appearing, seated in WC. Oral cavity: M oist membranes. Heart: R egular Rate and Rhythm. HEENT: c erumen impaction bilat, cleared with irrigation and intact TM visualized bilat. Lungs: c lear to auscultation,. Abdomen: s oft, NT/ND, BS present. Neurologic Exam: A lert and oriented x 3. Extremities: m inimal soft edema of both lower extremities.? neck s upple,. Psych N ormal Mood/Affect. Assessment: * Assessment: 1. T ype 2 diabetes mellitus with other specified complication - E11.69 (Primary) ?2. S tage 3b chronic kidney disease - N18.32 3 . S evere obesity (BMI >= 40) - E66.01 4 . G outy arthritis - M10.9 5 . C hronic insomnia - F51.04 6 . B 12 deficiency - E53.8 7 . O ther chronic pain - G89.29 8 . D DD (degenerative disc disease), cervical - M50.30 ? 9 . D egeneration of intervertebral disc of lumbar region with discogenic back pain and lower extremity pain - M51.362 1 0. B ilateral impacted cerumen - H61.23 ? 1 1. E ncounter for immunization - Z23 Plan: * Treatment: 2. S tage 3b chronic kidney disease L AB: M-Complete Blood Count Auto Diff L AB: M-Comprehensive Metabolic Panel L AB: M-Hemoglobin A1C L AB: M-Uric Acid L AB: M-Vitamin B12 Clinical Notes: avoid NSAIDS, stable on recent labs with GFR 51 3. S evere obesity (BMI >= 40) Clinical Notes: complicates all aspects of care 4. G outy arthritis L AB: M-Complete Blood Count Auto Diff L AB: M-Comprehensive Metabolic Panel L AB: M-Hemoglobin A1C L AB: M-Uric Acid L AB: M-Vitamin B12 Clinical Notes: stable 5. C hronic insomnia Clinical Notes: stable 6. B 12 deficiency L AB: M-Complete Blood Count Auto Diff L AB: M-Comprehensive Metabolic Panel L AB: M-Hemoglobin A1C L AB: M-Uric Acid L AB: M-Vitamin B12 Clinical Notes: anemia stable on recent labs, will repeat B12 level next visit 7. O ther chronic pain Clinical Notes: poor candidate for NSAIDS. Tylenol ineffective per his report. Trial of gabapentin or lyrica...FLOYD requested. 8. B ilateral impacted cerumen Clinical Notes: resolved * Immunizations: Fluzone High Dose : 0.5 mL (Dose No:1) (Route: Intramuscular) given by SHRAVAN Quevedo on Left Deltoid * Procedure Codes: 9 0662 Influenza High Dose Vaccine >65 Years Old, G0008 ADMINISTRATION-FLU VACCINE MEDICARE ONLY, 05342 EAR IRRIGATION OTIC LAVAGE * Follow Up: 3 Months * * Sign off status: Completed true * Provider: SAVANAH Don Date: 10/23/2024 Generated for Karly billy/Lisa/Zullyitting on: 12/04/2024 04:55 PM EST History and Physical Notes * Examination Category Sub-Category Detail Notes Category Not es General Examination HEENT: cerumen impa ction bilat, cleared with irrigation and intact TM visualized bilat Heart: Regular Rate and Rhy thm Lungs: clear to auscultatio n, Abdomen: soft, NT/ND, BS pres ent Extremities: minimal soft edema o f both lower extremities Neurologic Exam: Alert and oriented x 3 Oral cavity: Moist membranes neck supple, General Pleasant and Coopera tive, NAD on RA, debilitated appearing, seated in WC Psych Normal Mood/Affect
--- OUTSIDE RECORDS SUMMARY | 2025-09-19 09:40 | XMS_ITS | Encounter Summary ---
Author Organization [facility] Address [address] [place] [address] Care Team Providers Care Sports Athletic Trainer Name Role Phone Cheo Cao MD Primary Care Provider [phone] Reason for Referral * Consultation (Routine) - Pending Review Specialty Diagnoses / Procedures Referred By Yash navarro Referred To Contact Physical Therapy Diagnoses Status post cervical spinal fusion Cici Dumont PA-C [address] [address] Phone: tel: fax: JOHANNA PT/OT JOHANNA will contact patient to schedule Phone: tel: fax: Referral ID Status Reason Start Date Expiration Date V isits Requested Visits Authorized [id number] Pending Review 09/19/2025 10/20/2026 1 1 Scheduling Instructions Please call [phone] Option 3 if you have any questions or scheduling needs. Encounter Details Date Type Department Care Team (Latest Contact Info) Description 09/19/2025 9:40 AM EST Office Visit [facility] Neurosurgery [address] [place] [address] [address] Cici Dumont PA-C [address] [address] Status post cervical spinal fusion (Primary Dx) Social History Tobacco Use Types Packs/Day Years Used Date Smoking Tobacco: Never Smokeless Tobacco: Never Alcohol Use Standard Drinks/Week Comments Not Currently 0 (1 standard drink = 0.6 oz pur e alcohol) Sex and Gender Information Value Date Recorded Sex Assigned at Not on file Legal Sex Male 7:29 AM EDT Gender Identity Not on file Sexual Orientation Not on file documented as of this encounter Last Filed Vital Signs Vital Sign Reading Time Taken Comments Blood Pressure 124/55 09/19/2025 9:47 AM EST Pulse 66 09/19/2025 9:47 AM EST Temperature - - Respiratory Rate - - Oxygen Saturation 99% 09/19/2025 9:47 AM EST Inhaled Oxygen Concentration - - Weight 145.2 kg (320 lb) 09/19/2025 9:47 AM EST stated Height 177.8 cm (5' 10 ) 09/19/2025 9:47 AM EST Body Mass Index 45.92 09/19/2025 9:47 AM EST documented in this encounter Functional Status * Are You Deaf or do You Have Serious Difficulty Hearing? Answer Date of Assessment Author No 07/02/2025 5:47 PM Patrick Rodriguez LPN * Do You Have Serious Difficulty Walking or Climbing Stairs? Answer Date of Assessment Author Yes 07/02/2025 5:47 PM Patrick Rodriguez LPN * Do You Have Difficulty Dressing or Bathing? Answer Date of Assessment Author Yes 07/02/2025 5:47 PM Patrick Rodriguez LPN * Because of a Physical, Mental, or Emotional Condition, Do You Have Serious Difficulty Concentrating, Remembering or Making a Decision? Answer Date of Assessment Author No 07/02/2025 5:47 PM Patrick Rodriguez LPN documented as of this encounter Mental Status * Because of a Physical, Mental or Emotional Problem, Do You Have Difficulty Doing Errands Alone Suchas Visiting a Doctor's Office or Shopping? Answer Entry Date Author No 07/02/2025 5:47 PM Patrick Rodriguez LPN documented in this encounter Progress Notes * Cici Dumont PA-C - 09/28/2025 12:34 PM EST NEUROSURGERY FOLLOW-UP VISIT [place] 1960 [id number] 09/19/2025 CHIEF COMPLAINT/HISTORY OF PRESENT ILLNESS [place] is a 65 yr/o male who presents to the office today for routine 3 month postop follow-ups/p ACDF C4-5 on 07/02/[address] Mcgarry. Patient is accompanied by a friend and is in a wheelchair today. He is doing about the same since his last visit with me on 08/01/2025. Remains largely wheelchair bound and states that he feels pretty much the same as he did before surgery. His preoperative BUE paresthesias remain the same. Patient states that his right hand is completely numb. He is also still having neck pain but this seems to be somewhat improved since his last visit. No longer taking the narcotic pain medication. We discussed that persistent paresthesias and weakness after surgery are common especially after having jail nerve compression prior to surgery. He is understanding of this. We will wait to investigate further with CT and/or MRI until after obtaining x-ray todayand trial of physical therapy/aquatic therapy. Since the last office visit the symptoms are the same. PAST MEDICAL HISTORY Past Medical History[1] PAST SURGICAL HISTORY Surgical History[2] ALLERGIES Allergies as of 09/19/2025 Review status set to Review Complete by Rama Madsen on 09/19/2025 No Known Allergies MEDICATIONS Current Outpatient Medications Medication Sig Dispense Refill aspirin (ASPIRIN 81) 81 MG EC tablet Take 1 tablet by mouth daily. atorvastatin (LIPITOR) 80 MG tablet Take 80 mg by mouth daily. carvedilol (COREG) 12.5 MG tablet Take 12.5 mg by mouth 2 (two) times daily with meals. Continuous Glucose Sensor (PharmAbcine G7 SENSOR) [facility]ED FOR CONTINOUS GLUCOSE MONITORING cyanocobalamin injection 1000 mcg intramuscularly once a week; Duration: 90 days cyclobenzaprine (FLEXERIL) 10 MG tablet Take 1 tablet by mouth every 8 (eight) hours. 90 tablet 0 DROPLET PEN NEEDLES 32G X 4 MM MISC famotidine (PEPCID) 20 MG tablet 1 tab(s) orally 1 time per day; Duration: 90 days Febuxostat 40 MG tablet Take 40 mg by mouth daily. furosemide (LASIX) 40 MG tablet daily. losartan (COZAAR) 25 MG tablet Take 25 mg by mouth daily. methocarbamol (ROBAXIN) 500 MG tablet every 6 (six) hours. MOUNJARO 2.5 MG/0.5ML auto injector Inject 2.5 mg into the skin once a week. MOUNJARO 7.5 MG/0.5ML Auto-injector Inject 7.5 mg into the skin once a week. NIFEdipine (PROCARDIA XL) 30 MG 24 hr tablet Take 30 mg by mouth daily TAKING 1/2 OF 30MG PILL . omeprazole (PRILOSEC) 20 MG capsule Take 20 mg by mouth daily. omeprazole (PRILOSEC) 40 MG capsule Take 40 mg by mouth daily. prasugrel (EFFIENT) 10 MG tablet Take 10 mg by mouth daily. saccharomyces boulardii (FLORASTOR) 250 MG capsule every 12 (twelve) hours. TOUJEO MAX SOLOSTAR 300 UNIT/ML EULALIA PEN Inject 25 Units into the skin 2 (two) times daily. TOUJEO SOLOSTAR 300 UNIT/ML EULALIA PEN every 12 (twelve) hours. traZODone (DESYREL) 50 MG tablet Take 50 mg by mouth nightly. valsartan (DIOVAN) 160 MG tablet daily. No current facility-administered medications for this visit. IMMUNIZATIONS Immunization History Name Date COVID-19 Martina JACOBO Ages 12 and Older 07/09/2021 COVID-19 [facility] DONNELL Ages 12 and Older 06/18/2021 Influenza Vaccine Quadrivalent Pf 07/01/2016 Influenza Vaccine Quadrivalent W/ Preservative 07/16/2017 Influenza Vaccine Tri High Dose 65+ PF 07/03/2025 Pneumococcal Polysaccharide 23 07/02/2016 Zoster Recombinant (Shingrix) 07/31/2021 FAMILY HISTORY History - Family[3] SOCIAL HISTORY Tobacco Use History[4] Social History Substance and Sexual Activity Alcohol Use Not Currently REVIEW OF SYSTEMS Negative for fever/chills. Negative for nausea, vomiting or diarrhea. Negative for chest pain and shortness of breath. VITAL SIGNS BP 124/55 (BP Location: Left arm, Orthostatic Position: Sitting) Pulse 66 Ht 5' 10 (177.8 cm) Wt (!) 145.2 kg (320 lb) SpO2 99% BMI 45.92 kg/m?? EXAM Constitutional: no apparent distress at time of the exam. Mental Status: The patient is awake, alert, oriented to person, place, and time. There is no dysarthria. Motor: Tone was normal in all four extremities without fasciculations, atrophy, or myoclonus. Therewere no abnormal movements. Strength was intact in bilateral upper and lower extremities. Sensory: Intact to light touch throughout. Cerebellar: There was no dysmetria. Fine motor coordination was intact. Gait: Wheelchair Incision: Clean, dry, and intact. Healing well REVIEW OF DIAGNOSTIC DATA XR of the cervical spine obtained today shows expected postop changes of ACDF C4-5 with no evidenceof hardware failure. Radiologist notes mild lucency around the C4 screws representing possible early loosening. ASSESSMENT Status post ACDF with continued bilateral paresthesias and weakness PLAN XR obtained today was personally reviewed. There are expected postop changes and no evidence of hardware failure No longer has postop restrictions Will place referral to [facility] in [place] or [facility] to work on strengthening and mobility. I believe he would also benefit from aquatic therapy If pain, paresthesias, and weakness persist we can consider CT and/or MRI of the cervical spine at his next appointment Follow Up 3 months Medical Coding Narrative: I personally spent 30 minutes in the care of this patient. This time included previsit chart review, previsit review of relevant imaging studies, interviewing the patient, physical exam, discussion of treatment options, initiation of treatment plan, final review of the patient's condition and dictation of the patient's office note. Cici Dumont PA-C 12:34 PM 09/28/2025 [1] Past Medical History: Diagnosis Date Aortic regurgitation Arthritis CAD (coronary artery disease) CHF (congestive heart failure) Chronic kidney disease Diabetes mellitus Gout Hypertension Mitral regurgitation Morbid obesity with BMI of 40.0-44.9, adult MRSA infection ELBOW Neuropathy Poor balance Spinal stenosis of cervical region 09/2024 [2] Past Surgical History: Procedure Laterality Date CORONARY ANGIOPLASTY WITH STENT PLACEMENT 03/2025 OSMANY to mid LAD ELBOW SURGERY Left 2023 I&D, MRSA INFECTION FRACTURE SURGERY Left LEFT FEMUR SKIN GRAFT Right 07/2024 foot, heel [3] No family history on file. [4] Social History Tobacco Use Smoking Status Never Smokeless Tobacco Never documented in this encounter Plan of Treatment Upcoming Encounters Date Type Department Care Team (Late st Contact Info) Description 12/19/2025 10:20 AM EST Office Visit [facility] Neurosurgery 3 [facility] [address] [address] Cici Dumont PA-C 3 [facility] [address] [address] Scheduled Referrals Name Type Priority Associated Diagnoses Order Schedule Ambulatory Referral to Physical Therapy Outpatient Referral Routine Status post cervical spinal fusion Ordered: 09/19/2025 documented as of this encounter Procedures Procedure Name Priority Date/Time Associated Diagnosis Comments XR C SPINE AP & LAT Routine 09/19/2025 1 1:12 AM EST Status post cervical spinal fusion documented in this encounter Results * XR C Spine Ap & Lat (09/19/2025 11:12 AM EST) [facility] RAD WORKSTATION ID [id number] [facility] Anatom[facility] Laterality Modality C-spine [facility] Radiographic Imaging 09/19/2025 12:0 1 PM EST Narrative 09/19/2025 12:06 PM EST RE[facility]ING YOUR TEST RESULTS [facility] A [facility] FOR DISCUSSING THOSE RESULTS WITH YOUR HEALTH CARE PROVIDER. PLEASE CONTACT YOUR PROVIDER [facility] TO DISCUSS ANY QUESTIONS OR CONCERNS YOU MAY HAVE REGARDING THESE TEST RESULTS. RADIOLOGY REPORT FACILITY: [facility] UNIT/AGE/GENDER: D.RAD OP AGE:65 Y SEX:M PATIENT NAME/: [place] 1960 UNIT NUMBER: [id number] ACCESSION NUMBER: [id number] EXAMINATION: XR C SPINE AP AND LAT HISTORY: evaluate cervical fusion FINDINGS: 2 views of the cervical spine are submitted. There are interval postsurgical changes of anterior disc osteophyte resection as well as anterior cervical discectomy and interbody fusion C4-C5. Lucency is noted about the C4 screws on lateral view. There is mild anterolisthesis of C4 on C5, similar to prior MRI January 10, 2024. Long flowing anterior cervical disc osteophyte complexes are noted in C2-C4. There are degenerative changes at the atlantoaxial interval. Multilevel facet and uncovertebral joint osteoarthritis noted. IMPRESSION: 1.Postoperative changes of anterior cervical disc osteophyte resection with anterior cervical discectomy and interbody fusion C4-C5. Mild lucency seen about the C4 screws possibly representing early loosening, continued attention on follow-up examinations is recommended. 2.Mild anterolisthesis of C4 on C5 similar to preoperative MRI January 10, 2024. Dictated by: Damien Ariza M.D. Images and Report reviewed and interpreted by: Damien Ariza M.D. <PS><Electronically signed by: Damien Ariza M.D.> 09/19/2025 1205 1201 1201 Procedure Note Damien Ariza MD - 09/19/2025 REVIEWING YOUR TEST RESULTS IN [facility] IS NOT A SUBSTITUTE FORDISCUSSING THOSE RESULTS WITH YOUR HEALTH CARE PROVIDER. PLEASE CONTACT YOUR PROVIDER VIA [facility] TO DISCUSS ANY QUESTIONS ORCONCERNS YOU MAY HAVE REGARDING THESE TEST RESULTS. RADIOLOGY REPORT FACILITY: [facility] UNIT/AGE/GENDER: DZhengRAD OP AGE:65 Y SEX:M PATIENT NAME/: [place] 1960 UNIT NUMBER: [id number] ACCESSION NUMBER: [id number] EXAMINATION: XR C SPINE AP AND LAT HISTORY: evaluate cervical fusion FINDINGS: 2 views of the cervical spine are submitted. There are interval postsurgical changes of anterior disc osteophyte resection as well as anterior cervical discectomy and interbody fusion C4-C5. Lucency is noted about the C4 screws on lateral view. There is mild anterolisthesis of C4 on C5, similar to prior MRI January 10, 2024. Long flowing anterior cervical disc osteophyte complexes are noted in C2-C4. There are degenerative changes at the atlantoaxial interval. Multilevel facet and uncovertebral joint osteoarthritis noted. IMPRESSION: 1.Postoperative changes of anterior cervical disc osteophyte resection with anterior cervical discectomy and interbody fusion C4-C5. Mild lucency seen about the C4 screws possibly representing early loosening, continued attention on follow-up examinations is recommended. 2.Mild anterolisthesis of C4 on C5 similar to preoperative MRI January 10, 2024. Dictated by: Damien Ariza M.D. Images and Report reviewed and interpreted by: Damien Ariza M.D. <PS><Electronically signed by: Damien Ariza M.D.> 09/19/2025 1205 1201 1201 us Cici Dumont PA-C IMG DIAGNOSTIC IMAGING ORD ERABLES Final Result documented in this encounter Visit Diagnoses Diagnosis Status post cervical spinal fusion- Primary Arthrodesis status documented in this encounter Additional Health Concerns Assessment Noted Time A fall risk assessment has been complete d for the patient 09/19/2025 9:43 AM EST documented as of this encounter Care Teams Sports Athletic Trainer Relationship Specialty Start Date End Date Cheo Cao MD [address] [place] [address] PCP - General Internal Medicine 12/12/24 documented as of this encounter
--- OUTSIDE RECORDS SUMMARY | 2025-09-19 10:30 | XMS_ITS | Encounter Summary ---
Author Organization [facility] Address [address] [place] [address] Care Team Providers Care Internal Salesperson Name Role Phone Cheo Cao MD Primary Care Provider [phone] Encounter Details Date Type Department Care Team (Latest Contact Info) Description 09/19/2025 10:30 AM EST - 09/19/2025 11:59 PM [facility] Hospital Encounter AUD Radiology [address] [place] [address] Cici Dumont PA-C 3 [facility] [address] [place] [address] Discharge Disposition: Home or Self Care Social History Tobacco Use Types Packs/Day Years [...] on file documented as of this encounter Functional Status * Are You Deaf or do You Have Serious Difficulty Hearing? Answer Date of Assessment Author No 07/02/2025 5:47 PM EDT Patrick Hidalgo LPN * Do You Have Serious Difficulty Walking or Climbing Stairs? Answer Date of Assessment Author Yes 07/02/2025 5:47 PM EDT Patrick Hidalgo LPN * Do You Have Difficulty Dressing or Bathing? Answer Date of Assessment Author Yes 07/02/2025 5:47 PM EDT Patrick Hidalgo LPN * Because of a Physical, Mental, or Emotional Condition, Do You Have Serious Difficulty Concentrating, Remembering or Making a Decision? Answer Date of Assessment Author No 07/02/2025 5:47 PM EDT Chica Hidalgo LPN documented as of this encounter Mental Status * Because of a Physical, Mental or Emotional Problem, Do You Have Difficulty Doing Errands Alone Suchas Visiting a Doctor's Office or Shopping? Answer Entry Date Author No 07/02/2025 5:47 PM EDT Patrick Hidalgo LPN documented in this encounter Medications at Time of Discharge aspirin (ASPIRIN 81) 81 MG EC tablet Take 1 tablet by mouth daily. 07/07/2025 atorvastatin (LIPITOR) 80 MG tablet Take 80 mg by mouth daily. carvedilol (COREG) 12.5 MG tablet Take 12.5 mg by mouth 2 (two) times daily with meals. Continuous Glucose Sensor (Familytic G7 SENSOR) [facility] USE DIRECTED FOR CONTINOUS GLUCOSE MONITORING cyanocobalamin injection 1000 mcg intramuscularly once a week; Duration: 90 days 03/13/2025 cyclobenzaprine (FLEXERIL) 10 MG tablet Take 1 tablet by mouth every 8 (eight) hours. 90 tablet 07/04/2025 11:15 AM EDT 07/04/2025 DROPLET PEN NEEDLES 32G X 4 MM [facility] 06/25/2025 famotidine (PEPCID) 20 MG tablet 1 tab(s) orally 1 time per day; Duration: 90 days 03/24/2024 Febuxostat 40 MG tablet Take 40 mg by mouth daily. furosemide (LASIX) 40 MG tablet daily. losartan (COZAAR) 25 MG tablet Take 25 mg by mouth daily. 12/20/2024 methocarbamol (ROBAXIN) 500 MG tablet every 6 (six) hours. 03/04/2024 MOUNJARO 2.5 MG/0.5ML auto injector Inject 2.5 mg into the skin once a week. 12/22/2024 MOUNJARO 7.5 MG/0.5ML Auto-injector Inject 7.5 mg [...] UNIT/ML EULALIA PEN every 12 (twelve) hours. 05/12/2024 traZODone (DESYREL) 50 MG tablet Take 50 mg by mouth nightly. valsartan (DIOVAN) 160 MG tablet daily. documented as of this encounter Plan of Treatment Upcoming Encounters Date Type Department Care Team (Late st Contact Info) Description 12/19/2025 10:20 AM EST Office Visit [facility] Neurosurgery [address] [address] Cici Dumont PA-C [address] [address] documented as of this encounter Procedures Procedure Name Priority Date/Time Associated Diagnosis Comments XR C SPINE AP & LAT Routine 09/19/2025 1 1:12 AM EST Status post cervical spinal fusion documented in this encounter Results * XR C Spine Ap & Lat (09/19/2025 11:12 AM EST) [facility] RAD WORKSTATION ID [id number] [place] [facility] Anatomical Region Laterality Modality C-spine [facility] Radiographic Imaging 09/19/2025 12:0 1 PM EST Narrative 09/19/2025 12:06 PM EST REVIEWING YOUR TEST RESULTS IN [facility] FOR DISCUSSING THOSE RESULTS WITH YOUR HEALTH CARE PROVIDER. PLEASE CONTACT YOUR PROVIDER VIA [facility] TO DISCUSS ANY QUESTIONS OR CONCERNS YOU MAY HAVE REGARDING THESE TEST RESULTS. RADIOLOGY REPORT FACILITY: [facility] UNIT/AGE/GENDER: DZhengRAD OP AGE:65 Y SEX:M PATIENT NAME/: [place] 1960 UNIT NUMBER: [id number] ACCESSION NUMBER: [id number] EXAMINATION: XR C SPINE AP AND LAT [...] - 09/19/2025 REVIEWING YOUR TEST RESULTS IN [facility] IS NOT A SUBSTITUTE FORDISCUSSING THOSE RESULTS WITH YOUR HEALTH CARE PROVIDER. PLEASE CONTACT YOUR PROVIDER VIA [facility] TO DISCUSS ANY QUESTIONS ORCONCERNS YOU MAY HAVE REGARDING THESE TEST RESULTS. RADIOLOGY REPORT FACILITY: [facility] UNIT/AGE/GENDER: DZhengRAD OP AGE:65 Y SEX:M PATIENT NAME/: [place] 1960 UNIT NUMBER: [id number] ACCESSION NUMBER: [id number] EXAMINATION: XR C SPINE AP AND LAT [...] Damien Ariza M.D.> 09/19/2025 1205 1201 1201 Cici Dumont PA-C IMG DIAGNOSTIC IMAGING ORD ERABLES Final Result documented in this encounter Visit Diagnoses Not on filedocumented in this encounter Additional Health Concerns Assessment Noted Time A fall risk assessment has been complete d for the patient 09/19/2025 9:43 AM EST documented as of this encounter Care Teams Internal Salesperson Relationship Specialty Start Date End Date Cheo Cao MD [address] [place] [address] PCP - General Internal Medicine 12/12/24 documented as of this encounter
[2025-10-03 16:33] LABS: Hematocrit 39.2 % (42.0-52.0); Hemoglobin 12.4 g/dL (14.1-18.0); Immature Granulocytes % 0.3 %; Mean Corpuscular HGB Conc 31.6 g/dL (31.8-35.4); Mean Corpuscular Hemoglobin 28.1 pg (27.0-31.2); Mean Corpuscular Volume 88.7 fl (80-94); Nucleated Red Blood Cells % 0 %; Platelet Count 165 K/mm3 (142-424); Red Blood Count 4.42 M/mm3 (4.60-6.20); Red Cell Distribution Width-SD 44.9 fL; White Blood Count 5.9 K/mm3 (4.8-10.8)
--- OUTSIDE RECORDS SUMMARY | 2025-10-03 16:54 | XMS_ITS | Data Portability ---
Author Organization [facility] [place] ALFONZO LoboS PRINCESS ANNE CLOSED Address [address] [place] [address] Care Team Providers Care Cafeteria Team Leader Name Role Phone DARRELL VAIL Primary Care Provider [phone] Assessment No assessment recorded. Plan of Treatment [...] Name and Address Organization Details Recorded Time Chronic ulcer of heel 72910421438 816351 Active 2015 From Automated Load;Prov ider: Ismael Johnson;Sta tus: Active Not Available [facility] 7 02:37:13 Chronic ulcer of midfoot 18162274559 500278 Active 2015 From Automated Load;Prov ider: Ismael Johnson;Sta tus: Active Not Available [facility] 7 02:37:13 Type 2 diabetes mellitus without complicat ion 996156709 Active 2015 From Automated Load;Prov ider: Ismael Johnson;Sta tus: Active Not Available [facility] 7 06:21:43 Hypertens jersey disorder 29125157 Active 2015 From Automated Load;Prov ider: Ismael Johnson;Sta tus: Active Not Available [facility] 7 06:39:45 Celluliti s of lower limb 068517604 Active 2015 From Automated Load;Prov ider: Ismael Johnson;Sta tus: Active Not Available [facility] 7 07:11:07 Non-press ure ulcer lower limb Active 2015 From Automated Load;Prov ider: Ismael Johnson;Sta tus: Active Not Available [facility] 7 02:37:13 Obesity 021044114 Active 2015 From Automated Load;Prov ider: Ismael Johnson;Sta tus: Active Not Available [facility] 7 07:52:08 Acute renal impairmen t Active 2015 From Automated Load;Prov ider: Melani Bennett;Stat us: Active Not Available [facility] 7 06:04:19 Hyperkale nehemias 67986704 Active 2015 From Automated Load;Prov ider: Rubi Art;Sta tus: Active Not Available [facility] 7 06:39:45 Kidney disease 49454619 Active 2015 From Automated Load;Prov ider: Rubi Art;Sta tus: Active Not Available [facility] 7 06:21:44 Pyrexia of unknown origin 4268620 Active 2015 From Automated Load;Prov ider: Rubi Art;Sta tus: Active Not Available [facility] 7 07:21:05 Psychotic disorder 50900665 Active 2015 From Automated Load;Prov ider: Rubi Art;Sta tus: Active Not Available [facility] 7 02:37:13 Vomiting 966970987 Active 2015 From Automated Load;Prov ider: Rubi Art;Sta tus: Active Not Available [facility] 7 02:44:52 Blood leukocyte number above reference range 906245458 Active 2015 From Automated Load;Prov ider: Rubi Art;Sta tus: Active Not Available [facility] 7 06:04:19 Abdominal pain 77759777 Active 2015 From Automated Load;Prov ider: Rubi Art;Sta tus: Active Not Available [facility] 7 06:51:53 Transient cerebral ischemia 109258220 Active 2015 From Automated Load;Prov ider: Rubi Art;Sta tus: Active Not Available [facility] 7 02:37:13 Chest pain 78105233 Active 2015 From Automated Load;Prov ider: Rubi Art;Sta tus: Active Not Available [facility] 7 06:51:53 Problem Notes None recorded. Medical Equipment None [...] Updated DateTime 03/03/2024 180.34 cm 41.8 kg/m2 990001.71 g 1 Katie Quiros [facility] 03/03/2024 09:37:35 Date Recorded Body height Body mass index (BMI) Body weight Pain severity - 0-10 verbal numeric rating [Score] - Reported Provider Name and Address Organization Details Last Updated DateTime 03/17/2024 180.34 cm 41.8 kg/m2 185142.71 g 1 Mary Seals [facility] 03/17/2024 09:51:23 Social History None recorded. Functional Status None recorded. Mental Status None recorded. Family History Nothing Reported. Medical History No medical history recorded. Past Encounters Encounter ID Performer Location Encounter Start Date Encounter Closed Date Diagnosis/Indication Diagnosis SNOMED-CT Code Diagnosis ICD10 Code Diagnosis IMO Codes Diagnosis Note [id number] LEANDRO TYALOR MD SURGERY SCHEDULE [address] [place] [address] 02/21/2024 09:38:47 02/21/2024 09:39:59 Infection of olecranon bursa of left elbow [id number] 971159 M71.122 [id number] MAGALI GORDILLO PA-C [facility] [address] [place] [address] 03/03/2024 09:19:51 03/03/2024 10:41:07 Postoperative care [id number] Z48.89 Assessment : Status 2 weeks post [...] 2 weeks for recheck of the incision. [id number] MAGALI GORDILLO PA-C [facility] [address] [place] [address] 03/17/2024 09:44:30 03/17/2024 10:05:56 Postoperative care [id number] Z48.89 Assessment : Status 3.5 weeks post [...] Maloney Member ID Guarantor Name 05/31/2024 1 HELEN-VARSHA: IRAJ CERVANTES OF [facility] [place] [employer] (MEDICARE REPLACEMENT HMO) [id number] [place] [id number] [place] Notes Date Note Type [...] this time. MAGALI GORDILLO PA-C [address] [place], [address], [facility] 03/03/2024 11:17:06 03/17/2024 text/html Patient comes in [...] manageable at this time. MAGALI GORDILLO PA-C [address] [place], [address], [facility] 03/17/2024 10:14:34
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
--- OUTSIDE RECORDS SUMMARY | 2025-10-03 16:54 | XMS_ITS | Encounter Summary ---
Author Organization [facility] Address [address] [place] [address] Care Team Providers Care Registered Land Surveyor Name Role Phone Cheo Cao MD Primary Care Provider [phone] Encounter Details Date Type Department Care Team (Late st Contact Info) Description 08/27/2025 Results Follow-Up AUD Pre Admission Testing [address] [place] [address] Mini Edwards Toxicology Screen, urine Social History Tobacco Use Types Packs/Day Years [...] 5:47 PM EDT Patrick Hidalgo LPN documented as of this encounter Mental Status * Because of a Physical, Mental or Emotional Problem, Do You Have Difficulty Doing Errands Alone Suchas Visiting a Doctor's Office or Shopping? Answer Entry Date Author No 07/02/2025 5:47 PM EDT Patrick Hidalgo LPN documented in this encounter Plan of Treatment Upcoming Encounters Date Type Department Care Team (Late st Contact Info) Description 12/19/2025 10:20 AM EST Office Visit [facility] Neurosurgery 3 [facility] [address] [address] Cici Dumont PA-C 3 [facility] [address] [address] documented as of this encounter Visit Diagnoses Not on filedocumented in this encounter Care Teams Registered Land Surveyor Relationship Specialty Start Date End Date Cheo Cao MD [address] [place] [address] [place] [address] PCP - General Internal Medicine 12/12/24 documented as of this encounter
--- OUTSIDE RECORDS SUMMARY | 2025-10-03 16:54 | XMS_ITS | Clinical Summary ---
Author Organization [facility] Address [address] [place] [address] Care Team Providers Care Metal Trim Erector Name Role Phone Cheo Cao MD Primary Care Provider [phone] Allergies No known active allergies Medications losartan (COZAAR) 25 MG tablet Take 25 mg by mouth daily. 12/21/19 25 Active NIFEdipine (PROCARDIA XL) 30 MG 24 hr tablet Take 30 mg by mouth daily TAKING 1/2 OF 30MG PILL . Active carvedilol (COREG) 12.5 MG tablet Take 12.5 mg by mouth 2 (two) times daily with meals. Active Febuxostat 40 MG tablet Take 40 mg by mouth daily. Active TOUJEO SOLOSTAR 300 UNIT/ML EULALIA PEN every 12 (twelve) hours. 05/12/20 24 Active MOUNJARO 2.5 MG/0.5ML auto injector Inject 2.5 mg into the skin once a week. 12/23/19 25 Active omeprazole (PRILOSEC) 40 MG capsule Take 40 mg by mouth daily. Active prasugrel (EFFIENT) 10 MG tablet Take 10 mg by mouth daily. Active atorvastatin (LIPITOR) 80 MG tablet Take 80 mg by mouth daily. Active aspirin (ASPIRIN 81) 81 MG EC tablet Take 1 tablet by mouth daily. 07/07/20 25 Active cyclobenzaprin e (FLEXERIL) 10 MG tablet Take 1 tablet by mouth every 8 (eight) hours. 90 tablet 5 11:15 AM EDT 07/04/20 25 Active Continuous Glucose Sensor (DEXCOM G7 SENSOR) MISC USE DIRECTED FOR CONTINOUS GLUCOSE MONITORING Active cyanocobalamin injection 1000 mcg intramuscularly once a week; Duration: 90 days 03/13/20 25 Active famotidine (PEPCID) 20 MG tablet 1 tab(s) orally 1 time per day; Duration: 90 days 03/24/20 24 Active furosemide (LASIX) 40 MG tablet daily. Active DROPLET PEN NEEDLES 32G X 4 MM [facility] 06/25/20 25 Active methocarbamol (ROBAXIN) 500 MG tablet every 6 (six) hours. 03/04/20 24 Active saccharomyces boulardii (FLORASTOR) 250 MG capsule every 12 (twelve) hours. Active valsartan (DIOVAN) 160 MG tablet daily. Active TOUJEO MAX SOLOSTAR 300 UNIT/ML EULALIA PEN Inject 25 Units into the skin 2 (two) times daily. Active omeprazole (PRILOSEC) 20 MG capsule Take 20 mg by mouth daily. Active MOUNJARO 7.5 MG/0.5ML Auto-injector Inject 7.5 mg into the skin once a week. Active traZODone (DESYREL) 50 MG tablet Take 50 mg by mouth nightly. Active celecoxib (CELEBREX) 100 MG capsule Take 100 mg by mouth 2 (two) times daily. 04/10/20 24 024 Discontin ued(Disch arged) bumetanide (BUMEX) 1 MG tablet Take 1 mg by mouth as needed. 025 Discontin ued(Disch arged) potassium chloride (KLOR-CON) 20 MEQ packet Take 20 mEq by mouth as needed. 025 Discontin ued(Disch arged) Active Problems Problem Noted Date Diagnosed Date Chronic systolic heart failure 07/03/2025 Diabetes mellitus with neuropathy 07/03/2025 Gastroesophageal reflux disease 07/03/2025 Morbid obesity 07/03/2025 Stage 3b chronic kidney disease 07/03/2025 Diabetes mellitus, type 2 07/03/2025 DDD (degenerative disc disease), cervical 2024 Cervical spondylosis 12/01/2024 Spinal stenosis in cervical region 2024 CAD (coronary artery disease) 05/23/2024 Cervical stenosis of spinal canal 05/02/2024 Essential hypertension 06/30/2016 Overview (07/03/2025): From Automated Load;Provider: Ismael Johnson;Status: Active Encounters Date Type Department Care Team Description 09/19/2025 10:30 AM EST - 09/19/2025 11:59 PM EST Hospital Encounter AUD Radiology [address] [place] [address] Cici Dumont PA-C Discharge Disposition: Home or Self Care 09/19/2025 9:40 AM EST Office Visit [facility] Neurosurgery 3 [facility] [address] [address] Cici Dumont PA-C Status post cervical spinal fusion (Primary Dx) 08/27/2025 Results Follow-Up AUD Pre Admission Testing [address] [place] [address] Mini Edwards Toxicology Screen, urine 08/01/2025 1:40 PM EDT Office Visit [facility] 3 [facility] [address] [address] Cici Dumont PA-C Status post cervical spinal fusion (Primary Dx) 07/02/2025 5:40 AM EDT - 07/04/2025 1:29 PM EDT Hospital Encounter AUD [facility] Neu[facility] [address] [place] [address] Mychal Mcgarry MD Cervical stenosis of spinal canal (Primary Dx); Cervical spondylosis Discharge Disposition: Home-Health Care Svc from Last 3 Months Immunizations Immunization Administration Dates Next Due COVID-19 Pfizer PURPLE Ages 12 and Older 021,06/18/2021 Influenza Vaccine Quadrivalent Pf 07/01/2016 Influenza Vaccine Quadrivalent W/ Preservative 0 07/16/2017 Influenza Vaccine Tri High Dose 65+ PF Pneumococcal Polysaccharide 23 07/02/2016 Zoster Recombinant (Shingrix) 07/31/2021 Social History Tobacco Use Types Packs/Day Years [...] on file Sexual Orientation Not on file Last Filed Vital Signs Vital Sign Reading Time Taken Comments Blood Pressure 124/55 09/19/2025 9:47 AM EST Pulse 66 09/19/2025 9:47 AM EST Temperature 37.2 C (99 F) 07/04/2025 8:10 AM EDT Respiratory Rate 18 07/04/2025 8:10 AM EDT Oxygen Saturation 99% 09/19/2025 9:47 AM EST Inhaled Oxygen Concentration - - Weight 145.2 kg (320 lb) 09/19/2025 9:47 AM EST stated Height 177.8 cm (5' 10 ) 09/19/2025 9:47 AM EST Body Mass Index 45.92 09/19/2025 9:47 AM EST Plan of Treatment Upcoming Encounters Date Type Department Care Team (Late st Contact Info) Description 12/19/2025 10:20 AM EST Office Visit [facility] 3 [facility] [address] [address] Cici Dumont PALayneC 3 [facility] [address] [address] Health Maintenance Due Date Last Done Comments CT Colonography 1960 Colonoscopy 1960 Colorectal Cancer Screening 1960 FIT-DNA 1960 FIT 1960 FOBT 1960 Hepatitis C Screening 1960 Sigmoidoscopy 1960 Tdap/Td Vaccine >11 yo (1 - Tdap) 1977 RSV 50+ and (1 - Risk 50-74 years 1-dose series) 2008 Pneumococcal Vaccines >50 yo (2 of 2 - PCV) 07/02/2017 07/02/2016 Shingles (Shingrix) (2 of 2) 09/25/2021 07/31/2021 Abdominal Aortic Aneurysm (AAA) Screen 2023 Annual SDOH Screening 10/18/2024 Medicare Advantage Annual Wellness Visit (AWV) 10/18/2024 Diabetic Eye Exam 07/03/2025 Diabetic Foot Exam 07/03/2025 Diabetic Lipid Panel 07/03/2025 Diabetic Presence of Metformin 07/03/2025 Diabetic Hemoglobin A1C 12/20/2025 06/22/2025, 12/14 Diabetic Creatinine Level 07/02/2026 07/02/2025, 02/2025 Diabetic Presence of Statin Completed 06/20/2025 Diabetic ACEI/ARB For Patients with CKD or Hypertension Completed 08/01/2025 Influenza Vaccine Completed 08/23/2025, , 07/16/2017, Additional history exists Haemophilus Influenzae Type B (Hib) Vaccine Aged Out No longer eligible based on patient's age to complete this topic Hepatitis A (HepA) Vaccine Aged Out N o longer eligible based on patient's age to complete this topic Hepatitis B (HepB) Vaccine Aged Out N o longer eligible based on patient's age to complete this topic Meningococcal ACWY Aged Out No longer eligible based on patient's age to complete this topic Polio (IPV) Aged Out No longer eligi ble based on patient's age to complete this topic Rotavirus (RV) Vaccine Aged Out No lo nger eligible based on patient's age to complete this topic Medical Devices Implanted Type Area Alteration Inspector Device Identifier Shelf Expiration Date Model / Serial / Lot Graft Bone Matrix Sm [id number] - [id number] Implanted:Qt y: 1 on 07/02/2025 by Mychal Mcgarry MD at [facility] Bone N/A: Spine Cervical [employer]ET [id number] 06/04/2026 [id number] / 2026-06-04 / Cage 8 [id number] - [id number] Implanted:Qt y: 1 on 07/02/2025 by Mychal Mcgarry MD at [facility] Cages N/A: Spine Cervical [employer] 03/20/2030 [id number] / / [id number] Kit Sealant Surgiflo Mtrx 2994 - [id number] Implanted:Qt y: 2 on 07/02/2025 by Mychal Mcgarry MD at [facility] Grafts N/A: Spine Cervical [employer] 10/17/2026 [id number] / / [id number] Patch Allograft Dual Layer Ol 3x5cm [id number] - [id number] Implanted:Qt y: 1 on 07/02/2025 by Mychal Mcgarry MD at [facility] Grafts N/A: Spine Cervical [employer] 04/27/2028 [id number] / [id number] / Matrix Matristem 500 [id number] - [id number] Implanted:Qt y: 1 on 07/02/2025 by Mychal Mcgarry MD at [facility] Mesh N/A: Spine Cervical [employer] [id number] 12/15/2026 [id number] / [id number] / Plate [place] 12 [id number] - [id number] Implanted:Qt y: 1 on 07/02/2025 by Mychal Mcgarry MD at [facility] Plates N/A: Spine Cervical [employer] [id number] / / Screw 14mm [id number] - [id number] Implanted:Qt y: 4 on 07/02/2025 by Mychal Mcgarry MD at [facility] Screws, Bolts and Washers N/A: Spine Cervical [employer] [id number] / / Procedures Procedure Name Priority Date/Time Associated Diagnosis Comments XR C SPINE AP & LAT Routine 09/19/2025 1 1:12 AM EST Status post cervical spinal fusion GLUCOSE-GLUCOMETER Routine 07/04/2025 11 :14 AM EDT GLUCOSE-GLUCOMETER Routine 07/04/2025 7: 29 AM EDT BASIC METABOLIC PANEL (BMP) STAT 07/02/2025 6:38 AM EDT HEMOGLOBIN A1C Routine 06/22/2025 2:38 PM EDT Cervical stenosis of spinal canal from Last 3 Months or Most Recently Relevant to Health Maintenance Results * XR C Spine Ap & Lat (09/19/2025 11:12 AM EST) [facility] RAD WORKSTATION ID [id number] [facility] Anatom[facility] Laterality Modality C-spine [facility] Radiographic Imaging 09/19/2025 12:0 1 PM EST Narrative 09/19/2025 12:06 PM EST REVIEWING YOUR TEST RESULTS IN [facility] IS NOT A SUBSTITUTE FOR DISCUSSING THOSE RESULTS WITH YOUR HEALTH CARE PROVIDER. PLEASE CONTACT YOUR PROVIDER VIA [facility] TO DISCUSS ANY QUESTIONS OR CONCERNS YOU MAY HAVE REGARDING THESE TEST RESULTS. RADIOLOGY REPORT FACILITY: [facility] UNIT/AGE/GENDER: D.RAD OP AGE:65 Y SEX:M PATIENT NAME/: [place] 1960 UNIT NUMBER: [id number] ACCESSION NUMBER: [id number] EXAMINATION: XR C SPINE AP AND LAT [...] - 09/19/2025 REVIEWING YOUR TEST RESULTS IN [facility] IS NOT A SUBSTITUTE FORDISCUSSING THOSE RESULTS WITH YOUR HEALTH CARE PROVIDER. PLEASE CONTACT YOUR PROVIDER VIA [facility] TO DISCUSS ANY QUESTIONS ORCONCERNS YOU MAY HAVE REGARDING THESE TEST RESULTS. RADIOLOGY REPORT FACILITY: [facility] UNIT/AGE/GENDER: AURY OP AGE:65 Y SEX:M PATIENT NAME/: [place] 1960 UNIT NUMBER: [id number] ACCESSION NUMBER: [id number] EXAMINATION: XR C SPINE AP AND LAT [...] IMG DIAGNOSTIC IMAGING ORD ERABLES Final Result * (ABNORMAL) Glucose-Glucometer (07/04/2025 11:14 AM EDT) Only the most recent of2 resultswithin the time period is included. Glucose Glucometer 148(H) 71 - 139 mg/dL 07/04/2025 11:16 AM EDT [facility] ([id number]) Blood VENOUS BLOOD SPECIMEN / Unknown 07/04/2025 11:14 AM EDT 07/04/2025 11:16 AM EDT us Mychal Mcgarry MD LAB BLOOD ORDERABLES Final Re sult [facility] ([id number]) [facility] [place] [id number] * (ABNORMAL) Basic Metabolic Panel(BMP) (07/02/2025 6:38 AM EDT) Sodium 137 136 - 145 mmol/L 07/02/2025 7:11 AM EDT [facility] ([id number]) Comment:Excess protein and/o r lipids can falsely decrease sodium levels (pseudo hyponatremia). Potassium 4.2 3.5 - 5.1 mmol/L 07/02/2025 7:11 AM T [facility] ([id number]) Comment:Falsely elevated pot assium can occur in patients with high WBC or platelet counts. Chloride 106 98 - 107 mmol/L 07/02/2025 7:11 AM T [facility] ([id number]) Comment:Falsely elevated chl oride levels can be seen in patients taking bromide containing medications. Carbon Dioxide 22 22 - 29 mmol/L 07/02/2025 7:11 AM [facility] ([id number]) Anion Gap 9 5 - 13 mmol/L 07/02/2025 7:11 AM [facility] ([id number]) Comment:Calculation: Na - (C l + CO2) Glucose, Random 124(H) 71 - 99 mg/dL 07/02/2025 7:11 AM T [facility] ([id number]) Blood Urea Nitrogen (BUN) 34(H) 8 - 26 mg/dL 07/02/2025 7:11 AM [facility] (78[address]) Creatinine, Blood 1.59(H) 0.73 - 1.18 mg/dL 07/02/2025 7:11 AM [facility] ([id number]) BUN/Creatinine Ratio 21.4 RATIO 07/02/2025 7:11 AM [facility] ([id number]) Estimated GFR (Cr) 48(L) >60 mL/min/1.7 3m2 07/02/2025 7:11 AM EDT [facility] ([id number]) Comment:eGFR calculated base d on IDMS traceable, enzymatic creatinine method using the CKD-EPI 2020 equation. Calcium 8.8 8.4 - 10.2 mg/dL 07/02/2025 7:11 AM EDT [facility] ([id number]) Blood VENOUS BLOOD SPECIMEN / Unknown Venipuncture / Unknown 07/02/2025 6:38 AM EDT 07/02/2025 6:41 AM EDT us Peter Mcneal MD LAB BLOOD ORDERABLES Final Res ult Performing Organization Address City/[facility]/ZIP Co de Phone Number [facility] ([id number]) [place] [phone] * Hemoglobin A1c (06/22/2025 2:38 PM EDT) Hemoglobin A1C 5.1 4.3 - 5.6 % LAB DEVICE: BIORAD D100 06/22/2025 6:25 PM EDT [facility] Estimated Average Glucose 100 mg/dL 06/22/2025 6:25 PM EDT [facility] Blood VENOUS BLOOD SPECIMEN / Unknown Venipuncture / Unknown 06/22/2025 2:38 PM EDT 06/22/2025 3:28 PM EDT Narrative [facility] - 06/22/2025 6:25 PM EDT A1C% Reference Range: 4.3 - 5.6 Normal range 5.7 - 6.4 Pre-diabetic -increased risk for developing diabetes mellitus. >=6.5 Diabetic -diagnostic of diabetes mellitus. Note: For diagnosis of diabetes in individuals without unequivocal hyperglycemia, results should be confirmed by repeat testing. Patients with conditions that shorten erythrocyte survival, such as recovery from acute blood loss, hemolytic anemia, kidney disease, or the presence of unstable hemogloblins like HbSS, HbCC, and HbSC may yield falsely decreased HbA1c test results. Iron deficiency may yield falsely increased HbA1c test results. us Mini Danielle APRN LAB BLOOD ORDERABLES Final Result [facility] [address] [place] [address] from Last 3 Months or Most Recently Relevant to Health Maintenance Insurance [facility] MEDICARE REPLACEMENT Advance Directives * Full Code (Latest Code Status on File) Date Activated Date Inactivated Comments 07/02/2025 4:39 PM 07/04/2025 3:34 PM Care Teams Metal Trim Erector Relationship Specialty Start Date End Date Cheo Cao MD [address] [place] [address] PCP - General Internal Medicine 12/12/24
--- OUTSIDE RECORDS SUMMARY | 2025-10-03 16:54 | XMS_ITS ---
Care Plan - [facility] Created on: October 03, 2025 [place] : 1960 Sex: Male Author Organization [facility] Address [address] [place] [address] Phone Care Team Providers Care Channel Marketing Coordinator Name Role Phone GENNA WILKES, DARRELL Unavailable [phone] Gokul WILKES, Napoleon Unavailable [phone]
--- OUTSIDE RECORDS SUMMARY | 2025-10-03 16:55 | XMS_ITS | Patient Health Record ---
Author Organization [facility] Address [address] [place] [address] Care Team Providers Care Brick Burner Head Name Role Phone Tomi Cao Primary Care Provider Tomi Cao Unavailable Unavailable Hannah Mullen Unavailable [phone] Migration, Provider Unavailable Unavailable Allergies Allergen (clinical drug ingredient) Drug/Non Drug Allergy documented on EMR Reaction Allergy Type Onset Date Status lisinopril Lisinopril nausea and diarrhea Drug Allergy Active Results Component Value Reference Range Notes M-Complete Blood Count Auto Diff (Not yet reviewed by provider) Interpretation: Performing Lab: Notes/Report: WBC 5.9 4.8-10.8 K/mm3 RBC 4.42 4.60-6.20 M/mm3 HGB 12.4 14.1-18.0 g/dL HCT 39.2 42.0-52.0 % MCV 88.7 80-94 fl MCH 28.1 27.0-31.2 pg MCHC 31.6 31.8-35.4 g/dL RDW 13.8 11.5-17.5 % PLT 165 142-424 K/mm3 MPV 10.1 7.4-10.4 fl NE% 76.7 37.0-80.0 % LY% 13.6 10-50 % MO% 5.1 1.7-9.3 % EO% 3.6 0.1-12.0 % BA% 0.7 0.1-2.0 % NE# 4.5 1.8-7.8 K/mm3 LY# 0.8 0.7-4.5 K/mm3 MO# 0.3 0.1-1.0 K/mm3 EO# 0.2 0.0-0.4 Kmm3 BA# 0.0 0-0.2 K/mm3 RDW-SD 44.9 NRBC% 0 IG% 0.3 NRBC# 0 IG# 0.02 M-Complete Blood Count Auto Diff Reviewed date:12/15/2024 12:41:34 PM Interpretation: Performing Lab: Notes/Report: PLEASE SHARE RESULTS WITH FIDE KRAFT APRN @ [phone] WBC 5.9 4.8-10.8 K/mm3 RBC 4.99 4.60-6.20 [...] SHARE RESULTS WITH FIDE KRAFT APRN @ [phone] NA 139 136-145 mmol/L K 3.8 3.5-5.1 [...] SHARE RESULTS WITH FIDE KRAFT APRN @ [phone] HGBA1C 10.0 4.0-6.0 % < 6% Non-Diabetic Level < 7% Controlled Diabetic Level > 8% Poorly Controlled Diabetic Level M-Uric Acid Reviewed date:12/15/2024 12:41:35 PM Interpretation: Performing Lab: Notes/Report: PLEASE SHARE RESULTS WITH FIDE KRAFT APRN @ [phone] URIC 5.7 3.5-8.5 mg/dl M-Lipid Panel Reviewed date:12/15/2024 12:41:35 PM Interpretation: Performing Lab: Notes/Report: PLEASE SHARE RESULTS WITH FIDE KRAFT APRN @ [phone] Patient Fasting? N TRIG 309 30-150 mg/dl CHOL 137 140-200 mg/dl DLDL 82.32 100-129 mg/dL VLDL 62 0-40 mg/dL HDL 22 40-60 mg/dl CHLHDL 6.2 1-3.5 H-MALBCREA Reviewed date:12/15/2024 12:41:35 PM Interpretation: Performing Lab: Notes/Report: Units: mg/g creat Normal: 0 - 29 Moderately Increased: 30 - 300 Severely Increased: >300 UCREAT 57 Not Estab. mg/dL Random urine reference range not established. 24 hour urine samples recommended. MICROALB 387.600 0-16.7 mg/L MALBCREAT 680.0 H-VITB12 Reviewed date:12/15/2024 12:41:35 PM Interpretation: Performing Lab: Notes/Report: PLEASE SHARE RESULTS WITH FIDE KRAFT, ANUSHA @ [phone] VITB12 173 239-931 pg/mL Reason For Referral Reason pain Mgt Diagnosis 1 DDD (degenerative di sc disease), cervical (M50.30) Diagnosis 2 Degeneration of inte rvertebral disc of lumbar region with discogenic back pain and lower extremity pain (M51.362) Diagnosis 3 Other chronic pain ( G89.29) Diagnosis 4 Idiopathic periphera l neuropathy (G60.9) Diagnosis 5 Gouty arthritis (M10 .9) Referral Organization [facility] Referring Provider First Name Hannah Referring Provider Last Name Paz Referring Provider Speciality [facility] Referred Organization [facility] Referred Address [address], [place], [place],[address], Referred Provider Specialty Pain Managem ent General Notes Becky Trejo 2024 12:10:05 PM >sent to Dr. Reddy Referral Priority Routine Medications Medication SIG (Take, Route, Frequency, Duration) Notes Start Date End Date Status Atorvastatin Calcium 40 MG 1 tablet Orally Once a day Active Losartan Potassium 25 MG TAKE 1 TABLET BY MOUTH DAILY; Duration: 90 Active Cyanocobalamin 1000 MCG/ML 1000 mcg intramuscularly once a month; Duration: 90 days Active Prasugrel HCl 10 MG as directed Orally daily Active Dexcom G7 Manager [employer] - use for cgm; Durati on: 30 days DX: E11.69 05/18/2025 Active Droplet Pen [place] 32G X 4 MM USE DIRECTED TWICE DAILY WITH INSULIN PEN; Duration: 100 Active Febuxostat 40 MG TAKE 1 TABLET BY ALEXEY TH ONCE A DAY; Duration: 300 Active Dexcom G7 Sensor - use for cgm; Duratio n: 30 days DX: E11.69 05/18/2025 Active Mounjaro 10 MG/0.5ML 10 mg Subcutaneous once a week; Duration: 28 days 08/23/2025 Active Carvedilol 12.5 MG TAKE 1 TABLET BY ALEXEY TH TWICE DAILY WITH FOOD/MEAL; Duration: 90 Active Furosemide 40 MG 1 tablet Orally Once a day Active NIFEdipine ER Osmotic Release 30 MG TAKE 1 TABLET BY MOUTH DAILY; Duration: 90 Active Aspirin 81 81 MG 1 tablet Orally Once a day Active Toujeo Xavier SoloStar 300 UNIT/ML 30 units Subcutaneous daily Active Omeprazole 20 MG 1 cap(s) orally once a day; Duration: 90 days Active Immunizations Vaccine Route Administration Date Status Comme nts Covid Pfizer Unknown 06/18/2021 Administered Covid Pfizer Unknown 07/09/2021 Administered Fluzone High Dose IM Intramuscular 08/23/2025 Administered Influenza-Fluzone 3+years (NON-MEDICARE) IM Intramuscular 07/16/2017 Administered Pneumovax 23 Unknown 07/02/2016 Administered Social History Tobacco Use: Social History Observation Description Date Details (start date - stop date) Never Smoker NA - NA Smoking: Question Answer Notes Are you a: nonsmoker Problems Problem Type SNOMED Code ICD Code Onset Dates Problem Status W/U Status Risk Notes Problem 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) (1912670537459) 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) Active confirmed Problem Type 2 diabetes mellitus with other specified complication (E11.69) Active confirmed Problem Obesity (629405970) Obesity, unspecified (E66.9) Active confirmed Problem Cervical disc disorder (797015036) DDD (degenerative disc disease), cervical (M50.30) Active confirmed Problem Peripheral neuropathy (444829225) Peripheral neuropathy (G62.9) Active confirmed Problem Essential hypertension (27335781) Essential hypertension (I10) Active confirmed Problem Vitamin B12 deficiency (non anemic) (02944945) B12 deficiency (E53.8) Active confirmed Problem Gastroesophageal reflux disease (603106221) GERD without esophagitis (K21.9) Active confirmed Problem Essential hypertension (21534543) Hypertension, essential (I10) Active confirmed Problem Idiopathic peripheral neuropathy (15326370) Idiopathic peripheral neuropathy (G60.9) Active confirmed Problem Sleep disturbance (06955166) Sleep disturbance (G47.9) Active confirmed Problem Chronic pain (57462679) Other chronic pain (G89.29) Active confirmed Problem Chronic insomnia (342777995) Chronic insomnia (F51.04) Active confirmed Problem Gouty arthritis (16123566) Gouty arthritis (M10.9) Active confirmed Problem Morbid obesity (199580738) Severe obesity (BMI >= 40) (E66.01) Active confirmed Problem Chronic systolic heart failure (152496312) Chronic systolic CHF (congestive heart failure) (I50.22) Active confirmed Problem Muscle weakness (52549895) Lower extremity weakness (M62.81) Active confirmed Problem Polymyalgia (20467540) Polymyalgia (M35.3) Active confirmed Problem Inflammatory and toxic neuropathy (007246994) Peripheral polyneuropathy (G62.9) Active confirmed Problem Heart failure (72256940) Congestive heart failure, unspecified HF chronicity, unspecified heart failure type (I50.9) Active confirmed Problem Abnormal reflex (45527438) Abnormal reflexes of lower extremity (R29.2) Active confirmed Problem Chronic kidney disease stage 3B (disorder) (653170462) Stage 3b chronic kidney disease (N18.32) Active confirmed Problem Ulcer of right foot (disorder) (568290464) Ulcer of right foot with fat layer exposed (L97.512) Active confirmed Problem Degeneration of intervertebral disc of lumbar region with discogenic back pain and lower extremity pain (M51.362) Active confirmed Vital Signs Heart Rate 80 /min 08/23/2025 Temperature 97.5 degrees Fahrenheit 08/23/2025 Blood pressure diastolic 60 mm Hg 08/23/2025 Height 5 ft 10 in in 08/23/2025 Blood pressure systolic 130 mm Hg 08/23/2025 Weight 315 lbs 08/23/2025 BMI 45.19 kg/m2 08/23/2025 Encounters Encounter Location Date Provider Diagnosis [facility] [address] [facility] [address] [address] 01/20/2025 Provider Migration Type 2 diabetes mellitus with other specified complication E11.[address] [address] 11/15/2024 Hannah Mullen Essential hypertensi on I10 ; Type 2 diabetes mellitus with other specified complication E11.69 ; Gouty arthritis M10.9 ; Stage 3b chronic kidney disease N18.32 ; Chronic systolic CHF (congestive heart failure) I50.22 ; B12 deficiency E53.8 and Severe obesity (BMI >= 40) E66.01 [facility] [place] [address] [address] 04/24/2025 Hannah Mullen Type 2 diabetes mellitus with other specified complication E11.69 ; Stage 3b chronic kidney disease N18.32 ; Severe obesity (BMI >= 40) E66.01 ; Gouty arthritis M10.9 ; Chronic insomnia F51.04 and B12 deficiency E53.8 [facility] [place] [address] [place] [address] 08/23/2025 Hannahisra GautamPaz Type 2 diabetes mellitus with other specified [...] cerumen H61.23 and Encounter for immunization Z23 [facility] [place] [address] [address] 11/14/2024 Hannah Paz [facility] [place] [address] [address] 11/16/2024 Tomi Besson Type 2 diabetes mellitus with other specified complication E11.69 [facility] [place] [address] [facility] [address] [place] [address] 12/19/2024 Tomi Besson [facility] [place] [address] [address] 12/21/2024 Tomi Besson Type 2 diabetes mellitus with other specified complication E11.69 [facility] [place] [address] [address] 01/09/2025 Hannah Paz [facility] [place] [address] [place] [address] 01/29/2025 Tomi Besson [facility] [place] [address] [place] [address] 02/02/2025 Tomi Besson [facility] [place] [address] [address] 02/12/2025 Hannah Paz [facility] [place] [address] [place] [address] 03/06/2025 Hannah Paz [facility] [place] [address] [place] [address] 03/06/2025 Tomi Besson [facility] [place] [address] [place] [address] 04/10/2025 Tomi Besson [facility] [place] [address] [place] [address] 04/24/2025 Hannah Paz [facility] [place] [address] [place] [address] 04/24/2025 Hannah Paz [facility] [place] [address] [place] [address] 05/18/2025 Hannah Paz [facility] [place] [address] [place] [address] 05/22/2025 Hannah Paz Type 2 diabetes mellitus with other specified complication E11.69 [facility] [place] [address] [address] 06/21/2025 Hannah Paz Type 2 diabetes mellitus with other specified complication E11.69 [facility] [place] [address] [place] [address] 06/27/2025 Hannahisra GautamPaz Type 2 diabetes mellitus with other specified complication E11.69 [facility] [place] [address] [place] [address] 08/24/2025 Hannah Paz [facility] [place] [address] [facility] [address] [place] [address] 08/28/2025 Tomi Kiley Assessments Encounter Date Diagnosis (ICD Code) Assessment [...] with other specified complication (ICD-10 - E11.69) 04/24/2025 Type 2 diabetes mellitus with other specified complication (ICD-10 - E11.69) encouraged compliance with annual eye exam, routine foot care, CC diet and activity as tolerated. discussed importance of good glucose control to prevent additional complications. We discussed need to monitor glucose, especially as he increases the dose of his Mounjaro and that he may decrease Toujeo dose to avoid hypoglycemia. Will look into coverage of CGM 04/24/2025 Stage 3b chronic kidney disease (ICD-10 - N18.32) avoid NSAIDS, stable on recent labs with GFR 51 05/22/2025 Type 2 diabetes mellitus with other specified complication (ICD-10 - E11.69) 06/21/2025 Type 2 diabetes mellitus with other specified complication (ICD-10 - E11.69) 06/27/2025 Type 2 diabetes mellitus with other specified complication (ICD-10 - E11.69) 08/23/2025 Type 2 diabetes mellitus with other [...] - E66.01) complicates all aspects of care 04/24/2025 Severe obesity (BMI >= 40) (ICD-10 - E66.01) complicates all aspects of care 11/15/2024 Gouty arthritis (ICD-10 - M10.9) 11/15/2024 Stage 3b chronic kidney disease (ICD-10 - N18.32) avoid NSAIDS 08/23/2025 Gouty arthritis (ICD-10 - M10.9) stable 04/24/2025 Gouty arthritis (ICD-10 - M10.9) stable 04/24/2025 Chronic insomnia (ICD-10 - F51.04) stable 08/23/2025 Chronic insomnia (ICD-10 - F51.04) stable 11/15/2024 Chronic systolic CHF (congestive heart failure) (ICD-10 - I50.22) 11/15/2024 B12 deficiency (ICD-10 - E53.8) 04/24/2025 B12 deficiency (ICD-10 - E53.8) anemia stable on recent labs, will repeat B12 level next visit 08/23/2025 B12 deficiency (ICD-10 - E53.8) anemia stable on recent labs, will repeat B12 level next visit 08/23/2025 Other chronic pain (ICD-10 - G89.29) poor candidate for NSAIDS. Tylenol ineffective per his report. Trial of gabapentin or lyrica...FLOYD requested. 11/15/2024 Severe obesity (BMI >= 40) (ICD-10 - E66.01) complicates all aspects of care 08/23/2025 DDD (degenerative disc disease), cervical (ICD-10 - M50.30) 08/23/2025 Degeneration of intervertebral disc of lumbar region with discogenic back pain and lower extremity pain (ICD-10 - M51.362) 08/23/2025 Bilateral impacted cerumen (ICD-10 - H61.23) resolved 08/23/2025 Encounter for immunization (ICD-10 - Z23) Plan Of Treatment Pending Test Test Name Order Date Sleep Study 04/26/2019 H-VITAMIN B12 05/26/2017 H-MICROALBUMIN URINE 08/11/2017 M-Complete Blood Count Auto Diff 025 M-Complete Blood Count Auto Diff 025 M-Complete Blood Count Auto Diff 025 M-Erythrocyte Sedimentation Rate 021 M-Comprehensive Metabolic Panel 08/23/20 25 M-Comprehensive Metabolic Panel 11/15/19 25 M-Hemoglobin A1C 11/15/2024 M-Hemoglobin A1C 07/16/2021 M-Hemoglobin A1C 08/23/2025 M-Uric Acid 11/15/2024 M-Uric Acid 08/23/2025 B-J-Omhifrkg Protein 07/16/2021 M-Lipid Panel 11/15/2024 M-Thyroid Panel 07/16/2021 M-Drug Screen,Urine 09/24/2020 M-Vitamin B12 08/23/2025 M-Vitamin B12 07/16/2021 M-Vitamin B12 06/14/2020 M-Vitamin B12 11/15/2024 M-Microalb/Creat Ratio, Randm Ur 025 THYROID PANEL WITH TSH (7444) 12/28/2023 COMPREHENSIVE METABOLIC PANEL (19628) MAGNESIUM (622) 12/28/2023 CBC (INCLUDES DIFF/PLT) (6399) HEMOGLOBIN A1c (496) 12/28/2023 VITAMIN B12 (927) 12/28/2023 FERRITIN (457) 12/28/2023 Next Appt Details Provider Name:Hannah Reeves ce, 11/29/2025 02:30:00 PM, [address], [place], [address], Insurance Providers Payer Name Payer Address Payer Phone Subscriber Number Group Number Insured Name Patient Relationship to Insured Coverage Start Date Coverage End Date [employer] [address] [place] [address] [phone] [id number] [place] Self - patient is the insured Medications Administered Medication Instructions Date of Administration Dosage Notes Dexamethasone 4mg Injection 05/22/2022 4 mg Medical (General) History Medical History History ICD Code Diabetes Vitamin B12 deficiency HTN Arthritis Hepatitis B Stage 3 kidney disease Morbid obesity CAD with stenting at [facility] March 2025 Surgical History Surgery Date(Month/Year) Skin graft right heel 06/2016 [facility] in left femur, screws in left hip Left Elbow 02/20/24 Skin graft on Rt foot 05/2024 Heart Cath with Stent 03/2025 Upper back surgery 06/2025 Hospitalization History Reason Date(Month/Year) Upper back surgery 06/2025 [facility] Transferred to [facility] 02/14/24- 4 [facility] heel wound and skin graft 06/2017
--- OUTSIDE RECORDS SUMMARY | 2025-10-03 16:55 | XMS_ITS | Clinical Summary ---
Author Organization [facility] Address [address] [place] [address] Phone Care Team Providers Care Publication Designer Name Role Phone GENNA WILKES, DARRELL Unavailable [phone] Gokul WILKES, Napoleon Unavailable [phone] Reason for Visit and Chief Complaint The Chief Complaint is: BLE numbess/weakness Problems Includes: Problems addressed during this encounter and other active Problems Current Visit Onset Date Date of Diagnosis Resolved Date Provider Condition Status Lower Back Pain 02/07/2024 02/07/2024 Napoleon Hodgson MD Active Last Documented On 5 1:42AM ; [facility], [facility] Plan of Treatment Pending Tests Order Diagnosis Results Due Ordering P rovider Therapy - Physical Therapy Lumbar Low back pain, unspecified 02/07/24 Napoleon Hodgson MD Last Documented On 4 2:51PM ; [facility], [facility] Instructions to patient Lose weight Last Documented On 4 10:36AM ; [facility], [facility] Assessments Includes: Assessments from this encounter Findings - Overweight - Last Documented On 02/11/2024 2:51PM ; [facility] Fall Risk Assessment: - Last Documented On 02/11/2024 2:51PM ; [facility], [facility] This patient has been identified as a fall risk. Balance/gait along with postural blood pressure, vision and home fall hazards have been assessed. Medications have been reviewed, and recommendations made with regard to contributing factors for future falls. - Last Documented On 02/11/2024 2:51PM ; [facility] Plan of care: Consideration of vitamin D supplementation along with balance and strength training with consideration for formal physical therapy has been discussed with the patient. - Last Documented On 02/11/2024 2:51PM ; [facility] Instructions Includes: Instructions from this encounter Instructions to patient Lose weight Last Documented On 4 10:36AM ; [facility] Medical Equipment - Implanted Devices Includes: [...] tablet PO once a day, NEEDED Pharmacy: [facility] [phone] [facility] [place], [address] - Last Documented On 4 11:40AM By Tara Keenan ; [facility], [facility] Medrol 4 MG Oral Tablet Therapy Pack Provider: Napoleon wilkins MD 7 day supply: 21 tablet, 0 refills Diagnosis: Low back pain, unspecified take as directed Pharmacy: [facility] [phone] [facility] [place], [address] - Last Documented On 4 11:40AM By Tara Keenan ; [facility], [facility] Current Medications (continue as prescribed) Carvedilol 12.5 MG Oral Tablet 01/24/2024 Provider: DARRELL VAIL MD Diagnosis: Last Documented On 4 10:35AM By Tara Keenan ; [facility] Invokana 300 MG Oral Tablet 01/24/2024 Provider: DARRELL VAIL MD Diagnosis: Last Documented On 4 10:35AM By Tara Keenan ; [facility] Losartan Potassium 100 MG Oral Tablet 01/24/2024 Pro vider: DARRELL VAIL MD Diagnosis: Last Documented On 4 10:35AM By Tara Keenan ; [facility] metFORMIN HCl 1000 MG Oral Tablet 01/17/2024 Provide r: DARRELL VAIL MD Diagnosis: Last Documented On 4 10:35AM By Tara Keenan ; [facility] traZODone HCl 50 MG Oral Tablet 01/17/2024 Provider: DARRELL VAIL MD Diagnosis: Last Documented On 4 10:36AM By Tara Keenan ; [facility] Furosemide 40 MG Oral Tablet 12/19/2023 Provider: Diagnosis: Last Documented On 4 10:36AM By Tara Keenan ; [facility] Past Medications on file CeleBREX 100 MG Oral Capsule 04/10/2024 - 05/10/2024 Provider: Napoleon Hodgson MD Diagnosis: Low back pain, unspecified Take 1 capsule PO up to twic e a day, NEEDED Last Documented On 4 3:41PM By Tara Keenan ; [facility] CeleBREX 100 MG Oral Capsule 03/06/2024 - 04/05/2024 Provider: Napoleon Hodgson MD Diagnosis: Low back pain, unspecified Take 1 capsule PO up to twic e a day, NEEDED Last Documented On 4 4:01PM By Napoleon Hodgson ; [facility] Medications Administered Includes: Administered Medications from this encounter No Administered Medications Recorded Vital Signs Includes: Vital Signs from this encounter Vital Name 02/07/2024 11:20A Height (in) 71 Weight (lb) 315 Body Mass Index 43.9 Body Surface Area 2.6 Note: HL Last Documented: On 02/07/2024 11:20A M ; [facility] Results Includes: Results discussed during this encounter [...] had some kind of spinal tap at [facility] and said that they really messed him up. He said they were looking for some disease and I asked if this was Guillain-Bittinger syndrome he said nah, that ain't it. [...] 02/07/2024 Last Documented On 4 2:51PM ; [facility], [facility] Tobacco non-user 02/07/2024 Last Documented On 4 2:51PM ; [facility] No recent change in diet 02/07/2024 Last Documented On 4 2:51PM ; [facility], [facility] Not a current smoker. 02/07/2024 Last Documented On 4 2:51PM ; [facility] Not exercising regularly 02/07/2024 Last Documented On 4 2:51PM ; [facility] Not using alcohol 02/07/2024 Last Documented On 4 2:51PM ; [facility] Not using drugs 02/07/2024 Last Documented On 4 2:51PM ; [facility] Sex - Male 05/29/2024 Last Documented On 4 1:35PM ; [facility], [facility] Smoking Status Unknown Procedures and Surgical History Includes: Procedures from this encounter Procedures Code Diagnosis Performing Provider Service L ocation Service Date use of tobacco assessment performed 1000F Last Documented On 4 10:36AM ; [facility], [facility] patient screened for future fall risk: documentation of any fall with injury in past year 1100F Last Documented On 4 10:36AM ; [facility], [facility] review of medications documented 1160F Last Documented On 4 10:36AM ; [facility] an MRI was performed 024 CSpine @ [facility] ~01/10/2024 TSpine @ [facility] ~01/10/2024 Anirudh @ [facility] [address] Last Documented On 4 11:19AM ; [facility] Surgical History Last Updated Past Surgical History: Broken leg 2023 Last Documented On 4 2:51PM ; [facility] Medical History Includes: Medical History addressed during this encounter Description Last Updated History of arthritis 02/07/2024 Last Documented On 4 2:51PM ; [facility] History of diabetes mellitus 02/07/2024 Last Documented On 4 2:51PM ; [facility] History of Hypertension 02/07/2024 Last Documented On 4 2:51PM ; [facility] History of Kidney Disease 02/07/2024 Last Documented On 4 2:51PM ; [facility] Family History Includes: Family History addressed during this encounter Description Last Updated Family history of rheumatoid arthritis 0 02/07/2024 Last Documented On 4 2:51PM ; [facility] Family history of systemic hypertension 02/07/2024 Last Documented On 4 2:51PM ; [facility] Review of Systems Includes: Review of [...] Status from this encounter Description No anxiety Last Documented On 10:36AM ; [facility] Physical Exam Includes: Physical Exam from this encounter Allergies Includes: Active Allergies No Known Allergies Care Publication Designer Name (Identifier) Role/Relation Location/Telecom Last Documented By DARRELL VAIL MD ([id number]) [address], [place], [place], [place], [address] tel:[phone] Last Documented On 02/07/2024 10:37AM ; [facility] Napoleon Hodgson MD ([id number]) Assigned practitioner (occupation) [address] [place] [address], [place], [address] tel:[phone] Last Documented On 05/29/2024 1:35PM ; [facility] Encounters Encounter Provider Location (Healthcare Service Location) Date Check-In Time Check-Out Time Diagnosis Encounter Disposition Physician Specified Napoleon estrada MD [facility] 2023 10:18AM 11:22AM Overweight Payer Includes: Active Insurance Policies Plan Name (Payer ID) Coverage Type Member ID Group # Subscriber (ID) Relationship Effective Dates 1 - BCBS ([place]) Medicare (SB660) [id number] [place] Self 01/17/2024 - Unknown Last Documented On 4 2:31PM ; [facility] Clinical Notes Includes: Clinical Notes from this encounter * Progress note Date Encounter Last Documented by 02/07/2024 Physician Specified Robert saenz on 02/11/2024; 2:51 PM, Napoleon Hodgson MD; [facility] Active Problems & Conditions - Lower [...] had some kind of spinal tap at [facility] and said that they really messed him up. He said they were looking for some disease and I asked if this was Guillain-Bittinger syndrome he said nah, that ain't it. [...] he has had an episode of Guillain- Bittinger syndrome or some other lower motor neuron [...] An MRI was performed 01/10/2024 [facility]Spine @ [facility] 01/10/2024 [facility]Spine @ [facility] 01/10/2024 LSpine @ [facility]. Counseling/Education - Lose weight Plan StartCited - [...] Care Team - DARRELL VAIL MD - LEVER TENDER Notes This dictation was done with voice recognition software and may contain errors and omissions.
--- OUTSIDE RECORDS SUMMARY | 2025-10-03 16:55 | XMS_ITS | Clinical Summary ---
Author Organization [facility] Address [address] [place] [address] Phone Care Team Providers Care Oil Refiner Name Role Phone System Maintenance Unavailable [phone] Conditions or Problems Problem Name Problem Code Onset Date Status Entry Date Provider Comment Standard Description Annotate At risk for falls 713407256 (SNOMED CT) 06/27 Active 06/27 Hannah Mclean [...] fat layer exposed Coronary artery disease (CAD) 37468777 (SNOMED CT) 06/26 Active 06/26 Minilata Ontiveros [...] mellitus with diabetic polyneuropathy Cellulitis, foot, right 170032886 (SNOMED CT) 06/15 Active 06/15 Mini Ontiveros Cellulitis of foot DM II with diabetic CKD, 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) E11.22 (ICD-10-CM) 03/24 Active 03/24 Mini Ontiveros Type 2 diabetes mellitus with diabetic chronic kidney disease Acute renal failure with tubular necrosis 71499245844 9101 (SNOMED CT) 03/24 Resolved 03/24 Mini Ontiveros Acute renal failure due to tubular necrosis Hyponatremia 18515823 (SNOMED CT) 03/24 Resolved 03/24 Mini Ontiveros Hyponatremia MSSA infection 781038862 (SNOMED CT) 03/24 Resolved 03/24 Mini Ontiveros Infection by methicillin sensitive Staphylococcus aureus Infective bursitis, left elbow (document organism)(B9 5.-B96.) M71.122 (ICD-10-CM) 03/24 Resolved 03/24 Mini Weston Other infective bursitis, left elbow Cellulitis, elbow, left L03.114 (ICD-10-CM) 03/24 Resolved 03/24 Mini Weston Cellulitis of left upper limb MSSA infection 683334511 (SNOMED CT) 03/24 Removed 03/24 Mini Ontiveros Infection by methicillin sensitive Staphylococcus aureus Infective bursitis, left elbow (document organism)(B9 5.-B96.) M71.122 (ICD-10-CM) 03/24 Removed 03/24 Mini Weston Other infective bursitis, left elbow Cellulitis, elbow, left L03.114 (ICD-10-CM) 03/24 Removed 03/24 Mini Ontiveros Cellulitis of left upper limb Infection, local skin/subcuta neous tissue 717102113 (SNOMED CT) 03/24 Active 03/24 Mini Ontiveros Localized infection of skin AND/OR subcutaneous tissue Hyponatremia 48228602 (SNOMED CT) 03/24 Removed 03/24 Mini Ontiveros Hyponatremia Acute renal failure with tubular necrosis 99115913913 9101 (SNOMED CT) 03/24 Removed 03/24 Mini Ontiveros Acute renal failure due to tubular necrosis Morbid obesity due to excess calories E66.01 (ICD-10-CM) 03/24 Active 03/24 Mini Ontiveros Morbid (severe) obesity due to excess calories DM Type II E11.9 (ICD-10-CM) 03/24 Inactive 03/24 Mini Ontiveros Type 2 diabetes mellitus without complications 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) 013852327 (SNOMED CT) 03/24 Active 03/24 Mini Ontiveros Benign hypertensive heart disease with congestive cardiac failure Medications Medication Instructions Start Date Stop Date Generic Name NDC Provider DOXYCYCLINE MONOHYDRATE 100 MG CAPS Take 1 capsule by mouth twice a day doxycycline monohydrate 11861742026 Rickie Barksdale MD POTASSIUM CHLORIDE ER 20 MEQ CR-TABS Take 1 tablet by mouth once a day potassium chloride 13150455832 Diana Gutiérrez RN POTASSIUM CHLORIDE ALEX ER 20 MEQ CR-TABS TAKE 1 TABLET BY MOUTH DAILY potassium chloride 88844240528 Rickie Barksdale MD DOXYCYCLINE MONOHYDRATE 100 MG CAPS Take 1 capsule by mouth twice a day doxycycline monohydrate 84930866840 Rickie Barksdale MD NYSTATIN 019866 UNIT/GM CREA Apply 1 a small amount to skin once a day nystatin 95436775998 Rickie Barksdale MD POTASSIUM CHLORIDE ER 20 MEQ CR-TABS Take 1 tablet by mouth once a day potassium chloride 73176566075 Rickie Barksdale MD TRAZODONE HCL 50 MG TABS Take 1 tablet by mouth every night trazodone 53849265433 Remedios February CARVEDILOL 12.5 MG TABS Take 1 tablet by mouth twice a day carvedilol 16895279085 Remedios February VALSARTAN 160 MG TABS Take 1 tablet (160 mg total) by mouth daily. valsartan 45852015115 Remedios February FLORASTOR 250 MG CAPS Take 1 capsule (250 mg total) by mouth 2 (two) times daily for 7 days. saccharomyces boulardii 28781822743 Remedios February NIFEDIPINE ER OSMOTIC RELEASE 30 MG NB13A-WES Take 1 tablet (30 mg total) by mouth daily. nifedipine 96305535259 Remedios February OMEPRAZOLE 20 MG CPDR Take 1 capsule (20 mg total) by mouth daily. omeprazole 87868009911 Remedios February insulin glargine (U-100) 100 unit/mL (3 mL) subcutaneous pen Inject 25 Units subcutaneously 2 (two) times daily. insulin glargine 42678973686 Remedios February AMOXICILLIN-POT CLAVULANATE 875-125 MG TABS Take 1 tablet by mouth every 12 (twelve) hours. amoxicillin-pot clavulanate 33164730505 Remedios February DOXYCYCLINE HYCLATE 100 MG TABS Take 1 tablet (100 mg total) by mouth every 12 (twelve) hours. doxycycline hyclate 16874327585 Remedios February FEBUXOSTAT 40 MG TABS Take 1 tablet (40 mg total) by mouth daily. febuxostat 47030306984 Remedios February FAMOTIDINE 20 MG TABS Take 1 tablet (20 mg total) by mouth daily. famotidine 26386193421 Remedios February TRAZODONE HCL 50 MG TABS Take 1 tablet (50 mg total) by mouth nightly. trazodone 60265397646 QIE qieuser NIFEDIPINE ER OSMOTIC RELEASE 30 MG KI63P-DSC Take 1 tablet (30 mg total) by mouth daily for 30 days. nifedipine 74906025826 QIE qieuser LOSARTAN POTASSIUM 25 MG TABS Take 1 tablet (25 mg total) by mouth daily for 30 days. losartan 68254274851 [facility]IE [facility] INSULIN GLARGINE-YFGN 100 UNIT/ML SOLN Inject 26 Units subcutaneously 2 (two) times daily for 30 days. insulin glargine-yfgn 09103809838 QIE qieuser FAMOTIDINE 20 MG TABS Take 1 tablet (20 mg total) by mouth daily for 30 days. famotidine 19245473896 QIE q[facility]user CEPHALEXIN 500 MG CAPS Take 2 capsules (1,000 mg total) by mouth every 12 (twelve) hours for 30 days. cephalexin 43436972566 [facility] CARVEDILOL 12.5 MG TABS Take 1 tablet (12.5 mg total) by mouth 2 (two) times daily with breakfast and dinner. carvedilol 85510333567 [facility] BUMETANIDE 1 MG TABS Take 1 tablet (1 mg total) by mouth daily for 30 days. bumetanide 36383253174 [facility] Medications Administered No information available. Allergies, Adverse Reactions, Alerts No information available. Results Date Name Value Unit Range Flag Description Office Visit: Office Visit: 12 U FALLRSKASSES yes Fall ris k assessment Office [...]
--- OUTSIDE RECORDS SUMMARY | 2025-10-03 16:55 | XMS_ITS | CCD ---
Author Name Martine Jara NP Address [address] [facility] [address] [facility] [address] [place] [address] Phone Organization [facility] Phone Care Team Providers Care Business Communications Instructor Name Role Phone Office, [place] Primary Care Provider Unavaila ble Unavailable Chronic Care Management Unavaila ble Summary Purpose DataExchange Insurance Providers Payer name Policy type / Coverage type Covered republican ID Effective Begin Date Effective End Date [employer] BCBS [facility] [id number] Unknown Unknown Family History Family History data not found Problems Condition Codes Effective Dates Condition St atus Cervical spondylosis ICD-10: M47.812 12/01/2024 Acti ve Patient not seen ICD-10: UXZ.01 ICD-9: UXZ.01 02/26/2025 Active Spinal stenosis in cervical region ICD-10: M48.02 08/19 Active Medications Medication Codes Instructions Start Date Stop Date Status Fill Instructions mupirocin (BACTROBAN) 2 % ointment RxNorm: 575039 Apply topically 2 (two) times daily To each nostril with cotton applicator starting 5 days before surgery.. 5 No Stop Date Active celecoxib (CELEBREX) 100 MG capsule RxNorm: 030395 Take 100 mg by mouth 2 (two) times daily. 4 06/29/20 24 Inactive famotidine (PEPCID) 20 MG tablet RxNorm: 3335880 Take 20 Milligram(s) Oral every day . 4 06/29/20 24 Inactive Febuxostat 40 MG tablet RxNorm: 039479 Take 40 mg by mouth daily. 5 11/20/19 25 Inactive NIFEdipine (PROCARDIA XL) 30 MG 24 hr tablet RxNorm: 6314603 Take 30 Milligram(s) Oral every day . 5 11/20/19 25 Inactive bumetanide (BUMEX) 1 MG tablet RxNorm: 688177 Take 1 mg by mouth as needed. 5 11/20/19 25 Inactive traZODone (DESYREL) 50 MG tablet RxNorm: 760645 Take 50 mg by mouth nightly. 5 06/29/20 24 Inactive potassium chloride (KLOR-CON) 20 MEQ packet RxNorm: 0208543 Take 20 mEq by mouth as needed. 5 11/20/19 25 Inactive losartan (COZAAR) 25 MG tablet RxNorm: 995517 Take 25 Milligram(s) Oral every day . 5 11/20/19 25 Inactive Insulin Glargine, 2 Unit Dial, (TOUJEO MAX SOLOSTAR) 300 UNIT/ML EULALIA PEN RxNorm: 7239175 Inject 25 Units into the skin 2 (two) times daily. 5 11/20/19 25 Inactive omeprazole (PRILOSEC) 20 MG capsule RxNorm: 748150 Take 20 Milligram(s) Oral every day . 5 11/20/19 25 Inactive carvedilol (COREG) 12.5 MG tablet RxNorm: 114728 Take 12.5 mg by mouth 2 (two) times daily with meals. 5 11/20/19 25 Inactive Medication Administered No Medication Administered data Reason For Visit No Reason For Visit data Encounters Encounter Performer Location Location Address Codes Date () No answer/Patient not seen Diagnosis: Patient not seen[ICD10: UXZ.01] Martine Jara [place] Office [address] [address] CPT-4: 22683 02/26/2025 Plan of Care Planned Activity Notes Codes Status Date Appointment: Martine Jara WPtel: [address] [place], [place] [id number] 02/26/2025 Patient Education: Patient Medication Summary Completed 02/26/2025 Medical Equipment No Medical Equipment data Advance Directives No Advance Directive data
--- OUTSIDE RECORDS SUMMARY | 2025-10-03 16:55 | XMS_ITS | Clinical Summary ---
Author Organization [facility] Address [address] [place] [address] Phone Care Team Providers Care Pest Controller Assistant Name Role Phone GENNA WILKES, DARRELL Unavailable [phone] Gokul WILKES, Napoleon Unavailable [phone] Reason for Visit and Chief Complaint [Patient Encounter] Problems Includes: Problems addressed during this encounter and other active Problems All Visits Onset Date Date of Diagnosis Resolved Date Provider Condition Status Lower Back Pain 02/07/2024 02/07/2024 Napoleon Hodgson MD Active Last Documented On 5 1:42AM ; [facility] Plan of Treatment No Plan of Treatment Recorded Assessments Includes: Assessments from this encounter No Assessments Recorded Medical Equipment - Implanted Devices Includes: Current Devices No Medical Equipment Recorded Medications Includes: Medications discussed during this encounter and other current Medications New / Renewed during this visit Napoleon Hodgson MD on 04/10/2024 CeleBREX 100 MG Oral Capsule Provider: Napoleon wilkins MD 30 day supply: 60 capsule, 0 refills Diagnosis: Low back pain, unspecified Take 1 capsule PO up to twic e a day, NEEDED Pharmacy: [id number] - [address] [address] [place], [id number] - Last Documented On 4 3:41PM By Tara Keenan ; [facility] Current Medications (continue as prescribed) Carvedilol 12.5 MG Oral Tablet 01/24/2024 Provider: DARRELL VAIL MD Diagnosis: Last Documented On 4 10:35AM By Tara [facility], [facility] Invokana 300 MG Oral Tablet 01/24/2024 Provider: DARRELL VAIL MD Diagnosis: Last Documented On 4 10:35AM By Tara Keenan ; [facility] Losartan Potassium 100 MG Oral Tablet 01/24/2024 Pro vider: DARRELL VAIL MD Diagnosis: Last Documented On 4 10:35AM By Tara Keenan ; [facility] metFORMIN HCl 1000 MG Oral Tablet 01/17/2024 Provide r: DARRELL VAIL MD Diagnosis: Last Documented On 4 10:35AM By Tara Keenan ; [facility] traZODone HCl 50 MG Oral Tablet 01/17/2024 Provider: DARRELL VAIL MD Diagnosis: Last Documented On 4 10:36AM By Tara Keenan ; [facility] Furosemide 40 MG Oral Tablet 12/19/2023 Provider: Diagnosis: Last Documented On 4 10:36AM By Tara Keenan ; [facility] Medications Administered Includes: Administered Medications from this encounter No Administered Medications Recorded Results Includes: Results discussed during this encounter No Results Recorded For Specified Dates History of Present Illness Includes: History of Present Illness from this encounter No History of Present Illness Recorded Social History Description Last Updated Sex - Male 05/29/2024 Last Documented On 1:35PM ; [facility] Smoking Status Unknown Medical History Includes: Medical History addressed during this encounter No Medical History Recorded Family History Includes: Family History addressed during this encounter No Family History Recorded Review of Systems Includes: Review of Systems from this encounter No Review of Systems Recorded Physical Exam Includes: Physical Exam from this encounter No Physical Exam Recorded Allergies Includes: Active Allergies No Known Allergies Care Pest Controller Assistant Name (Identifier) Role/Relation Location/Telecom Last Documented By DARRELL VAIL MD ([id number]) [address], [place], [place], [place], [address] tel:[phone] Last Documented On 02/07/2024 10:37AM ; [facility] Napoleon Hodgson MD ([id number]) Assigned practitioner (occupation) [address] [place], [place], [place], [address] tel: Last Documented On 05/29/2024 1:35PM ; [facility] Encounters Encounter Provider Location (Healthcare Service Location) Date Check-In Time Check-Out Time Diagnosis Encounter Disposition [Patient Encounter] Napoleon estrada MD 2023 3:36PM 11:59PM Payer Includes: Active Insurance Policies Plan Name (Payer ID) Coverage Type Member ID Group # Subscriber (ID) Relationship Effective Dates 1 - BCBS ([place] Medicare ([id number]) [id number] [place] Self 01/17/2024 - Unknown Last Documented On 4 2:31PM ; [facility]
--- OUTSIDE RECORDS SUMMARY | 2025-10-03 16:55 | XMS_ITS | Clinical Summary ---
Author Organization [facility] , [facility] Address [address] [place] [address] Phone Care Team Providers Care Contract Law Specialist Name Role Phone GENNA WILKES, DARRELL Unavailable [phone] Gokul WILKES, Napoleon Unavailable [phone] Reason for Visit and Chief Complaint The Chief Complaint is: BLE numbess/weakness Problems Includes: Problems addressed during this encounter and other active Problems Current Visit Onset Date Date of Diagnosis Resolved Date Provider Condition Status Lower Back Pain 02/07/2024 02/07/2024 Napoleon Hodgson MD Active Last Documented On 5 1:42AM ; [facility] Plan of Treatment - Patient screened for future fall risk: documentation of any fall with injury in past year - Last Documented On 03/06/2024 3:53PM ; [facility] Pending Tests Order Diagnosis Results Due Ordering P rovider Therapy - Physical Therapy Lumbar Low back pain, unspecified 03/06/24 Napoleon Hodgson MD Last Documented On 4 3:42PM ; [facility] Instructions to patient Lose weight Last Documented On 4 2:57PM ; [facility], [facility] Assessments Includes: Assessments from this encounter Findings - Overweight - Last Documented On 03/06/2024 3:53PM ; [facility], [facility] Fall Risk Assessment: - Last Documented On 03/06/2024 3:53PM ; [facility], [facility] This patient has been identified as a fall risk. Balance/gait along with postural blood pressure, vision and home fall hazards have been assessed. Medications have been reviewed, and recommendations made with regard to contributing factors for future falls. - Last Documented On 03/06/2024 3:53PM ; [facility], [facility] Plan of care: Consideration of vitamin D supplementation along with balance and strength training with consideration for formal physical therapy has been discussed with the patient. - Last Documented On 03/06/2024 3:53PM ; [facility] Instructions Includes: Instructions from this encounter Instructions to patient Lose weight Last Documented On 4 2:57PM ; [facility] Medical Equipment - Implanted Devices Includes: Current Devices No Medical Equipment Recorded Medications Includes: Medications discussed during this encounter and other current Medications New / Renewed during this visit Napoleon Hodgson MD on 03/06/2024 CeleBREX 100 MG Oral Capsule Provider: Napoleon wilkins MD 30 day supply: 60 capsule, 0 refills Diagnosis: Low back pain, unspecified Take 1 capsule PO up to twic e a day, NEEDED Pharmacy: [id number] - [address] [address] [place], [phone] - Last Documented On 4 4:01PM By Napoleon Hodgson ; [facility] Current Medications (continue as prescribed) Carvedilol 12.5 MG Oral Tablet 01/24/2024 Provider: DARRELL VAIL MD Diagnosis: Last Documented On 4 10:35AM By Tara Keenan ; [facility], [facility] Invokana 300 MG Oral Tablet 01/24/2024 Provider: DARRELL VAIL MD Diagnosis: Last Documented On 4 10:35AM By [facility] Losartan Potassium 100 MG Oral Tablet 01/24/2024 Pro vider: DARRELL VAIL MD Diagnosis: Last Documented On 4 10:35AM By Tara Keenan ; [facility] metFORMIN HCl 1000 MG Oral Tablet 01/17/2024 Provide r: DARRELL VAIL MD Diagnosis: Last Documented On 4 10:35AM By Tara Keenan ; [facility] traZODone HCl 50 MG Oral Tablet 01/17/2024 Provider: DARRELL VAIL MD Diagnosis: Last Documented On 4 10:36AM By Tara Keenan ; [facility], [facility] Furosemide 40 MG Oral Tablet 12/19/2023 Provider: Diagnosis: Last Documented On 4 10:36AM By Tara Keenan ; [facility] Past Medications on file CeleBREX 100 MG Oral Capsule 04/10/2024 - 05/10/2024 Provider: Napoleon Hodgson MD Diagnosis: Low back pain, unspecified Take 1 capsule PO up to twic e a day, NEEDED Last Documented On 4 3:41PM By Tara Keenan ; [facility] Meloxicam 15 MG Oral Tablet 02/07/2024 - 03/08/2024 Provider: Napoleon Hodgson MD Diagnosis: Low back pain, unspecified Take 1 tablet PO once a day, NEEDED Last Documented On 4 11:40AM By Tara Keenan ; [facility] Medrol 4 MG Oral Tablet Therapy Pack 02/07/2024 - 02/14/2024 Provider: Napoleon Hodgson MD Diagnosis: Low back pain, unspecified take as directed Last Documented On 4 11:40AM By Tara Keenan ; [facility] Medications Administered Includes: Administered Medications from this encounter No Administered Medications Recorded Vital Signs Includes: Vital Signs from this encounter Vital Name 03/06/2024 03:08P Height (in) 71 Weight (lb) 296.4 Body Mass Index 41.3 Body Surface Area 2.5 Note: HL Last Documented: On 03/06/2024 3:08PM ; [facility], [facility] Results Includes: Results discussed during this encounter No Results Recorded For Specified Dates History of Present Illness Includes: History of Present Illness from this encounter ELIANA Lobato is a 63 year old male. - Allergy list reviewed - Problem list reviewed - Medication list reviewed - Previous history of new onset pain 12/08/2023 Work Injury - Patient pain level from 1-10: no pain - Yes, previous treatment. 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 He also informs me that he was recently hospitalized with sepsis that was localized to a septic olecranon bursitis on the left side. He ended up having surgical debridement in his been on PICC line antibiotics and he is now on oral antibiotics that he says he takes 4-6 times daily but he has not sure what pills they are. Social History Description Last Updated Caffeine use 02/07/2024 Last Documented On 4 2:57PM ; [facility], [facility] Tobacco non-user 02/07/2024 Last Documented On 4 2:57PM ; [facility], [facility] No recent change in diet 02/07/2024 Last Documented On 4 2:57PM ; [facility], [facility] Not a current smoker. 02/07/2024 Last Documented On 4 2:57PM ; [facility] Not exercising regularly 02/07/2024 Last Documented On 4 2:57PM ; [facility] Not using alcohol 02/07/2024 Last Documented On 4 2:57PM ; [facility] Not using drugs 02/07/2024 Last Documented On 4 2:57PM ; [facility] Sex - Male 05/29/2024 Last Documented On 4 1:35PM ; [facility] Smoking Status Unknown Procedures and Surgical History Includes: Procedures from this encounter Procedures Code Diagnosis Performing Provider Service L ocation Service Date use of tobacco assessment performed 1000F Last Documented On 4 2:57PM ; [facility], [facility] patient screened for future fall risk: documentation of any fall with injury in past year 1100F Last Documented On 4 2:57PM ; [facility], [facility] review of medications documented 1160F Last Documented On 4 2:57PM ; [facility], [facility] an MRI was performed 024 CSpine @ [facility] ~01/10/2024 [facility] ~01/10/2024 TREpine @ [facility] [id number] Last Documented On 4 2:57PM ; [facility], [facility] Surgical History Last Updated Past Surgical History: Broken leg 2023 Last Documented On 4 2:57PM ; [facility], [facility] Medical History Includes: Medical History addressed during this encounter Description Last Updated History of arthritis 02/07/2024 Last Documented On 4 2:57PM ; [facility] History of diabetes mellitus 02/07/2024 Last Documented On 4 2:57PM ; [facility] History of Hypertension 02/07/2024 Last Documented On 4 2:57PM ; [facility] History of Kidney Disease 02/07/2024 Last Documented On 4 2:57PM ; [facility], [facility] Family History Includes: Family History addressed during this encounter Description Last Updated Family history of rheumatoid arthritis 0 02/07/2024 Last Documented On 4 2:57PM ; [facility] Family history of systemic hypertension 02/07/2024 Last Documented On 4 2:57PM ; [facility], [facility] Review of Systems Includes: Review of Systems [...] and no abdominal pain. No Indigestion, no Peptic Ulcer, no GI Stomach Bleed, no Ulcers, and no Acid Reflux. Endocrine: No hot flashes. Muscle weakness and [...] encounter Description No anxiety Last Documented On 4 2:57PM ; [facility], [facility] Physical Exam Includes: Physical Exam from this encounter Allergies Includes: Active Allergies No Known Allergies Care Contract Law Specialist Name (Identifier) Role/Relation Location/Telecom Last Documented By DARRELL VAIL MD ([id number]) [address], [place], [place], [place], [address] tel: Last Documented On 02/07/2024 10:37AM ; [facility], [facility] Napoleon Hodgson MD ([id number]) Assigned practitioner (occupation) [address], [place], [place], [address] tel: Last Documented On 05/29/2024 1:35PM ; [facility], [facility] Encounters Encounter Provider Location (Healthcare Service Location) Date Check-In Time Check-Out Time Diagnosis Encounter Disposition Follow Up Napoleon estrada MD [facility] 2023 2:56PM 3:41PM Overweight Payer Includes: Active Insurance Policies Plan Name (Payer ID) Coverage Type Member ID Group # Subscriber (ID) Relationship Effective Dates 1 - BS ([place] Medicare ([id number]) [id number] New Lobato Self 01/17/2024 - Unknown Last Documented On 2:31PM ; [facility], [facility] Clinical Notes Includes: Clinical Notes from this encounter * Progress note Date Encounter Last Documented by 03/06/2024 Follow Up Last documented on 03/06/2024; 3:53 PM, Napoleon Eric MD; [facility], [facility] Active Problems & Conditions - Lower Back Pain Chief Complaint The Chief Complaint is: BLE numbess/weakness. Referred Here Referred by PCP. History of Present Illness New Lobato is a 63 year old male. - Allergy list reviewed - Problem list reviewed - Medication list reviewed - Previous history of new onset pain 12/08/2023 Work Injury - Patient pain level from 1-10: no pain - Yes, previous treatment. 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 He also informs me that he was recently hospitalized with sepsis that was localized to a septic olecranon bursitis on the left side. He ended up having surgical debridement in his been on PICC line antibiotics and he is now on oral antibiotics that he says he takes 4-6 times daily but he has not sure what pills they are. Current Medication - Carvedilol 12.5 MG Oral Tablet twice a day 30 days, 0 refills - Furosemide 40 MG Oral Tablet once a day 30 days, 0 refills - Invokana 300 MG Oral Tablet once a day 90 days, 0 refills - Losartan Potassium 100 MG Oral Tablet once a day 90 days, 0 refills - Meloxicam 15 MG Oral Tablet Take 1 tablet PO once a day, NEEDED, 30 days, 0 refills - metFORMIN HCl 1000 MG Oral Tablet twice a day 90 days, 0 refills - traZODone HCl 50 [...] and no abdominal pain. No Indigestion, no Peptic Ulcer, no GI Stomach Bleed, no Ulcers, and no Acid Reflux. Endocrine: No hot flashes. Muscle weakness and [...] allergic reaction. Physical Findings - Vitals taken 03/06/2024 03:08 pm HL Height 71 in Weight 296 lbs 6.4 oz Body Mass Index 41.3 kg/m2 Body Surface Area 2.5 m2 General: Alert and Oriented A&O x [...] reflex is 1+ bilaterally Negative Carias's bilaterally The patient was in a wheelchair today much like he was it was last office visit and says he can not stand long enough due to generalized weakness. He completed the entirety of today's exam from wheelchair much like he did it was 1st visit Symmetric, palpable radial pulses bilaterally Motor HF KE AD EHL GS Right 5/5 4/5 3/5 3/5 3/5 Left 5/5 4/5 3/5 3/5 3/5 Sensation L2 L3 L4 L5 S1 Right 2 2 2 2 2 Left 2 2 2 2 2 Patellar reflex is 1+ bilaterally Achilles reflex is 1+ bilaterally No ankle clonus Symmetric, palpable posterior tibialis pulse bilaterally User Defined 5 This is a 63-year-old man with tandem stenosis and generalized debility. It was nice seeing New. I told him I am sorry to hear about the recent hospitalization in the difficulty with sepsis. He needs to work on some general conditioning and debility. I told him I would at the very minimum I need to see that he is able to stand long enough in order to get x-rays of his lumbar spine. I think 1 absolutely phases his his severe obesity and relative malnutrition. It has almost a paradoxical failure to thrive situation. He said he was working on his nutrition as well as general conditioning at home, but I said he absolutely has to go to a physical therapist in [facility] to work on general conditioning and overall lifestyle changes. He voiced understanding. He is going to see me back in 2-3 months at which time I hope to see that we are able to get standing AP and lateral views of the spine. Fall Risk Assessment: This patient has been [...] patient. Assessment - Overweight Previous Tests Imaging: CT Scan Lower Extremity Foot: An MRI was performed 01/10/2024 [facility]Spine @ [facility] 01/10/2024 [facility]Spine @ [facility] 01/10/2024 LSpine @ [facility]. Counseling/Education - Tobacco non-user - Use of tobacco assessment performed - Lose weight Plan StartCited - Low back pain, unspecified Therapy/Physical Therapy: Lumbar Instructions: See PT order attached CeleBREX 100 MG capsule Take 1 capsule PO up to twice a day, NEEDED, 30 days, 0 refills EndCited - Patient screened for future fall risk: documentation of any fall with injury in past year Practice Management Use of tobacco assessment performed and patient screened for future fall risk documentation of any fall with injury in past year Review of medications documented. Care Team - DARRELL VAIL MD - REFRIGERATION ENGINEER Notes This dictation was done with voice recognition software and may contain errors and omissions.
--- OUTSIDE RECORDS SUMMARY | 2025-10-03 16:56 | XMS_ITS | Clinical Summary ---
Author Organization [facility] ([place], [place], [place], [place], [place]) Address [address] [place] [address] Care Team Providers Care Medical Record Clerk Name Role Phone Tomi Cao MD Primary Care Provider + [phone] Allergies No known active allergies Medications carvediloL [...] Do you speak a language other than [facility]? No 05/23/2024 Do you want help [...] Eye Exam 1968 Depression Screening (12+) 1970 Hepatitis C Screening 1976 DTAP/TDAP/TD VACCINES (1 - Tdap) 1977 Pneumococcal 50+ years (2 of 2 - PCV) 07/02/2017 Respiratory Syncytial Virus (RSV) Adult or (1 - Risk 60-74 years 1-dose series) 2018 Shingles Vaccine (Zoster) (2 of 2) 09/25/20212020 Hemoglobin A1C 02/19/2024 Falls Risk Screening 10/18/2024 Medicare Initial AWV [id number] 01/17/2025 Tobacco Cessation Counseling and Screening (12+) 02/18/2025 02/19/2024 COVID-19 VACCINE (3 - 2024- season) 2025, 06/18/2021 Influenza Vaccine (#1) 2025 Medical Devices Implanted Type Area Brush Cutter Device Identifier Shelf Expiration Date Model / Serial / Lot Imp [employer]ix 2x4cm [id number] - [id number] Implanted:Qty: 1 on 05/25/2024 by Jeff Encinas DPM at [facility] IMPLANTS Right: Foot [employer] 04/06/2026 [id number] / [id number] / [id number] Insurance [facility] ACCESS O MAP Advance Directives For more information, please contact: [phone] * Full Code (Latest Code Status on File) Date Activated Date Inactivated Comments 05/25/2024 11:34 AM 05/30/2024 3:32 PM * Full Code Date Activated Date Inactivated Comments 05/23/2024 6:06 PM 05/25/2024 11:34 AM * Full Code Date Activated Date Inactivated Comments 02/19/2024 2:59 AM 02/22/2024 5:37 PM Care Teams Medical Record Clerk Relationship Specialty Start Date End Date Tomi Cao MD [address] [place] [id number] PCP - General Adolescent Medicine 02/18/24
--- OUTSIDE RECORDS SUMMARY | 2025-10-03 16:56 | XMS_ITS ---
Author Organization [facility] Address [address] [place] [address] Phone Care Team Providers Care Hazardous Material Technician Name Role Phone GENNA WILKES, DARRELL Unavailable [phone] Gokul WILKES, Napoleon Unavailable [phone] Problems Includes: Active, inactive, and resolved Problems All Visits Onset Date Date of Diagnosis Resolved Date Provider Condition Status Lower Back Pain 02/07/2024 02/07/2024 Napoleon Hodgson MD Active Last Documented On 5 1:42AM ; [facility] Plan of Treatment Findings Encounter Date Patient screened for future fall risk: documentation of any fall with injury in past year Follow Up with Napoleon Hodgson MD 03/06/2024 Last Documented On 4 2:58PM ; [facility] Instructions to patient Lose weight Last Documented On 4 2:57PM ; [facility] Lose weight Last Documented On 4 10:36AM ; [facility] Assessments Includes: Assessments for all patient encounters Findings Encounter Date Overweight Follow Up with Napoleon Eric MD 03/06/2024 Last Documented On 4 2:57PM ; [facility] Overweight Physician Specified with Napoleon Hodgson MD 02/07/2024 Last Documented On 4 10:36AM ; [facility] Instructions Includes: Instructions for all patient encounters Instructions to patient Lose weight Last Documented On 4 2:57PM ; [facility] Lose weight Last Documented On 4 10:36AM ; [facility] Medical Equipment - Implanted Devices Includes: Current and historical Devices No Medical Equipment Recorded Medications Includes: Current and historical Medications Current Medications (continue as prescribed) Carvedilol 12.5 MG Oral Tablet 01/24/2024 Provider: DARRELL VAIL MD Diagnosis: Last Documented On 4 10:35AM By Tara Keenan ; [facility] Invokana 300 MG Oral Tablet 01/24/2024 Provider: DARRELL VAIL MD Diagnosis: Last Documented On 4 10:35AM By Tara Keenan ; [facility] Losartan Potassium 100 MG Oral Tablet 01/24/2024 Pro vider: DARRELL VAIL MD Diagnosis: Last Documented On 4 10:35AM By Tara Keenan ; [facility] metFORMIN HCl 1000 MG Oral Tablet 01/17/2024 Provide r: DARRELL VAIL MD Diagnosis: Last Documented On 4 10:35AM By Tara Keenan ; [facility] traZODone HCl 50 MG Oral Tablet 01/17/2024 Provider: DARRELL VAIL MD Diagnosis: Last Documented On 4 10:36AM By Tara Keenan ; [facility] Furosemide 40 MG Oral Tablet 12/19/2023 Provider: Diagnosis: Last Documented On 4 10:36AM By Tara Keenan ; [facility] Past Medications on file CeleBREX 100 MG Oral Capsule 04/10/2024 - 05/10/2024 Provider: Napoleon Hodgson MD Diagnosis: Low back pain, unspecified Take 1 capsule PO up to twic e a day, NEEDED Last Documented On 4 3:41PM By Tara Keenan ; [facility] CeleBREX 100 MG Oral Capsule 03/06/2024 - 04/05/2024 Provider: Napoleon Hodgson MD Diagnosis: Low back pain, unspecified Take 1 capsule PO up to twic e a day, NEEDED Last Documented On 4 4:01PM By Napoleon Hodgson ; [facility] Meloxicam 15 MG Oral Tablet 02/07/2024 - 03/08/2024 Provider: Napoleon Hodgson MD Diagnosis: Low back pain, unspecified Take 1 tablet PO once a day, NEEDED Last Documented On 4 11:40AM By Tara Keenan ; [facility] Medrol 4 MG Oral Tablet Therapy Pack 02/07/2024 - 02/14/2024 Provider: Napoleon Hodgson MD Diagnosis: Low back pain, unspecified take as directed Last Documented On 4 11:40AM By Tara Keenan ; [facility] predniSONE 20 MG Oral Tablet 01/28/2024 - 02/04/2024 Raysa howard: DARRELL VAIL MD Diagnosis: Last Documented On 4 8:34AM By Tara Keenan ; [facility] Medications Administered Includes: Administered Medications in patient's chart No Administered Medications Recorded Results Includes: Results from 10/03/2024 through 10/03/2025 No Results Recorded For Specified Dates Social History Description Last Updated Caffeine use 02/07/2024 Last Documented On 4 2:51PM ; [facility] Tobacco non-user 02/07/2024 Last Documented On 4 2:51PM ; [facility] No recent change in diet 02/07/2024 Last Documented On 4 2:51PM ; [facility] Not a current smoker. 02/07/2024 Last Documented On 4 2:51PM ; [facility] Not exercising regularly 02/07/2024 Last Documented On 4 2:51PM ; [facility] Not using alcohol 02/07/2024 Last Documented On 4 2:51PM ; [facility] Not using drugs 02/07/2024 Last Documented On 4 2:51PM ; [facility] Sex - Male 05/29/2024 Last Documented On 4 1:35PM ; [facility] Smoking Status Unknown Procedures and Surgical History Surgical History Last Updated Past Surgical History: Broken leg 2023 Last Documented On 4 2:51PM ; [facility] Medical History Includes: Medical History in patient's chart Description Last Updated History of arthritis 02/07/2024 Last Documented On 4 2:51PM ; [facility] History of diabetes mellitus 02/07/2024 Last Documented On 4 2:51PM ; [facility] History of Hypertension 02/07/2024 Last Documented On 4 2:51PM ; [facility] History of Kidney Disease 02/07/2024 Last Documented On 4 2:51PM ; [facility] Family History Includes: Family History in patient's chart Description Last Updated Family history of rheumatoid arthritis 0 02/07/2024 Last Documented On 4 2:51PM ; [facility] Family history of systemic hypertension 02/07/2024 Last Documented On 4 2:51PM ; [facility] Mental Status Description No anxiety Last Documented On 4 2:57PM ; [facility] No anxiety Last Documented On 4 10:36AM ; [facility] Allergies Includes: Active, inactive, and resolved Allergies No Known Allergies Care Hazardous Material Technician Name (Identifier) Role/Relation Location/Telecom Last Documented By DARRELL VAIL MD ([id number]) [address] [facility] [address], [address] tel: Last Documented On 02/07/2024 10:37AM ; [facility] Napoleon Hodgson MD ([id number]) Assigned practitioner (occupation) [address] [place] [address], [place], [address] tel: Last Documented On 05/29/2024 1:35PM ; [facility] Payer Includes: Active Insurance Policies Plan Name (Payer ID) Coverage Type Member ID Group # Subscriber (ID) Relationship Effective Dates 1 - BC[employer] ([place] Medicare ([id number]) [id number] [place] Self 01/17/2024 - Unknown Last Documented On 4 2:31PM ; [facility]
--- OUTSIDE RECORDS SUMMARY | 2025-10-03 16:56 | XMS_ITS | Clinical Summary ---
[facility] Address [address] [place] [id number] Care Team Providers Care Reception Clerk Name Role Phone Provider, No Known Primary Care Provider Unavail able Social History Tobacco Use Types Packs/Day Years Used Date Smoking Tobacco: Never Assessed Abuse Screen Answer Date Recorded Unsafe at Home or Work/School Not on file Feels Threatened by Someone? Not on file Does Anyone Keep You from Co ntacting Others or Doint Things Outside the Home? Not on file 08/15/2024 Physical Sign of Abuse Present Not on file 1 Housing Stability Answer Date Recorded Current Living Arrangements Not on file 07/19 Potentially Unsafe Housing Conditions Not on osmar e 08/15/2024 Family and Community Support Answer Chava e Recorded Help with Day-to-Day Activities Not on file 08/15/2024 Lonely or Isolated Not on file 08/15/2024 Employment Answer Date Recorded Do you want help finding or keeping work or a chico b? Not on file 08/15/2024 Disabilities Answer Date Recorded Concentrating, Remembering, or Making Decisions Difficulty Not on file 08/15/2024 Doing Errands Independently Difficulty Not on fi le 08/15/2024 Education Answer Date Recorded Help with school or training? Not on file Preferred Language Not on file 08/15/2024 Sex and Gender Information Value Date Recorded Sex Assigned at Not on file Legal Sex Male 3:54 PM EDT Gender Identity Not on file Sexual Orientation Not on file Plan of Treatment Health Maintenance Due Date Last Done Comments ANNUAL PHYSICAL 1958 HEPATITIS C SCREENING 1958 TDAP/TD VACCINES (1 - Tdap) 1977 COLOGUARD 2003 COLON CANCER SCREENING 5 YEA R SIGMOIDOSCOPY 2003 COLONOSCOPY 2003 COL[address]AL CANCER SCREENING 2003 CT COLONOGRAPHY 2003 FECAL OCCULT BLOOD TEST 2003 FIT Testing (1 year) 2003 Pneumococcal Vaccine 50+ (2 of 2 - PCV) 07/02/2017 0 07/02/2016 ZOSTER VACCINE (2 of 2) 09/25/2021 07/31/2021 AAA SCREEN ONCE 2023 INFLUENZA VACCINE 05/18/2025 07/16/2017, 07/01/2016 COVID-19 Vaccine ( season) 2025, 06/18/2021 [facility] Care Teams Reception Clerk Relationship Specialty Start Date End Date Provider, No Known [facility] [place] [address] PCP - General 08/15/24
[2025-10-03 17:13] LABS: Uric Acid 4.3 mg/dl (3.5-8.5)
[2025-10-03 17:52] LABS: Hemoglobin A1C 5.2 % (4.0-6.0)
[2025-10-03 18:00] LABS: Vitamin B12 315 pg/mL (239-931)
== END 2025-10-03 23:59 | disposition home or self-care (01) ==
LOC: LAB 15:30
PROVIDERS: PCP Internal Medicine Adolescent Medicine; Visit Provider Nurse Practitioner Family
DX: E11.69 Type 2 diabetes mellitus with other specified complication (principal); N18.32 Chronic kidney disease, stage 3b; M10.9 Gout, unspecified; E53.8 Deficiency of other specified B group vitamins
CPT/HCPCS: 36415; 82607; 83036; 84550; 85025